=== PATIENT | female | born 1955 | race Caucasian/White ===

== ENCOUNTER 2016-11-02 19:11 | Emergency (ER) | payer OTHER ==
[~2016-11-02] VITALS: Ht 172.7 cm; Wt 115.6 kg
[~2016-11-02 19:11] MED LIST: ALBUAER2 INH; ASPI81TA28 PO; BUPRTAB51 PO; CLX20 PO; HYDR-3785 PO; IBUP600T44 PO; IMT50 PO; LEVO150T PO; TIOTCAP INH
[2016-11-02 19:14] VITALS: TEMP 36.9; Ht 172.7 cm; Wt 115.6 kg
[2016-11-02] MEDS ORDERED: XYLOCAINE 1%/SOD BICARB 20 ML VIAL INFIL ONE (19:45)
--- NOTE | 2016-11-02 20:22 | EMERGENCY ROOM VISIT NOTE ---
ED Visit Note First contact with patient: 19:19 CHIEF COMPLAINT: Cyst on scalp HISTORY OF PRESENT ILLNESS: This 61-year-old female patient presents to the emergency department ambulatory complaining of a cyst on the left side of her scalp. The patient reports that she has had a recurrent cyst which broke open tonight. She states that she has had several other cysts which had to be removed by surgeons. She states that it was draining, but it seems to have scabbed over. She reports the cyst is painful, especially when brushing or washing her hair. She denies any fevers. She rates her discomfort a 10/10. REVIEW OF SYSTEMS: A review of systems was performed with positives and pertinent negatives listed in the history of present illness. All other systems were reviewed and are negative. ALLERGIES: Amoxicillin, doxycycline, naproxen, penicillins MEDICATIONS: See med list PMH: COPD, hyperlipidemia, hypertension SOCIAL HISTORY: The patient lives locally with family. PHYSICAL EXAM: Vital Signs: Reviewed Nurse's notes, vital signs stable. GENERAL : This is a 61-year-old female, no acute distress, non toxic in appearance, well -developed well-nourished. SKIN: There is a sebaceous cyst to the left occipital region of the scalp. There is no active draining. There is mild surrounding erythema. EMERGENCY DEPARTMENT COURSE: I examined the patient. Verbal consent was obtained to perform the procedure. After saline and Betadine cleansing and 3 mL of 1% buffered lidocaine anesthesia, pressure was applied and a large amount of white thick material was expressed from the cyst. The pocket was not able to be fully removed. The patient was informed that she will need to follow-up with a surgeon for removal of the cyst pocket so it does not recur. She does have an upcoming appointment with her primary care provider next week. She verbalized understanding of my assessment and treatment plan and was discharged home in good condition. DIAGNOSIS: Sebaceous cyst of scalp Problem List Medical Problems: (1) COPD (chronic obstructive pulmonary disease) Status: Chronic (2) Hyperlipemia Status: Chronic (3) Hypothyroidism Status: Chronic Current/Historical Medications Scheduled Aspirin (Aspirin Ec), 81 MG PO DAILY Bupropion (Wellbutrin-Xl), 150 MG PO DAILY Citalopram (Citalopram Hydrobromide), 20 MG PO DAILY Furosemide (Lasix), 20 MG PO BID Hydroxyzine Hcl (Atarax), 25 MG PO DIRECTED Levothyroxine Sodium (Synthroid), 150 MCG PO DAILY Mometasone Furoate-Formoterol (Dulera 200/5 Mcg), 2 AER INH BID Potassium Chloride (Micro-K Ext Rel), 10 MEQ PO DAILY Quetiapine Fumarate (Seroquel), 200 MG PO HS Tiotropium [place] (Spiriva Handihaler), 1 CAPSULE INH DAILY Zolpidem Tartrate (Ambien), 10 MG PO HS Scheduled PRN Albuterol (Ventolin), 2 PUFFS INH Q4H PRN for Shortness of Breath Albuterol Sulf (Ventolin), 1 VIAL NEB Q4-6 HR PRN for Wheezing Fctorzltye-Nopiyqxnzlzbi-Misjg (Fioricet), 2 TABLETS PO UD PRN for Migraine Ibuprofen (Motrin), 600 MG PO DIRECTED PRN for Pain or Fever Lorazepam (Ativan), 0.5 MG PO HS PRN for Anxiety Sumatriptan Succinate (Sumatriptan Succinate), 1 TAB PO DIRECTED PRN for Migraine Allergies Coded Allergies: Amoxicillin (Verified Allergy, Mild, HIVES, 08/06/16) Doxycycline (Verified Allergy, Unknown, ., 08/06/16) Naproxen (Verified Allergy, Unknown, ., 08/06/16) Penicillins (Verified Allergy, Unknown, 08/06/16) Vital Signs Date Time Temp Pulse Resp B/P Pulse Ox O2 Delivery O2 Flow Rate FiO2 11/02/16 20:41 78 16 129/80 96 11/02/16 19:14 36.9 86 24 172/79 93 Nasal Cannula Departure Information Impression Primary Impression: Sebaceous cyst Dispostion Home / Self-Care Condition GOOD Referrals Endy Vale M.D. (PCP) Patient Instructions My [facility] Additional Instructions For pain control, you can use the following ykns-fap-emulxfz medicines (if >12 yo): - Regular strength (325mg/tab) Tylenol (acetaminophen) 2 tabs every 4-6 hours as needed. Do not exceed 12 tablets in a 24 hour period. Avoid taking more than 4 grams (4000 mg) of Tylenol per day. This includes any other sources of acetaminophen you may take on a regular basis. - Regular strength (200 mg/tab) Advil (ibuprofen) 1-2 tabs every 4-6 hours as needed. Do not exceed a dose of 3200 mg per day. Follow-up with your primary care provider on Saturday as scheduled. You should be referred to a surgeon for removal of the cyst pocket.
[2016-11-02 20:41] VITALS: BP 129/80; PULSE 78; O2SAT 96
[2017-06-21] MEDS ORDERED: FURO-85 PO (01:26)
[2017-06-21] MEDS ORDERED: LORA-741 PO (01:28)
[2017-06-21] MEDS ORDERED: ZOLP10TA PO (09:53)
[2017-06-21] MEDS ORDERED: BUTA1CAP17 PO (09:53)
[2017-06-21] MEDS ORDERED: MOME200A INH (09:53)
[2017-06-21] MEDS ORDERED: ALBU2SYP9 NEB (15:34)
[2017-07-08] MEDS ORDERED: PROM25TA9 PO (13:39)
[2017-07-08] MEDS ORDERED: [UNRECOGNIZED DRUG - REMARK] TOP (13:43)
[2017-07-08] MEDS ORDERED: MOME200A INH (13:43)
[2017-07-08] MEDS ORDERED: MELO7.5T5 PO (13:43)
== END 2016-11-02 20:35 | disposition home or self-care (01) ==
LOC: C.EDB 19:13 → C.EDD 20:35
DX: L72.3 Sebaceous cyst (principal); J44.9 Chronic obstructive pulmonary disease, unspecified; E78.5 Hyperlipidemia, unspecified; E03.9 Hypothyroidism, unspecified

== ENCOUNTER → 2017-01-02 | Outpatient (CLI) | payer OTHER ==
[~2017-01-02] MED LIST changes: +ACET-24 PO; +ALBU2SYP9 NEB; +ASPEC81 PO; +ATR25 PO; +BUTA1CAP17 PO; +CLB200 PO; +DICL50TA3 PO; +EFF75 PO; +ESCI1TAB10 PO; +FURO-85 PO; +HYDR-3124 PO; +LEVO-519 PO; +LEVO137T3 PO; +LORA-741 PO; +MCTP EXT; +MELO15TA4 PO; +MELO7.5T5 PO; +MOME100A INH; +MOME200A INH; +OXGN; +OXYC-57 PO; +POTA10CA28 PO; +PROM25TA9 PO; +QUET1TAB10 PO; +RXC5 PO; +SENN1TAB80 PO; +SPRIN/30 INH; +SUCR1TAB PO; +TRAM-10 PO; +TRAM-453 PO; +VNTHFA/IN INH; +ZOLP10TA PO; +[UNRECOGNIZED DRUG - REMARK] TOP
[2017-01-02 18:12] LABS: ALT/SGPT 13 U/L (12-78); AST/SGOT 11 U/L (15-37); BLOOD UREA NITROGEN 19 mg/dl (7-18); CALCIUM 8.4 mg/dl (8.5-10.1); CARBON DIOXIDE 30 mmol/L (21-32); CHLORIDE 107 mmol/L (98-107); CREATININE 0.69 mg/dl (0.60-1.20); GLUCOSE 84 mg/dl (70-99); POTASSIUM 4.3 mmol/L (3.5-5.1); SODIUM 143 mmol/L (136-145)
[2017-01-02 18:24] LABS: ALB/GLOB RATIO 0.8 (0.9-2); ALKALINE PHOSPHATASE 151 U/L (45-117); CHOLESTEROL 190 mg/dl (0-200); CHOLESTEROL/HDL RATIO 5.3; HDL CHOLESTEROL 36 mg/dl; LDL CHOLESTEROL CALCULATED 100 mg/dl; THYROID STIMULATING HORMONE 0.013 uIu/ml (0.300-4.500); TRIGLYCERIDES 270 mg/dl (0-150); VERY LOW DENSITY LIPOPROT CALC 54 mg/dl
== END | disposition home or self-care (01) ==
LOC: C.LABBFT 15:37
PROVIDERS: ATTEND Nurse Practitioner
DX: E78.5 Hyperlipidemia, unspecified (principal); E03.9 Hypothyroidism, unspecified; R19.00 Intra-abdominal and pelvic swelling, mass and lump, unspecified site

== ENCOUNTER 2017-01-23 22:50 | Emergency (ER) | payer OTHER ==
[~2017-01-23] VITALS: Ht 167.6 cm; Wt 113.9 kg
[~2017-01-23 22:50] MED LIST changes: -ACET-24 PO; -ALBU2SYP9 NEB; -ASPEC81 PO; -ATR25 PO; -BUTA1CAP17 PO; -CLB200 PO; -DICL50TA3 PO; -EFF75 PO; -ESCI1TAB10 PO; -FURO-85 PO; -HYDR-3124 PO; -LEVO-519 PO; -LEVO137T3 PO; -LORA-741 PO; -MCTP EXT; -MELO15TA4 PO; -MELO7.5T5 PO; -MOME100A INH; -MOME200A INH; -OXGN; -OXYC-57 PO; -POTA10CA28 PO; -PROM25TA9 PO; -QUET1TAB10 PO; -RXC5 PO; -SENN1TAB80 PO; -SPRIN/30 INH; -SUCR1TAB PO; -TRAM-10 PO; -TRAM-453 PO; -VNTHFA/IN INH; -ZOLP10TA PO; -[UNRECOGNIZED DRUG - REMARK] TOP
[2017-01-23 22:54] VITALS: O2SAT 97; Ht 167.6 cm; Wt 113.9 kg
[2017-01-23] MEDS ORDERED: NITROGLYCERIN OINT 2% 1GM PACKET EXT ONE (23:30)
[2017-01-23] MEDS ORDERED: OXGN (23:34)
[2017-01-23] MEDS ORDERED: EFF75 PO (23:34)
[2017-01-23 23:38] LABS: BASO % 0.1 %; BASO ABS # 0.01 K/uL (0-0.2); COMPLETE YES; EOS % 3.1 %; HEMATOCRIT 37.5 % (37-47); IG% 0.1 %; LYMPH % 21.6 %; LYMPH ABS # 1.52 K/uL (1.2-3.4); MEAN CELL VOLUME 84.1 fL (80-100); MEAN CORPUSCULAR HEMOGLOBIN 26.9 pg (25-34); MEAN PLATELET VOLUME 11.2 fL (7.4-10.4); MONO % 8.5 %; NEUT % 66.6 %; PLATELET COUNT 153 K/uL (130-400); RED BLOOD COUNT 4.46 M/uL (4.2-5.4); WHITE BLOOD COUNT 7.04 K/uL (4.8-10.8)
[2017-01-23 23:47] LABS: ALT/SGPT 17 U/L (12-78); AST/SGOT 12 U/L (15-37); BLOOD UREA NITROGEN 18 mg/dl (7-18); BUN/CREATININE RATIO 25.5 (10-20); CALCIUM 8.5 mg/dl (8.5-10.1); CARBON DIOXIDE 32 mmol/L (21-32); CHLORIDE 107 mmol/L (98-107); CREATININE 0.71 mg/dl (0.60-1.20); GLUCOSE 100 mg/dl (70-99); MAGNESIUM 2.3 mg/dl (1.8-2.4); POTASSIUM 3.7 mmol/L (3.5-5.1); PROTHROMBIN TIME (PATIENT) 10.7 SECONDS (9.0-12.0); SODIUM 144 mmol/L (136-145)
--- NOTE | 2017-01-23 23:47 | EMERGENCY ROOM VISIT NOTE ---
History Report prepared by Noa: Celina Maurice Under the Supervision of: Dr. Elsie Bass M.D. First contact with patient: 23:12 Chief Complaint: CHEST PAIN Stated Complaint: CHEST PAIN Nursing Triage Summary: Elvia reports sudden onset of substernal chest pain 8/10 that started at 1500 and got progressively worse throughout day. Patient has chronic SOB and COPD, but does report some associated SOB with this. negative nausea/vomiting , diaphoresis. 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 Patient on home oxygten 3 lpm via NC all time. History of Present Illness The patient is a 61 year old female who presents to the Emergency Room via EMS with complaints of substernal chest pain starting about 8 hours ago. She describes the pain to be sharp. She reports pain radiation to her left arm. She was sitting down and watching TV when she had an onset of her pain. She currently continues to complain of her pain. She currently rates a pain intensity of 6/10. She had some pain relief with nitro. She denies any worsening pain with palpation. She denies any history of similar pain. The patient denies nausea, vomiting, or any other complaints. She has a history of COPD. She denies any history of heart disease or cardiac catheterization. Source of History: patient Onset: about 8 hours ago Position: chest (substernal) Symptom Intensity: 6/10 Quality: sharp Modifying Factors (Relieving): other (some pain relief with nitro) Associated Symptoms: No nausea, No vomiting Review of Systems See HPI for pertinent positives & negatives. A total of 10 systems reviewed and were otherwise negative. Past Medical & Surgical Medical Problems: (1) COPD (chronic obstructive pulmonary disease) (2) Hyperlipemia (3) Hypothyroidism Family History FH: cancer Heart disease Social History Smoking Status: Current Every Day Smoker Alcohol Use: none Drug Use: none Marital Status: Housing Status: lives alone Occupation Status: unemployed Current/Historical Medications Scheduled Aspirin (Aspirin Ec), 81 MG PO DAILY Bupropion (Wellbutrin-Xl), 300 MG PO DAILY Citalopram (Citalopram Hydrobromide), 20 MG PO DAILY Furosemide (Lasix), 20 MG PO BID Levothyroxine Sodium (Synthroid), 150 MCG PO DAILY Mometasone Furoate-Formoterol (Dulera 200/5 Mcg), 2 AER INH BID Potassium Chloride (Micro-K Ext Rel), 10 MEQ PO DAILY Quetiapine Fumarate (Seroquel), 200 MG PO HS Tiotropium [place] (Spiriva Handihaler), 18 MCG INH DAILY Venlafaxine Hcl (Effexor), 75 MG PO DAILY Zolpidem Tartrate (Ambien), 10 MG PO HS Scheduled PRN Albuterol Hfa (Ventolin Hfa), 2 PUFFS INH Q4 PRN for SOB/Wheezing Albuterol Sulf (Ventolin), 1 VIAL NEB Q4-6 HR PRN for Wheezing Bydajhhmzb-Basalfrzhgqcr-Tebty (Fioricet), 1-2 TABLETS PO Q8 PRN for Migraine Lorazepam (Ativan), 0.5 MG PO HS PRN for Anxiety Oxygen (Oxygen), 2 LITERS NA UD PRN for EXERTION Tramadol Hcl (Ultram), 50 MG PO Q6 PRN for Pain Allergies Coded Allergies: Amoxicillin (Verified Allergy, Mild, HIVES, 01/23/17) Doxycycline (Verified Allergy, Unknown, ., 01/23/17) Naproxen (Verified Allergy, Unknown, ., 01/23/17) Penicillins (Verified Allergy, Unknown, 01/23/17) Physical Exam Vital Signs Date Time Temp Pulse Resp B/P Pulse Ox O2 Delivery O2 Flow Rate FiO2 01/24/17 02:18 36.6 78 18 113/68 96 01/24/17 02:17 78 18 113/68 96 Nasal Cannula 3.0 01/24/17 01:30 77 18 123/61 99 Nasal Cannula 3.0 01/24/17 01:28 170/60 99 Nasal Cannula 3.0 01/23/17 23:35 76 17 99 Nasal Cannula 3.0 01/23/17 23:30 78 24 95/56 98 01/23/17 23:25 89 18 86 Nasal Cannula 3.0 01/23/17 23:22 82 01/23/17 23:20 86 12 92 01/23/17 23:15 81 23 99 Nasal Cannula 3.0 01/23/17 23:03 111/57 01/23/17 22:54 95 Nasal Cannula 3.0 01/23/17 22:54 36.6 92 26 130/76 93 Nasal Cannula 3.0 01/23/17 22:54 97 Nasal Cannula 3.0 Physical Exam Vital signs reviewed. General: Disheveled, chronically ill appearing, on nasal canula oxygen. HEENT: No scleral icterus, PERRLA, neck supple. Atraumatic. Cardiovascular: Regular rate and rhythm, no extra sounds. Pulmonary: Diminished breath sounds bilaterally, normal work of breathing. Abdomen: Soft, nontender, nondistended, positive bowel sounds. Musculoskeletal: Atraumatic, no peripheral edema. Neurologic: Patient awake alert and oriented x 3, full strength in all 4 extremities. Cranial nerves 2 through 12 grossly intact. Skin: Warm, dry, no rash Medical Decision & Procedures ER Provider Diagnostic Interpretation: X-ray results as stated below per interpretation by me: CHEST X-RAY Chronic emphysematous changes, no focal lung consolidation, no lung failure. Laboratory Results 01/23/17 22:30 Red Blood Count 4.46, Mean Corpuscular Volume 84.1, Mean Corpuscular Hemoglobin 26.9, Mean Corpuscular Hemoglobin Concent 32.0, Mean Platelet Volume 11.2, Neutrophils (%) (Auto) 66.6, Lymphocytes (%) (Auto) 21.6, Monocytes (%) (Auto) 8.5, Eosinophils (%) (Auto) 3.1, Basophils (%) (Auto) 0.1, Neutrophils # (Auto) 4.68, Lymphocytes # (Auto) 1.52, Monocytes # (Auto) 0.60, Eosinophils # (Auto) 0.22, Basophils # (Auto) 0.01 01/23/17 22:30 Test 01/23/17 22:30 01/23/17 23:50 01/24/17 00:22 White Blood Count 7.04 K/uL (4.8-10.8) Red Blood Count 4.46 M/uL (4.2-5.4) Hemoglobin 12.0 g/dL (12.0-16.0) Hematocrit 37.5 % (37-47) Mean Corpuscular Volume 84.1 fL (80-100) Mean Corpuscular Hemoglobin 26.9 pg (25-34) Mean Corpuscular Hemoglobin Concent 32.0 g/dl (32-36) Platelet Count 153 K/uL (130-400) Mean Platelet Volume 11.2 fL (7.4-10.4) Neutrophils (%) (Auto) 66.6 % Lymphocytes (%) (Auto) 21.6 % Monocytes (%) (Auto) 8.5 % Eosinophils (%) (Auto) 3.1 % Basophils (%) (Auto) 0.1 % Neutrophils # (Auto) 4.68 K/uL (1.4-6.5) Lymphocytes # (Auto) 1.52 K/uL (1.2-3.4) Monocytes # (Auto) 0.60 K/uL (0.11-0.59) Eosinophils # (Auto) 0.22 K/uL (0-0.5) Basophils # (Auto) 0.01 K/uL (0-0.2) RDW Standard Deviation 42.0 fL (36.4-46.3) RDW Coefficient of Variation 13.7 % (11.5-14.5) Immature Granulocyte % (Auto) 0.1 % Immature Granulocyte # (Auto) 0.01 K/uL (0.00-0.02) Prothrombin Time 10.7 SECONDS (9.0-12.0) Prothromb Time International Ratio 1.0 (0.9-1.1) Activated Partial Thromboplast Time 26.6 SECONDS (21.0-31.0) Partial Thromboplastin Ratio 1.0 Anion Gap 5.0 mmol/L (3-11) Est Creatinine Clear Calc Drug Dose 107.9 ml/min Estimated GFR () 107.3 Estimated GFR (Non- 92.6 BUN/Creatinine Ratio 25.5 (10-20) Calcium Level 8.5 mg/dl (8.5-10.1) Magnesium Level 2.3 mg/dl (1.8-2.4) Total Bilirubin 0.2 mg/dl (0.2-1) Direct Bilirubin < 0.1 mg/dl (0-0.2) Aspartate Amino Transf (AST/SGOT) 12 U/L (15-37) Alanine Aminotransferase (ALT/SGPT) 17 U/L (12-78) Alkaline Phosphatase 146 U/L (45-117) Total Creatine Kinase 32 U/L (26-192) Creatine Kinase MB 0.7 ng/ml (0.5-3.6) Creatine Kinase MB Ratio 2.2 (0-3.0) Troponin I < 0.015 ng/ml (0-0.045) Total Protein 6.9 gm/dl (6.4-8.2) Albumin 3.3 gm/dl (3.4-5.0) Urine Color DK YELLOW Urine Appearance CLOUDY (CLEAR) Urine pH 5.5 (4.5-7.5) Urine Specific [place] 1.025 (1.000-1.030) Urine Protein NEG (NEG) Urine Glucose (UA) NEG (NEG) Urine Ketones NEG (NEG) Urine Occult Blood NEG (NEG) Urine Nitrite NEG (NEG) Urine Bilirubin NEG (NEG) Urine Urobilinogen NEG (NEG) Urine Leukocyte Esterase SMALL (NEG) Urine WBC (Auto) >30 /hpf (0-5) Urine RBC (Auto) 0-4 /hpf (0-4) Urine Hyaline Casts (Auto) 1-5 /lpf (0-5) Urine Epithelial Cells (Auto) >30 /lpf (0-5) Urine Bacteria (Auto) 1+ (NEG) Urine Yeast (Auto) (NONE PRSENT) Bedside Troponin I 0.000 ng/ml (0-0.045) Laboratory results per my review. Medications Administered Medications (Trade) Dose Ordered Sig/[place] Route Start Time Stop Time Status Last Admin Dose Admin Nitroglycerin (Nitroglycerin 2% Oint) 1 inch NOW ONCE EXT 01/23/17 23:30 01/23/17 23:31 DC 01/24/17 00:13 1 INCH ECG Indication: chest pain Rate (beats per minute): 83 Rhythm: sinus rhythm Findings: 1st degree AV block, no acute ischemic change, other (previous inferior and anterior infarct) ED Course 2312: Past medical records reviewed. The patient was evaluated in room B09. A complete history and physical examination was performed. 2330: Nitroglycerin 1 inch EXT 0210: Upon reevaluation, the patient appeared to have improvement of her symptoms. I discussed findings with her. She verbalized agreement of the treatment plan. She was discharged home. Medical Decision Chest pain: Acute coronary syndrome, pulmonary embolus, aortic dissection, musculoskeletal pain, pneumonia, pleural effusion, pneumothorax This patient was evaluated and appeared to be in no significant distress. IV access was obtained and laboratory work was drawn. Patient was placed on cardiac cath rn and found to be in a first-degree AV block at 83 bpm. There is no evidence of acute ischemia, although old injury is identified. Chest x-ray is clear to my interpretation. Patient will require close follow-up. Patient will be discharged to follow-up with her primary care physician this week and return to the ER for worsening of symptoms or any medical concerns. Impression Primary Impression: Substernal precordial chest pain Scribe Attestation The scribe's documentation has been prepared under my direction and personally reviewed by me in its entirety. I confirm that the note above accurately reflects all work, treatment, procedures, and medical decision making performed by me. Departure Information Dispostion Home / Self-Care Referrals Endy Vale M.D. (PCP) Forms HOME CARE DOCUMENTATION FORM, IMPORTANT VISIT INFORMATION Patient Instructions My [facility] Additional Instructions Diagnosis: Substernal chest pain Continue your medications as prescribed. Follow-up with your physician this week for reevaluation and consideration of further cardiac testing. Return to the ER for worsening of symptoms or any medical concerns.
[2017-01-23 23:52] LABS: ALKALINE PHOSPHATASE 146 U/L (45-117); CKMB/CK RATIO 2.2 (0-3.0)
[2017-01-24 00:20] LABS: URINE APPEARANCE CLOUDY (CLEAR); URINE BILIRUBIN NEG (NEG); URINE COLOR DK YELLOW; URINE EPITHELIAL CELL AUTO >30 /lpf (0-5); URINE NITRITE NEG (NEG); URINE PH 5.5 (4.5-7.5); URINE SPECIFIC GRAVITY 1.025 (1.000-1.030); UROBILINOGEN NEG (NEG); ZZUR CULT IF INDIC CLEAN CATCH YES
[2017-01-24 00:27] LABS: MANUAL MICROSCOPIC REQUIRED? NO; REVIEW REQ? YES
[2017-01-24 02:18] VITALS: BP 113/68; PULSE 78; TEMP 36.6; O2SAT 96
--- NOTE | 2017-01-24 08:17 | DIAGNOSTIC IMAGING REPORT ---
SINGLE VIEW CHEST CLINICAL HISTORY: Atypical chest pain. FINDINGS: An AP, portable, upright chest radiograph is compared to study dated 02/22/2016 and correlated with chest CT dated 02/23/2016. The examination is degraded by portable technique, large body habitus, and patient rotation. The cardiomediastinal silhouette is unremarkable. There is atherosclerotic calcification of the thoracic aorta. Emphysema and chronic interstitial thickening are similar to previous. There is chronic elevation of the right hemidiaphragm. Bibasilar airspace consolidation is observed. The upper lobes appear clear. No large pleural effusion or pneumothorax is seen. The skeletal structures are osteopenic. Degenerative change and scoliosis are noted in the thoracic spine. IMPRESSION: 1. Advanced emphysema. 2. There is patchy airspace consolidation at both lung bases, likely representing an infectious/inflammatory pneumonitis. Clinical correlation will be required and radiographic follow-up to resolution is recommended. Electronically signed by: Sukhwinder Pedro M.D. 01/24/2017 8:15 AM Dictated Date/Time: 01/24/2017 8:13 AM
[2017-06-21] MEDS ORDERED: FURO-85 PO (01:26)
[2017-06-21] MEDS ORDERED: LORA-741 PO (01:28)
[2017-06-21] MEDS ORDERED: ZOLP10TA PO (09:53)
[2017-06-21] MEDS ORDERED: MOME200A INH (09:53)
[2017-06-21] MEDS ORDERED: BUTA1CAP17 PO (09:53)
[2017-06-21] MEDS ORDERED: ALBU2SYP9 NEB (15:34)
[2017-07-08] MEDS ORDERED: PROM25TA9 PO (13:39)
[2017-07-08] MEDS ORDERED: [UNRECOGNIZED DRUG - REMARK] TOP (13:43)
[2017-07-08] MEDS ORDERED: MELO7.5T5 PO (13:43)
[2017-07-08] MEDS ORDERED: MOME200A INH (13:43)
[2017-07-22] MEDS ORDERED: OXYC-57 PO (12:47)
[2017-09-09] MEDS ORDERED: OXGN (14:50)
== END 2017-01-24 02:19 | disposition home or self-care (01) ==
LOC: EDBD 22:50 → C.EDB 22:51
DX: R07.2 Precordial pain (principal); J44.9 Chronic obstructive pulmonary disease, unspecified; E78.5 Hyperlipidemia, unspecified; E03.9 Hypothyroidism, unspecified; F17.200 Nicotine dependence, unspecified, uncomplicated; Z79.82 Long term (current) use of aspirin; I44.0 Atrioventricular block, first degree

== ENCOUNTER 2017-05-04 23:35 | Emergency (ER) | payer OTHER ==
[~2017-05-04] VITALS: Ht 167.6 cm; Wt 91.0 kg
[~2017-05-04 23:35] MED LIST changes: -ALBUAER2 INH; -BUPRTAB51 PO; +EFF75 PO; -HYDR-3785 PO; -IBUP600T44 PO; -IMT50 PO; +OXGN; -TIOTCAP INH
[2017-05-04 23:36] VITALS: TEMP 36.8; Ht 167.6 cm; Wt 91.0 kg
--- NOTE | 2017-05-05 00:01 | EMERGENCY ROOM VISIT NOTE ---
History Report prepared by Noa: Jose King Under the Supervision of: Dr. Gilberto Tao M.D. First contact with patient: 23:53 Chief Complaint: LEG PAIN,LEG INJURY Stated Complaint: STOMACH AND RIGHT LEG KEEPS GOING OUT History of Present Illness The patient is a 62 year old female with a history of right knee surgery who presents to the Emergency Room with complaints of persistent right leg pain that started a few days ago. The patient says that her right leg "keeps going out" and she did fall a week ago. Per the patient's family member, the patient was getting up from the toilet prior to arrival tonight and went to turn, and her leg gave out on her. The patient states that her right leg has been hurting from her knee to her hip. She adds that her stomach has been upset off and on for a while. She states that she gets heartburn at night, but is not on medication for it. The patient's family member says that every time the patient eats, the patient almost chokes. The patient has been seen for this, but the doctors have not figured out what the cause of this is. The patient denies any new ankle swelling, as her ankles are chronically swollen. She wears oxygen 24 hours a day. 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 Source of History: patient, family Onset: A few days ago Position: leg (right) Timing: other (persistent) Associated Symptoms: + abdominal pain Note: Associated symptoms: Denies any new ankle swelling. Review of Systems See HPI for pertinent positives & negatives. A total of 10 systems reviewed and were otherwise negative. Past Medical & Surgical Medical Problems: (1) COPD (chronic obstructive pulmonary disease) (2) Hyperlipemia (3) Hypothyroidism Family History FH: cancer Heart disease Social History Smoking Status: Never Smoker Alcohol Use: none Drug Use: none Marital Status: Housing Status: lives alone Occupation Status: unemployed Current/Historical Medications Scheduled Aspirin (Aspirin Ec), 81 MG PO DAILY Bupropion (Wellbutrin-Xl), 300 MG PO DAILY Citalopram (Citalopram Hydrobromide), 20 MG PO DAILY Furosemide (Lasix), 20 MG PO BID Levothyroxine Sodium (Synthroid), 150 MCG PO DAILY Mometasone Furoate-Formoterol (Dulera 200/5 Mcg), 2 AER INH BID Potassium Chloride (Micro-K Ext Rel), 10 MEQ PO DAILY Quetiapine Fumarate (Seroquel), 200 MG PO HS Tiotropium [place] (Spiriva Handihaler), 18 MCG INH DAILY Venlafaxine Hcl (Effexor), 75 MG PO DAILY Zolpidem Tartrate (Ambien), 10 MG PO HS Scheduled PRN Albuterol Hfa (Ventolin Hfa), 2 PUFFS INH Q4 PRN for SOB/Wheezing Albuterol Sulf (Ventolin), 1 VIAL NEB Q4-6 HR PRN for Wheezing Ajsxaojjrg-Wlzjtipdhwnwj-Cxutk (Fioricet), 1-2 TABLETS PO Q8 PRN for Migraine Home O2 Therapy (Oxygen), 2 LITERS NA UD PRN for EXERTION Lorazepam (Ativan), 0.5 MG PO HS PRN for Anxiety Tramadol Hcl (Ultram), 50 MG PO Q6 PRN for Pain Allergies Coded Allergies: Amoxicillin (Verified Allergy, Mild, HIVES, 01/23/17) Doxycycline (Verified Allergy, Unknown, ., 01/23/17) Naproxen (Verified Allergy, Unknown, ., 01/23/17) Penicillins (Verified Allergy, Unknown, 01/23/17) Physical Exam Vital Signs Date Time Temp Pulse Resp B/P (MAP) Pulse Ox O2 Delivery O2 Flow Rate FiO2 05/05/17 02:25 80 20 124/71 96 05/05/17 01:27 81 20 123/75 100 Room Air 05/04/17 23:36 36.8 92 20 133/79 97 Nasal Cannula 3.0 Physical Exam GENERAL: Patient is well appearing and in minimal acute distress. HEENT: No acute trauma, normocephalic atraumatic, mucous membranes moist, no nasal congestion, no scleral icterus. NECK: No stridor, no adenopathy, no meningismus, trachea is midline. LUNGS: No dyspnea. Clear to auscultation and equal bilaterally. No wheeze, no rhonchi. HEART: Regular rate and rhythm. No murmurs, rubs, gallops appreciated. ABDOMEN: Vague epigastric tenderness to palpation. Soft, bowel sounds positive, no masses appreciated, no peritonitis. BACK: No midline tenderness, no CVA tenderness EXTREMITIES: Tenderness to palpation of entire lateral right thigh. No cyanosis , no edema. NEUROLOGIC: Alert and oriented, no acute motor or sensory deficits, no focal weakness, cranial nerves grossly intact. SKIN: No rash, no jaundice, no diaphoresis. Medical Decision & Procedures ER Provider Diagnostic Interpretation: US RUQ: Ultrasound examination was technically compromised because the patient was unable to take deep breaths, body habitus and bowel gas. Contracted gallbladder with a few small shadowing gallstones. No gallbladder wall thickening or sonographic Stark sign. No intrahepatic or extrahepatic biliary ductal dilatation. CBD is 6 mm. Unremarkable right kidney. No hydronephrosis. Normal hepatic size. Mild fatty change to the liver. Radiologist: Davy Zabala M.D. Study ready at 00.56 and initial results transmitted at 01:29 X-ray: 1 view pelvis: artificial changes bilateral hips, questionable irregularity of femoral head, no dislocation. 4 view right femur: soft tissue swelling with effusion along distal right lateral femur, no fracture, no dislocation, knee replacement hardware intact. CT Pelvis: Comparison: Pelvic ultrasound 08/21/16 There is mild generalized osteopenia. There is no evidence of acute fracture or subluxation. Sacroiliac joints, hip joints, and pubic symphysis are congruent. There is moderate right hip and mild left hip osteoarthritis. There are mild degenerative changes involving the pubic symphysis. No joint effusions or periarticular bursal fluid collections are demonstrated. Moderate to severe disc and facet degeneration is present at L4-L5 and L5-S1. There are bilateral fat-containing inguinal hernias. There is a cystic left adnexal mass measuring 6.6 x 4.1 x 6.9 cm, increased in size from 5.0 x 4.3 cm on prior ultrasound. Given increase in size, consider further imaging evaluation with MRI on a nonemergent bases. Radiologist: Davy Zabala M.D. Study ready at 02:15 and initial results transmitted at 02:40 Laboratory Results 05/05/17 00:25 Red Blood Count 4.70, Mean Corpuscular Volume 85.5, Mean Corpuscular Hemoglobin 26.2, Mean Corpuscular Hemoglobin Concent 30.6, Mean Platelet Volume 10.9, Neutrophils (%) (Auto) 67.7, Lymphocytes (%) (Auto) 18.4, Monocytes (%) (Auto) 10.8, Eosinophils (%) (Auto) 2.9, Basophils (%) (Auto) 0.1, Neutrophils # (Auto ) 4.64, Lymphocytes # (Auto) 1.26, Monocytes # (Auto) 0.74, Eosinophils # (Auto ) 0.20, Basophils # (Auto) 0.01 05/05/17 00:25 Test 05/05/17 00:25 White Blood Count 6.86 K/uL (4.8-10.8) Red Blood Count 4.70 M/uL (4.2-5.4) Hemoglobin 12.3 g/dL (12.0-16.0) Hematocrit 40.2 % (37-47) Mean Corpuscular Volume 85.5 fL (80-100) Mean Corpuscular Hemoglobin 26.2 pg (25-34) Mean Corpuscular Hemoglobin Concent 30.6 g/dl (32-36) Platelet Count 149 K/uL (130-400) Mean Platelet Volume 10.9 fL (7.4-10.4) Neutrophils (%) (Auto) 67.7 % Lymphocytes (%) (Auto) 18.4 % Monocytes (%) (Auto) 10.8 % Eosinophils (%) (Auto) 2.9 % Basophils (%) (Auto) 0.1 % Neutrophils # (Auto) 4.64 K/uL (1.4-6.5) Lymphocytes # (Auto) 1.26 K/uL (1.2-3.4) Monocytes # (Auto) 0.74 K/uL (0.11-0.59) Eosinophils # (Auto) 0.20 K/uL (0-0.5) Basophils # (Auto) 0.01 K/uL (0-0.2) RDW Standard Deviation 42.3 fL (36.4-46.3) RDW Coefficient of Variation 13.5 % (11.5-14.5) Immature Granulocyte % (Auto) 0.1 % Immature Granulocyte # (Auto) 0.01 K/uL (0.00-0.02) Anion Gap 0.0 mmol/L (3-11) Est Creatinine Clear Calc Drug Dose 86.0 ml/min Estimated GFR () 95.1 Estimated GFR (Non- 82.1 BUN/Creatinine Ratio 23.9 (10-20) Calcium Level 8.6 mg/dl (8.5-10.1) Total Bilirubin 0.2 mg/dl (0.2-1) Direct Bilirubin < 0.1 mg/dl (0-0.2) Aspartate Amino Transf (AST/SGOT) 13 U/L (15-37) Alanine Aminotransferase (ALT/SGPT) 15 U/L (12-78) Alkaline Phosphatase 141 U/L (45-117) Total Protein 7.2 gm/dl (6.4-8.2) Albumin 3.5 gm/dl (3.4-5.0) Lipase 230 U/L (73-393) Laboratory results as reviewed by me. Medications Administered Medications (Trade) Dose Ordered Sig/[place] Route Start Time Stop Time Status Last Admin Dose Admin Tramadol HCl (Ultram Tab) 50 mg NOW STAT PO 05/05/17 01:31 05/05/17 01:33 DC 05/05/17 01:39 50 MG ED Course 2354: The patient was evaluated in room B12B. A complete history and physical exam was performed. 0131: Ordered Ultram Tab 50 mg PO. 0219: Reevaluated the patient. Discussed results and discharge instructions: She verbalized understanding and agreement. The patient is ready for discharge. Medical Decision Differential: Fracture, Dislocation, Cellulitis, Septic Joint, Ligamentous Injury, Effusion, DVT, amongst other pathologies entertained. 62 yr old female arrives for evaluation of right lateral thigh pain s/p fall. Questionable effusion along right distal femur on xray. Complaining right hip pain as well and with questionable irregularity right pelvis xray discussed pros /cons and patient wishes to have CT pelvis done. NO fracture noted. Mass left adnexal area moderate increase in size which I did not discuss with patient initially. I asked charge nurse to have patient contacted during day to give patient update on CT findings and need to follow up with pcp/training development manager to discuss this findings and non-emergent further testing. Nausea. Sounds like patient has esophageal stricture though GB disfunction, ulcer, cancer, dysmotility could be cause as well. Advised taking OTC daily anti-acid or discuss other med with PCP. Advised discussing this with PCP for further work-up, ie HIDA/Endo. RTED if worsening or other concerns. Abdomen soft, no peritonitis. Medication Reconcilliation Current Medication List: was personally reviewed by me Blood Pressure Screening Patient's blood pressure: Normal blood pressure Impression Primary Impression: Right thigh pain Additional Impression: Swallowing dysfunction Scribe Attestation The scribe's documentation has been prepared under my direction and personally reviewed by me in its entirety. I confirm that the note above accurately reflects all work, treatment, procedures, and medical decision making performed by me. Departure Information Dispostion Home / Self-Care Referrals Endy Vale M.D. (PCP) Patient Instructions My [facility] Additional Instructions It is likely that your swallowing issue is due to a problem with your esophagus. It is important you have this further evaluated by your primary care provider. There is also the chance it is due to your gallbladder not working correctly. You may need a HIDA scan for further evaluation which your PCP can order. They will likely want you seen by a Radiology Physician Assistant. In the mean time, start taking an anti-acid, such at Omeprazole daily to see if this improves symptoms. Xrays and Pelvis CT of your hip and right upper leg showed extensive degenerative changes. You should discuss further testing and possibly orthopedic evaluation with your primary provider. You should return immediately if fever, swelling, inability to use leg, loss of bowel/bladder or other concerns. You have been examined and treated today on an emergency basis only. This is not a substitute for, or an effort to provide, complete comprehensive medical care. It is impossible to recognize and treat all injuries or illnesses in a single emergency department visit. It is therefore important that you follow up closely with your Primary Physician. Call as soon as possible for an appointment so you can review all labs, imaging and other testing that you had. Return to Emergency Department, call 911 or seek immediate medical attention if you feel your symptoms are worsening. Problem Qualifiers
[2017-05-05 00:41] LABS: BASO % 0.1 %; BASO ABS # 0.01 K/uL (0-0.2); COMPLETE YES; EOS % 2.9 %; HEMATOCRIT 40.2 % (37-47); IG% 0.1 %; LYMPH % 18.4 %; LYMPH ABS # 1.26 K/uL (1.2-3.4); MEAN CELL VOLUME 85.5 fL (80-100); MEAN CORPUSCULAR HEMOGLOBIN 26.2 pg (25-34); MEAN CORPUSCULAR HGB CONC 30.6 g/dl (32-36); MEAN PLATELET VOLUME 10.9 fL (7.4-10.4); MONO % 10.8 %; NEUT % 67.7 %; PLATELET COUNT 149 K/uL (130-400); WHITE BLOOD COUNT 6.86 K/uL (4.8-10.8)
[2017-05-05 00:58] LABS: ALT/SGPT 15 U/L (12-78); AST/SGOT 13 U/L (15-37); BLOOD UREA NITROGEN 19 mg/dl (7-18); BUN/CREATININE RATIO 23.9 (10-20); CALCIUM 8.6 mg/dl (8.5-10.1); CARBON DIOXIDE 37 mmol/L (21-32); CHLORIDE 106 mmol/L (98-107); CREATININE 0.78 mg/dl (0.60-1.20); GLUCOSE 89 mg/dl (70-99); SODIUM 143 mmol/L (136-145)
[2017-05-05 01:01] LABS: ALKALINE PHOSPHATASE 141 U/L (45-117)
[2017-05-05] MEDS ORDERED: TRAMADOL HCL 50 MG TAB PO STA (01:31)
[2017-05-05 02:25] VITALS: BP 124/71; PULSE 80; O2SAT 96
--- NOTE | 2017-05-05 07:21 | DIAGNOSTIC IMAGING REPORT ---
BILIARY ULTRASOUND CLINICAL HISTORY: RUQ pain and nausea after eating COMPARISON STUDY: No previous studies for comparison. FINDINGS: The examination was limited from a technical standpoint. The patient was unable to take deep breaths and was unable to lie in a decubitus position. The pancreas is nonvisualized. There is equivocal slight increase in hepatic echogenicity. No focal hepatic masses are visualized. Evaluation the gallbladder was quite limited. The gallbladder was contracted. Several small calculi were suspected. There is no common bile duct dilatation. The common buttock measures 6 mm There is no right-sided hydronephrosis. IMPRESSION: 1. Very limited study from a technical standpoint 2. Contracted gallbladder with suspected cholelithiasis 3. Nonvisualization the pancreas 4. No ductal dilatation Electronically signed by: Giancarlo Napoles M.D. 05/05/2017 7:20 AM Dictated Date/Time: 05/05/2017 7:18 AM
--- NOTE | 2017-05-05 07:22 | DIAGNOSTIC IMAGING REPORT ---
RIGHT FEMUR 2 VIEWS ROUTINE CLINICAL HISTORY: Right thigh pain status post trauma COMPARISON: 08/06/2016 DISCUSSION: There are moderate osteoarthritic changes the right hip. There are postsurgical changes of a total right knee arthroplasty. No acute fractures are visualized. There are calcifications present within the distal quadriceps tendon. IMPRESSION: No acute fractures. Electronically signed by: Giancarlo Napoles M.D. 05/05/2017 7:21 AM Dictated Date/Time: 05/05/2017 7:20 AM
--- NOTE | 2017-05-05 07:23 | DIAGNOSTIC IMAGING REPORT ---
PELVIS 1 OR 2 VIEW ROUTINE CLINICAL HISTORY: Right hip pain status post trauma COMPARISON STUDY: 08/06/2016 FINDINGS: There are degenerative changes present within the lower lumbar spine. There are moderate osteoarthritic changes present involving each hip. No acute fractures are visualized. There is no SI joint diastases. There is no symphysis diastases. IMPRESSION: Moderate osteoarthritic change. No acute fractures. Electronically signed by: Giancarlo Napoles M.D. 05/05/2017 7:22 AM Dictated Date/Time: 05/05/2017 7:21 AM
--- NOTE | 2017-05-05 07:34 | DIAGNOSTIC IMAGING REPORT ---
CT PELVIS NO IV/ORAL CONT (CT) CT DOSE: 1333.08 mGy.cm CLINICAL HISTORY: Right pelvic pain and hip pain status post trauma TECHNIQUE: Helical images were acquired in the transverse plane. Sagittal and coronal reformatted images were acquired A dose lowering technique was utilized adhering to the principles of ALARA. COMPARISON STUDY: Conventional radiographic study dated 08/13/2016, pelvic ultrasound performed August 2016 FINDINGS: There is no evidence of SI joint diastases. No acute fractures are visualized. There is no symphysis diastases. The appendix appears normal. There is a right inguinal hernia containing fat and bowel. There is a very small fat-containing left inguinal hernia. There is a 6.5 cm cystic left adnexal lesion, likely ovarian. The uterus appears surgically absent. There are advanced osteoarthritic changes involving the right hip with marked joint space narrowing and subchondral cyst within the acetabulum. There are moderate osteoarthritic changes within the left hip. Degenerative changes are also present within the lower lumbar spine IMPRESSION: 1. No acute fractures or dislocations 2. Moderately advanced degenerative changes involving the hips right greater than left 3. Enlarging cystic left adnexal mass currently measuring 6.5 cm. This could represent an ovarian neoplasm. Gynecological consultation is recommended 4. Bilateral inguinal hernias. The right inguinal hernia contains a small knuckle of bowel. There are no current obstructive changes. Electronically signed by: Giancarlo Napoles M.D. 05/05/2017 7:33 AM Dictated Date/Time: 05/05/2017 7:26 AM
[2017-06-21] MEDS ORDERED: FURO-85 PO (01:26)
[2017-06-21] MEDS ORDERED: LORA-741 PO (01:28)
[2017-06-21] MEDS ORDERED: BUTA1CAP17 PO (09:53)
[2017-06-21] MEDS ORDERED: ZOLP10TA PO (09:53)
[2017-06-21] MEDS ORDERED: MOME200A INH (09:53)
[2017-06-21] MEDS ORDERED: ALBU2SYP9 NEB (15:34)
[2017-07-08] MEDS ORDERED: PROM25TA9 PO (13:39)
[2017-07-08] MEDS ORDERED: MOME200A INH (13:43)
[2017-07-08] MEDS ORDERED: MELO7.5T5 PO (13:43)
[2017-07-08] MEDS ORDERED: [UNRECOGNIZED DRUG - REMARK] TOP (13:43)
[2017-07-22] MEDS ORDERED: OXYC-57 PO (12:47)
== END 2017-05-05 02:27 | disposition home or self-care (01) ==
LOC: C.EDB 23:36
DX: M79.651 Pain in right thigh (principal); R13.10 Dysphagia, unspecified; W19.XXXA Unspecified fall, initial encounter; Z99.81 Dependence on supplemental oxygen; J44.9 Chronic obstructive pulmonary disease, unspecified; E78.5 Hyperlipidemia, unspecified; E03.9 Hypothyroidism, unspecified; Z80.9 Family history of malignant neoplasm, unspecified; Z79.82 Long term (current) use of aspirin; Z79.899 Other long term (current) drug therapy

== ENCOUNTER → 2017-05-15 | Outpatient (CLI) | payer OTHER ==
[~2017-05-15] MED LIST changes: +ALBU2SYP9 NEB; +ATR25 PO; +BUPRTAB51 PO; +BUTA1CAP17 PO; +DICL50TA3 PO; +ESCI1TAB10 PO; +FURO-85 PO; +HYDR-3124 PO; +LEVO-519 PO; +LEVO137T3 PO; +LORA-741 PO; +MCTP EXT; +MELO15TA4 PO; +MELO7.5T5 PO; +MOME100A INH; +MOME200A INH; +OXYC-57 PO; +POTA10CA28 PO; +PROM25TA9 PO; +QUET1TAB10 PO; +SPRIN/30 INH; +SUCR1TAB PO; +TRAM-10 PO; +TRAM-453 PO; +VNTHFA/IN INH; +ZOLP10TA PO; +[UNRECOGNIZED DRUG - REMARK] TOP
== END | disposition home or self-care (01) ==
LOC: C.LABBFT 10:41
PROVIDERS: ATTEND Obstetrics & Gynecology
DX: E03.9 Hypothyroidism, unspecified (principal); R19.00 Intra-abdominal and pelvic swelling, mass and lump, unspecified site

== ENCOUNTER → 2017-06-07 | Outpatient (CLI) | payer OTHER ==
[~2017-06-07] MED LIST changes: +SINCALIDE INJ 2.2 MCG in SODIUM CHLORIDE 0.9% 100ML 100 ML IV ONE
--- NOTE | 2017-06-07 16:38 | DIAGNOSTIC IMAGING REPORT ---
HEPATOBILIARY EF IMAGING CLINICAL HISTORY: 62 years-old Female presenting with cholelithiasis. TECHNIQUE: Dynamic imaging of the gallbladder was initiated 65 minutes after administration of 5.3 mCi of technetium 99m Choletec. Imaging was obtained every 5 minutes over a span of 40 minutes. 2.2 mcg of sincalide was injected 5 minutes prior to the start of imaging. The gallbladder ejection fraction was calculated. COMPARISON: Ultrasound from 05/05/2017. FINDINGS: The hepatobiliary scan shows normal filling of the gallbladder at the start of imaging. Expected activity within the bowel also noted. Gallbladder ejection fraction measured at 25% (normal greater than 50%). IMPRESSION: 1. No obstruction of the cystic duct, however, decreased ejection fraction of 25%. This raises concern for chronic cholecystitis in the appropriate clinical setting. Electronically signed by: Moses Frederick M.D. 06/07/2017 4:36 PM Dictated Date/Time: 06/07/2017 4:32 PM
== END | disposition home or self-care (01) ==
LOC: C.NUCL 12:40
PROVIDERS: ATTEND Physician Assistant Medical
DX: K80.20 Calculus of gallbladder without cholecystitis without obstruction (principal)

== ENCOUNTER 2017-06-21 17:29 | Inpatient (IN) | payer OTHER ==
[~2017-06-21] VITALS: Ht 170.2 cm; Wt 110.0 kg
[~2017-06-21 17:29] MED LIST changes: -ATR25 PO; -BUPRTAB51 PO; -DICL50TA3 PO; -ESCI1TAB10 PO; -HYDR-3124 PO; -LEVO-519 PO; -LEVO137T3 PO; -MCTP EXT; -MELO15TA4 PO; -MELO7.5T5 PO; -MOME100A INH; -OXYC-57 PO; -POTA10CA28 PO; -PROM25TA9 PO; -QUET1TAB10 PO; -SINCALIDE INJ 2.2 MCG in SODIUM CHLORIDE 0.9% 100ML 100 ML IV ONE; -SPRIN/30 INH; -SUCR1TAB PO; -TRAM-10 PO; -TRAM-453 PO; -VNTHFA/IN INH; -[UNRECOGNIZED DRUG - REMARK] TOP
[2017-06-21] MEDS ORDERED: SODIUM CHLORIDE 0.9% 1000ML 500 ML IV STA (18:57)
--- NOTE | 2017-06-21 19:16 | EMERGENCY ROOM VISIT NOTE ---
History Report prepared by Noa: Alex Streeter Under the Supervision of: Dr. Sukhwinder Pierson M.D. First contact with patient: 18:54 Chief Complaint: WEAKNESS Stated Complaint: LEGS WANT TO GIVE OUT Nursing Triage Summary: Pt c/o bilateral leg weakness. "My legs keep giving out and they both hurt." per pt. States uses oxygen and a walker. Pt saturating 88% on 3liters own O2 NC on arrival to triage, changed to hospital O2 cylinder and the O2 sat climbed to 94% on 3 liters. History of Present Illness The patient is a 62 year old female who presents to the Emergency Room with complaints of constant, bilateral, leg pain beginning a few weeks ago. The patient states that it feels like her legs want to give out once every day. She reports that she falls, but she denies hitting her head. The patient states that she has been experiencing dysuria, vomiting, and a cough for the past week in addition to her leg pain. She reports that she has not been able to eat because she vomits afterwards. The patient notes that she saw her PCP, and she was not told anything about her legs. She denies recent changes in her lifestyle , fevers, hematuria, hematemesis, and hematochezia. The patient notes that her gallbladder is failing, and her thyroid medication was increased a couple months ago. The patient reports that she is on 3L of oxygen at home. Source of History: patient Onset: couple weeks ago Position: leg (bilateral) Timing: constant Associated Symptoms: + cough, + vomiting, No hematochezia Note: Associated symptoms: dysuria, falls, Denies: hematuria, hematemesis, and changes in lifestyle Review of Systems See HPI for pertinent positives & negatives. A total of 10 systems reviewed and were otherwise negative. Past Medical & Surgical Medical Problems: (1) COPD (chronic obstructive pulmonary disease) (2) Hyperlipemia (3) Hypothyroidism Family History FH: cancer Heart disease Social History Smoking Status: Former Smoker Alcohol Use: none Drug Use: none Marital Status: Housing Status: lives alone Occupation Status: unemployed Current/Historical Medications Scheduled Aspirin (Aspirin Ec), 81 MG PO DAILY Bupropion (Wellbutrin-Xl), 300 MG PO DAILY Citalopram (Citalopram Hydrobromide), 20 MG PO DAILY Furosemide (Lasix), 20 MG PO BID Levothyroxine Sodium (Synthroid), 150 MCG PO DAILY Mometasone Furoate-Formoterol (Dulera 200/5 Mcg), 2 AER INH BID Potassium Chloride (Micro-K Ext Rel), 10 MEQ PO DAILY Quetiapine Fumarate (Seroquel), 200 MG PO HS Tiotropium [place] (Spiriva Handihaler), 18 MCG INH DAILY Venlafaxine Hcl (Effexor), 75 MG PO DAILY Zolpidem Tartrate (Ambien), 10 MG PO HS Scheduled PRN Albuterol Hfa (Ventolin Hfa), 2 PUFFS INH Q4 PRN for SOB/Wheezing Albuterol Sulf (Ventolin), 1 VIAL NEB Q4-6 HR PRN for Wheezing Pjanukjvmj-Upjkffxkbwovw-Nqeaj (Fioricet), 1-2 TABLETS PO Q8 PRN for Migraine Home O2 Therapy (Oxygen), 2 LITERS NA UD PRN for EXERTION Lorazepam (Ativan), 0.5 MG PO HS PRN for Anxiety Tramadol Hcl (Ultram), 50 MG PO Q6 PRN for Pain Allergies Coded Allergies: Amoxicillin (Verified Allergy, Mild, HIVES, 01/23/17) Doxycycline (Verified Allergy, Unknown, ., 01/23/17) Naproxen (Verified Allergy, Unknown, ., 01/23/17) Penicillins (Verified Allergy, Unknown, 01/23/17) Physical Exam Vital Signs Date Time Temp Pulse Resp B/P (MAP) Pulse Ox O2 Delivery O2 Flow Rate FiO2 06/21/17 21:42 78 18 160/88 100 Nasal Cannula 3.0 06/21/17 20:43 70 20 137/48 100 Nasal Cannula 3.0 80 101/89 90 78/62 06/21/17 20:23 66 06/21/17 19:35 100 Nasal Cannula 3.0 06/21/17 19:26 100 Nasal Cannula 3.0 06/21/17 19:24 71 18 128/88 100 Nasal Cannula 3.0 06/21/17 17:34 36.7 79 24 131/86 94 Nasal Cannula 3.0 Physical Exam GENERAL: Patient is in no acute distress. HEENT: No acute trauma, normocephalic atraumatic, mucous membranes moist, no nasal congestion, no scleral icterus. NECK: No stridor, no adenopathy, no meningismus, trachea is midline. LUNGS: Scattered crackles, no wheezing, diminished breath sounds, breath sounds equal. HEART: Without murmurs gallops or rubs, regular rate and rhythm. ABDOMEN: Soft, nontender, bowel sounds positive, no hernias, no peritonitis. EXTREMITIES: No cyanosis, mild bilateral pedal edema without cellulitis, full range of motion of all the joints without pain or difficulty, no signs for acute trauma. NEUROLOGIC: Oriented x 3, no acute motor or sensory deficits, no focal weakness. SKIN: No rash, no jaundice, no diaphoresis. Medical Decision & Procedures ER Provider Diagnostic Interpretation: Radiology results as stated below per my review and radiologist interpretation: HEAD WITHOUT CONTRAST (CT) CT DOSE: 788.63 mGycm HISTORY: Mental status change EVALUATE ALTERED MENTAL STATUS/WEAKNESS TECHNIQUE: Multiaxial CT images of the head were performed without the use of intravenous contrast. A dose lowering technique was utilized adhering to the principles of ALARA. Comparison: 01/21/2015 Findings: The paranasal sinuses and mastoid air cells are clear. The calvarium and skull base are intact. The ventricles and sulci are within normal limits. There is no mass, hematoma, midline shift, or acute infarct. Impression: No acute intracranial abnormality. The above report was generated using voice recognition software. It may contain grammatical, syntax or spelling errors. Electronically signed by: Rito Guardado M.D. 06/21/2017 7:49 PM Dictated Date/Time: 06/21/2017 7:49 PM CHEST ONE VIEW PORTABLE CLINICAL HISTORY: EVALUATE ALTERED MENTAL STATUS/WEAKNESS dyspnea COMPARISON STUDY: 01/23/2017 FINDINGS: Mild cardiomegaly. Diaphragms smooth. Lungs are clear. IMPRESSION: Mild cardia megaly. Otherwise negative study The above report was generated using voice recognition software. It may contain grammatical, syntax or spelling errors. Electronically signed by: Rito Guardado M.D. 06/21/2017 7:17 PM Dictated Date/Time: 06/21/2017 7:16 PM Laboratory Results 06/21/17 19:15 Red Blood Count 4.72, Mean Corpuscular Volume 87.3, Mean Corpuscular Hemoglobin 26.9, Mean Corpuscular Hemoglobin Concent 30.8, Mean Platelet Volume 11.2, Neutrophils (%) (Auto) 67.6, Lymphocytes (%) (Auto) 18.0, Monocytes (%) (Auto) 8.4, Eosinophils (%) (Auto) 5.4, Basophils (%) (Auto) 0.3, Neutrophils # (Auto) 4.86, Lymphocytes # (Auto) 1.29, Monocytes # (Auto) 0.60, Eosinophils # (Auto) 0.39, Basophils # (Auto) 0.02 06/21/17 19:15 Test 06/21/17 19:15 06/21/17 19:30 White Blood Count 7.18 K/uL (4.8-10.8) Red Blood Count 4.72 M/uL (4.2-5.4) Hemoglobin 12.7 g/dL (12.0-16.0) Hematocrit 41.2 % (37-47) Mean Corpuscular Volume 87.3 fL (80-100) Mean Corpuscular Hemoglobin 26.9 pg (25-34) Mean Corpuscular Hemoglobin Concent 30.8 g/dl (32-36) Platelet Count 143 K/uL (130-400) Mean Platelet Volume 11.2 fL (7.4-10.4) Neutrophils (%) (Auto) 67.6 % Lymphocytes (%) (Auto) 18.0 % Monocytes (%) (Auto) 8.4 % Eosinophils (%) (Auto) 5.4 % Basophils (%) (Auto) 0.3 % Neutrophils # (Auto) 4.86 K/uL (1.4-6.5) Lymphocytes # (Auto) 1.29 K/uL (1.2-3.4) Monocytes # (Auto) 0.60 K/uL (0.11-0.59) Eosinophils # (Auto) 0.39 K/uL (0-0.5) Basophils # (Auto) 0.02 K/uL (0-0.2) RDW Standard Deviation 45.6 fL (36.4-46.3) RDW Coefficient of Variation 14.2 % (11.5-14.5) Immature Granulocyte % (Auto) 0.3 % Immature Granulocyte # (Auto) 0.02 K/uL (0.00-0.02) Anion Gap 4.0 mmol/L (3-11) Estimated GFR () 110.5 Estimated GFR (Non- 95.3 BUN/Creatinine Ratio 28.8 (10-20) Calcium Level 9.1 mg/dl (8.5-10.1) Magnesium Level 2.3 mg/dl (1.8-2.4) Total Bilirubin 0.1 mg/dl (0.2-1) Aspartate Amino Transf (AST/SGOT) 14 U/L (15-37) Alanine Aminotransferase (ALT/SGPT) 10 U/L (12-78) Alkaline Phosphatase 138 U/L (45-117) Total Creatine Kinase 33 U/L (26-192) Troponin I < 0.015 ng/ml (0-0.045) Total Protein 7.2 gm/dl (6.4-8.2) Albumin 3.4 gm/dl (3.4-5.0) Globulin 3.8 gm/dl (2.5-4.0) Albumin/Globulin Ratio 0.9 (0.9-2) Thyroid Stimulating Hormone (TSH) 0.483 uIu/ml (0.300-4.500) Free Thyroxine 1.01 ng/dl (0.80-1.60) Urine Color YELLOW Urine Appearance CLEAR (CLEAR) Urine pH 8.0 (4.5-7.5) Urine Specific [place] 1.024 (1.000-1.030) Urine Protein NEG (NEG) Urine Glucose (UA) NEG (NEG) Urine Ketones NEG (NEG) Urine Occult Blood NEG (NEG) Urine Nitrite NEG (NEG) Urine Bilirubin NEG (NEG) Urine Urobilinogen NEG (NEG) Urine Leukocyte Esterase SMALL (NEG) Urine WBC (Auto) 10-30 /hpf (0-5) Urine RBC (Auto) 0-4 /hpf (0-4) Urine Hyaline Casts (Auto) 5-10 /lpf (0-5) Urine Epithelial Cells (Auto) >30 /lpf (0-5) Urine Bacteria (Auto) NEG (NEG) Laboratory results reviewed by me. Medications Administered Medications (Trade) Dose Ordered Sig/[place] Route Start Time Stop Time Status Last Admin Dose Admin Sodium Chloride 500 ml @ 999 mls/hr Q31M STAT IV 06/21/17 18:57 06/21/17 19:27 DC 06/21/17 19:24 999 MLS/HR Sodium Chloride 500 ml @ 999 mls/hr Q31M STAT IV 06/21/17 20:57 9/8/17 21:27 DC 06/21/17 20:57 999 MLS/HR Sodium Chloride 1,000 ml @ 125 mls/hr Q8H STAT IV 06/21/17 20:57 06/22/17 04:56 06/21/17 20:57 125 MLS/HR Acetaminophen (Tylenol Tab) 1,000 mg NOW STAT PO 06/21/17 20:59 06/21/17 21:00 DC 06/21/17 21:26 1,000 MG ECG Indication: weakness Rate (beats per minute): 71 Rhythm: sinus rhythm Findings: 1st degree AV block, no acute ischemic change, no ectopy ED Course 1856: The patient was evaluated in room B09. A complete history and physical exam was performed. Ordered Sodium Chloride 500 ml @ 999 mls/hr IV 2056: Ordered Sodium Chloride 1000 ml @ 125 mls/hr IV, Sodium Chloride 500 ml @ 999 mls/hr IV 2058: Ordered Acetaminophen 1000mg PO. Orthostatic blood pressure dropped to 78 systolic when the patient stands. 2100: Upon reexamination the patient is resting. I discussed results and treatment plan with the patient. She verbalizes agreement and understanding. The patient will be evaluated for further management. 2154: I discussed the patient's case with Dr. Neely, [facility] Hospitalist. The patient will be evaluated for further management. Medical Decision The patient is a 62 year old female who presents to the ED with complaints of leg pain and weakness. Differential diagnoses considered include dehydration, electrolyte imbalance, anemia, UTI, intracranial bleeding or CVA, debilitation, pneumonia. There is no leukocytosis or concerning anemia. No significant electrolyte abnormality or kidney failure. There is no hepatitis. Chest x-ray does not show pneumonia or CHF. Brain CT shows no acute bleed or mass effect. Urinalysis does not show infection. EKG shows a sinus rhythm, no acute ischemia. Cardiac enzyme testing times one does not suggest acute cardiac injury. The patient appears to be in a euthyroid state. Orthostatic vital signs were quite positive-blood pressure dropped to 78 systolic with standing. Patient received IV saline. She was given oral Tylenol for her leg pain. I suspect that she is falling secondary to her orthostasis. Her legs get weak because of the orthostasis. The reason for the lower blood pressure is possibly from dehydration, possibly from her medications. With her vomiting, with her falling, with the orthostasis, admission/observation was warranted. I spoke to the patient and the outsole caser. The on-call hospitalist was consulted. Consults Time Called: 2099 Consulting Physician: Dr. Neely, [facility] Hospitalist Returned Call: [phone] I discussed the patient's case with Dr. Neely [facility] Hospitalist. The patient will be evaluated for further management. Impression Primary Impression: Bilateral leg weakness Additional Impressions: Orthostasis Vomiting Falls Scribe Attestation The scribe's documentation has been prepared under my direction and personally reviewed by me in its entirety. I confirm that the note above accurately reflects all work, treatment, procedures, and medical decision making performed by me. Departure Information Dispostion Being Evaluated By Hospitalist Referrals Endy Vale M.D. (PCP) Patient Instructions My [facility] Problem Qualifiers
--- NOTE | 2017-06-21 19:19 | DIAGNOSTIC IMAGING REPORT ---
CHEST ONE VIEW PORTABLE CLINICAL HISTORY: EVALUATE ALTERED MENTAL STATUS/WEAKNESS dyspnea COMPARISON STUDY: 01/23/2017 FINDINGS: Mild cardiomegaly. Diaphragms smooth. Lungs are clear. IMPRESSION: Mild cardia megaly. Otherwise negative study The above report was generated using voice recognition software. It may contain grammatical, syntax or spelling errors. Electronically signed by: Rito Guaraddo M.D. 06/21/2017 7:17 PM Dictated Date/Time: 06/21/2017 7:16 PM
[2017-06-21 19:46] LABS: BASO % 0.3 %; BASO ABS # 0.02 K/uL (0-0.2); COMPLETE YES; EOS % 5.4 %; HEMATOCRIT 41.2 % (37-47); IG% 0.3 %; LYMPH ABS # 1.29 K/uL (1.2-3.4); MEAN CELL VOLUME 87.3 fL (80-100); MEAN CORPUSCULAR HEMOGLOBIN 26.9 pg (25-34); MEAN CORPUSCULAR HGB CONC 30.8 g/dl (32-36); MEAN PLATELET VOLUME 11.2 fL (7.4-10.4); MONO % 8.4 %; NEUT % 67.6 %; PLATELET COUNT 143 K/uL (130-400); RED BLOOD COUNT 4.72 M/uL (4.2-5.4); WHITE BLOOD COUNT 7.18 K/uL (4.8-10.8)
[2017-06-21 19:49] LABS: URINE APPEARANCE CLEAR (CLEAR); URINE BILIRUBIN NEG (NEG); URINE COLOR YELLOW; URINE EPITHELIAL CELL AUTO >30 /lpf (0-5); URINE NITRITE NEG (NEG); URINE SPECIFIC GRAVITY 1.024 (1.000-1.030); UROBILINOGEN NEG (NEG); ZZUR CULT IF INDIC CLEAN CATCH YES
[2017-06-21 19:51] LABS: MANUAL MICROSCOPIC REQUIRED? NO; REVIEW REQ? NO
--- NOTE | 2017-06-21 19:51 | DIAGNOSTIC IMAGING REPORT ---
HEAD WITHOUT CONTRAST (CT) CT DOSE: 788.63 mGycm HISTORY: Mental status change EVALUATE ALTERED MENTAL STATUS/WEAKNESS TECHNIQUE: Multiaxial CT images of the head were performed without the use of intravenous contrast. A dose lowering technique was utilized adhering to the principles of ALARA. Comparison: 01/21/2015 Findings: The paranasal sinuses and mastoid air cells are clear. The calvarium and skull base are intact. The ventricles and sulci are within normal limits. There is no mass, hematoma, midline shift, or acute infarct. Impression: No acute intracranial abnormality. The above report was generated using voice recognition software. It may contain grammatical, syntax or spelling errors. Electronically signed by: Rito Guardado M.D. 06/21/2017 7:49 PM Dictated Date/Time: 06/21/2017 7:49 PM
[2017-06-21 20:05] LABS: ALT/SGPT 10 U/L (12-78); BLOOD UREA NITROGEN 19 mg/dl (7-18); BUN/CREATININE RATIO 28.8 (10-20); CALCIUM 9.1 mg/dl (8.5-10.1); CARBON DIOXIDE 35 mmol/L (21-32); CHLORIDE 103 mmol/L (98-107); CREATININE 0.66 mg/dl (0.60-1.20); GLUCOSE 83 mg/dl (70-99); MAGNESIUM 2.3 mg/dl (1.8-2.4); POTASSIUM 4.5 mmol/L (3.5-5.1); SODIUM 142 mmol/L (136-145)
[2017-06-21 20:14] LABS: ALB/GLOB RATIO 0.9 (0.9-2); ALKALINE PHOSPHATASE 138 U/L (45-117); AST/SGOT 14 U/L (15-37); THYROID STIMULATING HORMONE 0.483 uIu/ml (0.300-4.500)
[2017-06-21] MEDS ORDERED: POTA10CA28 PO (20:19)
[2017-06-21] MEDS ORDERED: SODIUM CHLORIDE 0.9% 1000ML 1,000 ML IV STA (20:57)
[2017-06-21] MEDS ORDERED: SODIUM CHLORIDE 0.9% 500ML 500 ML IV STA (20:57)
[2017-06-21] MEDS ORDERED: ACETAMINOPHEN 500 MG TAB PO STA (20:59)
[2017-06-21] MEDS ORDERED: QUET1TAB10 PO (21:30)
[2017-06-21] MEDS ORDERED: ESCI1TAB10 PO (22:48)
[2017-06-21] MEDS ORDERED: LEVO-519 PO (22:48)
[2017-06-21] MEDS ORDERED: HYDR-3124 PO (22:48)
[2017-06-21] MEDS ORDERED: MOME100A INH (22:48)
[2017-06-21] MEDS ORDERED: DICL50TA3 PO (22:48)
--- NOTE | 2017-06-21 23:22 | History and Physical ---
History & Physical Date & Time of Service: Jun 21, 2017 at 23:22 Chief Complaint: Legs Want To Give Out Primary Care Physician: Endy Vale M.D. History of Present Illness Source: patient, hospital records The patient's is a 62-year-old female who presents emergency department with bilateral leg pain that began a few weeks ago, and reports that her legs feel like they want to get out of once every day. She has fallen and unknown number of times, but denies any head trauma. She reports dysuria, vomiting and a cough over the past week, and reports decreased oral intake because she vomits afterwards. She has been told in the past that her gallbladder is failing. She is chronically on 3 L nasal cannula at home Past Medical/Surgical History Medical Problems: (1) COPD (chronic obstructive pulmonary disease) Status: Chronic (2) Hyperlipemia Status: Chronic (3) Hypothyroidism Status: Chronic Family History FH: cancer Heart disease Social History Smoking Status: Former Smoker Smokeless Tobacco Use: No Alcohol Use: none Drug Use: none Marital Status: Housing status: lives with family Occupational Status: unemployed Immunizations History of Influenza Vaccine: Yes Influenza Vaccine Date: Aug 08, 2008 History of Tetanus Vaccine?: Unknown History of Pneumococcal: No History of Hepatitis B Vaccine: No Multi-Drug Resistant Organisms History of MDRO: No Allergies Coded Allergies: Amoxicillin (Verified Allergy, Mild, HIVES, 01/23/17) Doxycycline (Verified Allergy, Unknown, ., 01/23/17) Naproxen (Verified Allergy, Unknown, ., 01/23/17) Penicillins (Verified Allergy, Unknown, 01/23/17) Home Medications Scheduled Bupropion (Wellbutrin-Xl), 300 MG PO DAILY Diclofenac (Voltaren), 50 MG PO BID Escitalopram Oxalate (Lexapro), 20 MG PO DAILY Furosemide (Lasix), 20 MG PO BID Hydroxyzine Hcl (Atarax), 25 MG PO HS Levothyroxine Sodium (Synthroid), 1 TAB PO DAILY Lorazepam (Ativan), 0.5 MG PO HS Mometasone Furoate-Formoterol (Dulera 200/5 Mcg), 2 AER INH BID Potassium Chloride (Micro-K Ext Rel), 10 MEQ PO DAILY Quetiapine Fumarate (Seroquel), 400 MG PO HS Tiotropium [place] (Spiriva Handihaler), 18 MCG INH DAILY Scheduled PRN Albuterol Hfa (Ventolin Hfa), 2 PUFFS INH Q4 PRN for SOB/Wheezing Albuterol Sulf (Ventolin), 1 VIAL NEB Q4-6 HR PRN for Wheezing Tygzmvilpc-Nhstujrfbfplq-Jjjuf (Fioricet), 1-2 TABLETS PO Q8 PRN for Migraine Tramadol Hcl (Ultram), 50 MG PO Q6 PRN for Pain Zolpidem Tartrate (Ambien), 10 MG PO HS PRN for Sleep Review of Systems The patient denies chest pain, palpitations, shortness of breath, lower extremity swelling, vision change, hearing change, sore throat, fevers, chills, sweats, weight change, diarrhea or constipation, abdominal pain, pelvic pain, blood in urine or stool, lightheadedness, dizziness, headache, memory loss, rash, abnormal bruising or bleeding, imbalance, focal or generalized weakness, numbness or tingling in arms or legs, generalized arthralgias or myalgias, back or neck pain, night sweats, or allergy symptoms. The review of systems is otherwise negative other than for that already noted above, and at least 10 systems have been reviewed. Physical Exam Vital Signs Date Time Temp Pulse Resp B/P (MAP) Pulse Ox O2 Delivery O2 Flow Rate FiO2 06/21/17 21:42 78 18 160/88 100 Nasal Cannula 3.0 06/21/17 20:43 70 20 137/48 100 Nasal Cannula 3.0 80 101/89 90 78/62 06/21/17 20:23 66 06/21/17 19:35 100 Nasal Cannula 3.0 06/21/17 19:26 100 Nasal Cannula 3.0 06/21/17 19:24 71 18 128/88 100 Nasal Cannula 3.0 06/21/17 17:34 36.7 79 24 131/86 94 Nasal Cannula 3.0 The patient is awake, well-developed and adequately nourished, alert and oriented 3, normocephalic and atraumatic, lying in bed and in no acute distress. HEENT--PERRL, EOMI, mucous membranes and oropharynx normal. Neck--supple, no JVD or bruits, thyroid normal, trachea midline, no adenopathy. Heart--normal S1 and S2, no extra beats, no murmurs, rubs or gallops. Lungs--clear bilaterally, decreased breath sounds throughout, no respiratory distress, no accessory muscle use. Abdomen--normal bowel sounds and soft, nontender and nondistended, no hernias or masses, no organomegaly and obese. Extremities--no cyanosis, clubbing or edema. There are good distal pulses b/l. Dermatologic--normal skin turgor, normal color, warm and dry, no abnormal lymph nodes, no rash. Neurologic--cranial nerves II through XII grossly intact, motor and sensory examination normal. Rheumatologic--normal range of motion, nontender, muscles and joints. Psychiatric--normal affect. Diagnostics Laboratory Results Results Past 24 Hours Test 06/21/17 19:15 06/21/17 19:30 Range/Units White Blood Count 7.18 4.8-10.8 K/uL Red Blood Count 4.72 4.2-5.4 M/uL Hemoglobin 12.7 12.0-16.0 g/dL Hematocrit 41.2 37-47 % Mean Corpuscular Volume 87.3 80-100 fL Mean Corpuscular Hemoglobin 26.9 25-34 pg Mean Corpuscular Hemoglobin Concent 30.8 32-36 g/dl Platelet Count 143 130-400 K/uL Mean Platelet Volume 11.2 7.4-10.4 fL Neutrophils (%) (Auto) 67.6 % Lymphocytes (%) (Auto) 18.0 % Monocytes (%) (Auto) 8.4 % Eosinophils (%) (Auto) 5.4 % Basophils (%) (Auto) 0.3 % Neutrophils # (Auto) 4.86 1.4-6.5 K/uL Lymphocytes # (Auto) 1.29 1.2-3.4 K/uL Monocytes # (Auto) 0.60 0.11-0.59 K/uL Eosinophils # (Auto) 0.39 0-0.5 K/uL Basophils # (Auto) 0.02 0-0.2 K/uL RDW Standard Deviation 45.6 36.4-46.3 fL RDW Coefficient of Variation 14.2 11.5-14.5 % Immature Granulocyte % (Auto) 0.3 % Immature Granulocyte # (Auto) 0.02 0.00-0.02 K/uL Sodium Level 142 136-145 mmol/L Potassium Level 4.5 3.5-5.1 mmol/L Chloride Level 103 98-107 mmol/L Carbon Dioxide Level 35 21-32 mmol/L Anion Gap 4.0 3-11 mmol/L Blood Urea Nitrogen 19 7-18 mg/dl Creatinine 0.66 0.60-1.20 mg/dl Estimated GFR () 110.5 Estimated GFR (Non- 95.3 BUN/Creatinine Ratio 28.8 10-20 Random Glucose 83 70-99 mg/dl Calcium Level 9.1 8.5-10.1 mg/dl Magnesium Level 2.3 1.8-2.4 mg/dl Total Bilirubin 0.1 0.2-1 mg/dl Aspartate Amino Transf (AST/SGOT) 14 15-37 U/L Alanine Aminotransferase (ALT/SGPT) 10 12-78 U/L Alkaline Phosphatase 138 45-117 U/L Total Creatine Kinase 33 26-192 U/L Troponin I < 0.015 0-0.045 ng/ml Total Protein 7.2 6.4-8.2 gm/dl Albumin 3.4 3.4-5.0 gm/dl Globulin 3.8 2.5-4.0 gm/dl Albumin/Globulin Ratio 0.9 0.9-2 Thyroid Stimulating Hormone (TSH) 0.483 0.300-4.500 uIu/ml Free Thyroxine 1.01 0.80-1.60 ng/dl Urine Color YELLOW Urine Appearance CLEAR CLEAR Urine pH 8.0 4.5-7.5 Urine Specific [place] 1.024 1.000-1.030 Urine Protein NEG NEG Urine Glucose (UA) NEG NEG Urine Ketones NEG NEG Urine Occult Blood NEG NEG Urine Nitrite NEG NEG Urine Bilirubin NEG NEG Urine Urobilinogen NEG NEG Urine Leukocyte Esterase SMALL NEG Urine WBC (Auto) 10-30 0-5 /hpf Urine RBC (Auto) 0-4 0-4 /hpf Urine Hyaline Casts (Auto) 5-10 0-5 /lpf Urine Epithelial Cells (Auto) >30 0-5 /lpf Urine Bacteria (Auto) NEG NEG Microbiology Results 06/21/17 Urine Culture, Received Pending Diagnostic Radiology Patient Name: JULI PRUITT Unit Number: [id number] Dictated: 06/21/171948 Transcribed: 06/21/171948 MS Printed Date/Time: [~ rep prt dt]/[~ rep prt tm] [~ rep ct labl] - [~ rep ct ivnm] [facility] Radiology Department [place], [place] [id number] Dictated: 06/21/171948 Transcribed: 06/21/171948 MS Printed Date/Time: [~ rep prt dt]/[~ rep prt tm] [~ rep ct labl] - [~ rep ct ivnm] HEAD WITHOUT CONTRAST (CT) CT DOSE: 788.63 mGycm HISTORY: Mental status change EVALUATE ALTERED MENTAL STATUS/WEAKNESS TECHNIQUE: Multiaxial CT images of the head were performed without the use of intravenous contrast. A dose lowering technique was utilized adhering to the principles of ALARA. Comparison: 01/21/2015 Findings: The paranasal sinuses and mastoid air cells are clear. The calvarium and skull base are intact. The ventricles and sulci are within normal limits. There is no mass, hematoma, midline shift, or acute infarct. Impression: No acute intracranial abnormality. The above report was generated using voice recognition software. It may contain grammatical, syntax or spelling errors. Electronically signed by: Rito Guardado M.D. 06/21/2017 7:49 PM Dictated Date/Time: 06/21/2017 7:49 PM The status of this report is Signed. Draft = Not yet reviewed or approved by Radiologist. Signed = Reviewed and approved by Radiologist. <AttendingPhy></AttendingPhy> <FamilyPhy>Endy Vale M.D.</FamilyPhy> < PrimaryPhy>Endy Vale M.D.</PrimaryPhy> <UnitNumber>[id number]</UnitNumber > <VisitNumber>[id number]</VisitNumber> <PatientName>JULI PRUITT</ PatientName> <DateOfBirth>1955</DateOfBirth> <Location>[facility]</Location> < ServiceDate>06/21/17</ServiceDate> <MNE>ESINDI</MNE> <OrderingPhy>Sukhwinder Pierson M.D.</OrderingPhy> <OrderingPhyMNE>f rep ord dr mne</OrderingPhyMNE> < DictatingPhyMNE>f rep dict dr gallagher</DictatingPhyMNE> <CCListMNE>f rep ct mne</ CCListMNE> <AdmittingPhyMNE>f pt admit dr gallagher</AdmittingPhyMNE> <AttendingPhyMNE >f pt attend dr gallagher</AttendingPhyMNE> <ConsultingPhyMNE>f pt consult dr gallagher</ConsultingPhyMNE> <FamilyPhyMNE>f pt fam dr gallagher</FamilyPhyMNE> <OtherPhyMNE>f pt other dr gallagher</OtherPhyMNE> < PrimaryPhyMNE>f pt prim care dr gallagher</PrimaryPhyMNE> <ReferringPhyMNE>f pt referring dr gallagher</ReferringPhyMNE> Patient Name: JULI PRUITT Unit Number: [id number] Dictated: 06/21/171915 Transcribed: 06/21/171915 MS Printed Date/Time: [~ rep prt dt]/[~ rep prt tm] [~ rep ct labl] - [~ rep ct ivnm] [facility] Radiology Department [place] [id number] Dictated: 06/21/171915 Transcribed: 06/21/171915 MS Printed Date/Time: [~ rep prt dt]/[~ rep prt tm] [~ rep ct labl] - [~ rep ct ivnm] [~ rep ct add3]] CHEST ONE VIEW PORTABLE CLINICAL HISTORY: EVALUATE ALTERED MENTAL STATUS/WEAKNESS dyspnea COMPARISON STUDY: 01/23/2017 FINDINGS: Mild cardiomegaly. Diaphragms smooth. Lungs are clear. IMPRESSION: Mild cardia megaly. Otherwise negative study The above report was generated using voice recognition software. It may contain grammatical, syntax or spelling errors. Electronically signed by: Rito Guardado M.D. 06/21/2017 7:17 PM Dictated Date/Time: 06/21/2017 7:16 PM The status of this report is Signed. Draft = Not yet reviewed or approved by Radiologist. Signed = Reviewed and approved by Radiologist. <AttendingPhy></AttendingPhy> <FamilyPhy>Endy Vale M.D.</FamilyPhy> < PrimaryPhy>Endy Vale M.D.</PrimaryPhy> <UnitNumber>[id number]</UnitNumber > <VisitNumber>[id number]</VisitNumber> <PatientName>JULI PRUITT</ PatientName> <DateOfBirth>1955</DateOfBirth> <Location>[facility]</Location> < ServiceDate>06/21/17</ServiceDate> <MNE>ESINDI</MNE> <OrderingPhy>Sukhwinder Pierson M.D.</OrderingPhy> <OrderingPhyMNE>f rep ord dr gallagher</OrderingPhyMNE> < DictatingPhyMNE>f rep dict dr gallagher</DictatingPhyMNE> <CCListMNE>f rep ct [place]</ CCListMNE> <AdmittingPhyMNE>f pt admit dr gallagher</AdmittingPhyMNE> <AttendingPhyMNE >f pt attend dr gallagher</AttendingPhyMNE> <ConsultingPhyMNE>f pt consult dr gallagher</ConsultingPhyMNE> <FamilyPhyMNE>f pt fam dr gallagher</FamilyPhyMNE> <OtherPhyMNE>f pt other dr gallagher</OtherPhyMNE> < PrimaryPhyMNE>f pt prim care dr gallagher</PrimaryPhyMNE> <ReferringPhyMNE>f pt referring dr gallagher</ReferringPhyMNE> EKG EKG shows normal sinus rhythm at 71 beats minute, first-degree heart block, no change compared to 01/23/2017. Impression Assessment and Plan Bilateral leg pain itself describe occasional weakness-- Patient is a normal physical examination this time, and no evidence of low back pain or focality. Consult PT/OT "Feeling gallbladder"/intermittent nausea and vomiting decreased oral- Order ultrasound right upper quadrant. HIDA scan with gallbladder ejection fraction. Nothing by mouth except medications. COPD/3 L nasal cannula oxygen dependency-- Continue Spiriva. Changed to Lyrica to Symbicort due to formulary interchange. Nebulizers available to use every 4 hours when necessary. Anxiety/depression-- Continue Wellbutrin XL 300 mg by mouth daily, citalopram 20 mg by mouth daily, Seroquel 20 mg by mouth at bedtime, venlafaxine 75 mg by mouth daily, and zolpidem tartrate 10 mg by mouth at bedtime. Hypothyroidism--continue levothyroxin sodium at 150 g by mouth daily. Venous insufficiency--continue furosemide and potassium, hold aspirin. Level of Care Med/Surg Advanced Directives Existing Advance Directive: No Existing Living Will: No Existing Power of Appliance Tester: No Resuscitation Status FULL RESUSCITATION VTE Prophylaxis Risk Level: Moderate Given or contraindicated: SCD's Social Service Consult None Apply
[2017-06-21] MEDS ORDERED: BUPRTAB51 PO (23:26)
[2017-06-21] MEDS ORDERED: ZOLPIDEM TARTRATE 10 MG TAB PO PRN (23:30)
[2017-06-21] MEDS ORDERED: ALBUTEROL 0.083% NEBU SOLN 3 ML VIAL INH PRN (23:30)
[2017-06-21] MEDS ORDERED: ACETAMINOPHEN 325 MG TAB PO PRN (23:30)
[2017-06-21] MEDS ORDERED: ALBUTEROL HFA 8 GM INHALER INH PRN (23:30)
[2017-06-21] MEDS ORDERED: BUTALBITAL/ACETAMIN/CAFFEINE TAB PO PRN (23:30)
[2017-06-21] MEDS ORDERED: SPRIN/30 INH (23:32)
[2017-06-21] MEDS ORDERED: TRAM-453 PO (23:32)
[2017-06-21] MEDS ORDERED: VNTHFA/IN INH (23:34)
[2017-06-21] MEDS ORDERED: ONDANSETRON INJ 2 MG/ML 2 ML VIAL IV PRN (23:45)
[2017-06-22 00:30] VITALS: BP 134/73; PULSE 85; TEMP 36.8; O2SAT 98; Ht 170.2 cm; Wt 110.0 kg
[2017-06-22] MEDS: NSS + 20MEQ KCL 1000ML 1,000 ML IV SCH ×2 (01:37→13:38)
[2017-06-22] MEDS: LORAZEPAM 0.5 MG TAB PO STA ×2 (01:52→02:20)
[2017-06-22] MEDS: FAMOTIDINE IV INJ 20 MG in DEXTROSE 5% 100ML 100 ML IV SCH ×2 (01:59→13:38)
[2017-06-22] MEDS: TRAMADOL HCL 50 MG TAB PO PRN ×4 (02:19→22:47)
--- NOTE | 2017-06-22 06:35 | DIAGNOSTIC IMAGING REPORT ---
GALLBLADDER-ABD LIMITED CLINICAL HISTORY: poss stones, vomiting nausea. Vomiting. TECHNIQUE: Ultrasound COMPARISON STUDY: 05/05/2017 FINDINGS: Negative gallbladder. Common bile duct not well seen Bowel content. Liver is uniform. No intrahepatic biliary ductal distention. Pancreas is poorly seen. Right kidney is negative for hydronephrosis. IMPRESSION: Negative study within limitations of overlying bowel content. The above report was generated using voice recognition software. It may contain grammatical, syntax or spelling errors. Electronically signed by: Rito Guardado M.D. 06/22/2017 6:34 AM Dictated Date/Time: 06/22/2017 6:32 AM
[2017-06-22 07:38] VITALS: BP_SYST 106; BP_SYST 122; BP_SYST 123; BP_DIAS 55; BP_DIAS 57; BP_DIAS 70; PULSE 71; PULSE 75; PULSE 88; TEMP 36.8; O2SAT 100
[2017-06-22] MEDS: DICLOFENAC SOD 25 MG TABEC PO SCH ×2 (07:46→19:27)
[2017-06-22] MEDS: BuPROPion XL 300 MG TABCR PO SCH (07:46)
[2017-06-22] MEDS: FUROSEMIDE 20 MG TAB PO SCH ×2 (07:49→16:32)
[2017-06-22] MEDS: ESCITALOPRAM OXALATE 20 MG TAB PO SCH (07:50)
[2017-06-22] MEDS: POTASSIUM CHLORIDE 10 MEQ TABCR PO SCH (07:50)
[2017-06-22] MEDS: TIOTROPIUM BROMIDE 5 PUFF/90 MCG INH INH SCH (07:50)
[2017-06-22] MEDS: BUDESONIDE/FORMOTEROL FUMARATE 160/4.5 60 PUFFS/INHALER INH SCH ×2 (07:51→19:26)
[2017-06-22] MEDS: LEVOTHYROXINE 137 MCG TAB PO SCH (07:52)
[2017-06-22 08:29] LABS: BASO % 0.2 %; BASO ABS # 0.01 K/uL (0-0.2); COMPLETE YES; EOS % 4.7 %; IG% 0.2 %; LYMPH % 26.2 %; LYMPH ABS # 1.44 K/uL (1.2-3.4); MEAN CELL VOLUME 87.8 fL (80-100); MEAN CORPUSCULAR HEMOGLOBIN 26.1 pg (25-34); MEAN CORPUSCULAR HGB CONC 29.8 g/dl (32-36); MEAN PLATELET VOLUME 11.1 fL (7.4-10.4); MONO % 9.7 %; PLATELET COUNT 135 K/uL (130-400); RED BLOOD COUNT 4.67 M/uL (4.2-5.4); WHITE BLOOD COUNT 5.49 K/uL (4.8-10.8)
[2017-06-22 08:45] LABS: PROTHROMBIN TIME (PATIENT) 10.9 SECONDS (9.0-12.0)
[2017-06-22 09:18] LABS: ALKALINE PHOSPHATASE 130 U/L (45-117); ALT/SGPT 11 U/L (12-78); AST/SGOT 13 U/L (15-37); BLOOD UREA NITROGEN 12 mg/dl (7-18); BUN/CREATININE RATIO 20.5 (10-20); CALCIUM 9.1 mg/dl (8.5-10.1); CARBON DIOXIDE 34 mmol/L (21-32); CHLORIDE 104 mmol/L (98-107); GLUCOSE 88 mg/dl (70-99); MAGNESIUM 2.3 mg/dl (1.8-2.4); POTASSIUM 4.1 mmol/L (3.5-5.1); SODIUM 141 mmol/L (136-145)
[2017-06-22] MEDS: HEPARIN SOD 5000 UNIT/0.5 ML CARP SQ SCH ×2 (09:54→22:36)
[2017-06-22 11:02] VITALS: BP 191/99
[2017-06-22 14:44] VITALS: BP_SYST 112; BP_SYST 113; BP_SYST 117; BP_DIAS 68; BP_DIAS 71; BP_DIAS 80; PULSE 78; PULSE 80; PULSE 84; TEMP 36.7; O2SAT 98
--- NOTE | 2017-06-22 15:29 | Progress Note ---
Subjective Date of Service: Jun 22, 2017. Subjective pt states she feels somewhat improved with her abdominal pain, it is epigastric and also RUQ initial lft and us negative Problem List Medical Problems: (1) Bilateral leg weakness Status: Acute (2) COPD exacerbation Status: Acute (3) COPD exacerbation Status: Acute (4) Cough Status: Acute (5) Falls Status: Acute (6) Leg pain, right Status: Acute (7) Nausea Status: Acute (8) Orthostasis Status: Acute (9) Right thigh pain Status: Acute (10) Sebaceous cyst Status: Acute (11) SOB (shortness of breath) Status: Acute (12) Substernal precordial chest pain Status: Acute (13) Swallowing dysfunction Status: Acute (14) Vomiting Status: Acute Review of Systems Constitutional: No fever Cardiac: No chest pain, No edema Abdomen: + pain (improving) Objective Vital Signs Date Time Temp Pulse Resp B/P (MAP) Pulse Ox O2 Delivery O2 Flow Rate FiO2 06/22/17 00:30 36.8 85 20 134/73 98 Nasal Cannula 4.0 06/22/17 00:18 76 20 95 06/21/17 23:40 75 16 100 06/21/17 23:10 78 23 100 06/21/17 21:42 78 18 160/88 100 Nasal Cannula 3.0 06/21/17 20:43 70 20 137/48 100 Nasal Cannula 3.0 80 101/89 90 78/62 06/21/17 20:23 66 06/21/17 19:35 100 Nasal Cannula 3.0 06/21/17 19:26 100 Nasal Cannula 3.0 06/21/17 19:24 71 18 128/88 100 Nasal Cannula 3.0 06/21/17 17:34 36.7 79 24 131/86 94 Nasal Cannula 3.0 Physical Exam General Appearance: WD/WN, + mild distress Eyes: PERRL, EOMI Respiratory/Chest: chest non-tender, lungs clear, normal breath sounds Cardiovascular: regular rate, rhythm, no murmur Abdomen: normal bowel sounds, soft, + guarding, + tenderness Extremities: no pedal edema, no calf tenderness Laboratory Results Last 24 Hours Test 06/21/17 19:15 06/21/17 19:30 06/22/17 04:44 White Blood Count 7.18 K/uL Red Blood Count 4.72 M/uL Hemoglobin 12.7 g/dL Hematocrit 41.2 % Mean Corpuscular Volume 87.3 fL Mean Corpuscular Hemoglobin 26.9 pg Mean Corpuscular Hemoglobin Concent 30.8 g/dl Platelet Count 143 K/uL Mean Platelet Volume 11.2 fL Neutrophils (%) (Auto) 67.6 % Lymphocytes (%) (Auto) 18.0 % Monocytes (%) (Auto) 8.4 % Eosinophils (%) (Auto) 5.4 % Basophils (%) (Auto) 0.3 % Neutrophils # (Auto) 4.86 K/uL Lymphocytes # (Auto) 1.29 K/uL Monocytes # (Auto) 0.60 K/uL Eosinophils # (Auto) 0.39 K/uL Basophils # (Auto) 0.02 K/uL RDW Standard Deviation 45.6 fL RDW Coefficient of Variation 14.2 % Immature Granulocyte % (Auto) 0.3 % Immature Granulocyte # (Auto) 0.02 K/uL Sodium Level 142 mmol/L Potassium Level 4.5 mmol/L Chloride Level 103 mmol/L Carbon Dioxide Level 35 mmol/L Anion Gap 4.0 mmol/L Blood Urea Nitrogen 19 mg/dl Creatinine 0.66 mg/dl Estimated GFR () 110.5 Estimated GFR (Non- 95.3 BUN/Creatinine Ratio 28.8 Random Glucose 83 mg/dl Calcium Level 9.1 mg/dl Magnesium Level 2.3 mg/dl Total Bilirubin 0.1 mg/dl Aspartate Amino Transf (AST/SGOT) 14 U/L Alanine Aminotransferase (ALT/SGPT) 10 U/L Alkaline Phosphatase 138 U/L Total Creatine Kinase 33 U/L Troponin I < 0.015 ng/ml Total Protein 7.2 gm/dl Albumin 3.4 gm/dl Globulin 3.8 gm/dl Albumin/Globulin Ratio 0.9 Thyroid Stimulating Hormone (TSH) 0.483 uIu/ml Free Thyroxine 1.01 ng/dl Urine Color YELLOW Urine Appearance CLEAR Urine pH 8.0 Urine Specific [place] 1.024 Urine Protein NEG Urine Glucose (UA) NEG Urine Ketones NEG Urine Occult Blood NEG Urine Nitrite NEG Urine Bilirubin NEG Urine Urobilinogen NEG Urine Leukocyte Esterase SMALL Urine WBC (Auto) 10-30 /hpf Urine RBC (Auto) 0-4 /hpf Urine Hyaline Casts (Auto) 5-10 /lpf Urine Epithelial Cells (Auto) >30 /lpf Urine Bacteria (Auto) NEG Assessment and Plan 62 F oxygend dependent chronic resoiratory failure with weakness and falling RUQ pain, ultrasound right upper quadrant.shows no suspicion of acute cholecystitis, pain maybe dyspepsia, will add carafate and advance diet hold on hida unless eating exacerbates symptoms, this was not descibed by patient COPD/3 L nasal cannula oxygen dependency-- Spiriva.Symbicort duo nebs. Anxiety/depression-- Wellbutrin XL 300 mg , citalopram 20 mg , Seroquel 20 mg be , venlafaxine 75 mg by mouth daily, Hypothyroidism-- levothyroxine sodium at 150 g Venous insufficiency--continue furosemide and potassium, hold aspirin. heparin for dvt prevention
[2017-06-22] MEDS: SUCRALFATE 1 GM TAB PO SCH ×2 (16:55→19:27)
--- NOTE | 2017-06-22 18:39 | DIAGNOSTIC IMAGING REPORT ---
LUMBAR SPINE 2 OR 3 VIEWS CLINICAL HISTORY: leg weakness pain. Neuropathy. COMPARISON STUDY: 08/06/2016 FINDINGS: Mild scoliosis. Degenerative intervertebral this change most prominent at L4-L5 and to lesser extent throughout all remaining intervertebral disc levels. This is similar compared to the prior study. No new or interval finding. No acute compression deformity. IMPRESSION: Generalized degenerative change. Most significant at L4-L5. No acute compression deformity. No change from the prior exam. The above report was generated using voice recognition software. It may contain grammatical, syntax or spelling errors. Electronically signed by: Rito Guardado M.D. 06/22/2017 6:37 PM Dictated Date/Time: 06/22/2017 6:36 PM
[2017-06-22 19:40] VITALS: BP 138/85; PULSE 72; TEMP 36.8; O2SAT 100
[2017-06-22] MEDS: QUETIAPINE FUMARATE 200 MG TAB PO SCH (22:34)
[2017-06-22] MEDS: hydrOXYzine HCL 25 MG TAB PO SCH (22:34)
[2017-06-22] MEDS: LORAZEPAM 0.5 MG TAB PO SCH (22:45)
[2017-06-23 00:22] VITALS: BP 114/70; PULSE 75; TEMP 36.7; O2SAT 100
[2017-06-23] MEDS: FAMOTIDINE IV INJ 20 MG in DEXTROSE 5% 100ML 100 ML IV SCH ×2 (02:12→14:24)
[2017-06-23] MEDS: LEVOTHYROXINE 137 MCG TAB PO SCH (06:21)
[2017-06-23 07:28] VITALS: BP_SYST 100; BP_SYST 115; BP_SYST 123; BP_DIAS 56; BP_DIAS 66; BP_DIAS 72; PULSE 79; TEMP 36.5; O2SAT 98
[2017-06-23 07:50] LABS: BASO % 0.2 %; BASO ABS # 0.01 K/uL (0-0.2); COMPLETE YES; EOS % 5.4 %; HEMATOCRIT 41.4 % (37-47); LYMPH ABS # 1.25 K/uL (1.2-3.4); MEAN CELL VOLUME 87.2 fL (80-100); MEAN CORPUSCULAR HEMOGLOBIN 26.7 pg (25-34); MEAN CORPUSCULAR HGB CONC 30.7 g/dl (32-36); MEAN PLATELET VOLUME 10.9 fL (7.4-10.4); MONO % 10.5 %; NEUT % 61.9 %; PLATELET COUNT 130 K/uL (130-400); RED BLOOD COUNT 4.75 M/uL (4.2-5.4); WHITE BLOOD COUNT 5.69 K/uL (4.8-10.8)
[2017-06-23 08:02] LABS: PARTIAL THROMBOPLASTIN RATIO 1.1; PROTHROMBIN TIME (PATIENT) 10.9 SECONDS (9.0-12.0)
[2017-06-23] MEDS: BuPROPion XL 300 MG TABCR PO SCH (08:16)
[2017-06-23] MEDS: TIOTROPIUM BROMIDE 5 PUFF/90 MCG INH INH SCH (08:16)
[2017-06-23] MEDS: BUDESONIDE/FORMOTEROL FUMARATE 160/4.5 60 PUFFS/INHALER INH SCH ×2 (08:16→19:50)
[2017-06-23] MEDS: SUCRALFATE 1 GM TAB PO SCH ×4 (08:17→19:50)
[2017-06-23] MEDS: ESCITALOPRAM OXALATE 20 MG TAB PO SCH (08:17)
[2017-06-23] MEDS: POTASSIUM CHLORIDE 10 MEQ TABCR PO SCH (08:18)
[2017-06-23] MEDS: FUROSEMIDE 20 MG TAB PO SCH ×2 (08:19→17:06)
[2017-06-23] MEDS: DICLOFENAC SOD 25 MG TABEC PO SCH ×2 (08:19→19:51)
[2017-06-23] MEDS: HEPARIN SOD 5000 UNIT/0.5 ML CARP SQ SCH ×2 (08:23→21:10)
[2017-06-23 08:40] LABS: ALKALINE PHOSPHATASE 135 U/L (45-117); ALT/SGPT 10 U/L (12-78); AST/SGOT 12 U/L (15-37); BLOOD UREA NITROGEN 18 mg/dl (7-18); BUN/CREATININE RATIO 23.9 (10-20); CALCIUM 8.9 mg/dl (8.5-10.1); CARBON DIOXIDE 34 mmol/L (21-32); CHLORIDE 100 mmol/L (98-107); CREATININE 0.74 mg/dl (0.60-1.20); GLUCOSE 92 mg/dl (70-99); MAGNESIUM 2.2 mg/dl (1.8-2.4); POTASSIUM 3.9 mmol/L (3.5-5.1); SODIUM 138 mmol/L (136-145)
[2017-06-23] MEDS: TRAMADOL HCL 50 MG TAB PO PRN ×3 (10:56→22:06)
--- NOTE | 2017-06-23 15:49 | Progress Note ---
Subjective Date of Service: Jun 23, 2017. Subjective pt states her original abdominal pain has resolved, her pain now is exacerbation of her chronic left knee pain, that occurred after recent fall at home Problem List Medical Problems: (1) Bilateral leg weakness Status: Acute (2) COPD exacerbation Status: Acute (3) COPD exacerbation Status: Acute (4) Cough Status: Acute (5) Falls Status: Acute (6) Leg pain, right Status: Acute (7) Nausea Status: Acute (8) Orthostasis Status: Acute (9) Right thigh pain Status: Acute (10) Sebaceous cyst Status: Acute (11) SOB (shortness of breath) Status: Acute (12) Substernal precordial chest pain Status: Acute (13) Swallowing dysfunction Status: Acute (14) Vomiting Status: Acute Review of Systems Constitutional: No fever, No chills Respiratory: No cough, No sputum Musculoskeletal: + joint pain, + muscle pain Objective Vital Signs Date Time Temp Pulse Resp B/P (MAP) Pulse Ox O2 Delivery O2 Flow Rate FiO2 06/23/17 07:28 36.5 79 18 115/56 (75) 98 Nasal Cannula 3.0 123/72 (89) 100/66 (77) 06/23/17 01:54 Nasal Cannula 3.0 06/23/17 00:22 36.7 75 19 114/70 (85) 100 Nasal Cannula 3.0 06/22/17 21:00 Nasal Cannula 3.0 06/22/17 19:40 36.8 72 19 138/85 (102) 100 Nasal Cannula 3.0 06/22/17 16:00 Nasal Cannula 2.0 06/22/17 14:44 36.7 78 18 112/71 (85) 98 Nasal Cannula 2.0 84 117/80 (92) 80 113/68 (83) Physical Exam General Appearance: + mild distress, + obese Eyes: PERRL, EOMI Respiratory/Chest: chest non-tender, lungs clear, normal breath sounds Cardiovascular: regular rate, rhythm, no JVD Abdomen: normal bowel sounds, non tender, soft Extremities: + pertinent finding (there seems to be a defect in patella bursa that could accont for painful kneeling) Neurologic/Psychiatric: alert, oriented x 3 Laboratory Results Last 24 Hours Test 06/23/17 07:22 White Blood Count 5.69 K/uL Red Blood Count 4.75 M/uL Hemoglobin 12.7 g/dL Hematocrit 41.4 % Mean Corpuscular Volume 87.2 fL Mean Corpuscular Hemoglobin 26.7 pg Mean Corpuscular Hemoglobin Concent 30.7 g/dl Platelet Count 130 K/uL Mean Platelet Volume 10.9 fL Neutrophils (%) (Auto) 61.9 % Lymphocytes (%) (Auto) 22.0 % Monocytes (%) (Auto) 10.5 % Eosinophils (%) (Auto) 5.4 % Basophils (%) (Auto) 0.2 % Neutrophils # (Auto) 3.52 K/uL Lymphocytes # (Auto) 1.25 K/uL Monocytes # (Auto) 0.60 K/uL Eosinophils # (Auto) 0.31 K/uL Basophils # (Auto) 0.01 K/uL RDW Standard Deviation 45.4 fL RDW Coefficient of Variation 14.2 % Immature Granulocyte % (Auto) 0.0 % Immature Granulocyte # (Auto) 0.00 K/uL Prothrombin Time 10.9 SECONDS Prothromb Time International Ratio 1.0 Activated Partial Thromboplast Time 27.6 SECONDS Partial Thromboplastin Ratio 1.1 Assessment and Plan 62 F oxygend dependent chronic respiratory failure with weakness and falling, original abdominal symptoms resolved, now knee pain and PT eval suggests to consider rehab RUQ pain, ultrasound right upper quadrant.shows no suspicion of acute cholecystitis, pain maybe dyspepsia, will added carafate and tolerated advancing diet hold on hida as eating did not exacerbate symptoms, and LFT remained normal left knee pain, may benefit from rehab continue PT/OT COPD/3 L nasal cannula oxygen dependency--stable Spiriva.Symbicort duo nebs. Anxiety/depression-- Wellbutrin XL 300 mg , citalopram 20 mg , Seroquel 20 mg be , venlafaxine 75 mg by mouth daily, Hypothyroidism-- levothyroxine sodium at 150 g Venous insufficiency--continue furosemide and potassium, hold aspirin, may need lasix restart at discharge heparin for dvt prevention
[2017-06-23 16:13] VITALS: BP_SYST 102; BP_SYST 103; BP_SYST 139; BP_DIAS 65; BP_DIAS 67; BP_DIAS 68; PULSE 81; TEMP 36.8; O2SAT 97
[2017-06-23] MEDS ORDERED: NURSING VERBAL MED ORDER ONE (16:15)
[2017-06-23] MEDS ORDERED: MICONAZOLE NITRATE POWDER 43 GM EXT PRN (16:15)
[2017-06-23] MEDS: hydrOXYzine HCL 25 MG TAB PO SCH (21:11)
[2017-06-23] MEDS: QUETIAPINE FUMARATE 200 MG TAB PO SCH (21:11)
[2017-06-23] MEDS: LORAZEPAM 0.5 MG TAB PO SCH (21:12)
[2017-06-23 23:25] VITALS: BP 110/63; PULSE 100; TEMP 36.8; O2SAT 96
[2017-06-24] MEDS: FAMOTIDINE IV INJ 20 MG in DEXTROSE 5% 100ML 100 ML IV SCH ×2 (01:55→14:00)
[2017-06-24] MEDS: LEVOTHYROXINE 137 MCG TAB PO SCH (06:23)
[2017-06-24 07:19] VITALS: BP 117/78; PULSE 76; TEMP 36.7; O2SAT 98
[2017-06-24 07:36] LABS: BASO % 0.2 %; BASO ABS # 0.01 K/uL (0-0.2); COMPLETE YES; EOS % 4.9 %; HEMATOCRIT 41.1 % (37-47); IG% 0.2 %; LYMPH % 24.2 %; LYMPH ABS # 1.29 K/uL (1.2-3.4); MEAN CELL VOLUME 86.7 fL (80-100); MEAN CORPUSCULAR HEMOGLOBIN 26.6 pg (25-34); MEAN CORPUSCULAR HGB CONC 30.7 g/dl (32-36); MEAN PLATELET VOLUME 11.4 fL (7.4-10.4); MONO % 9.4 %; NEUT % 61.1 %; PLATELET COUNT 142 K/uL (130-400); RED BLOOD COUNT 4.74 M/uL (4.2-5.4); WHITE BLOOD COUNT 5.34 K/uL (4.8-10.8)
[2017-06-24 07:56] LABS: PROTHROMBIN TIME (PATIENT) 10.4 SECONDS (9.0-12.0)
[2017-06-24 08:11] LABS: ALT/SGPT 10 U/L (12-78); AST/SGOT 13 U/L (15-37); BLOOD UREA NITROGEN 22 mg/dl (7-18); BUN/CREATININE RATIO 33.1 (10-20); CALCIUM 8.7 mg/dl (8.5-10.1); CARBON DIOXIDE 35 mmol/L (21-32); CHLORIDE 102 mmol/L (98-107); CREATININE 0.65 mg/dl (0.60-1.20); GLUCOSE 90 mg/dl (70-99); MAGNESIUM 2.1 mg/dl (1.8-2.4); SODIUM 139 mmol/L (136-145)
[2017-06-24 08:13] LABS: ALKALINE PHOSPHATASE 127 U/L (45-117)
[2017-06-24] MEDS: SUCRALFATE 1 GM TAB PO SCH ×2 (08:25→12:42)
[2017-06-24] MEDS: DICLOFENAC SOD 25 MG TABEC PO SCH (08:26)
[2017-06-24] MEDS: FUROSEMIDE 20 MG TAB PO SCH (08:26)
[2017-06-24] MEDS: ESCITALOPRAM OXALATE 20 MG TAB PO SCH (08:26)
[2017-06-24] MEDS: TIOTROPIUM BROMIDE 5 PUFF/90 MCG INH INH SCH (08:27)
[2017-06-24] MEDS: POTASSIUM CHLORIDE 10 MEQ TABCR PO SCH (08:28)
[2017-06-24] MEDS: BuPROPion XL 300 MG TABCR PO SCH (08:28)
[2017-06-24] MEDS: BUDESONIDE/FORMOTEROL FUMARATE 160/4.5 60 PUFFS/INHALER INH SCH (08:29)
[2017-06-24] MEDS: HEPARIN SOD 5000 UNIT/0.5 ML CARP SQ SCH (08:36)
[2017-06-24] MEDS ORDERED: MCTP EXT (11:21)
[2017-06-24] MEDS ORDERED: SUCR1TAB PO (11:21)
--- NOTE | 2017-06-24 13:07 | Discharge Instructions ---
Discharge Instructions Date of Service Jun 24, 2017. Admission Reason for Admission: Bilateral Leg Weakness, Intractable Nausea/Vomitin Discharge Discharge Diagnosis / Problem: Weakness, nausea and vomiting Discharge Goals Goal(s): Decrease discomfort, Improve function, Increase independence Activity Recommendations Activity Limitations: resume your previous activity . Instructions / Follow-Up Instructions / Follow-Up Dr. Vale in 1 week Current Hospital Diet Patient's current hospital diet: Regular Diet Discharge Diet Recommended Diet: Regular Diet Pending Studies Studies pending at discharge: no Medical Emergencies . Who to Call and When: Medical Emergencies: If at any time you feel your situation is an emergency, please call 911 immediately. . Non-Emergent Contact Non-Emergency issues call your: Primary Care Provider . . "Provider Documentation" section prepared by Meenu Mack. . VTE Core Measure Inpt VTE Proph given/why not?: SCD's
--- NOTE | 2017-06-24 13:15 | Discharge Summary ---
Discharge Summary Date of Service Jun 24, 2017. Discharge Summary Admission Date: Jun 21, 2017 at 23:26 Discharge Date: Jun 24, 2017 Discharge Disposition: Home with services Principal Diagnosis: Weakness, nausea and vomiting Problems/Secondary Diagnoses: COPD, on 3L at baseline Hypothyroid Hyperlipidemia Depression/anxiety HypoK Immunizations: Have You Had Influenza Vaccine: Yes Influenza Vaccine Date: Aug 08, 2008 History of Tetanus Vaccine?: Unknown History of Pneumococcal: No History of Hepatitis B Vaccine: No Medication Reconciliation New Medications: Miconazole Nitrate (Desenex Shake Powder) 43 Appln/43 Gm Powd 1 APPLN EXT PRN PRN for Affected Skin Folds for 14 Days Sucralfate (Sucralfate) 1 Gm Tab 1 GM PO QID for 14 Days, TAB Continued Medications: Albuterol Hfa (Ventolin Hfa) 200 Puffs/81132 Mcg Aers 2 PUFFS INH Q4 PRN for SOB/Wheezing, #1 INHALER Albuterol Sulf (Ventolin) 2 Mg/5 Ml Syrp 1 VIAL NEB Q4-6 HR PRN for Wheezing Bupropion (Wellbutrin-Xl) 300 Mg Tabcr 300 MG PO DAILY, TAB Trdzrhrmyh-Vffxyzppjbiay-Ofrzz (Fioricet) 1 Cap Cap 1-2 TABLETS PO Q8 PRN for Migraine Diclofenac (Voltaren) 50 Mg Tabec 50 MG PO BID, TAB Escitalopram Oxalate (Lexapro) 20 Mg Tab 20 MG PO DAILY, TAB Furosemide (Lasix) 20 Mg Tab 20 MG PO BID Hydroxyzine Hcl (Atarax) 25 Mg Tab 25 MG PO HS, TAB Levothyroxine Sodium (Synthroid) 137 Mcg Tab 1 TAB PO DAILY Lorazepam (Ativan) 0.5 Mg Tab 0.5 MG PO HS Mometasone Furoate-Formoterol (Dulera 200/5 Mcg) 1 Aer Aer 2 AER INH BID Potassium Chloride (Micro-K Ext Rel) 10 Meq Capcr 10 MEQ PO DAILY Quetiapine Fumarate (Seroquel) 200 Mg Tab 400 MG PO HS, TAB Tiotropium Finger (Spiriva Handihaler) 30 Puff/540 Mcg Aerp 18 MCG INH DAILY, INHALER Tramadol Hcl (Ultram) 50 Mg Tab 50 MG PO Q6 PRN for Pain Zolpidem Tartrate (Ambien) 10 Mg Tab 10 MG PO HS PRN for Sleep Discharge Exam Pt is doing much better. She states that she feels a bit weak, but almost at her usual. Nothing like when she came in. She tells me that she was not able to walk at all and was crawling around on the floor to get around. She has been walking around the halls without issue. Eating without issue. Pt denies fever, SOB, chest pain, abd pain, n/v/c/d, LE pain or swelling. Pertinent positives and negatives reviewed in HPI--all others negative Physical Exam: General Appearance: no apparent distress, + obese Respiratory/Chest: normal breath sounds, no respiratory distress Cardiovascular: regular rate, rhythm, no edema Abdomen / GI: non tender, soft Extremities: no calf tenderness, no pedal edema Neurologic/Psychiatric: alert, oriented x 3 Skin: normal color, warm/dry Hospital Course 62 F oxygen dependent chronic respiratory failure with weakness and falling, original abdominal symptoms resolved RUQ pain, US right upper quadrant.shows no suspicion of acute cholecystitis Improved with added carafate and tolerated advancing diet hold on hida as eating did not exacerbate symptoms and LFT remained normal Possible viral n/v vs gastritis or dyspepsia left knee pain, continue PT/OT COPD/3 L nasal cannula oxygen dependency--stable Spiriva.Symbicort duo nebs. Anxiety/depression-- Wellbutrin XL 300 mg , citalopram 20 mg , Seroquel 20 mg be , venlafaxine 75 mg by mouth daily, Hypothyroidism-- levothyroxine sodium at 150 g Venous insufficiency--continue furosemide and potassium, hold aspirin, may need lasix restart at discharge Pt was recommended for rehab by PT/OT on admission, however she has improved greatly and now only requiring home PT/OT which she is agreeable to. Total Time Spent: Greater than 30 minutes This includes examination of the patient, discharge planning, medication reconciliation, and communication with other providers. Discharge Instructions Please refer to the electronic Patient Visit Report (Discharge Instructions) for additional information. Follow-Up Dr. Vale in 1 week Additional Copies To Endy Vale M.D.
[2017-06-24 14:23] VITALS: BP 117/78; PULSE 76; TEMP 36.7; O2SAT 98
[2017-07-08] MEDS ORDERED: PROM25TA9 PO (13:39)
[2017-07-08] MEDS ORDERED: MELO7.5T5 PO (13:43)
[2017-07-08] MEDS ORDERED: [UNRECOGNIZED DRUG - REMARK] TOP (13:43)
[2017-07-08] MEDS ORDERED: MOME200A INH (13:43)
[2017-07-22] MEDS ORDERED: OXYC-57 PO (12:47)
== END 2017-06-24 15:26 | disposition home health service (06) | DRG 948 ==
LOC: C.EDB 17:30 → C.MS4W 23:26 → ENRESERV 23:36
PROVIDERS: ADMIT Hospitalist; ATTEND Internal Medicine
DX: R53.1 Weakness (principal); J96.10 Chronic respiratory failure, unspecified whether with hypoxia or hypercapnia; R11.2 Nausea with vomiting, unspecified; J44.9 Chronic obstructive pulmonary disease, unspecified; R10.11 Right upper quadrant pain; M25.562 Pain in left knee; F41.9 Anxiety disorder, unspecified; F32.9 Major depressive disorder, single episode, unspecified; E03.9 Hypothyroidism, unspecified; I87.2 Venous insufficiency (chronic) (peripheral); Z82.49 Family history of ischemic heart disease and other diseases of the circulatory system; Z87.891 Personal history of nicotine dependence

== ENCOUNTER 2017-07-13 20:07 | Emergency (ER) | payer OTHER ==
[~2017-07-13] VITALS: Ht 165.1 cm; Wt 114.1 kg
[~2017-07-13 20:07] MED LIST changes: -ASPI81TA28 PO; +BUPRTAB51 PO; -CLX20 PO; -EFF75 PO; +ESCI1TAB10 PO; +LEVO-519 PO; -LEVO150T PO; +MCTP EXT; +MELO7.5T5 PO; -OXGN; +POTA10CA28 PO; +PROM25TA9 PO; +QUET1TAB10 PO; +TRAM-453 PO; +VNTHFA/IN INH; +[UNRECOGNIZED DRUG - REMARK] TOP
[2017-07-13 20:13] VITALS: TEMP 36.9; Ht 165.1 cm; Wt 114.1 kg
[2017-07-13] MEDS ORDERED: CYCLOBENZAPRINE HCL 10 MG TAB PO STA (20:31)
[2017-07-13] MEDS ORDERED: ACETAMINOPHEN 325 MG TAB PO STA (20:31)
[2017-07-13] MEDS ORDERED: MoRPHine SULFATE 4 MG/ML 1 ML CARP\\VIAL IV STA (20:31)
--- NOTE | 2017-07-13 20:41 | EMERGENCY ROOM VISIT NOTE ---
History Report prepared by Noa: Jane Mayo Under the Supervision of: Dr. Johnny Ledezma M.D. First contact with patient: 20:10 Chief Complaint: LEG PAIN,LEG INJURY Stated Complaint: LEG PAIN History of Present Illness The patient is a 62 year old white female with a past medical history of COPD, oxygen dependence, hypothyroidism, anxiety, venous insufficiency who presents to the ED with a cc of worsening leg pain beginning 2-3 weeks ago. She has tried taking Tylenol and ibuprofen to no significant relief. Positive falls, right hip pain. Negative SOB. She does not smoke. She is on 3L of oxygen at home. She denies any recent travel. She has been taking all her medications as prescribed. She is able to ambulate with a walker at home. She notes her hip pain started when she fell 4 days ago. Source of History: patient Onset: 2-3 weeks ago Position: leg (bilateral) Quality: other (pain) Timing: worsening Associated Symptoms: No SOB Note: Pt reports falls, right hip pain. Review of Systems See HPI for pertinent positives and negatives. A total of ten systems were reviewed and were otherwise negative. Past Medical & Surgical Medical Problems: (1) COPD (chronic obstructive pulmonary disease) (2) Hyperlipemia (3) Hypothyroidism (4) Intractable nausea and vomiting Family History FH: cancer Heart disease Social History Smoking Status: Former Smoker Alcohol Use: none Drug Use: none Marital Status: Housing Status: lives alone Occupation Status: unemployed Current/Historical Medications Scheduled Bupropion (Wellbutrin-Xl), 300 MG PO QAM Escitalopram Oxalate (Lexapro), 20 MG PO QAM Furosemide (Lasix), 20 MG PO BID Lorazepam (Ativan), 0.5 MG PO HS Meloxicam (Mobic), 15 MG PO DAILY Mometasone Furoate-Formoterol (Dulera 200/5 Mcg), 2 PUFFS INH BID Potassium Chloride (Micro-K Ext Rel), 10 MEQ PO QAM Quetiapine Fumarate (Seroquel), 400 MG PO HS Scheduled PRN Albuterol Hfa (Ventolin Hfa), 2 PUFFS INH Q4 PRN for SOB/Wheezing Albuterol Sulf (Ventolin), 1 VIAL NEB Q4-6 HR PRN for Wheezing Azagljlqmv-Evwjaxhtmnfyu-Iaxpf (Fioricet), 1-2 TABLETS PO Q8 PRN for Migraine Promethazine Hcl (Phenergan), 25 MG PO Q6H PRN for Nausea Allergies Coded Allergies: Amoxicillin (Verified Allergy, Mild, HIVES, 01/23/17) Doxycycline (Verified Allergy, Unknown, HIVES, 07/08/17) Naproxen (Verified Allergy, Unknown, UNKNOWN, 07/08/17) Penicillins (Verified Allergy, Unknown, HIVES, 07/08/17) Physical Exam Vital Signs Date Time Temp Pulse Resp B/P (MAP) Pulse Ox O2 Delivery O2 Flow Rate FiO2 07/13/17 21:42 132/71 07/13/17 21:01 125/79 07/13/17 20:52 83 16 100 07/13/17 20:37 81 16 100 07/13/17 20:32 125/80 07/13/17 20:22 83 25 100 Nasal Cannula 3.0 07/13/17 20:16 79 07/13/17 20:14 129/81 07/13/17 20:13 36.9 81 15 129/81 97 Nasal Cannula 3.0 Physical Exam GENERAL: Awake, alert, well-appearing, NAD HENT: Normocephalic, atraumatic. EYES: Normal conjunctiva. Sclera non-icteric. NECK: Supple. No nuchal rigidity. FROM. RESPIRATORY: CTAB, no rhonchi, wheezing, crackles CARDIAC: RRR, no MRG ABDOMEN: Soft, NTND, BS+ MSK: No chest wall TTP, no LE edema NEURO: GCS 15, CN 2-12 intact, 4/5 strength in b/l LEs, no saddle anesthesia. SKIN: No rash or jaundice noted. Medical Decision & Procedures ER Provider Diagnostic Interpretation: Radiology results as stated below per my review and radiologist interpretation: PELVIS NO IV/ORAL CONT (CT) CLINICAL HISTORY: 62 years-old Female presenting with s/p fall, difficulty walking, R hip pain. TECHNIQUE: Multidetector CT of the pelvis was performed without the use of intravenous contrast. IV contrast: None. A dose lowering technique was used consistent with the principles of ALARA (as low as reasonably achievable). COMPARISON: 05/05/2017. CT DOSE (mGy.cm): The estimated cumulative dose is 1322.00 mGy.cm. FINDINGS: [employer] Worker topogram: Unremarkable. Degenerative changes of the hip joints, right greater than left, with osteophytosis, joint space loss, subchondral sclerosis and subchondral cystic change along the superior acetabula. No femoral neck or pelvic fracture. Pubic symphysis and sacroiliac joints congruent. Degenerative changes of the lower lumbar spine. No sacral fracture. Persistent left adnexal cystic lesion, which now measures 5.7 cm maximal axial dimension, previously 6.5 cm. This appears to potentially be complex. No lymphadenopathy in the pelvis. Atherosclerosis. Mild stool burden. Bilateral inguinal hernias. A antimesenteric wall of small bowel minimally protrudes into the right inguinal canal. No associated limits for change or wall thickening. No bowel obstruction. Bladder incompletely distended. No free fluid. IMPRESSION: 1. Degenerative changes of the bilateral hip joints, right greater than left, with joint space loss and cystic change along the superior acetabula. 2. No acute osseous injury of the pelvis. 3. Degenerative changes of the lower lumbar spine. 4. Persistent cystic potentially complex left ovarian lesion. This remains indeterminate and suspicious. Further evaluation with dedicated pelvic ultrasound and gynecologic consultation is again recommended. The report will be called/faxed according to standard departmental protocol. Electronically signed by: Moses Frederick M.D. 07/13/2017 9:27 PM Dictated Date/Time: 07/13/2017 9:19 PM R FEMUR 2 VIEWS ROUTINE CLINICAL HISTORY: 62 years-old Female presenting with pain s/p fall. TECHNIQUE: Frontal and lateral views of the right femur were obtained. COMPARISON: 05/05/2017. FINDINGS: Joint space loss, subchondral sclerosis, and subtle cystic change suspected at the right hip joint with changes evident along the superior acetabulum. Osteophytosis along the femoral head noted. No acute fracture or subluxation. Visualized portion of the bony pelvis normal. Pubic symphysis congruent. Total right knee arthroplasty with patellar resurfacing. No hardware complication. No gross knee joint effusion. Osteopenia suspected. IMPRESSION: 1. No acute osseous injury. 2. Degenerative changes of the right hip. 3. Postsurgical changes of total right knee arthroplasty with patellar resurfacing. No hardware complication. Electronically signed by: Moses Frederick M.D. 07/13/2017 9:38 PM Dictated Date/Time: 07/13/2017 9:36 PM Laboratory Results 07/13/17 20:40 Red Blood Count 4.47, Mean Corpuscular Volume 86.6, Mean Corpuscular Hemoglobin 25.7, Mean Corpuscular Hemoglobin Concent 29.7, Mean Platelet Volume 11.2, Neutrophils (%) (Auto) 66.1, Lymphocytes (%) (Auto) 19.5, Monocytes (%) (Auto) 9.8, Eosinophils (%) (Auto) 4.2, Basophils (%) (Auto) 0.1, Neutrophils # (Auto) 4.72, Lymphocytes # (Auto) 1.39, Monocytes # (Auto) 0.70, Eosinophils # (Auto) 0.30, Basophils # (Auto) 0.01 07/13/17 20:40 Test 07/13/17 20:40 White Blood Count 7.14 K/uL (4.8-10.8) Red Blood Count 4.47 M/uL (4.2-5.4) Hemoglobin 11.5 g/dL (12.0-16.0) Hematocrit 38.7 % (37-47) Mean Corpuscular Volume 86.6 fL (80-100) Mean Corpuscular Hemoglobin 25.7 pg (25-34) Mean Corpuscular Hemoglobin Concent 29.7 g/dl (32-36) Platelet Count 148 K/uL (130-400) Mean Platelet Volume 11.2 fL (7.4-10.4) Neutrophils (%) (Auto) 66.1 % Lymphocytes (%) (Auto) 19.5 % Monocytes (%) (Auto) 9.8 % Eosinophils (%) (Auto) 4.2 % Basophils (%) (Auto) 0.1 % Neutrophils # (Auto) 4.72 K/uL (1.4-6.5) Lymphocytes # (Auto) 1.39 K/uL (1.2-3.4) Monocytes # (Auto) 0.70 K/uL (0.11-0.59) Eosinophils # (Auto) 0.30 K/uL (0-0.5) Basophils # (Auto) 0.01 K/uL (0-0.2) RDW Standard Deviation 45.1 fL (36.4-46.3) RDW Coefficient of Variation 14.4 % (11.5-14.5) Immature Granulocyte % (Auto) 0.3 % Immature Granulocyte # (Auto) 0.02 K/uL (0.00-0.02) Anion Gap 3.0 mmol/L (3-11) Est Creatinine Clear Calc Drug Dose 120.1 ml/min Estimated GFR () 112.8 Estimated GFR (Non- 97.3 BUN/Creatinine Ratio 32.4 (10-20) Calcium Level 8.7 mg/dl (8.5-10.1) Phosphorus Level 2.2 mg/dl (2.5-4.9) Magnesium Level 2.2 mg/dl (1.8-2.4) Laboratory results reviewed by me Medications Administered Medications (Trade) Dose Ordered Sig/Cl[place]is Route Start Time Stop Time Status Last Admin Dose Admin Morphine Sulfate (MoRPHine SULFATE INJ) 4 mg NOW STAT IV 07/13/17 20:31 07/13/17 20:35 DC 07/13/17 21:01 4 MG Acetaminophen (Tylenol Tab) 650 mg NOW STAT PO 07/13/17 20:31 07/13/17 20:35 DC 07/13/17 21:00 650 MG Cyclobenzaprine HCl (Flexeril Tab) 5 mg NOW STAT PO 07/13/17 20:31 07/13/17 20:35 DC 07/13/17 21:00 5 MG ED Course 2021: The patient was evaluated in room C6. A complete history and physical exam was performed. 2142: I reevaluated the patient. I discussed results and discharge instructions : she verbalized understanding and agreement. The patient is ready for discharge. Medical Decision The patient is a 62 year old white female with a past medical history of COPD, oxygen dependence, hypothyroidism, anxiety, venous insufficiency who presents to the ED with a cc of worsening leg pain beginning 2-3 weeks ago. Differential diagnosis: fracture, strain, sprain, electrolyte abnormality. She was seen and evaluated at the bedside. Patient states she has been ongoing leg pain for many weeks. Patient states that she fell personally 4 days ago. Of note patient was recently admitted and only discharge 3 days ago. Initially during her inpatient stay there was a possibility of inpatient rehabilitation however there arrange for at-home PT and OT patient states is occurring. Patient has no bowel or bladder incontinence and no saddle anesthesia. Patient did have blood work as well as CT of the pelvis noncontrast study completed along with plain femur films. Patient's blood work was fairly unremarkable. Patient does have elevated bicarbonate which is likely consistent with her chronic CO2 retention given her COPD and oxygen dependence. Patient had no focal neurologic deficits patient does not have any low back pain. Patient did have some mild right-sided hip pain. Patient does not appear to be short. Patient did have symmetric strength bilaterally although 4 out of 5. Patient has had no bowel or bladder incontinence or retention. Patient poorly uses a walker to get around persistence. Of note on her CT noncontrast study there was concern for a left ovarian mass. During further chart review patient reportedly is follow-up with his ovarian mass mass in a physician note in April 2017. This note also showed that she did have a CT study completed at that time with a similar appearing mass. No abdominal pain at this time. The mass is L sided where as patient's pain was R hip, less likely referred. Also w/ abdominal pain. Patient was told to ensure that she does follow-up. In the event the patient is not doing so and DIRECTOR OF HEALTHCARE SYSTEMS referral was given to the patient she was instructed to call for follow-up. Patient was given strict follow-up, discharge, return precautions. Patient ambulated briefly with the assistance of a walker was DC'd home. Medication Reconcilliation Current Medication List: was personally reviewed by me Blood Pressure Screening Patient's blood pressure: Normal blood pressure Blood pressure disposition: Did not require urgent referral Impression Primary Impression: Fall at home Additional Impressions: Leg weakness, bilateral Ovarian mass, left Scribe Attestation The scribe's documentation has been prepared under my direction and personally reviewed by me in its entirety. I confirm that the note above accurately reflects all work, treatment, procedures, and medical decision making performed by me. Departure Information Dispostion Home / Self-Care Prescriptions Tramadol (Ultram) 50 Mg Tab 25 MG PO Q8H Y for Pain, #10 TAB Prov: Johnny Ledezma M.D. 07/13/17 Referrals Endy Vale M.D. (PCP) Canan. Valdes MD Patient Instructions Chronic Pain, My [facility] Additional Instructions Please return to the emergency department if you have worsening or recurrent symptoms not amenable to at-home treatment. Please call for a follow-up appointment with her primary care physician. Please take your medications as prescribed. If you have other concerns and/or complaints please feel free to also call your primary care physician's office or return the ED for further evaluation, management, and treatment. You were found to have an elevated blood pressure today (>120 sytolic or >90 diastolic). Per medicare guidelines, you need to follow up with this blood pressure screening with your Primary Care Physician (PCP). For a new PCP call [phone]. You received narcotic or benzodiazepene medication while in the emergency room today. This is an addictive medication that may cause drowziness as well as constipation. Do not drive, operate heavy machinery, or drink alcohol under the influence of this medication. You may take 600 mg Ibuprofen every 6 hours as needed for pain with food for no more than 2 consecutive days. You may take tylenol 1000mg every 6 hours as needed for pain. You may take motrin and tylenol separately or at the same time. Take tramadol for breakthrough pain. You have been examined and treated today on an emergency basis only. This is not a substitute for, or an effort to provide, complete comprehensive medical care. It is impossible to recognize and treat all injuries or illnesses in a single emergency department visit. It is therefore important that you follow up closely with [facility]. Call as soon as possible for an appointment. Thank you for your time and consideration. I look forward to speaking with you again soon. Please don't hesitate to call us if you have any questions. Problem Qualifiers Primary Impression: Fall at home Encounter type: sequela Qualified Codes: W19.XXXS - Unspecified fall, sequela; Y92.099 - Unspecified place in other non-institutional residence as the place of occurrence of the external cause
[2017-07-13] MEDS ORDERED: MELO15TA4 PO (20:57)
[2017-07-13 20:59] LABS: BASO % 0.1 %; BASO ABS # 0.01 K/uL (0-0.2); COMPLETE YES; EOS % 4.2 %; HEMATOCRIT 38.7 % (37-47); IG% 0.3 %; LYMPH % 19.5 %; LYMPH ABS # 1.39 K/uL (1.2-3.4); MEAN CELL VOLUME 86.6 fL (80-100); MEAN CORPUSCULAR HEMOGLOBIN 25.7 pg (25-34); MEAN CORPUSCULAR HGB CONC 29.7 g/dl (32-36); MEAN PLATELET VOLUME 11.2 fL (7.4-10.4); MONO % 9.8 %; NEUT % 66.1 %; PLATELET COUNT 148 K/uL (130-400); RED BLOOD COUNT 4.47 M/uL (4.2-5.4); WHITE BLOOD COUNT 7.14 K/uL (4.8-10.8)
[2017-07-13 21:18] LABS: BUN/CREATININE RATIO 32.4 (10-20); CALCIUM 8.7 mg/dl (8.5-10.1); CREATININE 0.62 mg/dl (0.60-1.20); MAGNESIUM 2.2 mg/dl (1.8-2.4); PHOSPHORUS 2.2 mg/dl (2.5-4.9); POTASSIUM 3.8 mmol/L (3.5-5.1)
--- NOTE | 2017-07-13 21:28 | DIAGNOSTIC IMAGING REPORT ---
PELVIS NO IV/ORAL CONT (CT) CLINICAL HISTORY: 62 years-old Female presenting with s/p fall, difficulty walking, R hip pain. TECHNIQUE: Multidetector CT of the pelvis was performed without the use of intravenous contrast. IV contrast: None. A dose lowering technique was used consistent with the principles of ALARA (as low as reasonably achievable). COMPARISON: 05/05/2017. CT DOSE (mGy.cm): The estimated cumulative dose is 1322.00 mGy.cm. FINDINGS: Hotel Guest Service Agent topogram: Unremarkable. Degenerative changes of the hip joints, right greater than left, with osteophytosis, joint space loss, subchondral sclerosis and subchondral cystic change along the superior acetabula. No femoral neck or pelvic fracture. Pubic symphysis and sacroiliac joints congruent. Degenerative changes of the lower lumbar spine. No sacral fracture. Persistent left adnexal cystic lesion, which now measures 5.7 cm maximal axial dimension, previously 6.5 cm. This appears to potentially be complex. No lymphadenopathy in the pelvis. Atherosclerosis. Mild stool burden. Bilateral inguinal hernias. A antimesenteric wall of small bowel minimally protrudes into the right inguinal canal. No associated limits for change or wall thickening. No bowel obstruction. Bladder incompletely distended. No free fluid. IMPRESSION: 1. Degenerative changes of the bilateral hip joints, right greater than left, with joint space loss and cystic change along the superior acetabula. 2. No acute osseous injury of the pelvis. 3. Degenerative changes of the lower lumbar spine. 4. Persistent cystic potentially complex left ovarian lesion. This remains indeterminate and suspicious. Further evaluation with dedicated pelvic ultrasound and gynecologic consultation is again recommended. The report will be called/faxed according to standard departmental protocol. Electronically signed by: Moses Frederick M.D. 07/13/2017 9:27 PM Dictated Date/Time: 07/13/2017 9:19 PM
--- NOTE | 2017-07-13 21:39 | DIAGNOSTIC IMAGING REPORT ---
R FEMUR 2 VIEWS ROUTINE CLINICAL HISTORY: 62 years-old Female presenting with pain s/p fall. TECHNIQUE: Frontal and lateral views of the right femur were obtained. COMPARISON: 05/05/2017. FINDINGS: Joint space loss, subchondral sclerosis, and subtle cystic change suspected at the right hip joint with changes evident along the superior acetabulum. Osteophytosis along the femoral head noted. No acute fracture or subluxation. Visualized portion of the bony pelvis normal. Pubic symphysis congruent. Total right knee arthroplasty with patellar resurfacing. No hardware complication. No gross knee joint effusion. Osteopenia suspected. IMPRESSION: 1. No acute osseous injury. 2. Degenerative changes of the right hip. 3. Postsurgical changes of total right knee arthroplasty with patellar resurfacing. No hardware complication. Electronically signed by: Moses Frederick M.D. 07/13/2017 9:38 PM Dictated Date/Time: 07/13/2017 9:36 PM
[2017-07-13 22:02] VITALS: BP 121/64
[2017-07-13] MEDS ORDERED: TRAM-10 PO (22:10)
[2017-07-13 22:17] VITALS: PULSE 70; O2SAT 100
== END 2017-07-13 22:29 | disposition home or self-care (01) ==
LOC: EDBD 20:07 → C.EDC 20:08
DX: M62.81 Muscle weakness (generalized) (principal); N83.8 Other noninflammatory disorders of ovary, fallopian tube and broad ligament; M79.605 Pain in left leg; J44.9 Chronic obstructive pulmonary disease, unspecified; E03.9 Hypothyroidism, unspecified; E78.5 Hyperlipidemia, unspecified; F41.9 Anxiety disorder, unspecified; Z79.899 Other long term (current) drug therapy; Z99.81 Dependence on supplemental oxygen; Z86.79 Personal history of other diseases of the circulatory system; Z87.891 Personal history of nicotine dependence; Z82.49 Family history of ischemic heart disease and other diseases of the circulatory system; W19.XXXS Unspecified fall, sequela; Y92.009 Unspecified place in unspecified non-institutional (private) residence as the place of occurrence of the external cause

== ENCOUNTER 2017-07-22 08:49 | Observation (INO) | payer OTHER ==
[2017-07-08 13:48] VITALS: BMI 39.0
--- NOTE | 2017-07-08 14:44 | PAT Medication Instructions ---
Service Date Jul 08, 2017. Current Home Medication List Albuterol Hfa (Ventolin Hfa), 2 PUFFS INH Q4 PRN for SOB/Wheezing Albuterol Sulf (Ventolin), 1 VIAL NEB Q4-6 HR PRN for Wheezing Bupropion (Wellbutrin-Xl), 300 MG PO QAM Xuvitknqvy-Pfpzfjkpbiskn-Foumh (Fioricet), 1-2 TABLETS PO Q8 PRN for Migraine Escitalopram Oxalate (Lexapro), 20 MG PO QAM Furosemide (Lasix), 20 MG PO BID Levothyroxine Sodium (Synthroid), 1 TAB PO QAM Lorazepam (Ativan), 0.5 MG PO HS Meloxicam (Mobic), 15 MG PO QAM Miconazole Nitrate (Desenex Shake Powder), 1 APPLN EXT PRN PRN for Affected Skin Folds Mometasone Furoate-Formoterol (Dulera 200/5 Mcg), 2 PUFFS INH BID Potassium Chloride (Micro-K Ext Rel), 10 MEQ PO QAM Promethazine Hcl (Phenergan), 25 MG PO Q6H PRN for Nausea Quetiapine Fumarate (Seroquel), 400 MG PO HS Tramadol Hcl (Ultram), 50 MG PO Q6 PRN for Pain Zolpidem Tartrate (Ambien), 10 MG PO HS PRN for Sleep ["Barrie"], 1 DOSE TOP UD Medication Instructions For Your Scheduled Surgery - Per surgeon's instructions: Meloxicam (Mobic), 15 MG PO QAM - Hold the following medications 24 hours prior to surgery: ["Barrie"], 1 DOSE TOP UD Miconazole Nitrate (Desenex Shake Powder), 1 APPLN EXT PRN PRN for Affected Skin Folds - Hold the following medications the morning of surgery: Rprwstcpco-Nxzrxmuqxtchz-Ufhry (Fioricet), 1-2 TABLETS PO Q8 PRN for Migraine Furosemide (Lasix), 20 MG PO BID Potassium Chloride (Micro-K Ext Rel), 10 MEQ PO QAM - Take the following medications the morning of surgery with a sip of water OTHERWISE NOTHING TO EAT OR DRINK AFTER MIDNIGHT: Albuterol Hfa (Ventolin Hfa), 2 PUFFS INH Q4 PRN for SOB/Wheezing (use if needed ; BRING TO HOSPITAL) Albuterol Sulf (Ventolin), 1 VIAL NEB Q4-6 HR PRN for Wheezing Levothyroxine Sodium (Synthroid), 1 TAB PO QAM Escitalopram Oxalate (Lexapro), 20 MG PO QAM Bupropion (Wellbutrin-Xl), 300 MG PO QAM Mometasone Furoate-Formoterol (Dulera 200/5 Mcg), 2 PUFFS INH BID Tramadol Hcl (Ultram), 50 MG PO Q6 PRN for Pain (may take if needed up to 4 hours prior to surgery) Promethazine Hcl (Phenergan), 25 MG PO Q6H PRN for Nausea - Take the following medications as scheduled the night before surgery: Albuterol Hfa (Ventolin Hfa), 2 PUFFS INH Q4 PRN for SOB/Wheezing Albuterol Sulf (Ventolin), 1 VIAL NEB Q4-6 HR PRN for Wheezing Kossyamopo-Wcsdadyvghhhs-Vwpaj (Fioricet), 1-2 TABLETS PO Q8 PRN for Migraine Furosemide (Lasix), 20 MG PO BID Lorazepam (Ativan), 0.5 MG PO HS Quetiapine Fumarate (Seroquel), 400 MG PO HS Zolpidem Tartrate (Ambien), 10 MG PO HS PRN for Sleep If you have any questions please call us at [phone] or [phone] or [phone]
[~2017-07-22] VITALS: Ht 167.6 cm; Wt 114.6 kg
[2017-07-22] MEDS: LACTATED RINGER'S 1000ML 1,000 ML IV SCH ×2 (06:00→14:00)
[~2017-07-22 08:49] MED LIST changes: +ATROPINE SULFATE 0.1 MG/ML 5ML SYR IV PRN; +EpHEDrine SULFATE INJ 50 MG/ML AMP IV PRN; +HYDROmorphone INJ 1 MG/ML SYR IV PRN; +LACTATED RINGER'S 1000ML 1,000 ML IV SCH; -LEVO-519 PO; -MCTP EXT; +MELO15TA4 PO; -MELO7.5T5 PO; +ONDANSETRON INJ 2 MG/ML 2 ML VIAL IV PRN; +TRAM-10 PO; -TRAM-453 PO; -ZOLP10TA PO; -[UNRECOGNIZED DRUG - REMARK] TOP
[2017-07-22 09:31] VITALS: BP 131/75; PULSE 81; TEMP 37.2; O2SAT 98; BMI 39.0
--- NOTE | 2017-07-22 09:46 | History & Physical Bridge Note ---
H&P Re-Evaluation Bridge Note: I have examined the patient, reviewed the History & Physical and in the interval since the performance of the History & Physical I have noted the following changes of clinical significance: No changes noted. Patient insists on proceeding with surgery. Discussed my concerns with her brother but he agrees to proceed with her plans.
[2017-07-22] MEDS ORDERED: FENTANYL CITRATE INJ 50 MCG/1 ML 2 ML VIAL ONE ×3 (10:06→13:01)
[2017-07-22] MEDS ORDERED: MIDAZOLAM HCL 1 MG/ML 2ML VIAL ONE (10:06)
[2017-07-22] MEDS ORDERED: METHYLENE BLUE 0.5% 10 ML VIAL ONE (10:20)
[2017-07-22] MEDS ORDERED: BUPIVACAINE 0.5 % 5 MG/1 ML MPF 30ML VIAL ONE (10:20)
[2017-07-22] MEDS ORDERED: ALBUT/IPRATROP 3MG/0.5MG NEB 3 ML VIAL INH PRN ×2 (10:30→16:00)
[2017-07-22] MEDS ORDERED: ACETAMINOPHEN 1000 MG/100 ML IV IV ONE (10:33)
[2017-07-22] MEDS ORDERED: ALBUT/IPRATROP 3MG/0.5MG NEB 3 ML VIAL INH SCH (10:45)
[2017-07-22 11:14] VITALS: PULSE 70; O2SAT 98
[2017-07-22] MEDS ORDERED: LIDOCAINE HCL 2% 2 ML VIAL (20MG/ML) ONE (11:54)
[2017-07-22] MEDS ORDERED: ROCURONIUM BROMIDE 10 MG/ML 5 ML VIAL IV ONE (11:54)
[2017-07-22] MEDS ORDERED: DEXAMETHASONE SOD INJ 4 MG/ML VIAL ONE (11:54)
[2017-07-22] MEDS ORDERED: PROPOFOL IV EMULSION 10 MG/ML 20 ML VIAL IV ONE (11:54)
[2017-07-22] MEDS ORDERED: ONDANSETRON INJ 2 MG/ML 2 ML VIAL ONE (11:54)
[2017-07-22] MEDS: SODIUM CHLORIDE 0.9% 1000ML 1,000 ML IV SCH ×2 (12:42→19:34)
[2017-07-22] MEDS ORDERED: ONDANSETRON INJ 2 MG/ML 2 ML VIAL IV PRN ×2 (12:45→16:00)
[2017-07-22] MEDS ORDERED: OXYCODONE/ACETAMINOPHEN 5-325 TAB PO PRN (12:45)
[2017-07-22] MEDS ORDERED: OXYC-57 PO (12:47)
--- NOTE | 2017-07-22 12:49 | Discharge Instructions ---
Discharge Instructions Date of Service Jul 22, 2017. Admission Reason for Admission: Pelvic Mass, Abdominal Pain Discharge Discharge Diagnosis / Problem: after surgery Discharge Goals Goal(s): Routine recovery after surgery Activity Recommendations Activity Limitations: as noted below . Instructions / Follow-Up Instructions / Follow-Up ACTIVITY RECOMMENDATIONS: * Rest the first 2-3 days. You should be back to your normal activity levels by day 3. * No heavy lifting for 2 weeks. * No intercourse, tampons or douching for 1-2 weeks. * You may shower the next day. * Do not drive anytime that you are taking narcotic pain medicines. RETURN TO SCHOOL/WORK: * May return to school or work after 2-3 days. DIET: Nausea may occur in the immediate post-operative period. If so, take clear liquids such as tea, bouillon, apple juice until all nausea has subsided, then resume usual diet. MEDICATIONS: Resume previous medications unless instructed otherwise by your surgeon. Ibuprofen 200mg 2-3 tablets every 4-6 hours as needed -- OR -- Aleve 2 tablets every 8-12 hours as needed for post-operative discomfort Medications are over the counter. Tylenol may be used if above medications are contraindicated or not preferred. Medication should be taken with food or milk. Do not take on an empty stomach. SPECIAL CARE INSTRUCTIONS: * Check temperature twice daily for one week. report any elevation over 101 degrees. * Post-operative discomfort may consist of a sore throat, a "bloated" feeling and pain in the shoulders. these are normal symptoms, which usually only last for 2-3 days. FOLLOW UP VISIT: Call your doctor's office for a post-operative 2 week visit if not already scheduled. Current Hospital Diet Patient's current hospital diet: Discharge Diet Recommended Diet: Regular Diet Procedures Procedures Performed: Left Laparoscopic Salpingo-Oophorectomy Robot Assist; Pelvic Washings; Lysis of Adhesions Pending Studies Studies pending at discharge: yes List of pending studies: left tube and ovary pathology Medical Emergencies . Who to Call and When: Medical Emergencies: If at any time you feel your situation is an emergency, please call 911 immediately. . Non-Emergent Contact Non-Emergency issues call your: Security System Sales Consultant . . "Provider Documentation" section prepared by Silva Sotelo. . VTE Core Measure Inpt VTE Proph given/why not?: SCD's
[2017-07-22] MEDS: FENTANYL CITRATE INJ 50 MCG/1 ML 2 ML VIAL IV PRN ×4 (13:02→13:18)
--- NOTE | 2017-07-22 13:10 | [facility] Operative Report ---
Operative Report Operative Date Jul 22, 2017. Pre-Operative Diagnosis Left cystic Pelvic Mass, Generalized abdominal pain Post-Operative Diagnosis Same as preop, left ovarian cystic mass Procedure(s) Performed Left Laparoscopic Salpingo-Oophorectomy Robot Assist; Pelvic Washings; Lysis of Adhesions Surgeon Dr. Sotelo Geotechnical Department Manager Surgeon(s) Dr. Charles Estimated Blood Loss 5 ml Findings adhesions of omentum to anterior abdominal wall, some dense, some more filmy. mobile vaginal cuff. right tube and ovary appear surgically absent. left ovary and tube with adhesions of colon overlying infundibulopelvic ligament and ovary itself adhesed to left pelvic sidewall. large cystic area of left ovary with straw colored fluid. ureter seen coursing well below planned operative site. Fluids 1000 Specimens Cytology 1. Pelvic Wash Sent Permanent A. Left Fallopian tube and Ovary Drains none Anesthesia general Complication(s) None Disposition Recovery Room / PACU Indications 62-year-old with a history of left pelvic cystic mass suspected to be related to the left ovary that is persistent. On her most recent imaging through the emergency room it was found to be slightly larger. She had a negative CA-125. She was given management options to include ultrasound follow-up however desired surgical evaluation of the mass. She was concerned about a malignancy. Please see the history and physical for further details. Description of Procedure The patient was taken to the operating room and identified. After adequate general anesthesia was obtained she was placed in the dorso lithotomy position and prepped and draped in the usual sterile fashion. Clayton catheter was placed under sterile conditions. A sponge stick was placed in the vagina. Attention was then turned to the patient's abdomen where a supraumbilical skin incision was made with the scalpel. The Veress needle was placed intraperitoneally with an opening pressure of 6 mmHg. A CO2 pneumoperitoneum was created. The optical trocar was placed under direct visualization into the peritoneal cavity. The patient was placed in steep Trendelenburg. There were obvious dense and filmy omental adhesions to the anterior abdominal wall, mostly in the midline. The left trocar site was created by first making a skin incision and then placing under direct visualization the left da Tremayne trocar. A patient assist port was created in the left upper quadrant in similar fashion. This allowed for introduction of a scissor which allowed for some dissection of the omental adhesions to allow a right da Tremayne trocar site to be created. The right da Tremayne trocar site was created in a similar fashion. At this point the laparoscope/camera was removed and the da Tremayne robot was brought to the patient 's bedside. The appropriate instrument arms were connected to the appropriate trocars. The camera was introduced. The monopolar maurice were brought through instrument arm #1 and the fenestrated bipolar was brought through instrument arm #2. Additional blunt dissection and sharp dissection was needed on the omental adhesions to access the left ovary. The left ovary was elevated using fenestrated bipolar. The peritoneal adhesions of the colon overlying the infundibulopelvic ligament were taken down with care not to injure the bowel. The peritoneal sidewall was inspected and the ureter was seen coursing well below the planned operative site. The ovary was further elevated. The peritoneal tissue was opened into to help to dissect away the ovary and peel the ovary away from its adhesions in the pelvic sidewall. Once the infundibulopelvic was completely mobilized it was cauterized and transected. At this point the robot was undocked and moved away from the patient's bedside. The 10 millimeter camera was placed in the supraumbilical port. The specimen was regrasped through a 5 mm port. A laparoscopic bag was brought through the patient assist port and the specimen was place inside. The specimen was brought out through that port site. The CO2 pneumoperitoneum was maintained and the operative site was inspected and noted to be hemostatic. At this point the CO2 pneumoperitoneum was let down and the trocars were removed. The larger trocar incision sites were first stitched with subcutaneous interrupted sutures of 0 Vicryl followed by all skin closures at all sites in a subcuticular fashion using 4-0 Vicryl. They were injected with Marcaine and dressed with Dermabond. The vaginal instrument was removed. The Clayton catheter was removed. The patient was returned to the supine position, she was woken from anesthesia and transferred to the recovery room in stable condition. All sponge, lap and needle counts were correct 2 I attest to the content of the Intraoperative Record and any orders documented therein. Any exceptions are noted below.
--- NOTE | 2017-07-22 13:15 | Medical Student: [facility] ---
Operative Report Operative Date Jul 22, 2017. Pre-Operative Diagnosis Pelvic Mass, Abdominal pain at multiple sites Post-Operative Diagnosis Pelvic Mass: Left ovarian Cyst, abdominal pain at multiple sites Procedure(s) Performed Pelvic Washing Laproscopic Left Salpingo-oopherectomy with DaVinci Robot Surgeon Dr. Sotelo Roof Fitter Surgeon(s) Dr. Charles Estimated Blood Loss 5 ml Findings Fluid filled cyst on the left ovary. Absent uterus due to previous hysterectomy Absent Right ovary and fallopian tube due to previous right Salpingo- oophorectomy. Fluids (cc crystalloids) 1 L Lactated Ringer's Specimens Cystic left ovary Left fallopian tube Drains Clayton Catheter Anesthesia General Complication(s) None Disposition Recovery Room / PACU
--- NOTE | 2017-07-22 13:36 | Anesthesiology Progress Note ---
Anesthesia Post Op Note Date & Time Jul 22, 2017 at 13:36 Vital Signs Pain Intensity: 7 Vital Signs Past 12 Hours Date Time Temp Pulse Resp B/P (MAP) Pulse Ox O2 Delivery O2 Flow Rate FiO2 07/22/17 13:30 36.7 07/22/17 13:28 62 14 98 07/22/17 13:28 62 14 07/22/17 13:26 153/81 07/22/17 13:23 61 10 07/22/17 13:23 60 10 100 07/22/17 13:22 122/73 07/22/17 13:18 61 16 07/22/17 13:18 61 16 100 07/22/17 13:17 105/89 07/22/17 13:13 57 13 07/22/17 13:13 57 13 99 07/22/17 13:12 121/63 07/22/17 13:08 60 13 98 07/22/17 13:08 60 13 07/22/17 13:06 124/65 07/22/17 13:03 63 14 07/22/17 13:03 63 14 99 07/22/17 13:01 121/67 07/22/17 12:58 63 15 07/22/17 12:58 63 15 100 07/22/17 12:56 136/67 07/22/17 12:53 60 14 100 07/22/17 12:53 60 14 07/22/17 12:52 148/81 07/22/17 12:48 36.9 63 16 148/81 100 Oxymask 7 07/22/17 11:14 70 16 98 Nasal Cannula 3.0 07/22/17 09:31 37.2 81 22 131/75 (93) 98 Nasal Cannula 3 Notes Mental Status: alert / awake / arousable, participated in evaluation Pt Amnestic to Procedure: Yes Nausea / Vomiting: adequately controlled Pain: adequately controlled Airway Patency, RR, SpO2: stable & adequate BP & HR: stable & adequate Hydration State: stable & adequate Anesthetic Complications: no major complications apparent
[2017-07-22] MEDS ORDERED: IV FLUIDS COMPLETED PRN (15:15)
[2017-07-22 15:32] VITALS: BP 143/79; PULSE 64; TEMP 37; O2SAT 98; Ht 167.6 cm; Wt 114.6 kg
[2017-07-22] MEDS ORDERED: MAGNESIUM HYDROXIDE SUSP 30 ML UDC PO PRN (16:00)
[2017-07-22] MEDS ORDERED: POLYETHYLENE (MIRALAX) 17 GM PACK PO PRN (16:00)
[2017-07-22] MEDS ORDERED: ALBUTEROL HFA 8 GM INHALER INH PRN (16:00)
[2017-07-22] MEDS ORDERED: ALUMINUM/MAGNESIUM/SIMETH (MAALOX MAX) 30 ML UDC PO PRN (16:00)
[2017-07-22] MEDS ORDERED: NITROGLYCERIN 0.4 MG SL PER TAB CHARGE SL PRN (16:00)
--- NOTE | 2017-07-22 16:24 | History and Physical ---
History & Physical Date & Time of Service: Jul 22, 2017 at 16:04 Chief Complaint: Pelvic Mass, Abdominal Pain Primary Care Physician: Endy Vale M.D. History of Present Illness Source: family, clinic records, hospital records Patient is a pleasant 62 y/o female, with PMHx of COPD, hypothyroidism, anxiety , edema, and headaches, s/p lap L salpingo-oopherectomy due to pelvic mass by Dr. Sotelo on 07/22. Hospitalist team was asked to admit the patient to tele observation after the procedure by PCP (Dr. Vale) to monitor respiratory status due to severe COPD. Patient sitting at bedside postop. No complications noted with procedure. Patient still feeling a little bit groggy. Denies SOB, breathing at baseline- on chronic 3L O2 at home. Admits to 06/23 pain. States she is feeling hungry. When asked about her medications, she states, "I don't know."- meds reconciled w/ [employer]. Patient notes she lives at home alone. She notes frequent falling due to weakness. She has HHS x5 days a week. Patient denies any fever, chills, sweats, lightheadedness, dizziness, vision changes, CP , palpitations, edema, SOB, wheezing, cough, nausea, vomiting, diarrhea, urinary symptoms, melena, numbness/tingling, weakness, muscle/joint pain, anxiety/depression, active bleeding, or new skin discoloration/changes. Past Medical/Surgical History Medical Problems: COPD hypothyroidism anxiety edema headaches Surgical History: LSO cataract surgery R knee replacement Family History FH: cancer Heart disease Social History Smoking Status: Former Smoker Smokeless Tobacco Use: No Alcohol Use: none Drug Use: none Marital Status: Housing status: lives with family Occupational Status: unemployed Immunizations History of Influenza Vaccine: Yes Influenza Vaccine Date: Aug 08, 2008 History of Tetanus Vaccine?: Unknown History of Pneumococcal: No History of Hepatitis B Vaccine: No Multi-Drug Resistant Organisms History of MDRO: No Allergies Coded Allergies: Amoxicillin (Verified Allergy, Mild, HIVES, 07/22/17) Doxycycline (Verified Allergy, Unknown, HIVES, 07/22/17) Naproxen (Verified Allergy, Unknown, UNKNOWN, 07/22/17) Penicillins (Verified Allergy, Unknown, HIVES, 07/22/17) Home Medications Scheduled Bupropion (Wellbutrin-Xl), 300 MG PO QAM Escitalopram Oxalate (Lexapro), 20 MG PO QAM Furosemide (Lasix), 20 MG PO BID Hydroxyzine HCl (Hydroxyzine HCl), 25 MG PO HS Levothyroxine Sodium (Levothyroxine Sodium), 1 TAB PO DAILY Lorazepam (Ativan), 0.5 MG PO HS Meloxicam (Mobic), 15 MG PO DAILY Potassium Chloride (Micro-K Ext Rel), 10 MEQ PO QAM Quetiapine Fumarate (Seroquel), 400 MG PO HS Scheduled PRN Albuterol Hfa (Ventolin Hfa), 2 PUFFS INH Q4 PRN for SOB/Wheezing Albuterol Sulf (Ventolin), 1 VIAL NEB Q4-6 HR PRN for Wheezing Xypkdsgqfu-Xpebuiobwhsal-Zalbb (Fioricet), 1-2 TABLETS PO Q8 PRN for Migraine Oxycodone/Acetaminophen 5MG/325MG (Percocet 5MG/325MG), 1-2 TABLETS PO Q4H PRN for Pain Promethazine Hcl (Phenergan), 25 MG PO Q6H PRN for Nausea Tramadol (Ultram), 50 MG PO Q6H PRN for Pain Physical Exam Vital Signs Date Time Temp Pulse Resp B/P (MAP) Pulse Ox O2 Delivery O2 Flow Rate FiO2 07/22/17 15:32 37.0 64 18 143/79 98 Nasal Cannula 3.0 07/22/17 14:56 64 19 139/72 98 07/22/17 14:56 64 19 07/22/17 14:51 65 18 112/69 97 07/22/17 14:51 65 18 07/22/17 14:46 64 25 07/22/17 14:46 63 25 122/83 97 07/22/17 14:41 63 18 07/22/17 14:41 63 18 130/74 96 07/22/17 14:36 64 14 131/85 100 07/22/17 14:36 63 14 07/22/17 14:31 66 15 07/22/17 14:31 68 15 126/88 98 07/22/17 14:27 123/71 07/22/17 14:26 68 17 07/22/17 14:26 68 17 96 07/22/17 14:21 64 18 07/22/17 14:21 64 18 137/89 98 07/22/17 14:16 71 20 130/72 95 07/22/17 14:16 73 20 07/22/17 14:11 67 10 133/86 98 07/22/17 14:11 66 10 07/22/17 14:07 137/86 07/22/17 14:06 63 12 07/22/17 14:06 64 12 94 07/22/17 14:02 137/91 07/22/17 14:01 63 17 96 07/22/17 14:01 64 17 07/22/17 13:56 65 17 07/22/17 13:56 65 17 125/101 97 07/22/17 13:51 63 15 07/22/17 13:51 63 15 137/83 94 07/22/17 13:46 64 13 07/22/17 13:46 65 13 134/96 94 07/22/17 13:42 135/89 07/22/17 13:41 66 17 94 07/22/17 13:41 66 17 07/22/17 13:36 67 10 07/22/17 13:36 65 10 139/79 94 07/22/17 13:32 141/86 07/22/17 13:31 69 12 97 07/22/17 13:31 68 12 07/22/17 13:30 36.7 07/22/17 13:28 62 14 98 07/22/17 13:28 62 14 07/22/17 13:26 153/81 07/22/17 13:23 61 10 07/22/17 13:23 60 10 100 07/22/17 13:22 122/73 07/22/17 13:18 61 16 07/22/17 13:18 61 16 100 07/22/17 13:17 105/89 07/22/17 13:13 57 13 07/22/17 13:13 57 13 99 07/22/17 13:12 121/63 07/22/17 13:08 60 13 98 07/22/17 13:08 60 13 07/22/17 13:06 124/65 07/22/17 13:03 63 14 07/22/17 13:03 63 14 99 07/22/17 13:01 121/67 07/22/17 12:58 63 15 07/22/17 12:58 63 15 100 07/22/17 12:56 136/67 07/22/17 12:53 60 14 100 07/22/17 12:53 60 14 07/22/17 12:52 148/81 07/22/17 12:48 36.9 63 16 148/81 100 Oxymask 7 07/22/17 11:14 70 16 98 Nasal Cannula 3.0 07/22/17 09:31 37.2 81 22 131/75 (93) 98 Nasal Cannula 3 General Appearance: no apparent distress, + pertinent finding (O2 NC) Head: normocephalic, atraumatic Eyes: PERRL ENT: hearing grossly normal Neck: supple Respiratory/Chest: no respiratory distress, no accessory muscle use, + decreased breath sounds, + crackles (bilateral lung bases ) Cardiovascular: regular rate, rhythm Abdomen/GI: normal bowel sounds, non tender, soft Back: normal inspection Extremities/Musculoskelatal: no calf tenderness, no pedal edema Neurologic/Psych: alert, + depressed affect Skin: normal color, warm/dry, no rash Diagnostics Laboratory Results Results Past 24 Hours Test 07/22/17 15:59 Range/Units Impression Assessment and Plan Patient is a pleasant 62 y/o female, with PMHx of COPD, hypothyroidism, anxiety , edema, and headaches, s/p lap L salpingo-oopherectomy due to pelvic mass by Dr. Sotelo on 07/22. s/p lap L salpingo-oopherectomy by Dr. Sotelo on 07/22: - Surgical management, pain management, and DVT prophylaxis as per surgical team - Follow postop CBC and PRP COPD- on chronic 3L O2- STABLE: - O2 protocol, wean as tolerated - Continue home inhalers - DuoNebs PRN for SOB/wheezing - Encourage incentive spirometer Weakness, frequent falls: PT/OT consultation Anxiety: Continue Ativan 0.5 mg PRN, Effexor 75 mg daily, Seroquel 200 mg HS, and Budeprion 300 mg daily -- Pharmacy questioning medications due to interactions- reconciled w/ [employer]- patient unable to give medication list- -- Recommend trying again to review medications tomorrow w/ patient or pharmacy/PCP prior to discharge Hypothyroidism: Continue Synthroid 137 mcg daily Edema: Will hold Lasix 20 mg BID pending postop labs/volume assessment tomorrow , KCL supplement ?OA: Meloxicam 7.5 mg BID held pending postop labs GI prophylaxis: Protonix daily DVT prophylaxis: As per surgical team Dispo: From home, lives alone- PT/OT and school social worker consulted .Attending Addendum: I have physically seen this patient, have directed the physician assistants medical activities, and agree with the H&P as noted above with the following exceptions as noted. Assessment and Plan: Status post left salpingo-oophorectomy per Dr. Sotelo on 07/22-- Dr. Sotelo will place routine postop orders. COPD/3 L oxygen dependency-- Admit to telemetry for monitoring oxygen status overnight. Continue routine inhalers. Duonebs every 4 hours when necessary. Incentive spirometry. Hypothyroidism-- Continue Synthroid 137 g daily. Anxiety--continue routine meds Effexor 75 mg daily, Seroquel 200 mg at bedtime and Budeprion 300 mg daily. Continue Ativan 0.5 mg daily when necessary. Edema--hold Lasix during the postoperative period. Level of Care Telemetry Advanced Directives Existing Advance Directive: No Existing Living Will: No Existing Power of Filter Changing Technician: No Resuscitation Status FULL RESUSCITATION VTE Prophylaxis VTE Risk Assessment Done? Y/N: Yes Risk Level: Moderate Given or contraindicated: Berta Stockings, SCD's Social Service Consult None Apply
[2017-07-22] MEDS ORDERED: ACETAMINOPHEN 325 MG TAB PO PRN (18:00)
[2017-07-22 19:50] VITALS: BP 129/81; PULSE 75; TEMP 37.2; O2SAT 97
[2017-07-22] MEDS: LORAZEPAM 0.5 MG TAB PO SCH (20:23)
[2017-07-22] MEDS ORDERED: MELOXICAM 7.5 MG TAB PO SCH (21:00)
[2017-07-22] MEDS ORDERED: QUETIAPINE FUMARATE 200 MG TAB PO SCH (21:00)
[2017-07-22] MEDS ORDERED: FUROSEMIDE 20 MG TAB PO SCH (21:00)
[2017-07-22] MEDS: OXYCODONE/ACETAMINOPHEN 5-325 TAB PO PRN (22:14)
[2017-07-22] MEDS ORDERED: NURSING VERBAL MED ORDER ONE (22:30)
[2017-07-23] VITALS (7 sets, daily range): BP systolic 94–121; BP diastolic 56–78; PULSE 67–102; TEMP 36.6–37; O2SAT 95–100
[2017-07-23] MEDS: OXYCODONE/ACETAMINOPHEN 5-325 TAB PO PRN ×4 (03:06→17:47)
[2017-07-23] MEDS: LEVOTHYROXINE 137 MCG TAB PO SCH (05:19)
[2017-07-23] MEDS: BuPROPion XL 300 MG TABCR PO SCH (07:28)
[2017-07-23] MEDS: PANTOprazole SOD 40 MG TAB PO SCH (07:29)
[2017-07-23] MEDS: POTASSIUM CHLORIDE 10 MEQ TABCR PO SCH (07:29)
[2017-07-23 07:45] LABS: HEMATOCRIT 34.7 % (37-47); MEAN CELL VOLUME 86.5 fL (80-100); MEAN CORPUSCULAR HEMOGLOBIN 26.9 pg (25-34); MEAN CORPUSCULAR HGB CONC 31.1 g/dl (32-36); MEAN PLATELET VOLUME 10.9 fL (7.4-10.4); PLATELET COUNT 125 K/uL (130-400); RED BLOOD COUNT 4.01 M/uL (4.2-5.4); WHITE BLOOD COUNT 8.23 K/uL (4.8-10.8)
--- NOTE | 2017-07-23 08:08 | Anesthesiology Progress Note ---
Anesthesia Post Op Note Date & Time Jul 23, 2017 at 08:08 Vital Signs Vital Signs Past 12 Hours Date Time Temp Pulse Resp B/P (MAP) Pulse Ox O2 Delivery O2 Flow Rate FiO2 07/23/17 04:48 37.0 67 18 106/56 (73) 99 Nasal Cannula 2.0 07/23/17 04:00 Nasal Cannula 3.0 07/23/17 00:46 36.9 102 19 108/64 (79) 95 Nasal Cannula 3.0 07/23/17 00:00 Nasal Cannula 3.0 Notes Mental Status: alert / awake / arousable, participated in evaluation Pt Amnestic to Procedure: Yes Nausea / Vomiting: adequately controlled Pain: adequately controlled Airway Patency, RR, SpO2: stable & adequate BP & HR: stable & adequate Hydration State: stable & adequate Anesthetic Complications: no major complications apparent
[2017-07-23 08:32] LABS: BUN/CREATININE RATIO 21.1 (10-20); CALCIUM 8.7 mg/dl (8.5-10.1); CREATININE 0.75 mg/dl (0.60-1.20); POTASSIUM 3.7 mmol/L (3.5-5.1)
[2017-07-23] MEDS ORDERED: VENLAFAXINE HCL XR 75 MG CAPXR PO SCH (09:00)
[2017-07-23] MEDS ORDERED: CITALOPRAM 20 MG TAB PO SCH (09:00)
[2017-07-23] MEDS ORDERED: MoRPHine SULFATE 2 MG/ML CARP IV PRN (16:30)
[2017-07-23] MEDS ORDERED: IBUPROFEN 600 MG TAB PO PRN (16:30)
[2017-07-23] MEDS ORDERED: LEVO137T3 PO (16:37)
[2017-07-23] MEDS ORDERED: TRAM-10 PO (16:37)
[2017-07-23] MEDS ORDERED: ATR25 PO (16:37)
--- NOTE | 2017-07-23 16:43 | Hospitalist Progress Note ---
Hospitalist Progress Note Date of Service Jul 23, 2017. Subjective Pt evaluation today including: conversation w/ patient, physical exam, chart review, lab review, review of inpatient medication list Pain: 9/10 aching abdominal pain PO Intake: Tolerating PO diet Voiding: no voiding problems Patient complains of 9/10 aching pain in her RLQ. She states that she feels slightly more SOB than her baseline and complains of wheezing. She has a non- productive cough. She is urinating and eating without difficulty post op and passing gas. She denies any bowel movements yet. The patient denies fevers, chills, sweats, chest pain, palpitations, claudication, nausea, vomiting, dysuria, hematuria, urinary retention, paralysis, weakness, numbness and tingling. Additional Comments: See HPI for pertinent positives and negatives. All other systems reviewed and negative. Objective Vital Signs Date Time Temp Pulse Resp B/P (MAP) Pulse Ox O2 Delivery O2 Flow Rate FiO2 07/23/17 15:43 36.7 69 18 104/64 (77) 99 Nasal Cannula 2.0 07/23/17 12:00 Nasal Cannula 3.0 07/23/17 11:42 36.7 69 20 113/73 (86) 100 Nasal Cannula 3.0 07/23/17 08:00 Nasal Cannula 3.0 07/23/17 07:47 36.7 75 22 117/78 (91) 98 Nasal Cannula 3.0 07/23/17 04:48 37.0 67 18 106/56 (73) 99 Nasal Cannula 2.0 07/23/17 04:00 Nasal Cannula 3.0 07/23/17 00:46 36.9 102 19 108/64 (79) 95 Nasal Cannula 3.0 07/23/17 00:00 Nasal Cannula 3.0 07/22/17 20:00 Nasal Cannula 3.0 07/22/17 19:50 37.2 75 20 129/81 (97) 97 Nasal Cannula 3.0 Physical Exam Notes: General appearance: +Obese. Well-developed, well-nourished, no apparent distress Head: Normocephalic, atraumatic Eyes: Normal inspection, PERRL, EOMI ENT: Normal ENT inspection, hearing grossly normal, pharynx normal Neck: Supple, no JVD, trachea midline Respiratory/Chest: +Decreased in bases. Lungs clear to auscultation, no respiratory distress Cardiovascular: Regular rate & rhythm, no gallop, no murmur Abdomen/GI: +Laparoscopy sites closed with glue, c/d/i. Mild diffuse TTP. Normal bowel sounds, soft Extremities/Musculoskeletal: Normal inspection, no calf tenderness, no pedal edema Neurological/Psych: Alert, normal mood/affect, oriented x 3 Skin: Normal color, warm/dry, no rash Laboratory Results Last 24 Hours Test 07/23/17 07:20 White Blood Count 8.23 K/uL Red Blood Count 4.01 M/uL Hemoglobin 10.8 g/dL Hematocrit 34.7 % Mean Corpuscular Volume 86.5 fL Mean Corpuscular Hemoglobin 26.9 pg Mean Corpuscular Hemoglobin Concent 31.1 g/dl RDW Standard Deviation 44.2 fL RDW Coefficient of Variation 13.9 % Platelet Count 125 K/uL Mean Platelet Volume 10.9 fL Sodium Level 139 mmol/L Potassium Level 3.7 mmol/L Chloride Level 100 mmol/L Carbon Dioxide Level 37 mmol/L Anion Gap 2.0 mmol/L Blood Urea Nitrogen 16 mg/dl Creatinine 0.75 mg/dl Est Creatinine Clear Calc Drug Dose 99.2 ml/min Estimated GFR () 99.7 Estimated GFR (Non- 86.0 BUN/Creatinine Ratio 21.1 Random Glucose 100 mg/dl Calcium Level 8.7 mg/dl Assessment and Plan 62 y/o female with a history of COPD, hypothyroidism, anxiety, edema, and headaches, s/p lap L salpingo-oopherectomy due to pelvic mass by Dr. Soteol on who presents for admission to observe respiratory status following surgery due to history of severe COPD per PCP. s/p lap L salpingo-oopherectomy by Dr. Sotelo on 07/22--POD #1 - Surgical management, pain management, and DVT prophylaxis as per surgical team - Follow postop CBC and PRP - Hgb stable at 10.8 COPD- on chronic 3L O2--stable - O2 protocol, wean as tolerated - Continue home albuterol prn - DuoNebs PRN for SOB/wheezing - Encourage incentive spirometer Weakness, frequent falls -PT/OT evaluate and treat: recommend acute inpatient rehab -Case management following, referral sent to [facility] Anxiety, depression, insomnia -Continue Ativan 0.5 mg hs, Lexapro 20 mg PO qd, bupropion 300 mg PO qam, Seroquel 400 mg PO hs, and hydroxyzine 25 mg PO hs -Meds reconciled with pt's pharmacy Hypothyroidism -Continue Synthroid 137 mcg daily Edema -Renal function stable, eating, may resume Lasix 20 mg PO BID and potassium supplement Dispo: From home, lives alone- PT/OT and protective services social worker consulted as above
--- NOTE | 2017-07-23 16:44 | OB/GYN Progress Note ---
SENIOR CLIENT ADVISOR Progress Note Date of Service Jul 23, 2017. Subjective conversation w/ patient Ambulation: limited ambulation Voiding: no voiding problems Diet Tolerance: Regular Diet Objective Vital Signs Date Time Temp Pulse Resp B/P (MAP) Pulse Ox O2 Delivery O2 Flow Rate FiO2 07/23/17 15:43 36.7 69 18 104/64 (77) 99 Nasal Cannula 2.0 07/23/17 12:00 Nasal Cannula 3.0 07/23/17 11:42 36.7 69 20 113/73 (86) 100 Nasal Cannula 3.0 07/23/17 08:00 Nasal Cannula 3.0 07/23/17 07:47 36.7 75 22 117/78 (91) 98 Nasal Cannula 3.0 07/23/17 04:48 37.0 67 18 106/56 (73) 99 Nasal Cannula 2.0 07/23/17 04:00 Nasal Cannula 3.0 07/23/17 00:46 36.9 102 19 108/64 (79) 95 Nasal Cannula 3.0 07/23/17 00:00 Nasal Cannula 3.0 07/22/17 20:00 Nasal Cannula 3.0 07/22/17 19:50 37.2 75 20 129/81 (97) 97 Nasal Cannula 3.0 Physical Exam General Appearance: WELL-APPEARING, NO APPARENT DISTRESS Laboratory Results Last 24 Hours Test 07/23/17 07:20 White Blood Count 8.23 K/uL Red Blood Count 4.01 M/uL Hemoglobin 10.8 g/dL Hematocrit 34.7 % Mean Corpuscular Volume 86.5 fL Mean Corpuscular Hemoglobin 26.9 pg Mean Corpuscular Hemoglobin Concent 31.1 g/dl RDW Standard Deviation 44.2 fL RDW Coefficient of Variation 13.9 % Platelet Count 125 K/uL Mean Platelet Volume 10.9 fL Sodium Level 139 mmol/L Potassium Level 3.7 mmol/L Chloride Level 100 mmol/L Carbon Dioxide Level 37 mmol/L Anion Gap 2.0 mmol/L Blood Urea Nitrogen 16 mg/dl Creatinine 0.75 mg/dl Est Creatinine Clear Calc Drug Dose 99.2 ml/min Estimated GFR () 99.7 Estimated GFR (Non- 86.0 BUN/Creatinine Ratio 21.1 Random Glucose 100 mg/dl Calcium Level 8.7 mg/dl Assessment and Plan Post-Op Day Number: 1 Continue Routine Care: pt seen early am today. late entry. social visit. she was sitting up in bed, eating, said she is "sore" but pain control adequate on pain killers. I discussed the surgery with her and pathology is pending. 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 I have left a pain med script for her and d/c instructions. She is aware that her d/c planning is per her admitting doctors. F/u with me in 2wks. We will sign off. Call assistant golf professional if needed.
[2017-07-23] MEDS ORDERED: TRAMADOL HCL 50 MG TAB PO PRN (16:45)
[2017-07-23] MEDS: FUROSEMIDE 20 MG TAB PO SCH (20:09)
[2017-07-23] MEDS: LORAZEPAM 0.5 MG TAB PO SCH (20:54)
[2017-07-23] MEDS ORDERED: QUETIAPINE FUMARATE 200 MG TAB PO SCH (21:00)
[2017-07-23] MEDS ORDERED: hydrOXYzine HCL 25 MG TAB PO SCH (21:00)
[2017-07-24] VITALS (8 sets, daily range): BP systolic 110–129; BP diastolic 54–79; PULSE 62–78; TEMP 36.4–37; O2SAT 94–100
[2017-07-24] MEDS: LEVOTHYROXINE 137 MCG TAB PO SCH (05:02)
[2017-07-24] MEDS: OXYCODONE/ACETAMINOPHEN 5-325 TAB PO PRN ×3 (05:03→17:22)
[2017-07-24 07:18] LABS: HEMATOCRIT 34.9 % (37-47); MEAN CORPUSCULAR HEMOGLOBIN 26.8 pg (25-34); MEAN CORPUSCULAR HGB CONC 30.1 g/dl (32-36); MEAN PLATELET VOLUME 11.1 fL (7.4-10.4); PLATELET COUNT 111 K/uL (130-400); RED BLOOD COUNT 3.92 M/uL (4.2-5.4); WHITE BLOOD COUNT 6.11 K/uL (4.8-10.8)
[2017-07-24 07:55] LABS: BUN/CREATININE RATIO 20.5 (10-20); CALCIUM 8.4 mg/dl (8.5-10.1); CREATININE 0.75 mg/dl (0.60-1.20); POTASSIUM 3.5 mmol/L (3.5-5.1)
[2017-07-24] MEDS: POTASSIUM CHLORIDE 10 MEQ TABCR PO SCH (08:22)
[2017-07-24] MEDS: BuPROPion XL 300 MG TABCR PO SCH (08:23)
[2017-07-24] MEDS: PANTOprazole SOD 40 MG TAB PO SCH (08:23)
[2017-07-24] MEDS: FUROSEMIDE 20 MG TAB PO SCH ×2 (08:23→17:22)
[2017-07-24] MEDS ORDERED: ESCITALOPRAM OXALATE 20 MG TAB PO SCH (09:00)
--- NOTE | 2017-07-24 12:15 | Hospitalist Progress Note ---
Hospitalist Progress Note Date of Service Jul 24, 2017. Subjective Pt evaluation today including: conversation w/ patient, physical exam, chart review, lab review, review of inpatient medication list Pain: 8/10 abdominal pain PO Intake: Tolerating PO diet Voiding: no voiding problems Patient reports feeling better today. She currently complains of 8/10 abdominal pain but this is adequately relieved with oral pain medications. The patient states her shortness of breath is back to baseline and she denies any coughing or wheezing. She still has not had a bowel movement yet postop but is passing gas. She tells me that she refuses to go to [facility], despite agreeing to it yesterday. When asked why she changed her mind, she says "I don't know", and states she just wants to be home. The patient denies fevers, chills, sweats , chest pain, palpitations, claudication, cough, wheezing, shortness of breath, nausea, vomiting, dysuria, hematuria, urinary retention, paralysis, weakness, numbness and tingling. Additional Comments: See HPI for pertinent positives and negatives. All other systems reviewed and negative. Objective Vital Signs Date Time Temp Pulse Resp B/P (MAP) Pulse Ox O2 Delivery O2 Flow Rate FiO2 07/24/17 12:00 Nasal Cannula 3.0 07/24/17 08:30 94 Nasal Cannula 3.0 07/24/17 07:33 36.4 62 20 129/74 (92) 94 Nasal Cannula 3.0 07/24/17 04:01 Nasal Cannula 2.0 07/24/17 03:10 36.7 76 16 120/72 (88) 98 Nasal Cannula 2.0 07/24/17 00:00 Nasal Cannula 3.0 07/23/17 23:35 36.6 72 18 94/58 (70) 100 Nasal Cannula 3.0 07/23/17 20:01 Nasal Cannula 2.0 07/23/17 19:20 36.7 74 18 121/73 (89) 98 Nasal Cannula 2.0 07/23/17 16:00 Nasal Cannula 3.0 07/23/17 15:43 36.7 69 18 104/64 (77) 99 Nasal Cannula 2.0 Physical Exam Notes: General appearance: +Obese. Well-developed, well-nourished, no apparent distress Head: Normocephalic, atraumatic Eyes: Normal inspection, PERRL, EOMI ENT: Normal ENT inspection, hearing grossly normal, pharynx normal Neck: Supple, no JVD, trachea midline Respiratory/Chest: +Decreased in bases. Lungs clear to auscultation, no respiratory distress Cardiovascular: Regular rate & rhythm, no gallop, no murmur Abdomen/GI: +Laparoscopy sites closed with glue, c/d/i. Mild diffuse TTP. Normal bowel sounds, soft Extremities/Musculoskeletal: Normal inspection, no calf tenderness, no pedal edema Neurological/Psych: Alert, normal mood/affect, oriented x 3 Skin: Normal color, warm/dry, no rash Laboratory Results Last 24 Hours Test 07/24/17 06:57 White Blood Count 6.11 K/uL Red Blood Count 3.92 M/uL Hemoglobin 10.5 g/dL Hematocrit 34.9 % Mean Corpuscular Volume 89.0 fL Mean Corpuscular Hemoglobin 26.8 pg Mean Corpuscular Hemoglobin Concent 30.1 g/dl RDW Standard Deviation 46.4 fL RDW Coefficient of Variation 14.2 % Platelet Count 111 K/uL Mean Platelet Volume 11.1 fL Sodium Level 142 mmol/L Potassium Level 3.5 mmol/L Chloride Level 101 mmol/L Carbon Dioxide Level 37 mmol/L Anion Gap 3.0 mmol/L Blood Urea Nitrogen 15 mg/dl Creatinine 0.75 mg/dl Est Creatinine Clear Calc Drug Dose 101.2 ml/min Estimated GFR () 99.7 Estimated GFR (Non- 86.0 BUN/Creatinine Ratio 20.5 Random Glucose 107 mg/dl Calcium Level 8.4 mg/dl Assessment and Plan 62 y/o female with a history of COPD, hypothyroidism, anxiety, edema, and headaches, s/p lap L salpingo-oopherectomy due to pelvic mass by Dr. Sotelo on who presents for admission to observe respiratory status following surgery due to history of severe COPD per PCP. s/p lap L salpingo-oopherectomy by Dr. Sotelo on 07/22--POD #2 - Surgical management, pain management, and DVT prophylaxis as per surgical team - Follow postop CBC and PRP - Hgb remains stable COPD- on chronic 3L O2--stable - O2 protocol, wean as tolerated - Continue home albuterol prn - DuoNebs PRN for SOB/wheezing - Encourage incentive spirometer - Stable on tele, transfer to med/surg Weakness, frequent falls -PT/OT evaluate and treat: recommend acute inpatient rehab -Case management following, referral sent to [facility], awaiting insurance auth. Pt initially refusing rehab, had set up to discharge home with services and have Office of Aging evaluate and home and potentially place pt. She is now agreeable to [facility] again. Transfer to med/surg while awaiting auth Anxiety, depression, insomnia -Continue Ativan 0.5 mg hs, Lexapro 20 mg PO qd, bupropion 300 mg PO qam, Seroquel 400 mg PO hs, and hydroxyzine 25 mg PO hs -Meds reconciled with pt's pharmacy Hypothyroidism -Continue Synthroid 137 mcg daily Edema -Renal function stable, eating, may resume Lasix 20 mg PO BID and potassium supplement Dispo: From home, lives alone- PT/OT and social security specialist consulted as above
--- NOTE | 2017-07-24 12:36 | Discharge Instructions ---
Discharge Instructions Date of Service Jul 24, 2017. Admission Reason for Admission: Pelvic Mass, Abdominal Pain Discharge Discharge Diagnosis / Problem: Pelvic mass, chronic obstructive pulmonary disease Discharge Goals Goal(s): Decrease discomfort, Improve function, Diagnostic testing, Therapeutic intervention Activity Recommendations Activity Limitations: per Instructions/Follow-up section (See Dr. Sotelo's discharge instructions) . Instructions / Follow-Up Instructions / Follow-Up You were admitted for observation following your recent surgery to observe your respiratory status due to your history of severe COPD. Due to your history of weakness and falls and living home alone, you were evaluated by physical therapy and occupation therapy, who recommended that you go to an acute inpatient rehab as it is NOT SAFE for you to return home. You have been accepted to [facility] for rehab. Medications: *A prescription for oral pain medicine has been printed for you by Dr. Sotelo for your abdominal pain following surgery. Please only take as prescribed. *Continue your home medications as prescribed. Follow up: *You will follow up with Dr. Sotelo in 2 weeks regarding your recent surgery *You will be scheduled to follow up with your primary care provider in 1 week regarding your hospital stay. Please seek medical attention if you experience fevers, chills, sweats, dizziness/lightheadedness, loss of consciousness, fall, chest pain, shortness of breath, nausea, vomiting, numbness, tingling, or if you have redness, swelling, warmth, increased pain or drainage from your surgical sites. Current Hospital Diet Patient's current hospital diet: AHA Diet (Heart Healthy) Discharge Diet Recommended Diet: AHA Diet (Heart Healthy) Procedures Procedures Performed: Left Laparoscopic Salpingo-Oophorectomy Robot Assist; Pelvic Washings; Lysis of Adhesions Pending Studies Studies pending at discharge: no Medical Emergencies . Who to Call and When: Medical Emergencies: If at any time you feel your situation is an emergency, please call 911 immediately. . Non-Emergent Contact Non-Emergency issues call your: Primary Care Provider, Surgeon Call Non-Emergent contact if: you have a fever, your pain is not controlled, your pain is worsening, your pain is unusual for you, your pain is concerning you, wound has increased drainage, wound has increased redness, wound has increased pain, you have any medication questions . Past History Medical & Surgical History: (1) COPD (chronic obstructive pulmonary disease) . "Provider Documentation" section prepared by Samara Nath. . VTE Core Measure Inpt VTE Proph given/why not?: Berta Samuel, SCD's
--- NOTE | 2017-07-24 12:45 | Discharge Summary ---
Discharge Summary Date of Service Jul 24, 2017. Discharge Summary Admission Date: Jul 22, 2017 at 13:29 Discharge Date: Jul 24, 2017 Discharge Disposition: Home with services Principal Diagnosis: Pelvic mass, COPD Immunizations: Have You Had Influenza Vaccine: Yes Influenza Vaccine Date: Aug 08, 2008 History of Tetanus Vaccine?: Unknown History of Pneumococcal: No History of Hepatitis B Vaccine: No Procedures: Operative Report Operative Date Jul 22, 2017. Pre-Operative Diagnosis Left cystic Pelvic Mass, Generalized abdominal pain Post-Operative Diagnosis Same as preop, left ovarian cystic mass Procedure(s) Performed Left Laparoscopic Salpingo-Oophorectomy Robot Assist; Pelvic Washings; Lysis of Adhesions Surgeon Dr. Sotelo Lining Feller Blindstitch Surgeon(s) Dr. Charles Estimated Blood Loss 5 ml Findings adhesions of omentum to anterior abdominal wall, some dense, some more filmy. mobile vaginal cuff. right tube and ovary appear surgically absent. left ovary and tube with adhesions of colon overlying infundibulopelvic ligament and ovary itself adhesed to left pelvic sidewall. large cystic area of left ovary with straw colored fluid. ureter seen coursing well below planned operative site. Fluids 1000 Specimens Cytology 1. Pelvic Wash Sent Permanent A. Left Fallopian tube and Ovary Drains none Anesthesia general Complication(s) None Disposition Recovery Room / PACU Indications 62-year-old with a history of left pelvic cystic mass suspected to be related to the left ovary that is persistent. On her most recent imaging through the emergency room it was found to be slightly larger. She had a negative CA-125. She was given management options to include ultrasound follow-up however desired surgical evaluation of the mass. She was concerned about a malignancy. Please see the history and physical for further details. Consultations: Core Winder Machine Operator--Dr. Sotelo Medication Reconciliation New Medications: Oxycodone/Acetaminophen 5MG/325MG (Percocet 5MG/325MG) Tab 1-2 TABLETS PO Q4H PRN for Pain, #10 TAB Continued Medications: Albuterol Hfa (Ventolin Hfa) 200 Puffs/04172 Mcg Aers 2 PUFFS INH Q4 PRN for SOB/Wheezing, #1 INHALER Albuterol Sulf (Ventolin) 2 Mg/5 Ml Syrp 1 VIAL NEB Q4-6 HR PRN for Wheezing Bupropion (Wellbutrin-Xl) 300 Mg Tabcr 300 MG PO QAM, TAB Spnvsyddxw-Icohmtdtlykmc-Dexlk (Fioricet) 1 Cap Cap 1-2 TABLETS PO Q8 PRN for Migraine Escitalopram Oxalate (Lexapro) 20 Mg Tab 20 MG PO QAM, TAB Furosemide (Lasix) 20 Mg Tab 20 MG PO BID Hydroxyzine HCl (Hydroxyzine HCl) 25 Mg Tab 25 MG PO HS Levothyroxine Sodium (Levothyroxine Sodium) 137 Mcg Tab 1 TAB PO DAILY for 30 Days, #30 TAB 5 Refills Lorazepam (Ativan) 0.5 Mg Tab 0.5 MG PO HS Meloxicam (Mobic) 15 Mg Tab 15 MG PO DAILY, TAB Potassium Chloride (Micro-K Ext Rel) 10 Meq Capcr 10 MEQ PO QAM Promethazine Hcl (Phenergan) 25 Mg Tab 25 MG PO Q6H PRN for Nausea, TAB Quetiapine Fumarate (Seroquel) 200 Mg Tab 400 MG PO HS, TAB Tramadol (Ultram) 50 Mg Tab 50 MG PO Q6H PRN for Pain, TAB Discharge Exam Patient reports feeling better today. She currently complains of 8/10 abdominal pain but this is adequately relieved with oral pain medications. The patient states her shortness of breath is back to baseline and she denies any coughing or wheezing. She still has not had a bowel movement yet postop but is passing gas. She tells me that she refuses to go to [facility], despite agreeing to it yesterday. When asked why she changed her mind, she says "I don't know", and states she just wants to be home. The patient denies fevers, chills, sweats , chest pain, palpitations, claudication, cough, wheezing, shortness of breath, nausea, vomiting, dysuria, hematuria, urinary retention, paralysis, weakness, numbness and tingling. General appearance: +Obese. Well-developed, well-nourished, no apparent distress Head: Normocephalic, atraumatic Eyes: Normal inspection, PERRL, EOMI ENT: Normal ENT inspection, hearing grossly normal, pharynx normal Neck: Supple, no JVD, trachea midline Respiratory/Chest: +Decreased in bases. Lungs clear to auscultation, no respiratory distress Cardiovascular: Regular rate & rhythm, no gallop, no murmur Abdomen/GI: +Laparoscopy sites closed with glue, c/d/i. Mild diffuse TTP. Normal bowel sounds, soft Extremities/Musculoskeletal: Normal inspection, no calf tenderness, no pedal edema Neurological/Psych: Alert, normal mood/affect, oriented x 3 Skin: Normal color, warm/dry, no rash Review of Systems: Constitutional: No fever, No chills, No sweats Eyes: No worsening of vision, No eye pain ENT: No hearing loss, No sore throat, No trouble swallowing Respiratory: No cough, No wheezing, No shortness of breath Cardiovascular: No chest pain, No claudication, No palpitations Abdomen: + pain, No nausea, No vomiting Musculoskeletal: No joint pain, No muscle pain, No calf pain Genitourinary - Female: No dysuria, No urinary retention, No hematuria Neurologic: No paralysis, No weakness, No numbness/tingling Integumentary: No rash, No itch, No color change Hospital Course 62 y/o female with a history of COPD, hypothyroidism, anxiety, edema, and headaches, s/p lap L salpingo-oopherectomy due to pelvic mass by Dr. Sotelo on who presents for admission to observe respiratory status following surgery due to history of severe COPD per PCP. s/p lap L salpingo-oopherectomy by Dr. Sotelo on 07/22--POD #2 - Surgical management, pain management, and DVT prophylaxis as per surgical team - Follow postop CBC and PRP - Hgb remains stable COPD- on chronic 3L O2--stable - O2 protocol, wean as tolerated - Continue home albuterol prn - DuoNebs PRN for SOB/wheezing - Encourage incentive spirometer Weakness, frequent falls -PT/OT evaluate and treat: recommend acute inpatient rehab -Case management following -Pt accepted to [facility] Anxiety, depression, insomnia -Continue Ativan 0.5 mg hs, Lexapro 20 mg PO qd, bupropion 300 mg PO qam, Seroquel 400 mg PO hs, and hydroxyzine 25 mg PO hs -Meds reconciled with pt's pharmacy Hypothyroidism -Continue Synthroid 137 mcg daily Edema -Renal function stable, eating, may resume Lasix 20 mg PO BID and potassium supplement Dispo: From home, lives alone- PT/OT and social staff worker consulted as above Total Time Spent: Greater than 30 minutes This includes examination of the patient, discharge planning, medication reconciliation, and communication with other providers. Discharge Instructions Please refer to the electronic Patient Visit Report (Discharge Instructions) for additional information. Follow-Up Pt scheduled to follow up with PCP and SUPERVISOR COIL WINDING in 2 weeks Additional Copies To Endy Vale M.D.
== END 2017-07-24 18:20 ==
LOC: C.ACU 08:49 → C.2T 13:29 → ENRESERV 14:36 → EDBEDREQSVC 07-24 14:57 → ENRESERV 07-24 15:04 → C.MS4N 07-24 16:01
PROVIDERS: ADMIT Hospitalist; ATTEND Obstetrics & Gynecology
DX: D27.1 Benign neoplasm of left ovary (principal); N73.6 Female pelvic peritoneal adhesions (postinfective); J44.9 Chronic obstructive pulmonary disease, unspecified; E03.9 Hypothyroidism, unspecified; R60.9 Edema, unspecified; F41.9 Anxiety disorder, unspecified; Z87.891 Personal history of nicotine dependence; Z79.899 Other long term (current) drug therapy
CPT/HCPCS: 58661; S2900

== ENCOUNTER → 2017-08-27 | Outpatient (CLI) | payer OTHER ==
[~2017-08-27] MED LIST changes: +ATR25 PO; -ATROPINE SULFATE 0.1 MG/ML 5ML SYR IV PRN; -EpHEDrine SULFATE INJ 50 MG/ML AMP IV PRN; -HYDROmorphone INJ 1 MG/ML SYR IV PRN; -LACTATED RINGER'S 1000ML 1,000 ML IV SCH; +LEVO137T3 PO; -MOME200A INH; -ONDANSETRON INJ 2 MG/ML 2 ML VIAL IV PRN; +OXYC-57 PO
== END | disposition home or self-care (01) ==
LOC: C.LABBFT 12:08
PROVIDERS: ATTEND Nurse Practitioner
DX: E03.9 Hypothyroidism, unspecified (principal)

== ENCOUNTER → 2017-08-29 | Outpatient (CLI) | payer OTHER ==
[2017-08-29 18:45] LABS: BLOOD UREA NITROGEN 15 mg/dl (7-18); BUN/CREATININE RATIO 20.4 (10-20); CALCIUM 8.9 mg/dl (8.5-10.1); CARBON DIOXIDE 30 mmol/L (21-32); CHLORIDE 102 mmol/L (98-107); CREATININE 0.75 mg/dl (0.60-1.20); GLUCOSE 100 mg/dl (70-99); POTASSIUM 4.3 mmol/L (3.5-5.1); SODIUM 140 mmol/L (136-145)
== END | disposition home or self-care (01) ==
LOC: C.LABBFT 11:59
PROVIDERS: ATTEND Nurse Practitioner
DX: K52.9 Noninfective gastroenteritis and colitis, unspecified (principal)

== ENCOUNTER 2017-09-11 04:54 | Inpatient (IN) | payer OTHER ==
--- NOTE | 2017-09-06 11:50 | DIAGNOSTIC IMAGING REPORT ---
CHEST 2 VIEWS ROUTINE CLINICAL HISTORY: Preoperative evaluation. COMPARISON STUDY: Chest radiograph June 21, 2017. FINDINGS: Patient is mildly rotated. No pneumothorax or pleural effusion is present. There is no consolidation to suggest pneumonia and there is no evidence of pulmonary edema. Minimal left basilar opacity suggest atelectasis. Cardiomediastinal silhouette is unremarkable. IMPRESSION: No acute cardiopulmonary findings. Electronically signed by: Michael Monroe M.D. 09/06/2017 11:49 AM Dictated Date/Time: 09/06/2017 11:48 AM
[2017-09-06 12:11] LABS: BASO % 0.2 %; BASO ABS # 0.01 K/uL (0-0.2); COMPLETE YES; EOS % 6.2 %; IG% 0.2 %; LYMPH % 17.6 %; LYMPH ABS # 1.17 K/uL (1.2-3.4); MEAN CELL VOLUME 91.1 fL (80-100); MEAN CORPUSCULAR HEMOGLOBIN 27.3 pg (25-34); MEAN PLATELET VOLUME 11.4 fL (7.4-10.4); MONO % 9.3 %; NEUT % 66.5 %; PLATELET COUNT 176 K/uL (130-400); WHITE BLOOD COUNT 6.65 K/uL (4.8-10.8)
[2017-09-06 12:23] LABS: PROTHROMBIN TIME (PATIENT) 10.7 SECONDS (9.0-12.0)
[2017-09-06 12:36] LABS: BLOOD UREA NITROGEN 16 mg/dl (7-18); BUN/CREATININE RATIO 24.7 (10-20); CALCIUM 8.7 mg/dl (8.5-10.1); CARBON DIOXIDE 34 mmol/L (21-32); CHLORIDE 104 mmol/L (98-107); CREATININE 0.63 mg/dl (0.60-1.20); GLUCOSE 87 mg/dl (70-99); POTASSIUM 3.9 mmol/L (3.5-5.1); SODIUM 141 mmol/L (136-145)
[2017-09-06 12:43] LABS: MANUAL MICROSCOPIC REQUIRED? NO; URINE APPEARANCE SL CLOUDY (CLEAR); URINE BILIRUBIN NEG (NEG); URINE COLOR YELLOW; URINE NITRITE NEG (NEG); URINE PH 7.5 (4.5-7.5); UROBILINOGEN NEG (NEG)
[2017-09-06 13:31] LABS: SULFASALICYLIC ACID NEG (NEG)
[2017-09-06 13:32] LABS: REVIEW REQ? NO
[2017-09-07 07:41] LABS: ESTIMATED AVERAGE GLUCOSE 100 mg/dl; HA1C FLAG Normal (Normal)
[2017-09-09 14:31] VITALS: BMI 40.0
--- NOTE | 2017-09-10 13:09 | HISTORY & PHYSICAL EXAMINATION ---
DATE OF ADMISSION: 09/11/2017 HISTORY OF PRESENT ILLNESS: The patient is a 62-year-old white female, 5 foot 7, 240 pounds who presents with complaints of ongoing pain attributable to her left knee. She has severe DJD of the left knee, nonresponsive to conservative therapy and presents for left total knee arthroplasty. She has previously undergone successful right total knee arthroplasty. She has failed conservative management including physical therapy, anti-inflammatories, relative rest, activity modification and presents for left total knee arthroplasty. PAST MEDICAL HISTORY: Significant for asthma, COPD, anxiety. No history of hypertension or hypercholesterolemia are noted. Past medical history otherwise unremarkable and noncontributory. FAMILY HISTORY: Remarkable and noncontributory. SOCIAL HISTORY: The patient denies history of smoking, alcohol use or recreational drug use. PAST SURGICAL HISTORY: Significant for right total knee arthroplasty. ALLERGIES: INCLUDE PENICILLIN. PAST MEDICAL HISTORY: Otherwise unremarkable. See history of present illness for pertinent positives. PHYSICAL EXAMINATION: GENERAL: A very pleasant 62-year-old white female with complaints of severe DJD about her left knee. X-rays revealed there to be evidence of varus alignment, subchondral cystic formation, DJD, sclerosis, osteophytes, marginal osteophytes and medial compartment as well as patellofemoral compartment DJD. The patient has failed attempts at conservative management. HEAD, EYES, EARS, NOSE, AND THROAT: Otherwise unremarkable, atraumatic, normocephalic. HEART: Regular at 72 beats per minute. LUNGS: Clear without rales, rhonchi, or wheezes noted. ABDOMEN: Soft, nontender, nondistended. Bowel sounds are present in all 4 quadrants. RECTAL: No rectal examination was performed. MUSCULOSKELETAL EXAMINATION: Consistent with that of end stage degenerative joint disease left knee. PLAN: Left total knee arthroplasty, postoperative pain management, DVT prophylaxis, antibiotics as noted.
[~2017-09-11] VITALS: Ht 167.6 cm; Wt 113.6 kg
[2017-09-11] VITALS (9 sets, daily range): BP systolic 102–132; BP diastolic 65–82; PULSE 69–90; TEMP 36.8–37; O2SAT 92–100; Ht 167.6 cm; Wt 113.6 kg
[~2017-09-11 04:54] MED LIST changes: -MELO15TA4 PO; +OXGN; -OXYC-57 PO; -TRAM-10 PO
[2017-09-11] MEDS ORDERED: LACTATED RINGER'S 1000ML IV SCH (06:00)
[2017-09-11] MEDS ORDERED: ROPIVACAINE 5MG/ML 30 ML 150 MG, BUPIVACAINE 0.5% MPF INJ 30 ML, EpINEphrine HCL INJ 0.... INFIL SCH ×8 (06:00)
[2017-09-11] MEDS ORDERED: GABAPENTIN 300 MG CAP PO SCH (06:00)
[2017-09-11] MEDS ORDERED: CEFAZOLIN 2000MG IV PUSH 10 ML IV SCH (06:00)
[2017-09-11] MEDS ORDERED: DEXAMETHASONE 4 MG TAB PO SCH (06:00)
[2017-09-11] MEDS ORDERED: LACTATED RINGER'S 1000ML 500 ML IV SCH (06:00)
[2017-09-11] MEDS ORDERED: LACTATED RINGER'S 1000ML 1,000 ML IV SCH (06:00)
[2017-09-11] MEDS ORDERED: ACETAMINOPHEN 500 MG TAB PO SCH (06:00)
[2017-09-11] MEDS ORDERED: METOCLOPRAMIDE HCL 10 MG TAB PO SCH (06:00)
[2017-09-11] MEDS ORDERED: CeleBREX 200 MG CAP PO SCH (06:00)
[2017-09-11] MEDS ORDERED: FAMOTIDINE 20 MG TAB PO SCH (06:00)
[2017-09-11] MEDS ORDERED: BUPIVACAINE 0.5 % 5 MG/1 ML PF 10ML VIAL ONE (06:24)
[2017-09-11] MEDS ORDERED: BUPIVACAINE 0.25% 30 ML VIAL ONE (06:24)
[2017-09-11] MEDS: TRANEXAMIC ACID INJ 1,000 MG in SYRINGE 0 ML IV SCH ×2 (06:30→06:50)
[2017-09-11] MEDS ORDERED: ORTHO JOINT ANESTHETIC ONE (06:38)
[2017-09-11] MEDS ORDERED: BACITRACIN 50000 UNIT VIAL ONE (06:39)
[2017-09-11] MEDS ORDERED: POVIDONE-IODINE OP SOLN 30 ML BTL ONE (06:39)
[2017-09-11] MEDS ORDERED: MIDAZOLAM HCL 1 MG/ML 2ML VIAL ONE ×3 (06:45→07:26)
[2017-09-11] MEDS ORDERED: LIDOCAINE HCL 2% 2 ML VIAL (20MG/ML) ONE (06:47)
[2017-09-11] MEDS ORDERED: PROPOFOL IV EMULSION 10 MG/ML 20 ML VIAL IV ONE ×2 (06:47→08:36)
--- NOTE | 2017-09-11 07:05 | History & Physical Bridge Note ---
H&P Re-Evaluation Bridge Note: I have examined the patient, reviewed the History & Physical and in the interval since the performance of the History & Physical I have noted the following changes of clinical significance: No changes noted
[2017-09-11] MEDS ORDERED: KETAMINE HCL INJ 50 MG/ML 10 ML VIAL ONE (07:21)
[2017-09-11] MEDS ORDERED: SODIUM CHLORIDE 0.9% INJ 10 ML VIAL ONE (07:21)
[2017-09-11] MEDS ORDERED: ONDANSETRON INJ 2 MG/ML 2 ML VIAL IV PRN (07:45)
[2017-09-11] MEDS ORDERED: EpHEDrine SULFATE INJ 50 MG/ML AMP IV PRN (07:45)
[2017-09-11] MEDS ORDERED: ATROPINE SULFATE 0.1 MG/ML 5ML SYR IV PRN (07:45)
[2017-09-11] MEDS ORDERED: PHENYLEPHRINE 100MCG/ML 5ML SYR ONE (07:51)
[2017-09-11] MEDS ORDERED: EpHEDrine SULFATE 50MG/5ML SYR ONE (07:57)
--- NOTE | 2017-09-11 08:20 | [facility] Operative Report ---
Operative Report Operative Date Sep 11, 2017. Pre-Operative Diagnosis Left knee degenerative joint disease Post-Operative Diagnosis same as pre-operative Procedure(s) Performed Left total knee arthroplasty-cemented utilizing Walker & Nephew journey 2 non-block size 4 femur 4 tibia 13 poly-[address] Fernando Green Hearing Therapy Director Surgeon(s) PHIL Montalvo Estimated Blood Loss 5ml Findings Severe end-stage tricompartmental degenerative joint disease left knee with subchondral sclerosis cystic changes osteophytes varus alignment large muscle conservative management Specimens Permanent Specimen A: Left knee bone and tissue Complication(s) None Disposition Recovery Room / PACU Indications Patient presents severe end-stage DJD left knee varus alignment subchondral cyst osteophytes large muscle conservative management including physical therapy anti-inflammatories relative rest activity modification and cortisone steroid injections bracing presents for total knee arthroplasty Description of Procedure After proper prepping and draping of the left lower extremity anterior midline incision was made over the region of the extensor extensor mechanism after meticulous hemostasis was obtained and maintained in subcutaneous tissues a medial parapatellar incision was made The patella was subluxed lateralward the medial lateral gutter were cleaned from any hypertrophic synovitis and scar tissue of the distal femoral block was placed and the distal femoral osteotomy cut was made subsequently the chamfers anterior and posterior osteotomy cuts were made utilizing the 4-in-1 block the tibia was subsequently subluxed anteriorward medial and ateral meniscal remnants were excised in their entirety remnants of the anterior and posterior cruciate ligaments were excised in their entirety excellent exposure of the proximal tibia was obtained the tibial osteotomy guide was placed on the proximal tibial osteotomy cut was made once again the knee was irrigated with copious amounts of sterile saline solution the patella was subsequently everted lateralward thickened scar tissue around the patella was removed the patella was subsequently cut utilizing a freehand technique and was drilled prepared for final preparation and placement of patella socially flexion-extension gaps were checked and the equal and symmetric trials were placed to the appropriate femoral and tibial trials with poly-spacer being placed for equal flexion and extension gaps and full range of motion including extension to 0 and flexion to 140 the trial components after having been taken to recovery range of motion was subsequently removed meticulous hemostasis was obtained and maintained subsequently a knee block injection of joint cocktail including ropivacaine 0.5% 150 mg. Bupivacaine 0.5 % epinephrine 1-200,030 mL's toradol 30 mg dexamethasone 4 mg ketamine 10 mg clonidine 100 micrograms normal saline solution 30 mg was infiltrated into the soft tissues of the posterior knee medial lateral gutters and periosteal synovium special attention was paid to protect neurovascular structures at all times subsequently trial components having been removed the knee was irrigated with sterile saline solution. debris was removed the proximal tibia was subsequently prepared and was made ready for the placement of the tibial component tibial component was also cemented and tamped into position the femoral component was subsequently placed and cemented in the position the patellar component was subsequently cemented in position because hemostasis once again obtained and maintained wound having been thoroughly irrigated with debridement and debridement lavage was performed as well as a medial parapatellar incision closed with #1 Vicryl in interrupted fashion subcutaneous was closed with #2 Vicryl skin was closed with skin clips. PA-C was necessary for prepping and drapping as well as wound closure of deep fascia Sub cutaneous tissue and skin and was necessary for the case. A sterile compressive dressing was placed patient was taken to recovery in stable condition of report dictated by Peter I attest to the content of the Intraoperative Record and any orders documented therein. Any exceptions are noted below. I attest to the content of the Intraoperative Record and any orders documented therein. Any exceptions are noted below.
[2017-09-11] MEDS ORDERED: ALUMINUM/MAGNESIUM/SIMETH (MAALOX MAX) 30 ML UDC PO PRN (09:00)
[2017-09-11] MEDS ORDERED: MAGNESIUM HYDROXIDE SUSP 30 ML UDC PO PRN (09:00)
[2017-09-11] MEDS ORDERED: SOD PHOSPHATE/SOD BIPHOSPHATE ENEMA 132 ML BTL PR PRN (09:00)
[2017-09-11] MEDS ORDERED: MoRPHine SULFATE 2 MG/ML CARP IV PRN (09:00)
[2017-09-11] MEDS ORDERED: BISACODYL 10 MG SUPP PR PRN (09:00)
--- NOTE | 2017-09-11 09:22 | Anesthesiology Progress Note ---
Anesthesia Post Op Note Date & Time Sep 11, 2017 at 09:22 Vital Signs Pain Intensity: 0 Vital Signs Past 12 Hours Date Time Temp Pulse Resp B/P (MAP) Pulse Ox O2 Delivery O2 Flow Rate FiO2 09/11/17 09:16 72 18 116/60 100 Nasal Cannula 3 09/11/17 09:06 77 18 92/68 99 Nasal Cannula 3 09/11/17 08:58 36.1 79 18 96/77 98 Nasal Cannula 3 09/11/17 05:38 37 85 20 132/82 98 Nasal Cannula 3 Notes Mental Status: alert / awake / arousable, participated in evaluation Pt Amnestic to Procedure: Yes Nausea / Vomiting: adequately controlled Pain: adequately controlled Airway Patency, RR, SpO2: stable & adequate BP & HR: stable & adequate Hydration State: stable & adequate Neuraxial Anesthesia: was administered, sensory block is resolving Anesthetic Complications: no major complications apparent
--- NOTE | 2017-09-11 09:26 | DIAGNOSTIC IMAGING REPORT ---
TWO VIEWS LEFT KNEE CLINICAL HISTORY: Postoperative examination. FINDINGS: AP and crosstable lateral portable views of the left knee are obtained. A left knee arthroplasty is in near anatomic alignment. There has been undersurface remodeling of the patella. No acute fracture is seen. A calcified fabella is incidentally noted. There are expected postoperative changes around the knee including a surgical drain, soft tissue edema, and subcutaneous gas. IMPRESSION: Expected postoperative changes status post left knee arthroplasty. No acute fracture is seen. Electronically signed by: Sukhwinder Pedro M.D. 09/11/2017 9:25 AM Dictated Date/Time: 09/11/2017 9:25 AM
[2017-09-11] MEDS ORDERED: INFLUENZA ADMINISTRATION CHARGE ONE (10:45)
[2017-09-11] MEDS ORDERED: INFLUENZA VIRUS QUAD VACCINE 0.5 ML SYR IM. ONE (10:45)
--- NOTE | 2017-09-11 11:05 | Medical Consult ---
Consultation Date of Consultation: Sep 11, 2017. Attending Physician: Fernando Green D.O. History of Present Illness Ms. Pettit is a 62 year old woman here for left TKA. She has had the right done in the past and she has a past medical history of asthma, copd and anxiety as well. She feels a little sore in her left leg but otherwise has no complaints. She is not nauseas. She is not passing gas yet. ROS Constitutional: no chills, aches, sweats or fever Respiratory: no sob,cough, sputum, or wheezing Cardiac: no chest pain, palpitations, edema, orthopnea or lightheadedness GI: no abdominal pain, nausea, vomiting, diarrhea or constipation : no dysuria or hesitancy Extremities: no joint pain or weakness Skin: no rash Past Medical/Surgical History Medical Problems: (1) Bilateral leg weakness Status: Acute (2) COPD exacerbation Status: Acute (3) COPD exacerbation Status: Acute (4) Cough Status: Acute (5) Falls Status: Acute (6) Leg pain, right Status: Acute (7) Leg pain, right Status: Acute (8) Nausea Status: Acute (9) Orthostasis Status: Acute (10) Right thigh pain Status: Acute (11) Sebaceous cyst Status: Acute (12) SOB (shortness of breath) Status: Acute (13) Substernal precordial chest pain Status: Acute (14) Swallowing dysfunction Status: Acute (15) Vomiting Status: Acute Family History FH: cancer Heart disease Social History Smoking Status: Former Smoker Drug Use: none Marital Status: Housing Status: lives alone Occupation Status: unemployed Allergies Coded Allergies: Amoxicillin (Verified Allergy, Mild, HIVES, 09/09/17) Doxycycline (Verified Allergy, Unknown, HIVES, 09/09/17) Naproxen (Verified Allergy, Unknown, UNKNOWN, 09/09/17) Penicillins (Verified Allergy, Unknown, HIVES, 09/09/17) Current Inpatient Medications Current Inpatient Medications Medications (Trade) Dose Ordered Sig/[place] Route Start Time Stop Time Status Last Admin Dose Admin Lactated Ringer's 1,000 ml @ 60 mls/hr [id number] IV 09/11/17 06:00 09/11/17 22:39 09/11/17 05:55 60 MLS/HR Cefazolin Sodium 10 ml @ 2.5 mls/min PREOP IV 09/11/17 06:00 09/11/17 18:00 09/11/17 07:11 2.5 MLS/MIN Acetaminophen (Tylenol Tab) 1,000 mg PREOP PO 09/11/17 06:00 09/11/17 18:00 09/11/17 05:58 1,000 MG Celecoxib (CeleBREX CAP) 200 mg PREOP PO 09/11/17 06:00 09/11/17 18:00 09/11/17 05:59 200 MG Dexamethasone (Decadron Tab) 8 mg PREOP PO 09/11/17 06:00 09/11/17 18:00 09/11/17 05:56 8 MG Famotidine (Pepcid Tab) 20 mg PREOP PO 09/11/17 06:00 09/11/17 18:00 09/11/17 05:57 20 MG Gabapentin (Neurontin Cap) 600 mg PREOP PO 09/11/17 06:00 09/11/17 18:00 09/11/17 05:57 600 MG Metoclopramide HCl (Reglan Tab) 10 mg PREOP PO 09/11/17 06:00 09/11/17 18:00 09/11/17 05:57 10 MG Lactated Ringer's 1,000 ml @ 15 mls/hr Q24H IV 09/11/17 06:00 09/11/17 18:00 Ondansetron HCl (Zofran Inj) 4 mg ONE PRN IV 09/11/17 07:45 09/11/17 13:00 Ephedrine Sulfate (EpHEDrine SULFATE INJ) 5 mg Q5M PRN IV 09/11/17 07:45 09/11/17 13:00 Atropine Sulfate (Atropine Sulfate 0.1MG/Ml Inj) 0.5 mg Q1M PRN IV 09/11/17 07:45 09/11/17 13:00 Potassium Chloride/Dextrose/ Sod Cl 1,000 ml @ 100 mls/hr Q10H IV 09/11/17 08:55 09/12/17 08:54 UNV Clindamycin Phosphate 600 mg/ Dextrose 54 ml @ 100 mls/hr Q8H IV 09/11/17 09:00 09/11/17 17:33 UNV Celecoxib (CeleBREX CAP) 200 mg BID PO 09/11/17 09:00 10/11/17 08:59 UNV Oxycodone HCl (Roxicodone Immediate Rel Tab) 1 TABLET FOR PAIN RATING... Q4H PRN PO 09/11/17 09:00 09/25/17 08:59 UNV Acetaminophen (Tylenol Tab) 1,000 mg Q8H PO 09/11/17 09:00 10/11/17 08:59 UNV Magnesium Hydroxide (Milk Of Magnesia Susp) 30 ml Q6H PRN PO 09/11/17 09:00 10/11/17 08:59 UNV Bisacodyl (Dulcolax Supp) 10 mg DAILY PRN NE 09/11/17 09:00 10/11/17 08:59 UNV Sodium Biphosphate/ Sodium Phosphate (Fleet Enema) 132 ml DAILY PRN NE 09/11/17 09:00 10/11/17 08:59 UNV Senna (Senokot Tab) 17.2 mg HS PO 09/11/17 21:00 10/11/17 20:59 UNV Docusate Sodium (coLACE CAP) 100 mg BID PO 09/11/17 09:00 10/11/17 08:59 UNV Diphenhydramine HCl (Benadryl Cap) 25 mg Q8H PRN PO 09/11/17 09:00 10/11/17 08:59 UNV Al Hydrox/Mg Hydrox/Simethicone (Maalox Max Susp) 15 ml Q4H PRN PO 09/11/17 09:00 10/11/17 08:59 UNV Multivitamins (Multivitamin Tab) 1 tab QAM PO 09/11/17 09:00 10/11/17 08:59 UNV Ondansetron HCl (Zofran Inj) 4 mg Q6H PRN IV 09/11/17 09:00 10/11/17 08:59 UNV Ferrous Gluconate (Ferrous Gluconate Tab) 324 mg TIDM PO 09/11/17 12:00 10/11/17 11:59 UNV Pantoprazole Sodium (Protonix Tab) 40 mg QAM PO 09/11/17 09:00 10/11/17 08:59 UNV Tramadol HCl (Ultram Tab) 1 tablet for pain rating... Q4H PRN PO 09/11/17 09:00 10/11/17 08:59 UNV Ketorolac Tromethamine (Toradol Inj) 30 mg Q6H PRN IV. 09/11/17 09:00 09/12/17 08:59 UNV Aspirin (Ecotrin Tab) 81 mg BID PO 09/11/17 09:00 10/11/17 08:59 UNV Albuterol (Ventolin Hfa Inhaler) 2 puffs Q4 PRN INH 09/11/17 09:00 10/11/17 08:59 UNV Bupropion HCl (Wellbutrin-Xl Tab) 300 mg QAM PO 09/11/17 09:00 10/11/17 08:59 UNV Escitalopram Oxalate (Lexapro Tab) 20 mg QAM PO 09/11/17 09:00 10/11/17 08:59 UNV Hydroxyzine HCl (Vistaril Tab) 25 mg HS PO 09/11/17 21:00 10/11/17 20:59 UNV Levothyroxine Sodium (Synthroid Tab) 137 mcg QAM PO 09/11/17 09:00 10/11/17 08:59 UNV Lorazepam (Ativan Tab) 0.5 mg HS PO 09/11/17 21:00 10/11/17 20:59 UNV Potassium Chloride (Klor-Con M10) 10 meq QAM PO 09/11/17 09:00 10/11/17 08:59 UNV Morphine Sulfate (MoRPHine SULFATE INJ) @ Q4HWA PRN IV 09/11/17 09:00 09/25/17 08:59 UNV Review of Systems Psychiatric: No anxiety Endocrine: No fatigue Physical Exam Date Time Temp Pulse Resp B/P (MAP) Pulse Ox O2 Delivery O2 Flow Rate FiO2 09/11/17 10:40 71 18 121/75 (90) 100 09/11/17 10:15 92 Nasal Cannula 2.0 09/11/17 10:10 72 19 120/67 (84) 99 09/11/17 09:40 Nasal Cannula 2.0 09/11/17 09:40 36.8 79 16 126/72 (90) 92 Nasal Cannula 2.0 09/11/17 09:26 36.9 68 18 131/74 100 Nasal Cannula 3 09/11/17 09:16 72 18 116/60 100 Nasal Cannula 3 09/11/17 09:06 77 18 92/68 99 Nasal Cannula 3 09/11/17 08:58 36.1 79 18 96/77 98 Nasal Cannula 3 09/11/17 05:38 37 85 20 132/82 98 Nasal Cannula 3 General: no distress Eyes: normal inspection, PERLL Respiratory: chest non tender, clear to auscultation, normal breath sounds, no respiratory distress, no accessory muscle use Cardiac: regular rate and rhythm, no rub or gallop, no murmur, no edema, no jvd GI/: active bowel sounds, no abd pain or tenderness, soft, non distended Extremities: normal range of motion right leg, normal strength, non tender, left leg TASHA wrap and drains in place, palpable pedal pulses Neuro/Psych: alert and oriented x 3, normal mood and affect Skin: normal color, dry Assessment & Plan 62 year old woman here for left TKA with pmhx asthma, COPD and anxiety Post op 09/11 left TKA - pain management, dvt prophylaxis, bowel regimen per ortho - monitor for post op bleeding, cbc am Asthma/ COPD - continue albuterol inhaler prn Anxiety - continue Lexapro GERD - continue protonix PROPERTY PRESERVATION SPECIALIST Physician Supervision Note: I interviewed and examined the patient. Discussed with Haleigh Thurston NP and agree with findings and plan as documented in the note. Any exceptions or clarifications are listed here: None Patient is doing well postoperatively for medical problems are stable she has no complaints of shortness of breath she is concerned about getting her sleeping gait however she takes a significant dose of Seroquel which we will hold due to her postoperative state Her vitals are stable Her heart is regular her lungs are clear good air movement no wheezes We'll continue her albuterol as needed for asthma/COPD, for her depression and anxiety Lexapro and Wellbutrin will be continued, her hypothyroidism appears to be clinically stable Documented By: Fernando Rogel
[2017-09-11] MEDS: D5W AND 1/2NSS + 20MEQ KCL 1,000 ML IV SCH ×2 (11:19→21:13)
[2017-09-11] MEDS: OXYCODONE HCL IR 5 MG TAB (IMMEDIATE RELEASE) PO PRN ×3 (11:22→21:17)
[2017-09-11] MEDS: ESCITALOPRAM OXALATE 20 MG TAB PO SCH (12:00)
[2017-09-11] MEDS: BuPROPion XL 300 MG TABCR PO SCH (13:00)
[2017-09-11] MEDS: FERROUS GLUCONATE 324 MG TAB PO SCH ×2 (13:00→18:52)
[2017-09-11] MEDS: PANTOprazole SOD 40 MG TAB PO SCH (13:00)
[2017-09-11] MEDS: MULTIVITAMIN TAB PO SCH (13:00)
[2017-09-11] MEDS: POTASSIUM CHLORIDE 10 MEQ TABCR PO SCH (13:01)
[2017-09-11] MEDS: ACETAMINOPHEN 500 MG TAB PO SCH ×2 (13:55→21:13)
[2017-09-11] MEDS: CLINDAMYCIN IV 600 MG in DEXTROSE 5% 50ML 50 ML IV SCH (18:52)
[2017-09-11] MEDS: SENNA 8.6 MG TAB PO SCH (21:11)
[2017-09-11] MEDS: LORAZEPAM 0.5 MG TAB PO SCH (21:11)
[2017-09-11] MEDS: hydrOXYzine HCL 25 MG TAB PO SCH (21:11)
[2017-09-11] MEDS: ASPIRIN 81 MG ECTAB PO SCH (21:13)
[2017-09-11] MEDS: DOCUSATE SODIUM 100 MG CAP PO SCH (21:13)
[2017-09-11] MEDS: KETOROLAC TROMETHAMINE 30 MG/ML VIAL IV. PRN (23:33)
[2017-09-12] MEDS: TRAMADOL HCL 50 MG TAB PO PRN ×2 (01:18→06:39)
[2017-09-12] MEDS: CLINDAMYCIN IV 600 MG in DEXTROSE 5% 50ML 50 ML IV SCH (01:42)
[2017-09-12 03:16] VITALS: BP 101/66; PULSE 70; TEMP 36.8; O2SAT 98
[2017-09-12] MEDS: ONDANSETRON INJ 2 MG/ML 2 ML VIAL IV PRN ×2 (03:35→14:14)
[2017-09-12] MEDS: OXYCODONE HCL IR 5 MG TAB (IMMEDIATE RELEASE) PO PRN ×3 (04:17→14:04)
[2017-09-12] MEDS: LEVOTHYROXINE 137 MCG TAB PO SCH (05:37)
[2017-09-12] MEDS: ACETAMINOPHEN 500 MG TAB PO SCH ×3 (05:38→21:32)
[2017-09-12 06:26] LABS: MEAN CELL VOLUME 90.1 fL (80-100); MEAN CORPUSCULAR HEMOGLOBIN 26.8 pg (25-34); MEAN CORPUSCULAR HGB CONC 29.7 g/dl (32-36); MEAN PLATELET VOLUME 10.9 fL (7.4-10.4); PLATELET COUNT 165 K/uL (130-400); RED BLOOD COUNT 3.55 M/uL (4.2-5.4); WHITE BLOOD COUNT 9.87 K/uL (4.8-10.8)
[2017-09-12 06:30] LABS: PROTHROMBIN TIME (PATIENT) 10.6 SECONDS (9.0-12.0)
[2017-09-12 06:48] LABS: BUN/CREATININE RATIO 31.2 (10-20); CALCIUM 8.1 mg/dl (8.5-10.1); CREATININE 0.73 mg/dl (0.60-1.20); POTASSIUM 4.4 mmol/L (3.5-5.1)
--- NOTE | 2017-09-12 07:04 | Orthopedic Progress Note ---
Orthopedic Progress Note Date of Service Sep 12, 2017. Subjective Post OP Day: 1 Reports: feeling well, pain controlled w PO medications, Denies: complaints, chest pain, SOB, nausea / vomiting, light headedness, calf pain Objective calves soft nontender, N/V intact, capillary refill less than 2 sec., dressing C /D/I, A&O x3, toes mobile, hemovac drainage (minimal) Date Time Temp Pulse Resp B/P (MAP) Pulse Ox O2 Delivery O2 Flow Rate FiO2 09/12/17 03:16 36.8 70 18 101/66 (78) 98 Nasal Cannula 3.0 09/11/17 23:30 Nasal Cannula 2.0 09/11/17 23:03 36.9 74 18 103/67 (79) 98 Nasal Cannula 3.0 09/11/17 18:48 36.8 77 18 102/65 (77) 98 Nasal Cannula 3.0 09/11/17 15:40 Nasal Cannula 2.0 09/11/17 15:06 37.0 69 18 102/67 (79) 96 Nasal Cannula 3.0 09/11/17 12:55 90 16 104/68 (80) 96 09/11/17 11:40 86 18 112/68 (83) 100 09/11/17 10:40 71 18 121/75 (90) 100 09/11/17 10:15 92 Nasal Cannula 2.0 09/11/17 10:10 72 19 120/67 (84) 99 09/11/17 09:40 Nasal Cannula 2.0 09/11/17 09:40 36.8 79 16 126/72 (90) 92 Nasal Cannula 2.0 09/11/17 09:26 36.9 68 18 131/74 100 Nasal Cannula 3 09/11/17 09:16 72 18 116/60 100 Nasal Cannula 3 09/11/17 09:06 77 18 92/68 99 Nasal Cannula 3 09/11/17 08:58 36.1 79 18 96/77 98 Nasal Cannula 3 Laboratory Results 24 Hours: Test 09/12/17 05:54 Hematocrit 32.0 % Hemoglobin 9.5 g/dL Prothromb Time International Ratio 1.0 Prothrombin Time 10.6 SECONDS Assessment & Plan Assessment: POD #1 s/p Left TKA pt/ot dvt proph with marty/scd/asa plan for d/c home with HHPT when stable Asthma/ COPD - continue albuterol inhaler prn Anxiety - continue Lexapro GERD - continue protonix Discharge Planning Discharge Planning: home with home health DVT Prophylaxis: TEDs, SCDs, ASA Therapy: Physical Therapy
--- NOTE | 2017-09-12 07:05 | Discharge Instructions ---
Discharge Instructions Date of Service Sep 12, 2017. Admission Reason for Admission: Left Knee Osteoarthritis Discharge Discharge Diagnosis / Problem: Left total knee replacement Discharge Goals Goal(s): Decrease discomfort, Improve function, Increase independence Activity Recommendations Activity Limitations: as noted below Weightbearing Status: Left weightbearing (as tolerated) . Instructions / Follow-Up Instructions / Follow-Up ACTIVITY RECOMMENDATIONS: SELF CARE INSTRUCTIONS AFTER TOTAL KNEE REPLACEMENT A. You may need to continue a physical therapy program after discharge from the hospital. There are several options available to you. Your doctor will assist you in selecting the best one for you. 1. An out-patient facility 2 to 3 times a week for therapy or home therapy. 2. Continue working on all exercises taught to you in the hospital. Your goals should be to increase bending of your knee to 90 degrees and beyond and to fully straighten your knee. B. You may progress at your own pace from walking with a walker or crutches to a cane; then to no assistive devices. C. Make walking a part of your daily routine. Be up as much as comfortable with rest periods throughout the day. Rest with leg elevation is very important. Use the ice wrap frequently for the first 3-4 weeks. D. There are no restrictions on activities. You may ride in a car, shop, participate in upkeep mechanic and all social activities. E. Wear the long elastic stockings (JUNIOR hose) 20 hours a day for 2 weeks after surgery. They can be removed several times a day for laundering and for a bath. F. You may shower, no tub baths until cleared by your doctor. SPECIAL CARE INSTRUCTIONS: VERY IMPORTANT TO READ AND REVIEW A. There are a few signs you need to watch for after you are home. Call [facility] if you notice any of the followin. Increased severe knee pain. Some pain is expected especially when you exercise. 2. Increased swelling in your leg or knee; pain or swelling of the calf muscle in either lower leg. 3. Any fluid drainage from the incision. 4. Shortness of breath or chest pain. B. Please call [facility] at if you have any concerns or questions about your operation or recovery. The doctor or his nurse will return your call promptly. C. You must take antibiotics before dental work, bladder, bowel or other surgery. Your doctor will provide you with a permanent care to carry describing this precaution. IMPORTANT: * REMEMBER TO TAKE ASPIRIN, 81 MG, TWICE DAILY FOR 4 WEEKS UNLESS OTHERWISE DIRECTED. THIS IS YOUR BLOOD THINNER. * HIGH RISK PATIENTS MAY BE PRESCRIBED A STRONGER BLOOD THINNER. THIS WILL BE PROVIDED AT DISCHARGE. * CALL IF INCREASED PAIN, REDNESS, DRAINAGE OR FEVER GREATER THAT 101. * WEAR JUNIOR HOSE 20 HOURS PER DAY FOR 2 WEEKS. * Prevena- This is a large suction dressing covering your incision. This will help pull any excess drainage from the wound and allow your incision to heal properly. You may shower with this if you can keep the unit outside of the shower. If any bleeding or leakage is noted please call your doctor's office. This will remain on your incision for 7 days and then should be removed. This can be done yourself or by the home nursing staff if applicable. The entire unit is disposable once removed. Once removed, keep incision clean and dry. If redness or drainage is noted, please call your surgeon. Zip Skin Closure You will be given instructions by nursing staff at the time of discharge to care for your Zip Closure System. This devices uses plastic straps to keep your incision closed and protected throughout your recovery. If you have any questions please refer to these instructions first. FOLLOW UP VISIT: If appointment is not already scheduled: Please call [facility] to make a follow-up appointment for 2 weeks after your surgery at . Current Hospital Diet Patient's current hospital diet: Regular Diet Discharge Diet Recommended Diet: Regular Diet Procedures Procedures Performed: Left total knee arthroplasty-cemented utilizing Walker & Nephew journey 2 non-block size 4 femur 4 tibia 13 poly-29 oval patella Pending Studies Studies pending at discharge: no Laboratory Results Hemoglobin A1c Test 09/06/17 11:16 Range/Units Estimated Average Glucose 100 mg/dl Hemoglobin A1c 5.1 4.5-5.6 % Medical Emergencies . Who to Call and When: Medical Emergencies: If at any time you feel your situation is an emergency, please call 911 immediately. . Non-Emergent Contact Non-Emergency issues call your: Primary Care Provider, Surgeon . "Provider Documentation" section prepared by Rito Sidhu. . VTE Core Measure Inpt VTE Proph given/why not?: Other Anticoagulation (ASA 81mg po bid x 1 month ), T.E.D. Stockings, SCD's [place] Drug Monitoring Program Search Results: patient reviewed within database, no issues identified
[2017-09-12 07:12] VITALS: BP 114/88; PULSE 76; TEMP 36.5; O2SAT 98
[2017-09-12] MEDS: D5W AND 1/2NSS + 20MEQ KCL 1,000 ML IV SCH (07:30)
[2017-09-12] MEDS: ASPIRIN 81 MG ECTAB PO SCH ×2 (08:46→21:30)
[2017-09-12] MEDS: FUROSEMIDE 20 MG TAB PO SCH ×2 (08:46→18:29)
[2017-09-12] MEDS: POTASSIUM CHLORIDE 10 MEQ TABCR PO SCH (08:46)
[2017-09-12] MEDS: MULTIVITAMIN TAB PO SCH (08:46)
[2017-09-12] MEDS: PANTOprazole SOD 40 MG TAB PO SCH (08:46)
[2017-09-12] MEDS: ESCITALOPRAM OXALATE 20 MG TAB PO SCH (08:47)
[2017-09-12] MEDS: FERROUS GLUCONATE 324 MG TAB PO SCH ×3 (08:47→18:28)
[2017-09-12] MEDS: BuPROPion XL 300 MG TABCR PO SCH (08:47)
[2017-09-12] MEDS: DOCUSATE SODIUM 100 MG CAP PO SCH ×2 (08:53→21:00)
--- NOTE | 2017-09-12 09:47 | Anesthesiology Progress Note ---
Anesthesia Post Op Note Date & Time Sep 12, 2017 at 09:46 Vital Signs Pain Intensity: 7.0 Vital Signs Past 12 Hours Date Time Temp Pulse Resp B/P (MAP) Pulse Ox O2 Delivery O2 Flow Rate FiO2 09/12/17 07:20 Nasal Cannula 2.0 09/12/17 07:12 36.5 76 16 114/88 (97) 98 Nasal Cannula 2.5 09/12/17 03:16 36.8 70 18 101/66 (78) 98 Nasal Cannula 3.0 09/11/17 23:30 Nasal Cannula 2.0 09/11/17 23:03 36.9 74 18 103/67 (79) 98 Nasal Cannula 3.0 Notes Mental Status: alert / awake / arousable, participated in evaluation Pt Amnestic to Procedure: Yes Nausea / Vomiting: adequately controlled Pain: adequately controlled Airway Patency, RR, SpO2: stable & adequate BP & HR: stable & adequate Hydration State: stable & adequate Neuraxial Anesthesia: sensory block resolved Anesthetic Complications: no major complications apparent
[2017-09-12 11:02] VITALS: BP 109/67; PULSE 79; O2SAT 97
--- NOTE | 2017-09-12 14:16 | Hospitalist Progress Note ---
Hospitalist Progress Note Date of Service Sep 12, 2017. (Haleigh Thurston CRNP) Subjective Pt evaluation today including: conversation w/ patient, physical exam, chart review, lab review, review of inpatient medication list Voiding: no voiding problems Ms. Pettit feels better today though she is tired from not getting enough sleep last night. Her pain is overall well controlled. She felt somewhat nauseas after lunch. Her brother is bedside and expresses concerns about her discharge plan as he does not feel she could care for herself at home post op and does not feel the son she lives with is reliable. ROS Constitutional: no chills, aches, sweats or fever Respiratory: no sob,cough, sputum, or wheezing Cardiac: no chest pain, palpitations, edema, orthopnea or lightheadedness GI: no abdominal pain, nausea, vomiting, diarrhea or constipation : no dysuria or hesitancy Extremities: see HPI Skin: no rash (Haleigh Thurston CRNP) Objective Vital Signs Date Time Temp Pulse Resp B/P (MAP) Pulse Ox O2 Delivery O2 Flow Rate FiO2 09/12/17 07:20 Nasal Cannula 2.0 09/12/17 07:12 36.5 76 16 114/88 (97) 98 Nasal Cannula 2.5 09/12/17 03:16 36.8 70 18 101/66 (78) 98 Nasal Cannula 3.0 09/11/17 23:30 Nasal Cannula 2.0 09/11/17 23:03 36.9 74 18 103/67 (79) 98 Nasal Cannula 3.0 09/11/17 18:48 36.8 77 18 102/65 (77) 98 Nasal Cannula 3.0 09/11/17 15:40 Nasal Cannula 2.0 09/11/17 15:06 37.0 69 18 102/67 (79) 96 Nasal Cannula 3.0 (Haleigh Thurston CRNP) Physical Exam Notes: General: no distress Eyes: normal inspection, PERLL Respiratory: chest non tender, clear to auscultation, normal breath sounds, no respiratory distress, no accessory muscle use Cardiac: regular rate and rhythm, no rub or gallop, no murmur, no edema, no jvd GI/: active bowel sounds, no abd pain or tenderness, soft, non distended Extremities: left john wrap in place, drain intact Neuro/Psych: alert and oriented x 3, normal mood and affect Skin: normal color, dry (Haleigh Thurston CRNP) Laboratory Results Last 24 Hours Test 09/12/17 05:54 White Blood Count 9.87 K/uL Red Blood Count 3.55 M/uL Hemoglobin 9.5 g/dL Hematocrit 32.0 % Mean Corpuscular Volume 90.1 fL Mean Corpuscular Hemoglobin 26.8 pg Mean Corpuscular Hemoglobin Concent 29.7 g/dl RDW Standard Deviation 46.1 fL RDW Coefficient of Variation 13.9 % Platelet Count 165 K/uL Mean Platelet Volume 10.9 fL Prothrombin Time 10.6 SECONDS Prothromb Time International Ratio 1.0 Sodium Level 139 mmol/L Potassium Level 4.4 mmol/L Chloride Level 102 mmol/L Carbon Dioxide Level 32 mmol/L Anion Gap 5.0 mmol/L Blood Urea Nitrogen 23 mg/dl Creatinine 0.73 mg/dl Est Creatinine Clear Calc Drug Dose 103.5 ml/min Estimated GFR () 103.0 Estimated GFR (Non- 88.9 BUN/Creatinine Ratio 31.2 Random Glucose 102 mg/dl Calcium Level 8.1 mg/dl Hepatitis C Antibody Screen NEG (Haleigh Thurston CRNP) Assessment and Plan 62 year old woman here for left TKA with pmhx asthma, COPD and anxiety Post op 09/11 left TKA - pain management, dvt prophylaxis, bowel regimen per ortho - monitor for post op bleeding - hgb 9.5 this am - repeat CBC am Asthma/ COPD - continue albuterol inhaler prn Anxiety - continue Lexapro GERD - continue protonix Dispo - OT eval does not feel patient would be safe to go home alone, per CM patient is not agreeable to any inpatient rehab - likely home with home health (Haleigh Thurston CRNP) Attending Attestation: Pt seen/examined, chart reviewed, care plan d/w DC Thurston. I agree w/ the baker components of her documentation. Pt c/o nausea with minimal central abdominal pain. Denies cough or congestion or any dyspnea above her baseline sob. VSS no fever gen - NAD, obese neck - no JVD heart - RRR lungs - CTA b/l abd - mildly tender epigastric region, BS+, no HSM, ND ext - no edema skin - right hip dressing intact A/P: 1. s/p right THR 2. nausea - could simply be related to recent anesthesia but cannot exclude gastritis or mild ileus maintain PPI if symptoms persist then abd x-rays 3. asthma - w/o exacerbation 4. mood disorder - ensure seroquel is present at HS will follow Samaria ARGUETA MD (Hany Argueta MD)
[2017-09-12 15:16] VITALS: BP 113/75; PULSE 70; TEMP 37.1; O2SAT 98
[2017-09-12] MEDS: KETOROLAC TROMETHAMINE 30 MG/ML VIAL IV. PRN (15:56)
[2017-09-12] MEDS ORDERED: METOCLOPRAMIDE HCL INJ 5 MG/ML 2 ML VIAL IV ONE (16:45)
[2017-09-12] MEDS: ALBUTEROL HFA 8 GM INHALER INH PRN (17:32)
[2017-09-12] MEDS ORDERED: QUETIAPINE FUMARATE 200 MG TAB PO SCH (21:00)
[2017-09-12] MEDS: SENNA 8.6 MG TAB PO SCH (21:00)
[2017-09-12] MEDS: hydrOXYzine HCL 25 MG TAB PO SCH (21:30)
[2017-09-12] MEDS: LORAZEPAM 0.5 MG TAB PO SCH (21:31)
[2017-09-12] MEDS: CeleBREX 200 MG CAP PO SCH (21:31)
[2017-09-12] MEDS: QUETIAPINE FUMARATE 200 MG TAB PO SCH (21:31)
[2017-09-12 22:54] VITALS: BP 100/66; PULSE 80; TEMP 36.9; O2SAT 96
[2017-09-13] MEDS: ACETAMINOPHEN 500 MG TAB PO SCH ×3 (05:51→21:57)
[2017-09-13] MEDS: LEVOTHYROXINE 137 MCG TAB PO SCH (05:51)
[2017-09-13 06:01] LABS: HEMATOCRIT 32.1 % (37-47); MEAN CELL VOLUME 89.9 fL (80-100); MEAN CORPUSCULAR HEMOGLOBIN 27.2 pg (25-34); MEAN CORPUSCULAR HGB CONC 30.2 g/dl (32-36); MEAN PLATELET VOLUME 11.1 fL (7.4-10.4); PLATELET COUNT 152 K/uL (130-400); RED BLOOD COUNT 3.57 M/uL (4.2-5.4); WHITE BLOOD COUNT 7.67 K/uL (4.8-10.8)
[2017-09-13 06:37] LABS: CALCIUM 8.2 mg/dl (8.5-10.1); CREATININE 0.65 mg/dl (0.60-1.20); POTASSIUM 4.1 mmol/L (3.5-5.1)
[2017-09-13 07:15] VITALS: BP 110/64; PULSE 74; TEMP 37.2; O2SAT 99
--- NOTE | 2017-09-13 08:28 | Orthopedic Progress Note ---
Orthopedic Progress Note Date of Service Sep 13, 2017. Subjective Post OP Day: 2 Additional Notes: Pt sitting up in chair at bedside with O2 on. States she uses O2 at home. Says that she had N/V last night. Thinking it was due to taking meds without food. Briefly discussed dc plans. Pt wants to go home and has some people coming in to help her over the weekend. Apparently she has a son that lives with her but he is not around all the time per notes from CM/Med Service. I spoke with her brother who feels she will not be motivated at home and may not keep up with her exercises on nontherapy days. OT/PT state in their notes that she would be a better candidate for Rehab / SNF. Pt currently not agreeable to either at this time. We will have to see how she does with her therapy today. Less nausea this AM. Objective calves soft nontender, N/V intact, dressing C/D/I (prevena intact), A&O x3, toes mobile Date Time Temp Pulse Resp B/P (MAP) Pulse Ox O2 Delivery O2 Flow Rate FiO2 09/13/17 07:15 37.2 74 16 110/64 (79) 99 Nasal Cannula 2.0 09/13/17 07:10 Nasal Cannula 2.0 09/13/17 00:30 Nasal Cannula 2.0 09/12/17 22:54 36.9 80 18 100/66 (77) 96 Nasal Cannula 2.0 09/12/17 16:00 Nasal Cannula 2.0 09/12/17 15:16 37.1 70 16 113/75 (88) 98 Room Air 09/12/17 11:02 79 97 Laboratory Results 24 Hours: Test 09/13/17 05:20 Hematocrit 32.1 % Hemoglobin 9.7 g/dL Assessment & Plan Assessment: POD #2 s/p Left TKA pt/ot dvt proph with marty/scd/asa plan for d/c home with HHPT if not agreeable to SNF/Rehab. Asthma/ COPD - continue albuterol inhaler prn Anxiety - continue Lexapro GERD - continue protonix Plan: PT still believes patient is unsafe to go home at this time. She will be by herself a good portion of the time. I spoke with Dr Green' office who feels she should go to a rehab type facility. I then spoke at length with the patient again who now agrees to go to N. CM notified as well as HS liaison' s. Hopefully, she can be dc'd today to [facility]. Inhouse Planning Pain Management: Celebrex, Ultram, PO Tylenol, Oxy IR DVT Prophylaxis: TEDs, SCDs, ASA Discharge Planning Discharge Planning: home with home health Pain Management: Celebrex, PO Tylenol, Oxy IR DVT Prophylaxis: TEDs ASA Therapy: Physical Therapy
[2017-09-13 08:30] VITALS: O2SAT 99
[2017-09-13] MEDS: FERROUS GLUCONATE 324 MG TAB PO SCH ×3 (08:30→17:29)
[2017-09-13] MEDS: DOCUSATE SODIUM 100 MG CAP PO SCH ×2 (08:34→21:22)
[2017-09-13] MEDS: ESCITALOPRAM OXALATE 20 MG TAB PO SCH (08:35)
[2017-09-13] MEDS: MULTIVITAMIN TAB PO SCH (08:35)
[2017-09-13] MEDS: CeleBREX 200 MG CAP PO SCH ×2 (08:35→21:22)
[2017-09-13] MEDS: ASPIRIN 81 MG ECTAB PO SCH ×2 (08:35→21:23)
[2017-09-13] MEDS ORDERED: ACET-24 PO (08:35)
[2017-09-13] MEDS ORDERED: ASPEC81 PO (08:35)
[2017-09-13] MEDS ORDERED: RXC5 PO (08:35)
[2017-09-13] MEDS ORDERED: CLB200 PO (08:35)
[2017-09-13] MEDS ORDERED: SENN1TAB80 PO (08:35)
[2017-09-13] MEDS: FUROSEMIDE 20 MG TAB PO SCH ×2 (08:36→17:29)
[2017-09-13] MEDS: BuPROPion XL 300 MG TABCR PO SCH (08:36)
[2017-09-13] MEDS: PANTOprazole SOD 40 MG TAB PO SCH (08:36)
[2017-09-13] MEDS: POTASSIUM CHLORIDE 10 MEQ TABCR PO SCH (08:36)
[2017-09-13] MEDS: ONDANSETRON INJ 2 MG/ML 2 ML VIAL IV PRN ×2 (08:45→18:26)
--- NOTE | 2017-09-13 11:24 | Discharge Instructions ---
Discharge Instructions Date of Service Sep 13, 2017. Admission Reason for Admission: Left Knee Osteoarthritis Discharge Discharge Diagnosis / Problem: Left Knee Djd Discharge Goals Goal(s): Decrease discomfort, Improve function, Increase independence Activity Recommendations Activity Level: Assistance Required Therapies: Physical Therapy (TKA protocol), Occupational Therapy (ADL's and transfers) Weightbearing Status: Left weightbearing (as tolerated) . Additional Information Patient informed of condition: Yes Advance Directives: No DNR: No Level of Care: Acute Rehab Communicable Disease: No Prognosis: Stable [place] Catheter: No Instructions / Follow-Up Instructions / Follow-Up ACTIVITY RECOMMENDATIONS: SELF CARE INSTRUCTIONS AFTER TOTAL KNEE REPLACEMENT A. You may need to continue a physical therapy program after discharge from the hospital. There are several options available to you. Your doctor will assist you in selecting the best one for you. 1. An out-patient facility 2 to 3 times a week for therapy or home therapy. 2. Continue working on all exercises taught to you in the hospital. Your goals should be to increase bending of your knee to 90 degrees and beyond and to fully straighten your knee. B. You may progress at your own pace from walking with a walker or crutches to a cane; then to no assistive devices. C. Make walking a part of your daily routine. Be up as much as comfortable with rest periods throughout the day. Rest with leg elevation is very important. Use the ice wrap frequently for the first 3-4 weeks. D. There are no restrictions on activities. You may ride in a car, shop, participate in early childhood services coordinator and all social activities. E. Wear the long elastic stockings (JUNIOR hose) 20 hours a day for 2 weeks after surgery. They can be removed several times a day for laundering and for a bath. F. You may shower, no tub baths until cleared by your doctor. SPECIAL CARE INSTRUCTIONS: VERY IMPORTANT TO READ AND REVIEW A. There are a few signs you need to watch for after you are home. Call [facility] if you notice any of the followin. Increased severe knee pain. Some pain is expected especially when you exercise. 2. Increased swelling in your leg or knee; pain or swelling of the calf muscle in either lower leg. 3. Any fluid drainage from the incision. 4. Shortness of breath or chest pain. B. Please call [facility] at if you have any concerns or questions about your operation or recovery. The doctor or his nurse will return your call promptly. C. You must take antibiotics before dental work, bladder, bowel or other surgery. Your doctor will provide you with a permanent care to carry describing this precaution. IMPORTANT: * REMEMBER TO TAKE ASPIRIN, 81 MG, TWICE DAILY FOR 4 WEEKS UNLESS OTHERWISE DIRECTED. THIS IS YOUR BLOOD THINNER. * HIGH RISK PATIENTS MAY BE PRESCRIBED A STRONGER BLOOD THINNER. THIS WILL BE PROVIDED AT DISCHARGE. * CALL IF INCREASED PAIN, REDNESS, DRAINAGE OR FEVER GREATER THAT 101. * WEAR JUNIOR HOSE 20 HOURS PER DAY FOR 2 WEEKS. * Prevena- This is a large suction dressing covering your incision. This will help pull any excess drainage from the wound and allow your incision to heal properly. You may shower with this if you can keep the unit outside of the shower. If any bleeding or leakage is noted please call your doctor's office. This will remain on your incision for 7 days and then should be removed. This can be done yourself or by the home nursing staff if applicable. The entire unit is disposable once removed. Once removed, keep incision clean and dry. If redness or drainage is noted, please call your surgeon. . FOLLOW UP VISIT: If appointment is not already scheduled: Please call [facility] to make a follow-up appointment for 2 weeks after your surgery at . Current Hospital Diet Patient's current hospital diet: Regular Diet Discharge Diet Recommended Diet: Regular Diet Procedures Procedures Performed: Left total knee arthroplasty-cemented utilizing [employer] Nephew journey 2 non-block size 4 femur 4 tibia 13 poly-29 oval patella Pending Studies Studies pending at discharge: no Physician Orders On Transfer Dressing Changes: Remove Prevena dressing 7 days from the day of surgery Vital Signs: routine Laboratory Results Hemoglobin A1c Test 09/06/17 11:16 Range/Units Estimated Average Glucose 100 mg/dl Hemoglobin A1c 5.1 4.5-5.6 % Medical Emergencies . Who to Call and When: Medical Emergencies: If at any time you feel your situation is an emergency, please call 911 immediately. . Non-Emergent Contact Non-Emergency issues call your: Surgeon Call Non-Emergent contact if: temperature is above 101.5, your pain is not controlled, your pain is worsening, wound has increased drainage, wound has increased redness . . "Provider Documentation" section prepared by Abdifatah Moses. . Core Measure Problem Core Measures: None [place] Drug Monitoring Program Search Results: patient reviewed within database, no issues identified
--- NOTE | 2017-09-13 11:37 | Hospitalist Progress Note ---
Hospitalist Progress Note Date of Service Sep 13, 2017. (Haleigh Thurston CRNP) Subjective Pt evaluation today including: conversation w/ patient, physical exam, chart review, lab review, review of inpatient medication list Voiding: no voiding problems Ms. Pettit had nausea, abdominal pain and vomiting over the night with nausea this morning. She was only able to eat a jello for breakfast. She also reports that she had some diarrhea over the night but has not had any today. She denies any pain in the backs of her calves. She does say that she briefly had chest pain yesterday while working with PT but has not felt it again since then ROS Constitutional: no chills, aches, sweats or fever Respiratory: no sob,cough, sputum, or wheezing Cardiac: no chest pain, palpitations, edema, orthopnea or lightheadedness GI: see HPI : no dysuria or hesitancy Extremities: no joint pain or weakness Skin: no rash All Other Systems: Reviewed and Negative (Haleigh Thurston CRNP) Medications Medications Administered Medications (Trade) Dose Ordered Sig/Clovis Route Start Time Stop Time Status Last Admin Dose Admin Lactated Ringer's 1,000 ml @ 60 mls/hr [id number] IV 09/11/17 06:00 09/11/17 22:39 DC 09/11/17 05:55 60 MLS/HR Cefazolin Sodium 10 ml @ 2.5 mls/min PREOP IV 09/11/17 06:00 09/11/17 18:00 DC 09/11/17 07:11 2.5 MLS/MIN Acetaminophen (Tylenol Tab) 1,000 mg PREOP PO 09/11/17 06:00 09/11/17 18:00 DC 09/11/17 05:58 1,000 MG Celecoxib (CeleBREX CAP) 200 mg PREOP PO 09/11/17 06:00 09/11/17 18:00 DC 09/11/17 05:59 200 MG Dexamethasone (Decadron Tab) 8 mg PREOP PO 09/11/17 06:00 09/11/17 18:00 DC 09/11/17 05:56 8 MG Famotidine (Pepcid Tab) 20 mg PREOP PO 09/11/17 06:00 09/11/17 18:00 DC 09/11/17 05:57 20 MG Gabapentin (Neurontin Cap) 600 mg PREOP PO 09/11/17 06:00 09/11/17 18:00 DC 09/11/17 05:57 600 MG Metoclopramide HCl (Reglan Tab) 10 mg PREOP PO 09/11/17 06:00 09/11/17 18:00 DC 09/11/17 05:57 10 MG Tranexamic Acid 1000 mg/Syringe 10 ml @ 1 mls/min TODAY@06,0630 IV 09/11/17 06:00 09/11/17 06:39 DC 09/11/17 06:50 1 MLS/MIN Ropivacaine 150 mg/Bupivacaine HCl 30 ml/ Epinephrine HCl 0.15 mg/Ketorolac Tromethamine 30 mg/Dexamethasone Sodium Phosphate 4 mg/Ketamine HCl 10 mg/Clonidine 100 mcg/Sodium Chloride 93.35 ml @ 0 mls/hr TODAY@06 INFIL 09/11/17 06:00 09/11/17 06:01 DC 09/11/17 08:19 93.2 MLS/HR Povidone Iodine (Betadine Ophthalmic Prep Solution) 30 ml STK-MED ONCE .ROUTE 09/11/17 06:39 09/11/17 06:40 DC 09/11/17 08:18 20 ML Bacitracin (Bacitracin Inj) 50,000 units STK-MED ONCE .ROUTE 09/11/17 06:39 09/11/17 06:40 DC 09/11/17 08:25 50,000 UNITS Potassium Chloride/Dextrose/ Sod Cl 1,000 ml @ 100 mls/hr Q10H IV 09/11/17 11:30 09/12/17 11:29 DC 09/12/17 07:30 100 MLS/HR Clindamycin Phosphate 600 mg/ Dextrose 54 ml @ 100 mls/hr Q8H IV 09/11/17 18:00 09/12/17 03:12 DC 09/12/17 01:42 100 MLS/HR Celecoxib (CeleBREX CAP) 200 mg BID PO 09/12/17 21:00 10/12/17 20:59 09/13/17 08:35 200 MG Oxycodone HCl (Roxicodone Immediate Rel Tab) 1 TABLET FOR PAIN RATING... Q4H PRN PO 09/11/17 09:00 09/25/17 08:59 09/12/17 14:04 10 MG Acetaminophen (Tylenol Tab) 1,000 mg Q8H PO 09/11/17 14:00 10/11/17 13:59 09/13/17 05:51 1,000 MG Senna (Senokot Tab) 17.2 mg HS PO 09/11/17 21:00 10/11/17 20:59 09/11/17 21:11 17.2 MG Docusate Sodium (coLACE CAP) 100 mg BID PO 09/11/17 21:00 10/11/17 20:59 09/11/17 21:13 100 MG Multivitamins (Multivitamin Tab) 1 tab QAM PO 09/11/17 12:00 10/11/17 11:59 09/13/17 08:35 1 TAB Ondansetron HCl (Zofran Inj) 4 mg Q6H PRN IV 09/11/17 09:00 10/11/17 08:59 09/13/17 08:45 4 MG Ferrous Gluconate (Ferrous Gluconate Tab) 324 mg TIDM PO 09/11/17 12:30 10/11/17 12:29 09/12/17 18:28 324 MG Pantoprazole Sodium (Protonix Tab) 40 mg QAM PO 09/11/17 12:00 10/11/17 11:59 09/13/17 08:36 40 MG Tramadol HCl (Ultram Tab) 1 tablet for pain rating... Q4H PRN PO 09/11/17 09:00 10/11/17 08:59 09/12/17 06:39 100 MG Ketorolac Tromethamine (Toradol Inj) 30 mg Q6H PRN IV. 09/11/17 16:00 09/12/17 15:59 DC 09/12/17 15:56 30 MG Aspirin (Ecotrin Tab) 81 mg BID PO 09/11/17 21:00 10/11/17 20:59 09/13/17 08:35 81 MG Albuterol (Ventolin Hfa Inhaler) 2 puffs Q4 PRN INH 09/11/17 09:00 10/11/17 08:59 09/12/17 17:32 2 PUFFS Bupropion HCl (Wellbutrin-Xl Tab) 300 mg QAM PO 09/11/17 12:00 10/11/17 11:59 09/13/17 08:36 300 MG Escitalopram Oxalate (Lexapro Tab) 20 mg QAM PO 09/11/17 12:00 10/11/17 11:59 09/13/17 08:35 20 MG Hydroxyzine HCl (Vistaril Tab) 25 mg HS PO 09/11/17 21:00 10/11/17 20:59 09/12/17 21:30 25 MG Levothyroxine Sodium (Synthroid Tab) 137 mcg DAILYBB PO 09/12/17 06:00 10/12/17 05:59 09/13/17 05:51 137 MCG Lorazepam (Ativan Tab) 0.5 mg HS PO 09/11/17 21:00 10/11/17 20:59 09/12/17 21:31 0.5 MG Potassium Chloride (Klor-Con M10) 10 meq QAM PO 09/11/17 12:00 10/11/17 11:59 09/13/17 08:36 10 MEQ Morphine Sulfate (MoRPHine SULFATE INJ) @ Q4HWA PRN IV 09/11/17 09:00 09/25/17 08:59 09/11/17 13:09 4 MG Influenza Virus Vaccine Quadrival (Flucelvax Quad Vaccine) 0.5 ml ONCE ONCE IM. 09/11/17 10:45 09/11/17 10:48 DC 09/11/17 13:03 0.5 ML Furosemide (Lasix Tab) 20 mg BID17 PO 09/12/17 09:00 10/12/17 08:59 09/13/17 08:36 20 MG Quetiapine Fumarate (seroQUEL TAB) 400 mg HS PO 09/12/17 21:00 10/12/17 20:59 09/12/17 21:31 400 MG Metoclopramide HCl (Reglan Inj) 5 mg ONE ONCE IV 09/12/17 16:45 09/12/17 16:49 DC 09/12/17 16:39 5 MG (Haleigh Thurston CRNP) Objective Vital Signs Date Time Temp Pulse Resp B/P (MAP) Pulse Ox O2 Delivery O2 Flow Rate FiO2 09/13/17 08:30 99 Nasal Cannula 2.0 09/13/17 07:15 37.2 74 16 110/64 (79) 99 Nasal Cannula 2.0 09/13/17 07:10 Nasal Cannula 2.0 09/13/17 00:30 Nasal Cannula 2.0 09/12/17 22:54 36.9 80 18 100/66 (77) 96 Nasal Cannula 2.0 09/12/17 16:00 Nasal Cannula 2.0 09/12/17 15:16 37.1 70 16 113/75 (88) 98 Room Air (Haleigh Thurston CRNP) Physical Exam Notes: General: no distress Eyes: normal inspection, PERLL Respiratory: chest non tender, clear to auscultation, normal breath sounds, no respiratory distress, no accessory muscle use Cardiac: regular rate and rhythm, no rub or gallop, no murmur, no edema, no jvd GI/: active bowel sounds, no abd pain or tenderness, soft, non distended Extremities: normal range of motion, normal strength, tenderness over left incision site Neuro/Psych: alert and oriented x 3, normal mood and affect Skin: normal color, dry (Haleigh Thurston CRNP) Laboratory Results Last 24 Hours Test 09/13/17 05:20 White Blood Count 7.67 K/uL Red Blood Count 3.57 M/uL Hemoglobin 9.7 g/dL Hematocrit 32.1 % Mean Corpuscular Volume 89.9 fL Mean Corpuscular Hemoglobin 27.2 pg Mean Corpuscular Hemoglobin Concent 30.2 g/dl RDW Standard Deviation 46.6 fL RDW Coefficient of Variation 14.2 % Platelet Count 152 K/uL Mean Platelet Volume 11.1 fL Sodium Level 137 mmol/L Potassium Level 4.1 mmol/L Chloride Level 101 mmol/L Carbon Dioxide Level 35 mmol/L Anion Gap 1.0 mmol/L Blood Urea Nitrogen 19 mg/dl Creatinine 0.65 mg/dl Est Creatinine Clear Calc Drug Dose 116.2 ml/min Estimated GFR () 111.1 Estimated GFR (Non- 95.8 BUN/Creatinine Ratio 29.0 Random Glucose 91 mg/dl Calcium Level 8.2 mg/dl (Haleigh Thurston CRNP) Assessment and Plan 62 year old woman here for left TKA with pmhx asthma, COPD and anxiety Post op 09/11 left TKA - pain management, dvt prophylaxis, bowel regimen per ortho - monitor for post op bleeding - hgb stable Nausea/vomiting - 2 view abdomen pending - moderate fecal load - suppository - lipase wnl - lft wnl except for small increase in alk phos Chest pain - EKG showed 1st deg hb but otherwise normal - troponin x1 wnl Asthma/ COPD - continue albuterol inhaler prn Anxiety - continue Lexapro GERD - continue protonix (Haleigh Thurston ., DC) Attending Attestation: Pt seen/examined, chart reviewed, care plan d/w DC Looah Bertrand. I agree w/ the baker components of her documentation. continues to have nausea and did have emesis overnight. she reports she has been taking phenergan intermittently for 1-2 months prescribed by PCP for "nausea". review of EMR - has has w/u for this including RUQ u/s, HIDA, etc. Gall bladder u/s w/o stones. HIDA with depressed EF possibly c/w chronic cholecystitis. no EGD also w/ chest pain last pm - lasted few minutes - self-resolved VSS no fever gen - NAD, obese neck - no JVD heart - RRR lungs - CTA b/l abd - no tenderness today, BS+, no HSM, ND, soft ext - minimal edema left ankle; dressings intact left knee A/P: 1. s/p LEFT TKR - per ortho 2. nausea - suspect acute/chronic - KUB x-ray with mild-mod stool but unsure if this is really the cause of symptoms needs EGD as outpatient cont PPI LFTs, lipase, cardiac enzymes, EKG today all wnl 3. asthma - w/o exacerbation 4. mood disorder - ensure seroquel is present at HS 5. chest pain - EKG w/o ischemic changes; trop negative; may have been GI in origin (GERD??) will follow Samaria ARGUETA MD (Hany Argueta MD)
--- NOTE | 2017-09-13 12:34 | DIAGNOSTIC IMAGING REPORT ---
ABDOMEN 2VIEW W/PA CHEST RTN CLINICAL HISTORY: 62 years-old Female presenting with nausea. TECHNIQUE: PA view of the chest and supine and upright views of the abdomen were obtained. COMPARISON: Chest x-ray from 09/06/2017. FINDINGS: The patient is slightly TREVINO rotated and scoliotic. This alters the morphology of the cardiomediastinal silhouette. Mild prominence of the cardiac silhouette suggested. Lungs and pleural spaces clear. Moderate stool burden primarily in the right colon. Mild gaseous distention of large and small bowel. No gross pneumoperitoneum. Mottled lucencies throughout the abdomen most likely stool. No convincing evidence of pneumatosis. No portal venous gas is apparent. The presence of gas and stool limit evaluation for renal calculi. Scoliotic curvature of the thoracolumbar spine. IMPRESSION: 1. No acute cardiopulmonary disease. 2. Moderate stool burden in the right colon. No gross evidence of bowel obstruction. Electronically signed by: Moses Frederick M.D. 09/13/2017 12:33 PM Dictated Date/Time: 09/13/2017 12:29 PM
[2017-09-13 12:40] VITALS: BP 122/74; PULSE 74; TEMP 36.8; O2SAT 100
[2017-09-13] MEDS ORDERED: BISACODYL 10 MG SUPP PR STA (12:57)
[2017-09-13] MEDS: TRAMADOL HCL 50 MG TAB PO PRN ×3 (13:00→21:57)
[2017-09-13 14:37] LABS: ALKALINE PHOSPHATASE 140 U/L (45-117); ALT/SGPT 21 U/L (12-78); AST/SGOT 25 U/L (15-37)
[2017-09-13 16:08] VITALS: BP 116/74; PULSE 79; TEMP 37.3; O2SAT 96
[2017-09-13] MEDS ORDERED: SUMATRIPTAN SUCCINATE 50 MG TAB PO PRN (17:00)
[2017-09-13] MEDS: ALBUTEROL HFA 8 GM INHALER INH PRN (20:29)
[2017-09-13] MEDS: hydrOXYzine HCL 25 MG TAB PO SCH (21:22)
[2017-09-13] MEDS: SENNA 8.6 MG TAB PO SCH (21:22)
[2017-09-13] MEDS: LORAZEPAM 0.5 MG TAB PO SCH (21:23)
[2017-09-13] MEDS: QUETIAPINE FUMARATE 200 MG TAB PO SCH (21:26)
[2017-09-13 22:50] VITALS: BP 114/73; PULSE 81; TEMP 37.1; O2SAT 99
[2017-09-14] MEDS: LEVOTHYROXINE 137 MCG TAB PO SCH (05:31)
[2017-09-14] MEDS: ACETAMINOPHEN 500 MG TAB PO SCH ×3 (05:32→22:05)
[2017-09-14] MEDS: TRAMADOL HCL 50 MG TAB PO PRN ×4 (05:34→20:28)
[2017-09-14 07:11] VITALS: BP 118/74; PULSE 71; TEMP 36.8; O2SAT 97
[2017-09-14] MEDS: ONDANSETRON INJ 2 MG/ML 2 ML VIAL IV PRN (07:36)
[2017-09-14] MEDS: FERROUS GLUCONATE 324 MG TAB PO SCH ×3 (08:54→17:51)
[2017-09-14] MEDS: BuPROPion XL 300 MG TABCR PO SCH (08:55)
[2017-09-14] MEDS: POTASSIUM CHLORIDE 10 MEQ TABCR PO SCH (08:55)
[2017-09-14] MEDS: FUROSEMIDE 20 MG TAB PO SCH ×2 (08:55→16:26)
[2017-09-14] MEDS: ASPIRIN 81 MG ECTAB PO SCH ×2 (08:56→22:01)
[2017-09-14] MEDS: MULTIVITAMIN TAB PO SCH (08:56)
[2017-09-14] MEDS: PANTOprazole SOD 40 MG TAB PO SCH (08:56)
[2017-09-14] MEDS: DOCUSATE SODIUM 100 MG CAP PO SCH ×2 (08:56→22:01)
[2017-09-14] MEDS: ESCITALOPRAM OXALATE 20 MG TAB PO SCH (08:56)
[2017-09-14] MEDS: CeleBREX 200 MG CAP PO SCH ×2 (08:57→22:01)
--- NOTE | 2017-09-14 09:11 | Orthopedic Progress Note ---
Orthopedic Progress Note Date of Service Sep 14, 2017. Subjective Post OP Day: 3 Reports: feeling well, pain controlled w PO medications, Denies: chest pain, SOB , nausea / vomiting, light headedness, calf pain Objective calves soft nontender, N/V intact, capillary refill less than 2 sec., dressing C /D/I (prevena intact), A&O x3, toes mobile Date Time Temp Pulse Resp B/P (MAP) Pulse Ox O2 Delivery O2 Flow Rate FiO2 09/14/17 07:35 Nasal Cannula 2.0 09/14/17 07:11 36.8 71 18 118/74 (89) 97 Nasal Cannula 2.0 09/13/17 22:55 Nasal Cannula 09/13/17 22:50 37.1 81 16 114/73 (87) 99 Nasal Cannula 2.0 09/13/17 16:08 37.3 79 16 116/74 (88) 96 Nasal Cannula 2.0 09/13/17 15:20 Nasal Cannula 2.0 09/13/17 12:40 36.8 74 16 122/74 (90) 100 Nasal Cannula 2.0 Assessment & Plan Assessment: POD #3 s/p Left TKA pt/ot dvt proph with marty/scd/asa plan for d/c to [facility] when approved Asthma/ COPD - continue albuterol inhaler prn Anxiety - continue Lexapro GERD - continue protonix Plan: PT still believes patient is unsafe to go home at this time. She will be by herself a good portion of the time. I spoke with Dr Green' office who feels she should go to a rehab type facility. I then spoke at length with the patient again who now agrees to go to [facility]. CM notified as well as HS liaison' s. Hopefully, she can be dc'd today to [facility]. Inhouse Planning Pain Management: Celebrex, Ultram, PO Tylenol, Oxy IR DVT Prophylaxis: TEDs, SCDs, ASA Discharge Planning Discharge Planning: rehab hospital Pain Management: Celebrex, PO Tylenol, Oxy IR DVT Prophylaxis: TEDs, ASA Therapy: Physical Therapy Discharge Planning Notes: Plan for discharge to [facility] when approved, hopefully today
--- NOTE | 2017-09-14 11:39 | Hospitalist Progress Note ---
Hospitalist Progress Note Date of Service Sep 14, 2017. (Shonda Kay ., PA-C) Subjective Pt evaluation today including: conversation w/ patient, physical exam, lab review, review of studies, review of inpatient medication list Voiding: no voiding problems Patient resting in bed. +L knee pain- just worked w/ PT w/out significant difficulty. Eating and drinking OK. Nausea comes in waves- seems to be slightly improved/non-worsening. No vomiting. +BMs- states her last one was yesterday. Patient denies any fever, chills, sweats, lightheadedness, dizziness, vision changes, CP, palpitations, edema, SOB, wheezing, cough, abdominal pain, vomiting , diarrhea, urinary symptoms, melena, numbness/tingling, weakness, anxiety/ depression, active bleeding, or new skin discoloration/changes. (Shonda Kay ., PA-C) Medications Current Inpatient Medications Medications (Trade) Dose Ordered Sig/Clovis Route Start Time Stop Time Status Last Admin Dose Admin Celecoxib (CeleBREX CAP) 200 mg BID PO 09/12/17 21:00 10/12/17 20:59 09/14/17 08:57 200 MG Oxycodone HCl (Roxicodone Immediate Rel Tab) 1 TABLET FOR PAIN RATING... Q4H PRN PO 09/11/17 09:00 09/25/17 08:59 09/12/17 14:04 10 MG Acetaminophen (Tylenol Tab) 1,000 mg Q8H PO 09/11/17 14:00 10/11/17 13:59 09/14/17 05:32 1,000 MG Magnesium Hydroxide (Milk Of Magnesia Susp) 30 ml Q6H PRN PO 09/11/17 09:00 10/11/17 08:59 Bisacodyl (Dulcolax Supp) 10 mg DAILY PRN CA 09/11/17 09:00 10/11/17 08:59 Sodium Biphosphate/ Sodium Phosphate (Fleet Enema) 132 ml DAILY PRN CA 09/11/17 09:00 10/11/17 08:59 Senna (Senokot Tab) 17.2 mg HS PO 09/11/17 21:00 10/11/17 20:59 09/13/17 21:22 17.2 MG Docusate Sodium (coLACE CAP) 100 mg BID PO 09/11/17 21:00 10/11/17 20:59 09/14/17 08:56 100 MG Diphenhydramine HCl (Benadryl Cap) 25 mg Q8H PRN PO 09/11/17 09:00 10/11/17 08:59 Al Hydrox/Mg Hydrox/Simethicone (Maalox Max Susp) 15 ml Q4H PRN PO 09/11/17 09:00 10/11/17 08:59 Multivitamins (Multivitamin Tab) 1 tab QAM PO 09/11/17 12:00 10/11/17 11:59 09/14/17 08:56 1 TAB Ondansetron HCl (Zofran Inj) 4 mg Q6H PRN IV 09/11/17 09:00 10/11/17 08:59 09/14/17 07:36 4 MG Ferrous Gluconate (Ferrous Gluconate Tab) 324 mg TIDM PO 09/11/17 12:30 10/11/17 12:29 09/14/17 08:54 324 MG Pantoprazole Sodium (Protonix Tab) 40 mg QAM PO 09/11/17 12:00 10/11/17 11:59 09/14/17 08:56 40 MG Tramadol HCl (Ultram Tab) 1 tablet for pain rating... Q4H PRN PO 09/11/17 09:00 10/11/17 08:59 09/14/17 10:05 100 MG Aspirin (Ecotrin Tab) 81 mg BID PO 09/11/17 21:00 10/11/17 20:59 09/14/17 08:56 81 MG Albuterol (Ventolin Hfa Inhaler) 2 puffs Q4 PRN INH 09/11/17 09:00 10/11/17 08:59 09/13/17 20:29 2 PUFFS Bupropion HCl (Wellbutrin-Xl Tab) 300 mg QAM PO 09/11/17 12:00 10/11/17 11:59 09/14/17 08:55 300 MG Escitalopram Oxalate (Lexapro Tab) 20 mg QAM PO 09/11/17 12:00 10/11/17 11:59 09/14/17 08:56 20 MG Hydroxyzine HCl (Vistaril Tab) 25 mg HS PO 09/11/17 21:00 10/11/17 20:59 09/13/17 21:22 25 MG Levothyroxine Sodium (Synthroid Tab) 137 mcg DAILYBB PO 09/12/17 06:00 10/12/17 05:59 09/14/17 05:31 137 MCG Lorazepam (Ativan Tab) 0.5 mg HS PO 09/11/17 21:00 10/11/17 20:59 09/13/17 21:23 0.5 MG Potassium Chloride (Klor-Con M10) 10 meq QAM PO 09/11/17 12:00 10/11/17 11:59 09/14/17 08:55 10 MEQ Morphine Sulfate (MoRPHine SULFATE INJ) @ Q4HWA PRN IV 09/11/17 09:00 09/25/17 08:59 09/11/17 13:09 4 MG Furosemide (Lasix Tab) 20 mg BID17 PO 09/12/17 09:00 10/12/17 08:59 09/14/17 08:55 20 MG Quetiapine Fumarate (seroQUEL TAB) 400 mg HS PO 09/12/17 21:00 10/12/17 20:59 09/13/17 21:26 400 MG Sumatriptan Succinate (Imitrex Tab) 50 mg Q2H PRN PO 09/13/17 17:00 10/13/17 16:59 09/13/17 19:24 50 MG (Shonda Kay ., PA-C) Objective Vital Signs Date Time Temp Pulse Resp B/P (MAP) Pulse Ox O2 Delivery O2 Flow Rate FiO2 09/14/17 07:35 Nasal Cannula 2.0 09/14/17 07:11 36.8 71 18 118/74 (89) 97 Nasal Cannula 2.0 09/13/17 22:55 Nasal Cannula 09/13/17 22:50 37.1 81 16 114/73 (87) 99 Nasal Cannula 2.0 09/13/17 16:08 37.3 79 16 116/74 (88) 96 Nasal Cannula 2.0 09/13/17 15:20 Nasal Cannula 2.0 09/13/17 12:40 36.8 74 16 122/74 (90) 100 Nasal Cannula 2.0 (Shonda Kay, PA-C) Physical Exam General Appearance: no apparent distress, + pertinent finding (O2 NC ) Eyes: normal inspection, PERRL ENT: hearing grossly normal Neck: supple Respiratory/Chest: lungs clear, no respiratory distress, no accessory muscle use Cardiovascular: regular rate, rhythm Abdomen: normal bowel sounds, non tender, soft Extremities: no pedal edema, + pertinent finding (SCDs) Neurologic/Psychiatric: alert, normal mood/affect, oriented x 3 Skin: normal color, warm/dry, no rash (Shonda Kay PA-C) Laboratory Results Last 24 Hours Test 09/13/17 14:05 Total Bilirubin 0.2 mg/dl Direct Bilirubin < 0.1 mg/dl Aspartate Amino Transf (AST/SGOT) 25 U/L Alanine Aminotransferase (ALT/SGPT) 21 U/L Alkaline Phosphatase 140 U/L Troponin I < 0.015 ng/ml Total Protein 7.0 gm/dl Albumin 3.2 gm/dl Lipase 233 U/L (Shonda Kay PA-C) Assessment and Plan 62 year old woman here for left TKA, with PMHx of asthma, COPD, and anxiety. s/p L TKA on 09/[address] Green: - Surgical management, pain management, PT/OT, and DVT prophylaxis as per primary team - Postop CBC and PRP- STABLE - Encourage incentive spirometer - Continue Iron supplement TID Ongoing nausea/vomiting- IMPROVING: - KUB x-ray w/ mild-mod stool- bowel regimen in place - Continue Protonix 40 mg daily and Zofran PRN - LFTs, lipase- WNL - Recommend continued outpatient f/u and ?EGD Chest pain, ?secondary to GI source- RESOLVED: - EKG w/out acute ischemic changes - Troponin negative x1 - H&H stable - Continue PPI Asthma, COPD- STABLE: - On chronic O2 supplement - Continue Albuterol inhaler PRN Anxiety: Continue Lexapro, Seroquel, Wellbutrin, Hydroxyzine Hypothyroidism: Synthroid 137 mcg daily Edema: Continue Lasix 20 mg BID, KCL supplement h/o headaches: Imitrex 50 mg q2 hrs PRN GERD: Continue Protonix DVT prophylaxis: ASA 81 mg BID as per surgical team Code Status: LEVEL I, FULL Dispo: As per primary team- planning for discharge to [facility] (Shonda Kay PA-C) Attending Attestation: Pt seen/examined, chart reviewed, care plan d/w DC Thurston. I agree w/ the baker components of her documentation. nausea improved no emesis had BM yesterday no abdominal pain tolerating diet probably no [facility] until Saturday VSS no fever gen - NAD, obese neck - no JVD heart - RRR lungs - CTA b/l abd - no tenderness once again today, BS+, no HSM, ND, soft ext - minimal edema left ankle; dressings intact left knee; left knee dressings intact A/P: 1. s/p LEFT TKR - per ortho 2. nausea - suspect acute/chronic - biliary vs upper GI (stomach, etc) outpatient EGD recommended if negative then additional gall bladder w/u cont PPI 3. asthma - w/o exacerbation 4. FEN - change diet to low fat; this will help nausea whether she has biliary issue or upper GI issue 5. DVT proph - asa 81mg BID Samaria ARGUETA MD (Hany Argueta MD)
[2017-09-14 15:52] VITALS: BP 112/71; PULSE 62; TEMP 37; O2SAT 96
[2017-09-14] MEDS: ALBUTEROL HFA 8 GM INHALER INH PRN (20:33)
[2017-09-14] MEDS: LORAZEPAM 0.5 MG TAB PO SCH (22:01)
[2017-09-14] MEDS: SENNA 8.6 MG TAB PO SCH (22:02)
[2017-09-14] MEDS: hydrOXYzine HCL 25 MG TAB PO SCH (22:02)
[2017-09-14] MEDS: QUETIAPINE FUMARATE 200 MG TAB PO SCH (22:02)
[2017-09-14 22:50] VITALS: BP 104/70; PULSE 74; TEMP 36.7; O2SAT 97
[2017-09-15] MEDS: OXYCODONE HCL IR 5 MG TAB (IMMEDIATE RELEASE) PO PRN (00:33)
[2017-09-15] MEDS: LEVOTHYROXINE 137 MCG TAB PO SCH (05:41)
[2017-09-15] MEDS: ACETAMINOPHEN 500 MG TAB PO SCH ×3 (05:42→21:36)
[2017-09-15 06:53] LABS: BUN/CREATININE RATIO 27.2 (10-20); CALCIUM 8.6 mg/dl (8.5-10.1); CREATININE 0.68 mg/dl (0.60-1.20); POTASSIUM 3.5 mmol/L (3.5-5.1)
[2017-09-15 07:06] VITALS: BP 105/66; PULSE 72; TEMP 36.8; O2SAT 94
[2017-09-15] MEDS: TRAMADOL HCL 50 MG TAB PO PRN ×4 (08:30→23:17)
[2017-09-15] MEDS: MULTIVITAMIN TAB PO SCH (08:31)
[2017-09-15] MEDS: CeleBREX 200 MG CAP PO SCH ×2 (08:31→21:35)
[2017-09-15] MEDS: PANTOprazole SOD 40 MG TAB PO SCH (08:31)
[2017-09-15] MEDS: BuPROPion XL 300 MG TABCR PO SCH (08:31)
[2017-09-15] MEDS: ASPIRIN 81 MG ECTAB PO SCH ×2 (08:32→21:34)
[2017-09-15] MEDS: FERROUS GLUCONATE 324 MG TAB PO SCH ×3 (08:32→17:11)
[2017-09-15] MEDS: ESCITALOPRAM OXALATE 20 MG TAB PO SCH (08:32)
[2017-09-15] MEDS: DOCUSATE SODIUM 100 MG CAP PO SCH ×2 (08:32→21:35)
[2017-09-15] MEDS: POTASSIUM CHLORIDE 10 MEQ TABCR PO SCH (08:32)
[2017-09-15] MEDS: FUROSEMIDE 20 MG TAB PO SCH ×2 (08:33→17:11)
--- NOTE | 2017-09-15 08:35 | Orthopedic Progress Note ---
Orthopedic Progress Note Date of Service Sep 15, 2017. Subjective Post OP Day: 4 Reports: feeling well, pain controlled w PO medications, Denies: chest pain, SOB , nausea / vomiting, light headedness, calf pain Objective calves soft nontender, N/V intact, capillary refill less than 2 sec., dressing C /D/I (prevena), A&O x3, toes mobile Date Time Temp Pulse Resp B/P (MAP) Pulse Ox O2 Delivery O2 Flow Rate FiO2 09/15/17 07:06 36.8 72 18 105/66 (79) 94 Nasal Cannula 2.0 09/15/17 00:25 Nasal Cannula 2.0 09/14/17 22:50 36.7 74 16 104/70 (81) 97 Nasal Cannula 2.0 09/14/17 15:52 37.0 62 16 112/71 (85) 96 Room Air 09/14/17 15:40 Nasal Cannula 2.0 Assessment & Plan Assessment: POD #4 s/p Left TKA pt/ot dvt proph with marty/scd/asa plan for d/c to [facility] when approved Asthma/ COPD - continue albuterol inhaler prn Anxiety - continue Lexapro GERD - continue protonix Plan: PT still believes patient is unsafe to go home at this time. She will be by herself a good portion of the time. I spoke with Dr Green' office who feels she should go to a rehab type facility. I then spoke at length with the patient again who now agrees to go to [facility]. CM notified as well as HS liaison' s. Hopefully, she can be dc'd today to [facility]. Inhouse Planning Pain Management: Celebrex, Ultram, PO Tylenol, Oxy IR DVT Prophylaxis: TEDs, SCDs, ASA Discharge Planning Discharge Planning: rehab hospital Pain Management: Celebrex, PO Tylenol, Oxy IR DVT Prophylaxis: TEDs, ASA Therapy: Physical Therapy Discharge Planning Notes: Plan for discharge to [facility] when approved, most likely saturday
[2017-09-15] MEDS: POLYETHYLENE (MIRALAX) 17 GM PACK PO SCH ×2 (08:39→21:00)
[2017-09-15] MEDS: ONDANSETRON INJ 2 MG/ML 2 ML VIAL IV PRN (08:39)
--- NOTE | 2017-09-15 10:46 | Hospitalist Progress Note ---
Hospitalist Progress Note Date of Service Sep 15, 2017. (Shonda Kay ., ZORA) Subjective Pt evaluation today including: conversation w/ patient, physical exam, lab review, review of inpatient medication list Voiding: no voiding problems Patient states she is feeling well this AM. Eating and drinking OK. No BM in a few days- MiraLAX increased to BID. +nausea this AM which resolved w/ Zofran. Pain is well controlled. Patient denies any fever, chills, sweats, lightheadedness, dizziness, vision changes, CP, palpitations, edema, SOB, wheezing, cough, abdominal pain, vomiting , diarrhea, urinary symptoms, melena, numbness/tingling, weakness, anxiety/ depression, active bleeding, or new skin discoloration/changes. (Shonda Kay ., CINDYC) Medications Current Inpatient Medications Medications (Trade) Dose Ordered Sig/[place] Route Start Time Stop Time Status Last Admin Dose Admin Celecoxib (CeleBREX CAP) 200 mg BID PO 09/12/17 21:00 10/12/17 20:59 09/15/17 08:31 200 MG Oxycodone HCl (Roxicodone Immediate Rel Tab) 1 TABLET FOR PAIN RATING... Q4H PRN PO 09/11/17 09:00 09/25/17 08:59 09/15/17 00:33 5 MG Acetaminophen (Tylenol Tab) 1,000 mg Q8H PO 09/11/17 14:00 10/11/17 13:59 09/15/17 05:42 1,000 MG Magnesium Hydroxide (Milk Of Magnesia Susp) 30 ml Q6H PRN PO 09/11/17 09:00 10/11/17 08:59 Bisacodyl (Dulcolax Supp) 10 mg DAILY PRN MS 09/11/17 09:00 10/11/17 08:59 Sodium Biphosphate/ Sodium Phosphate (Fleet Enema) 132 ml DAILY PRN MS 09/11/17 09:00 10/11/17 08:59 Senna (Senokot Tab) 17.2 mg HS PO 09/11/17 21:00 10/11/17 20:59 09/14/17 22:02 17.2 MG Docusate Sodium (coLACE CAP) 100 mg BID PO 09/11/17 21:00 10/11/17 20:59 12/3/17 08:32 100 MG Diphenhydramine HCl (Benadryl Cap) 25 mg Q8H PRN PO 09/11/17 09:00 10/11/17 08:59 Al Hydrox/Mg Hydrox/Simethicone (Maalox Max Susp) 15 ml Q4H PRN PO 09/11/17 09:00 10/11/17 08:59 Multivitamins (Multivitamin Tab) 1 tab QAM PO 09/11/17 12:00 10/11/17 11:59 09/15/17 08:31 1 TAB Ondansetron HCl (Zofran Inj) 4 mg Q6H PRN IV 09/11/17 09:00 10/11/17 08:59 09/15/17 08:39 4 MG Ferrous Gluconate (Ferrous Gluconate Tab) 324 mg TIDM PO 09/11/17 12:30 10/11/17 12:29 09/15/17 08:32 324 MG Pantoprazole Sodium (Protonix Tab) 40 mg QAM PO 09/11/17 12:00 10/11/17 11:59 09/15/17 08:31 40 MG Tramadol HCl (Ultram Tab) 1 tablet for pain rating... Q4H PRN PO 09/11/17 09:00 10/11/17 08:59 09/15/17 08:30 100 MG Aspirin (Ecotrin Tab) 81 mg BID PO 09/11/17 21:00 10/11/17 20:59 09/15/17 08:32 81 MG Albuterol (Ventolin Hfa Inhaler) 2 puffs Q4 PRN INH 09/11/17 09:00 10/11/17 08:59 09/14/17 20:33 2 PUFFS Bupropion HCl (Wellbutrin-Xl Tab) 300 mg QAM PO 09/11/17 12:00 10/11/17 11:59 09/15/17 08:31 300 MG Escitalopram Oxalate (Lexapro Tab) 20 mg QAM PO 09/11/17 12:00 10/11/17 11:59 09/15/17 08:32 20 MG Hydroxyzine HCl (Vistaril Tab) 25 mg HS PO 09/11/17 21:00 10/11/17 20:59 09/14/17 22:02 25 MG Levothyroxine Sodium (Synthroid Tab) 137 mcg DAILYBB PO 09/12/17 06:00 10/12/17 05:59 09/15/17 05:41 137 MCG Lorazepam (Ativan Tab) 0.5 mg HS PO 09/11/17 21:00 10/11/17 20:59 09/14/17 22:01 0.5 MG Potassium Chloride (Klor-Con M10) 10 meq QAM PO 09/11/17 12:00 10/11/17 11:59 09/15/17 08:32 10 MEQ Morphine Sulfate (MoRPHine SULFATE INJ) @ Q4HWA PRN IV 09/11/17 09:00 09/25/17 08:59 09/11/17 13:09 4 MG Furosemide (Lasix Tab) 20 mg BID17 PO 09/12/17 09:00 10/12/17 08:59 09/15/17 08:33 20 MG Quetiapine Fumarate (seroQUEL TAB) 400 mg HS PO 09/12/17 21:00 10/12/17 20:59 09/14/17 22:02 400 MG Sumatriptan Succinate (Imitrex Tab) 50 mg Q2H PRN PO 09/13/17 17:00 10/13/17 16:59 09/13/17 19:24 50 MG Polyethylene (Miralax Powder Packet) 17 gm BID PO 09/15/17 09:00 10/15/17 08:59 09/15/17 08:39 17 GM (Shonda Kay, PA-C) Objective Vital Signs Date Time Temp Pulse Resp B/P (MAP) Pulse Ox O2 Delivery O2 Flow Rate FiO2 09/15/17 07:15 Room Air 09/15/17 07:06 36.8 72 18 105/66 (79) 94 Nasal Cannula 2.0 09/15/17 00:25 Nasal Cannula 2.0 09/14/17 22:50 36.7 74 16 104/70 (81) 97 Nasal Cannula 2.0 09/14/17 15:52 37.0 62 16 112/71 (85) 96 Room Air 09/14/17 15:40 Nasal Cannula 2.0 (Shonda Kay ., PA-C) Physical Exam General Appearance: no apparent distress, + obese, + pertinent finding (O2 NC ) Eyes: normal inspection, PERRL ENT: hearing grossly normal Neck: supple Respiratory/Chest: lungs clear, no respiratory distress, no accessory muscle use Cardiovascular: regular rate, rhythm Abdomen: normal bowel sounds, non tender, soft Extremities: no pedal edema, no calf tenderness Neurologic/Psychiatric: alert, normal mood/affect, oriented x 3 Skin: normal color, warm/dry, no rash (Shonda Kay, CINDYC) Laboratory Results Last 24 Hours Test 09/15/17 06:11 Sodium Level 137 mmol/L Potassium Level 3.5 mmol/L Chloride Level 98 mmol/L Carbon Dioxide Level 38 mmol/L Anion Gap 1.0 mmol/L Blood Urea Nitrogen 19 mg/dl Creatinine 0.68 mg/dl Est Creatinine Clear Calc Drug Dose 111.1 ml/min Estimated GFR () 109.4 Estimated GFR (Non- 94.4 BUN/Creatinine Ratio 27.2 Random Glucose 96 mg/dl Calcium Level 8.6 mg/dl 25-Hydroxy Vitamin D Total 8.9 ng/ml (Shonda Kay, CINDYC) Assessment and Plan 62 year old woman here for left TKA, with PMHx of asthma, COPD, and anxiety. s/p L TKA on 09/[address] Green: - Surgical management, pain management, PT/OT, and DVT prophylaxis as per primary team - Postop CBC and PRP- STABLE - Encourage incentive spirometer - Continue Iron supplement TID Vitamin D deficiency: Start Vitamin D 1000 IU daily Ongoing nausea/vomiting- IMPROVING: - KUB x-ray w/ mild-mod stool- bowel regimen in place, increase MiraLAX from daily to BID - Continue Protonix 40 mg daily and Zofran PRN - LFTs, lipase- WNL - Low fat diet for ?biliary vs GI issue - Recommend continued outpatient f/u and ?EGD Chest pain, ?secondary to GI source- RESOLVED: - EKG w/out acute ischemic changes - Troponin negative x1 - H&H stable - Continue PPI Asthma, COPD- STABLE: - On chronic O2 supplement - Continue Albuterol inhaler PRN Anxiety: Continue Lexapro, Seroquel, Wellbutrin, Hydroxyzine Hypothyroidism: Synthroid 137 mcg daily Edema: Continue Lasix 20 mg BID, KCL supplement h/o headaches: Imitrex 50 mg q2 hrs PRN GERD: Continue Protonix DVT prophylaxis: ASA 81 mg BID as per surgical team Code Status: LEVEL I, FULL Dispo: As per primary team- planning for discharge to [facility], likely on Saturday per CM notes (Shonda Kay ., PA-C) Attending Attestation: Pt seen/examined, chart reviewed, care plan d/w PHIL Kay. I agree w/ the baker components of her documentation. nausea improved no emesis eating ok still no bowel movement in a few days no dyspnea VSS no fever gen - NAD, obese neck - no JVD heart - RRR lungs - CTA b/l abd - BS+, no HSM, ND, soft, NT ext - minimal edema left ankle; dressings intact left knee A/P: 1. s/p LEFT TKR - per ortho 2. nausea - suspect acute/chronic - biliary vs upper GI (stomach, etc) outpatient EGD recommended if negative then additional gall bladder w/u cont PPI low fat diet 3. asthma - w/o exacerbation 4. FEN - change diet to low fat; this will help nausea whether she has biliary issue or upper GI issue 5. DVT proph - asa 81mg BID Samaria ARGUETA MD (Hany Argueta MD)
[2017-09-15 15:03] VITALS: BP 113/74; PULSE 76; TEMP 36.7; O2SAT 99
[2017-09-15] MEDS: ALBUTEROL HFA 8 GM INHALER INH PRN (18:40)
[2017-09-15] MEDS: LORAZEPAM 0.5 MG TAB PO SCH (21:34)
[2017-09-15] MEDS: hydrOXYzine HCL 25 MG TAB PO SCH (21:36)
[2017-09-15] MEDS: SENNA 8.6 MG TAB PO SCH (21:36)
[2017-09-15] MEDS: QUETIAPINE FUMARATE 200 MG TAB PO SCH (21:37)
[2017-09-15 23:15] VITALS: BP 94/55; PULSE 77; TEMP 36.9; O2SAT 96
[2017-09-16] MEDS: TRAMADOL HCL 50 MG TAB PO PRN ×2 (06:01→12:09)
[2017-09-16] MEDS: LEVOTHYROXINE 137 MCG TAB PO SCH (06:01)
[2017-09-16] MEDS: ACETAMINOPHEN 500 MG TAB PO SCH (06:02)
[2017-09-16 07:31] VITALS: BP 108/62; PULSE 76; TEMP 36.9; O2SAT 100
[2017-09-16] MEDS: ESCITALOPRAM OXALATE 20 MG TAB PO SCH (07:50)
[2017-09-16] MEDS: DOCUSATE SODIUM 100 MG CAP PO SCH (07:50)
[2017-09-16] MEDS: PANTOprazole SOD 40 MG TAB PO SCH (07:50)
[2017-09-16] MEDS: BuPROPion XL 300 MG TABCR PO SCH (07:50)
[2017-09-16] MEDS: FUROSEMIDE 20 MG TAB PO SCH (07:52)
[2017-09-16] MEDS: CeleBREX 200 MG CAP PO SCH (07:52)
[2017-09-16] MEDS: FERROUS GLUCONATE 324 MG TAB PO SCH ×2 (07:52→12:10)
[2017-09-16] MEDS: OXYCODONE HCL IR 5 MG TAB (IMMEDIATE RELEASE) PO PRN (07:53)
[2017-09-16] MEDS: POTASSIUM CHLORIDE 10 MEQ TABCR PO SCH (07:53)
[2017-09-16] MEDS: ALBUTEROL HFA 8 GM INHALER INH PRN (08:14)
[2017-09-16 08:59] VITALS: O2SAT 100
[2017-09-16] MEDS ORDERED: CHOLECALCIFEROL 1000 INTER.UNIT TAB PO SCH (09:00)
[2017-09-16] MEDS: POLYETHYLENE (MIRALAX) 17 GM PACK PO SCH (09:08)
[2017-09-16] MEDS: MULTIVITAMIN TAB PO SCH (09:08)
[2017-09-16] MEDS: ASPIRIN 81 MG ECTAB PO SCH (09:08)
--- NOTE | 2017-09-16 09:59 | Orthopedic Progress Note ---
Orthopedic Progress Note Date of Service Sep 16, 2017. Subjective Reports: feeling well, Denies: chest pain, SOB, nausea / vomiting, light headedness, calf pain Additional Notes: DENIED [facility]. NOW AGREEABLE TO HOME WITH HOME HEALTH Objective calves soft nontender, N/V intact, dressing C/D/I (PREVENA), A&O x3, toes mobile Date Time Temp Pulse Resp B/P (MAP) Pulse Ox O2 Delivery O2 Flow Rate FiO2 09/16/17 08:59 100 Nasal Cannula 2.0 09/16/17 07:31 36.9 76 16 108/62 (77) 100 Nasal Cannula 2.0 09/16/17 07:20 Nasal Cannula 2.0 09/15/17 23:15 36.9 77 17 94/55 (68) 96 Nasal Cannula 2.0 09/15/17 23:00 Nasal Cannula 09/15/17 16:05 Nasal Cannula 2.0 09/15/17 15:03 36.7 76 18 113/74 (87) 99 Nasal Cannula 2.0 Assessment & Plan Assessment: POD #5 s/p Left TKA pt/ot dvt proph with marty/scd/asa plan for d/c TO HOME TODAY Asthma/ COPD - continue albuterol inhaler prn Anxiety - continue Lexapro GERD - continue protonix Plan: PT still believes patient is unsafe to go home at this time. She will be by herself a good portion of the time. I spoke with Dr Green' office who feels she should go to a rehab type facility. I then spoke at length with the patient again who now agrees to go to [facility]. CM notified as well as HS liaison' s. Hopefully, she can be dc'd today to [facility]. Inhouse Planning Pain Management: Celebrex, Ultram, PO Tylenol, Oxy IR DVT Prophylaxis: TEDs, SCDs, ASA Discharge Planning Discharge Planning: rehab hospital Pain Management: Celebrex, PO Tylenol, Oxy IR DVT Prophylaxis: TEDs, ASA Therapy: Physical Therapy Discharge Planning Notes: Plan for discharge to [facility] when approved, most likely saturday
[2017-09-16 10:39] VITALS: BP 108/62; PULSE 76; TEMP 36.9; O2SAT 100
--- NOTE | 2017-09-16 11:46 | Hospitalist Progress Note ---
Hospitalist Progress Note Date of Service Sep 16, 2017. (Haleigh Thurston CRNP) Subjective Pt evaluation today including: conversation w/ patient, physical exam, chart review, lab review, review of inpatient medication list Voiding: no voiding problems Ms. Pettit has no complaints. She was to go to [facility] today but insurance was denies. She has refused SNF options and will be returning home with home health. She feels comfortable with this decision. ROS Constitutional: no chills, aches, sweats or fever Respiratory: no sob,cough, sputum, or wheezing Cardiac: no chest pain, palpitations, edema, orthopnea or lightheadedness GI: no abdominal pain, nausea, vomiting, diarrhea or constipation : no dysuria or hesitancy Extremities: no joint pain or weakness Skin: no rash (Haleigh Thurston CRNP) Objective Vital Signs Date Time Temp Pulse Resp B/P (MAP) Pulse Ox O2 Delivery O2 Flow Rate FiO2 09/16/17 10:39 36.9 76 16 100 Nasal Cannula 09/16/17 08:59 100 Nasal Cannula 2.0 09/16/17 07:31 36.9 76 16 108/62 (77) 100 Nasal Cannula 2.0 09/16/17 07:20 Nasal Cannula 2.0 09/15/17 23:15 36.9 77 17 94/55 (68) 96 Nasal Cannula 2.0 09/15/17 23:00 Nasal Cannula 09/15/17 16:05 Nasal Cannula 2.0 09/15/17 15:03 36.7 76 18 113/74 (87) 99 Nasal Cannula 2.0 (Haleigh Thurston CRNP) Physical Exam Notes: General: no distress Eyes: normal inspection, PERLL Respiratory: chest non tender, clear to auscultation, normal breath sounds, no respiratory distress, no accessory muscle use Cardiac: regular rate and rhythm, no rub or gallop, no murmur, no edema, no jvd GI/: active bowel sounds, no abd pain or tenderness, soft, non distended Extremities: normal range of motion, normal strength, left knee tender, wound vac in place Neuro/Psych: alert and oriented x 3, normal mood and affect Skin: normal color, dry (Haleigh Thurston CRNP) Assessment and Plan 62 year old woman here for left TKA with pmhx asthma, COPD and anxiety Post op 09/11 left TKA - pain management, dvt prophylaxis, bowel regimen per ortho - monitor for post op bleeding - hgb stable Nausea/vomiting - resolved - lipase wnl - lft wnl except for small increase in alk phos - KUB showed some constipation but patient declined to take miralax bid - this has been an ongoing issue before admission and patient should follow outpatient Chest pain - EKG showed 1st deg hb but otherwise normal - troponin x1 wnl - resolved - patient has not felt any further cp Asthma/ COPD - continue albuterol inhaler prn Anxiety - continue Lexapro GERD - continue protonix (Haleigh Thurston ., DC) Attending Attestation: Pt seen/examined, chart reviewed, care plan d/w DC Thurston. I agree w/ the baker components of her documentation. no GI or pulmonary complaints today insurance denied [employer] - refusing to consider SNF ([facility].g. [facility]) wants to go home VSS no fever gen - NAD, obese neck - no JVD heart - RRR lungs - CTA b/l abd - BS+, no HSM, ND, soft, NT ext - minimal edema left ankle; dressings intact left knee A/P: 1. s/p LEFT TKR - per ortho 2. nausea - suspect acute/chronic - biliary vs upper GI (stomach, etc) outpatient EGD recommended if negative then additional gall bladder w/u cont PPI low fat diet - but patient states "I won't eat that stuff" I spoke with PCP about this issue - he will follow up with such 3. asthma - w/o exacerbation 4. FEN - low fat diet recommended at d/c; this will help nausea whether she has biliary issue or upper GI issue 5. DVT proph - asa 81mg BID f/u with PCP 1-2 weeks after d/c ok from medical standpoint for discharge Samaria ARGUETA MD (Hany Argueta MD)
--- NOTE | 2017-09-16 17:50 | Discharge Summary ---
Orthopedic Discharge Summary Admission Date/Reason Sep 11, 2017 at 06:00 Left Knee Osteoarthritis. Discharge Date/Disposition Sep 14, 2017 Home with services Diagnosis Principal Diagnosis: left knee osteoarthritis Procedure(s) Performed Left total knee arthroplasty-cemented utilizing [employer] journey 2 non- block size 4 femur 4 tibia 13 poly-29 oval patella [place] [facility] [place]- medical management Medication Reconciliation New Medications: Acetaminophen (Sb Non-Aspirin Extra Stre) 500 Mg Tab 1000 MG PO Q8H for 21 Days, #126 TAB Aspirin (Aspirin EC Low Dose) 81 Mg Ectab 81 MG PO BID for 30 Days Celecoxib (Celebrex) 200 Mg Cap 200 MG PO BID, #60 CAP Oxycodone HCl (Oxycodone HCl) 5 Mg Tab 5-10 MG PO Q4H PRN for Pain, #60 TAB Sennosides (Senna Lax) 8.6 Mg Tab 17.2 MG PO HS, #30 TAB Continued Medications: Albuterol Hfa (Ventolin Hfa) 200 Puffs/43419 Mcg Aers 2 PUFFS INH Q4 PRN for SOB/Wheezing, #1 INHALER Albuterol Sulf (Ventolin) 2 Mg/5 Ml Syrp 1 VIAL NEB Q4-6 HR PRN for Wheezing Bupropion (Wellbutrin-Xl) 300 Mg Tabcr 300 MG PO QAM, TAB Qdwpkircjp-Mmrevsiddacdy-Whmlv (Fioricet) 1 Cap Cap 1-2 TABLETS PO Q8 PRN for Migraine Escitalopram Oxalate (Lexapro) 20 Mg Tab 20 MG PO QAM, TAB Furosemide (Lasix) 20 Mg Tab 20 MG PO BID Home O2 Therapy (Oxygen) Gas 3 LITERS NA CONT, BTL Hydroxyzine HCl (Hydroxyzine HCl) 25 Mg Tab 25 MG PO HS Levothyroxine Sodium (Levothyroxine Sodium) 137 Mcg Tab 1 TAB PO QAM for 30 Days, #30 TAB 5 Refills Lorazepam (Ativan) 0.5 Mg Tab 0.5 MG PO HS Potassium Chloride (Micro-K Ext Rel) 10 Meq Capcr 10 MEQ PO QAM Promethazine Hcl (Phenergan) 25 Mg Tab 25 MG PO Q6H PRN for Nausea, TAB Quetiapine Fumarate (Seroquel) 200 Mg Tab 400 MG PO HS, TAB Admission Physical Exam As per Admitting History & Physical. Discharge Instructions ACTIVITY RECOMMENDATIONS: SELF CARE INSTRUCTIONS AFTER TOTAL KNEE REPLACEMENT A. You may need to continue a physical therapy program after discharge from the hospital. There are several options available to you. Your doctor will assist you in selecting the best one for you. 1. An out-patient facility 2 to 3 times a week for therapy or home therapy. 2. Continue working on all exercises taught to you in the hospital. Your goals should be to increase bending of your knee to 90 degrees and beyond and to fully straighten your knee. B. You may progress at your own pace from walking with a walker or crutches to a cane; then to no assistive devices. C. Make walking a part of your daily routine. Be up as much as comfortable with rest periods throughout the day. Rest with leg elevation is very important. Use the ice wrap frequently for the first 3-4 weeks. D. There are no restrictions on activities. You may ride in a car, shop, participate in web applications programmer and all social activities. E. Wear the long elastic stockings (JUNIOR hose) 20 hours a day for 2 weeks after surgery. They can be removed several times a day for laundering and for a bath. F. You may shower, no tub baths until cleared by your doctor. SPECIAL CARE INSTRUCTIONS: VERY IMPORTANT TO READ AND REVIEW A. There are a few signs you need to watch for after you are home. Call [facility] if you notice any of the followin. Increased severe knee pain. Some pain is expected especially when you exercise. 2. Increased swelling in your leg or knee; pain or swelling of the calf muscle in either lower leg. 3. Any fluid drainage from the incision. 4. Shortness of breath or chest pain. B. Please call [facility] at if you have any concerns or questions about your operation or recovery. The doctor or his nurse will return your call promptly. C. You must take antibiotics before dental work, bladder, bowel or other surgery. Your doctor will provide you with a permanent care to carry describing this precaution. IMPORTANT: * REMEMBER TO TAKE ASPIRIN, 81 MG, TWICE DAILY FOR 4 WEEKS UNLESS OTHERWISE DIRECTED. THIS IS YOUR BLOOD THINNER. * HIGH RISK PATIENTS MAY BE PRESCRIBED A STRONGER BLOOD THINNER. THIS WILL BE PROVIDED AT DISCHARGE. * CALL IF INCREASED PAIN, REDNESS, DRAINAGE OR FEVER GREATER THAT 101. * WEAR JUNIOR HOSE 20 HOURS PER DAY FOR 2 WEEKS. * YOU MAY HAVE A LARGE BAND-AID LIKE DRESSING (SILVERON). THIS WILL REMAIN ON YOUR INCISION FOR 7 DAYS, THEN CAN BE REMOVED. IF INCISION IS LEAKING THROUGH DRESSING, CALL THE OFFICE . Prevena- This is a large suction dressing covering your incision. This will help pull any excess drainage from the wound and allow your incision to heal properly. You may shower with this if you can keep the unit outside of the shower. If any bleeding or leakage is noted please call your doctor's office. This will remain on your incision for 7 days and then should be removed. This can be done yourself or by the home nursing staff if applicable. The entire unit is disposable once removed. Once removed, keep incision clean and dry. If redness or drainage is noted, please call your surgeon. FOLLOW UP VISIT: If appointment is not already scheduled: Please call [facility] to make a follow-up appointment for 2 weeks after your surgery at . Please refer to the electronic Patient Visit Report (Discharge Instructions) for additional information.
== END 2017-09-16 13:00 | disposition home health service (06) | DRG 470 ==
LOC: C.ACU 04:54 → C.3E 06:00 → ENRESERV 09:12
PROVIDERS: ADMIT Orthopaedic Surgery; ATTEND Orthopaedic Surgery
PROC: 0SRD0J9 Replacement of Left Knee Joint with Synthetic Substitute, Cemented, Open Approach (ICD-10-PCS; principal; 2017-09-11 07:00)
DX: M17.12 Unilateral primary osteoarthritis, left knee (principal); Z96.651 Presence of right artificial knee joint; J44.9 Chronic obstructive pulmonary disease, unspecified; K21.9 Gastro-esophageal reflux disease without esophagitis; R07.9 Chest pain, unspecified; F41.9 Anxiety disorder, unspecified; E55.9 Vitamin D deficiency, unspecified; Z88.0 Allergy status to penicillin

== ENCOUNTER 2017-09-22 17:49 | Inpatient (IN) | payer OTHER ==
[~2017-09-22] VITALS: Ht 162.6 cm; Wt 113.6 kg
[~2017-09-22 17:49] MED LIST changes: +ACET-24 PO; +ASPEC81 PO; +CLB200 PO; +RXC5 PO; +SENN1TAB80 PO
[2017-09-22] MEDS ORDERED: MoRPHine SULFATE 4 MG/ML 1 ML CARP\\VIAL IV STA (18:11)
[2017-09-22 18:48] LABS: BASO % 0.1 %; BASO ABS # 0.01 K/uL (0-0.2); COMPLETE YES; EOS % 2.9 %; HEMATOCRIT 30.8 % (37-47); IG% 0.2 %; LYMPH % 6.2 %; LYMPH ABS # 0.79 K/uL (1.2-3.4); MEAN CELL VOLUME 89.8 fL (80-100); MEAN CORPUSCULAR HEMOGLOBIN 27.1 pg (25-34); MEAN CORPUSCULAR HGB CONC 30.2 g/dl (32-36); MEAN PLATELET VOLUME 9.9 fL (7.4-10.4); MONO % 7.3 %; NEUT % 83.3 %; PLATELET COUNT 246 K/uL (130-400); RED BLOOD COUNT 3.43 M/uL (4.2-5.4); WHITE BLOOD COUNT 12.83 K/uL (4.8-10.8)
[2017-09-22] MEDS ORDERED: ALBUTEROL NEB INH (18:50)
[2017-09-22] MEDS ORDERED: CEFAZOLIN IV 1,000 MG in DEXTROSE 5% 50ML 50 ML IV STA (18:59)
[2017-09-22 19:04] LABS: BUN/CREATININE RATIO 24.9 (10-20); CALCIUM 8.6 mg/dl (8.5-10.1); CREATININE 0.83 mg/dl (0.60-1.20); POTASSIUM 3.9 mmol/L (3.5-5.1)
[2017-09-22] MEDS ORDERED: LIDO/EPINEPHRINE/SOD BICARB 20 ML VIAL INFIL ONE (20:01)
--- NOTE | 2017-09-22 20:35 | EMERGENCY ROOM VISIT NOTE ---
History First contact with patient: 17:57 Chief Complaint: KNEEPAIN Stated Complaint: FALL, KNEE PAIN History of Present Illness The patient is a 62 year old female who presents to the Emergency Room via private vehicle with complaints of "fall, knee pain". The patient states that this evening around 5 PM she fell as she was ambulating to her bed. She notes flexion of the left knee causing the incision dehiscence. She notes that her postoperative progress has been otherwise well. Her tetanus is up-to-date. She notes like swelling since the surgery. Review of Systems A complete 6-point Review of Systems was discussed with the patient, with pertinent positives and negatives listed in the History of Present Illness. All remaining Review of Systems questions can be considered negative unless otherwise specified. Past Medical/Surgical History Medical Problems: (1) COPD (chronic obstructive pulmonary disease) (2) Hyperlipemia (3) Hypothyroidism (4) Intractable nausea and vomiting Surgical Problems: (1) S/P TKR (total knee replacement) Family History FH: cancer Heart disease Social History Smoking Status: Former Smoker Alcohol Use: none Drug Use: none Marital Status: Housing Status: lives alone Occupation Status: unemployed Current/Historical Medications Scheduled Acetaminophen (Sb Non-Aspirin Extra Stre), 1,000 MG PO Q8H Aspirin (Aspirin EC Low Dose), 81 MG PO BID Bupropion (Wellbutrin-Xl), 300 MG PO QAM Cephalexin Monohydrate (Keflex), 500 MG PO QID Escitalopram Oxalate (Lexapro), 20 MG PO QAM Furosemide (Lasix), 20 MG PO BID Home O2 Therapy (Oxygen), 3 LITERS NA CONT Hydroxyzine HCl (Hydroxyzine HCl), 25 MG PO HS Levothyroxine Sodium (Levothyroxine Sodium), 1 TAB PO QAM Lorazepam (Ativan), 0.5 MG PO HS Potassium Chloride (Micro-K Ext Rel), 10 MEQ PO QAM Quetiapine Fumarate (Seroquel), 400 MG PO HS Sennosides (Senna Lax), 17.2 MG PO HS Scheduled PRN Albuterol Hfa (Ventolin Hfa), 2 PUFFS INH Q4 PRN for SOB/Wheezing Inaqmjkiin-Wmvpgkwfwafva-Ppgxd (Fioricet), 1-2 TABLETS PO Q8 PRN for Migraine Oxycodone HCl (Oxycodone HCl), 5-10 MG PO Q4H PRN for Pain Promethazine Hcl (Phenergan), 25 MG PO Q6H PRN for Nausea [Albuterol Neb], 1 DOSE INH Q4 PRN for SOB/Wheezing Physical Exam Vital Signs Date Time Temp Pulse Resp B/P (MAP) Pulse Ox O2 Delivery O2 Flow Rate FiO2 09/22/17 22:39 94 22 119/53 96 Nasal Cannula 3.0 09/22/17 20:50 86 18 114/85 98 Room Air 09/22/17 19:30 79 16 117/69 98 Nasal Cannula 3.0 09/22/17 19:15 84 16 115/62 100 Nasal Cannula 4.0 09/22/17 17:50 37.2 82 18 97/64 98 Nasal Cannula 4.0 Physical Exam VITAL SIGNS - Vital signs and nursing notes were reviewed. Stable. GENERAL -62-year-old female appearing her stated age who is in no acute distress. Communicates well with provider and answers questions appropriately. SKIN - Without rashes. No petechial rashes. There is a dehisced wound overlying the left anterior knee. Small scant bloody drainage noted. No purulence. HEAD - NC/AT. EYES - Sclera anicteric. EXTREMITIES - No clubbing or peripheral cyanosis. No pretibial edema present. Left knee with dehisced wound. +5/5 strength noted in UE/LE bilaterally. Medical Decision & Procedures Laboratory Results 09/22/17 18:40 Red Blood Count 3.43, Mean Corpuscular Volume 89.8, Mean Corpuscular Hemoglobin 27.1, Mean Corpuscular Hemoglobin Concent 30.2, Mean Platelet Volume 9.9, Neutrophils (%) (Auto) 83.3, Lymphocytes (%) (Auto) 6.2, Monocytes (%) (Auto) 7.3, Eosinophils (%) (Auto) 2.9, Basophils (%) (Auto) 0.1, Neutrophils # (Auto) 10.69, Lymphocytes # (Auto) 0.79, Monocytes # (Auto) 0.94, Eosinophils # (Auto) 0.37, Basophils # (Auto) 0.01 09/22/17 18:40 Test 09/22/17 18:40 White Blood Count 12.83 K/uL (4.8-10.8) Red Blood Count 3.43 M/uL (4.2-5.4) Hemoglobin 9.3 g/dL (12.0-16.0) Hematocrit 30.8 % (37-47) Mean Corpuscular Volume 89.8 fL (80-100) Mean Corpuscular Hemoglobin 27.1 pg (25-34) Mean Corpuscular Hemoglobin Concent 30.2 g/dl (32-36) Platelet Count 246 K/uL (130-400) Mean Platelet Volume 9.9 fL (7.4-10.4) Neutrophils (%) (Auto) 83.3 % Lymphocytes (%) (Auto) 6.2 % Monocytes (%) (Auto) 7.3 % Eosinophils (%) (Auto) 2.9 % Basophils (%) (Auto) 0.1 % Neutrophils # (Auto) 10.69 K/uL (1.4-6.5) Lymphocytes # (Auto) 0.79 K/uL (1.2-3.4) Monocytes # (Auto) 0.94 K/uL (0.11-0.59) Eosinophils # (Auto) 0.37 K/uL (0-0.5) Basophils # (Auto) 0.01 K/uL (0-0.2) RDW Standard Deviation 47.8 fL (36.4-46.3) RDW Coefficient of Variation 14.6 % (11.5-14.5) Immature Granulocyte % (Auto) 0.2 % Immature Granulocyte # (Auto) 0.03 K/uL (0.00-0.02) Anion Gap 3.0 mmol/L (3-11) Est Creatinine Clear Calc Drug Dose 91.0 ml/min Estimated GFR () 88.2 Estimated GFR (Non- 76.1 BUN/Creatinine Ratio 24.9 (10-20) Calcium Level 8.6 mg/dl (8.5-10.1) Medications Administered Medications (Trade) Dose Ordered Sig/Clovis Route Start Time Stop Time Status Last Admin Dose Admin Morphine Sulfate (MoRPHine SULFATE INJ) 4 mg NOW STAT IV 09/22/17 18:11 09/22/17 18:13 DC 09/22/17 19:06 4 MG Cefazolin Sodium 1000 mg/Dextrose 55 ml @ 100 mls/hr NOW STAT IV 09/22/17 18:59 09/22/17 19:31 DC 09/22/17 19:29 100 MLS/HR Lidocaine/ Epinephrine (Buffered Xylocaine/ Epinephrine 1% Inj) 20 ml STK-MED ONCE INFIL 09/22/17 20:01 09/22/17 20:02 DC 09/22/17 20:01 20 ML Oxycodone HCl (Roxicodone Immediate Rel Tab) 5 mg NOW STAT PO 09/22/17 22:20 09/22/17 22:21 DC 09/22/17 22:42 5 MG Medical Decision Patient was treated evaluated as above. She presents to us today with wound dehiscence of the left knee. IV access was initiated, and the above workup was performed. She was given morphine for pain. Slight leukocytosis. I discussed the case with the attending physician and subsequently the on-call orthopedic surgeon, Dr. Oswald. He evaluated the patient and closed the wound. Please refer to his documentation regarding the procedure. She was given a gram of Ancef for infection prophylaxis. It is important to note there is no evidence of infection upon my examination. The patient did appear stable for outpatient management however when her brother came to pick her up he explained how he feels she is a high fall risk which caused her to be here in the first place, and feels as though staying in the hospital would be reasonable particularly if she would require potential further washout in the next day or so. I would agree with this, as the patient does pose to be a high fall risk at this time, and will likely need washout of the wound. I then spoke with Dr. Oswald via phone who secondary to the patient's medical comorbidities recommend I consult medicine for admission as the patient does appear to have ambulatory dysfunction , and is a high fall risk at this time and may need washout. He noted ortho could then be consulted. I then spoke with the hospitalist service, who declined admission. Dr. Oswald was then paged again, and he admitted the patient. Please refer to further documentation regarding the patient's stay. In the evaluation and treatment of this patient, the following differential diagnoses were considered: Patellar Fracture, Tibial Plateau Fracture, Distal Femur Fracture, ACL Injury, PCL Injury, Collateral Ligament Injury, Pes Anserine Bursitis, Maisonneuve Fracture. Impression Primary Impression: Knee pain Additional Impression: Anemia Departure Information Dispostion Still a Patient Condition GOOD Prescriptions Cephalexin Monohydrate (Keflex) 500 Mg Cap 500 MG PO QID for 7 Days, #28 CAP Prov: Aidan Palumbo PA-C 09/22/17 Referrals Endy Vale M.D. (PCP) Fernando Green D.O. Patient Instructions [facility] Additional Instructions You have been treated in the Emergency Department for Knee Pain. You have received pain medicine in the emergency department which impairs your ability to operate a vehicle. It is illegal for you to drive after receiving these medicines. You have been prescribed Oxy IR to be used for pain control. This is a narcotic medication. You cannot drive or consume alcohol while on this medicine. This medicine should only be used for pain that cannot be controlled with over-the- counter pain medicines. Keflex 500mg (one tablet) every 6 hours for infection prevention. You have been provided the number for an Orthopaedic Surgeon. You should call this number as soon as possible to establish a follow-up visit from today's Emergency Department visit. Dr. Green Keep the knee brace in place until cleared by Orthopedics. Return to the Emergency Department if your current symptoms worsen despite treatment course outlined above. Problem Qualifiers
[2017-09-22] MEDS: OXYCODONE IR HOME PACK PO STA ×2 (20:46→22:16)
[2017-09-22] MEDS ORDERED: CEPH500C PO (20:49)
[2017-09-22] MEDS: CEPHALEXIN 500MG HOME PACK 1 EA BTL PO STA ×2 (21:13→22:17)
--- NOTE | 2017-09-22 21:14 | HISTORY & PHYSICAL EXAMINATION ---
DATE OF CONSULTATION: 09/22/2017 HISTORY OF PRESENT ILLNESS: This is a 62-year-old female who recently had total joint replacement on the left knee by Dr. Green on 09/11/2017. Apparently, the patient had a fall at home and had some drainage from the wound, possibly had another fall. The patient is a poor historian. The patient then presented to [facility], was evaluated by the PA and noted to have a significant wound dehiscence with a failed ZipLine closure on the anterior aspect of her left knee. There is no redness, no streaking, no swelling, no purulence. No other associated injuries. No loss of consciousness. No lightheadedness, dizziness, fevers, chills, nausea, vomiting or diarrhea. PAST MEDICAL HISTORY: COPD, asthma, anxiety, home O2 use, history of tobacco abuse. PAST SURGICAL HISTORY: Right total knee arthroplasty, left total knee arthroplasty 09/11/[address] Green. ALLERGIES: PENICILLIN. MEDICATIONS: Please note the medical record for the patient's current medications. SOCIAL HISTORY: She denies current tobacco use; however, has a [id number] history of smoking, stopped smoking in 1998. Subsequent COPD after smoking. Denies drug use. Drinks alcohol occasionally. She lives at home alone. PHYSICAL EXAMINATION: GENERAL: A 62-year-old female lying supine in the hospital in the ER transfer cart. She is wearing glasses and supplemental oxygen. NEUROLOGIC: Alert and oriented x3. Speech clear and fluent. Affect is appropriate. Cranial nerves II-XII are grossly intact. HEENT: Trachea is midline. Oral mucosa is slightly dry. NECK: No JVD. EXTREMITIES: Examination of the left knee demonstrates a failed ZipLine closure anterior aspect of the left knee with approximately 50% wound dehiscence of the left knee down to the level of the retinaculum. No purulence, no discharge, no erythema. The tissue appears viable. There is maceration and drainage. Distal neurosensory exam is intact. Cap refill less than 2 seconds. Dorsalis pedis and posterior tibial pulses are palpable in bilateral lower extremities. Range of motion is limited. IMPRESSION: 1. Left knee, 50% wound dehiscence status post total knee arthroplasty on 09/11/[address] Green. 2. Fall at home. PROCEDURE: After discussion with the patient sterile prep of the left knee was then performed followed by irrigation with sterile normal saline. Partial removal of the central 50% of the ZipLine closure with sutures scissors and then closure of the skin with interrupted horizontal mattress and vertical mattress 3-0 nylon sutures after injection with 1% lidocaine with epinephrine. A sterile compressive dressing and a knee immobilizer was then applied. The patient was then discharged home with oral antibiotics and instructed to follow up with Dr. Green tomorrow for wound reassessment in the office. She will maintain ambulation with knee immobilizer and a walker. Ice to the left knee.
[2017-09-22] MEDS ORDERED: OXYCODONE HCL IR 5 MG TAB (IMMEDIATE RELEASE) PO STA (22:20)
[2017-09-22] MEDS ORDERED: NURSING VERBAL MED ORDER ONE (22:30)
[2017-09-22] MEDS ORDERED: PROMETHAZINE HCL 25 MG TAB PO PRN (22:45)
[2017-09-22] MEDS ORDERED: ALBUTEROL HFA 8 GM INHALER INH PRN (22:45)
--- NOTE | 2017-09-22 23:27 | Medical Consult ---
Consultation Date of Consultation: Sep 22, 2017. Attending Physician: History of Present Illness This is a 62 yo f with multiple comorbidities including COPD, thyroid disorder, depression, hypokalemia and GERD presenting to us after a left knee arthroplasty which was completed on 09/11/17. The patient was at home and she fell onto her knee and immediately after there was notice of wound dehiscence. The patient was brought to the ED and wound cleansed and closed with a plan for further intervention in the am. The patient states that she is having a "burning " pain from her left knee to her left hip which is a 10/10. She denies any pus like drainage from the site nor any fevers at home. Patient is a poor historian and lives at home alone. Past Medical/Surgical History Medical Problems: (1) Anemia Status: Acute (2) Bilateral leg weakness Status: Acute (3) COPD exacerbation Status: Acute (4) COPD exacerbation Status: Acute (5) Cough Status: Acute (6) Falls Status: Acute (7) Knee pain Status: Acute (8) Leg pain, right Status: Acute (9) Leg pain, right Status: Acute (10) Nausea Status: Acute (11) Orthostasis Status: Acute (12) Right thigh pain Status: Acute (13) Sebaceous cyst Status: Acute (14) SOB (shortness of breath) Status: Acute (15) Substernal precordial chest pain Status: Acute (16) Swallowing dysfunction Status: Acute (17) Vomiting Status: Acute Family History FH: cancer Heart disease Social History Smoking Status: Former Smoker Smokeless Tobacco Use: No Alcohol Use: occasionally Drug Use: none Marital Status: single Housing Status: lives alone Occupation Status: unemployed Allergies Coded Allergies: Amoxicillin (Verified Allergy, Mild, HIVES, 09/09/17) Doxycycline (Verified Allergy, Unknown, HIVES, 09/09/17) Naproxen (Verified Allergy, Unknown, UNKNOWN, 09/09/17) Penicillins (Verified Allergy, Unknown, HIVES, 09/09/17) Current Inpatient Medications Current Inpatient Medications Medications (Trade) Dose Ordered Sig/Clovis Route Start Time Stop Time Status Last Admin Dose Admin Miscellaneous Information (Nursing Verbal Med Order) 1 ea ONE ONCE N/A 09/22/17 22:30 09/22/17 22:31 UNV Review of Systems Constitutional: No fever Respiratory: No cough, No sputum, No wheezing, No shortness of breath, No dyspnea on exertion, No dyspnea at rest Cardiovascular: No chest pain Abdomen: No pain, No nausea, No vomiting, No diarrhea, No constipation Musculoskeletal: + joint pain, + muscle pain, + swelling Genitourinary - Female: No dysuria Neurologic: + balance problems, No weakness, No numbness/tingling Endocrine: + fatigue Hematologic / Lymphatic: No abnormal bleeding/bruising Integumentary: No rash Physical Exam Date Time Temp Pulse Resp B/P (MAP) Pulse Ox O2 Delivery O2 Flow Rate FiO2 09/22/17 22:39 94 22 119/53 96 Nasal Cannula 3.0 09/22/17 20:50 86 18 114/85 98 Room Air 09/22/17 19:30 79 16 117/69 98 Nasal Cannula 3.0 09/22/17 19:15 84 16 115/62 100 Nasal Cannula 4.0 09/22/17 17:50 37.2 82 18 97/64 98 Nasal Cannula 4.0 General Appearance: no apparent distress, + obese Head: normocephalic, atraumatic Eyes: normal inspection ENT: normal ENT inspection Neck: supple Respiratory/Chest: no accessory muscle use, + decreased breath sounds (bilat bases) Cardiovascular: regular rate, rhythm, no murmur, normal peripheral pulses Abdomen/GI: normal bowel sounds, non tender, soft Back: normal inspection Extremities/Musculoskelatal: + pedal edema (swelling of the left LE), + pertinent finding (limited ROM of the left knee secondary to pain/ brace, brace and dressing was noted on the left knee with no breakthrough bleeding, compared to the right there is some mild swelling and increased temp of the left LE) Neurologic/Psych: alert, normal mood/affect, normal reflexes, oriented x 3, + pertinent finding Laboratory Results Last 24 Hours Test 09/22/17 18:40 White Blood Count 12.83 K/uL Red Blood Count 3.43 M/uL Hemoglobin 9.3 g/dL Hematocrit 30.8 % Mean Corpuscular Volume 89.8 fL Mean Corpuscular Hemoglobin 27.1 pg Mean Corpuscular Hemoglobin Concent 30.2 g/dl Platelet Count 246 K/uL Mean Platelet Volume 9.9 fL Neutrophils (%) (Auto) 83.3 % Lymphocytes (%) (Auto) 6.2 % Monocytes (%) (Auto) 7.3 % Eosinophils (%) (Auto) 2.9 % Basophils (%) (Auto) 0.1 % Neutrophils # (Auto) 10.69 K/uL Lymphocytes # (Auto) 0.79 K/uL Monocytes # (Auto) 0.94 K/uL Eosinophils # (Auto) 0.37 K/uL Basophils # (Auto) 0.01 K/uL RDW Standard Deviation 47.8 fL RDW Coefficient of Variation 14.6 % Immature Granulocyte % (Auto) 0.2 % Immature Granulocyte # (Auto) 0.03 K/uL Sodium Level 137 mmol/L Potassium Level 3.9 mmol/L Chloride Level 101 mmol/L Carbon Dioxide Level 33 mmol/L Anion Gap 3.0 mmol/L Blood Urea Nitrogen 21 mg/dl Creatinine 0.83 mg/dl Est Creatinine Clear Calc Drug Dose 91.0 ml/min Estimated GFR () 88.2 Estimated GFR (Non- 76.1 BUN/Creatinine Ratio 24.9 Random Glucose 98 mg/dl Calcium Level 8.6 mg/dl Assessment & Plan This is a 62 yo f that is admitted for evaluation/ intervention of wound dehiscence of the left knee s/p left knee arthroplasty Wound dehiscence s/p left knee arthroplasty - pain control per primary team - Clindamycin and Vanco empirically - recheck CBC in the am - will hold am dose of ASA -PT/OT eval after tomorrow's intervention COPD, stable - albuterol prn - Spiriva added for the am - continue home dose of O2 3L continuous Depression - continue wellbutrin 300 mg daily and lexapro 20 mg daily - continue ativan 0.5 mg HS but for now will make Vistaril prn to prevent over sedation Hypothyroidism - continue levothyroxine 137 mcg CHF - diastolic dysfunction, stable - lasix 20 mg daily and KCL 10 meq FULL RESUS Resident Physician Supervision Note: I was present with Dr. Lopez during the history and exam. I discussed the case with the resident and agree with the findings and plan as documented in the note. Any exceptions or clarifications are listed here: 62 y/o F Hx COPD, diastolic CHF, hypothyroid - recent L knee arthro - fell onto wound site suffering dehiscence - likely due to the trauma rather than infection , howeevr the site does seem to be slightly inflamed She was evaluated and admitted by the ortho service - may need additional surgical attention per ortho OE AAO x 3 S1,2 R CTA NT, ND Ther is some mild warmth an erythema surrounding the site which is dressed P: Additional intervention to discretion of ortho pending AM eval She wa started on antibiotics by the med staff which can be DCd if it is deermined that the inflammation is purely due to trauma We can maintain her home meds for the present time - there is no clinical evidence of COPD or CHF exacerbation Documented By: Kush Wong Additional Copies To Endy Vale M.D.
[2017-09-22] MEDS ORDERED: HYDROCODONE/ACETAMOPHEN 5/325MG TAB PO PRN (23:30)
[2017-09-23] VITALS (13 sets, daily range): BP systolic 112–143; BP diastolic 55–83; PULSE 63–90; TEMP 36.7–37.4; O2SAT 97–100; Ht 162.6 cm; Wt 113.6 kg
[2017-09-23] MEDS ORDERED: VANCOMYCIN INJ 2,500 MG in SODIUM CHLORIDE 0.9% 500ML 500 ML IV ONE (00:45)
[2017-09-23] MEDS: SODIUM CHLORIDE 0.9% 1000ML 1,000 ML IV SCH ×4 (01:21→20:12)
[2017-09-23] MEDS ORDERED: hydrOXYzine HCL 25 MG TAB PO PRN (01:30)
[2017-09-23] MEDS: LORAZEPAM 0.5 MG TAB PO SCH ×2 (01:47→21:24)
[2017-09-23] MEDS: CLINDAMYCIN IV 300 MG in DEXTROSE 5% 50ML 50 ML IV SCH ×2 (01:48→10:41)
[2017-09-23] MEDS: ACETAMINOPHEN 500 MG TAB PO SCH ×4 (01:48→21:26)
[2017-09-23] MEDS: QUETIAPINE FUMARATE 200 MG TAB PO SCH ×2 (01:49→21:25)
[2017-09-23] MEDS: OXYCODONE HCL IR 5 MG TAB (IMMEDIATE RELEASE) PO PRN ×4 (05:38→23:25)
[2017-09-23] MEDS: LEVOTHYROXINE 137 MCG TAB PO SCH (06:38)
[2017-09-23] MEDS ORDERED: VANCOMYCIN CONSULT ACTIVE PRN (08:15)
--- NOTE | 2017-09-23 08:16 | Family Medicine Progress Note ---
Progress Note Date of Service Sep 23, 2017. Subjective Pt evaluation today including: conversation w/ patient, physical exam, chart review, lab review, review of inpatient medication list Pain: 7/10 Left Knee Pain Reportes PO Intake: NPO Voiding: no voiding problems Ms. Pettit reports that she remains with her 7/10 burning pain located in her knee. She denies fever, chills, chest pain, drainage from her knee. She states this occurred after she slid out of bed and onto her left knee. She denies any dizziness, palpitations, or pre-syncopal symptoms prior to her fall. Constitutional: No fever, No chills Respiratory: No cough, No sputum, No wheezing, No shortness of breath Cardiovascular: No chest pain Abdomen: No pain, No nausea, No vomiting Musculoskeletal: + joint pain (left knee), No calf pain All Other Systems: Reviewed and Negative Medications Current Inpatient Medications Medications (Trade) Dose Ordered Sig/[place] Route Start Time Stop Time Status Last Admin Dose Admin Acetaminophen (Tylenol Tab) 1,000 mg Q8 PO 09/23/17 01:30 10/23/17 01:29 09/23/17 05:39 1,000 MG Albuterol (Ventolin Hfa Inhaler) 2 puffs Q4 PRN INH 09/22/17 22:45 10/22/17 22:44 Bupropion HCl (Wellbutrin-Xl Tab) 300 mg QAM PO 09/23/17 09:00 10/23/17 08:59 09/23/17 08:46 300 MG Escitalopram Oxalate (Lexapro Tab) 20 mg QAM PO 09/23/17 09:00 10/23/17 08:59 09/23/17 08:47 20 MG Furosemide (Lasix Tab) 20 mg BID PO 09/23/17 09:00 10/23/17 08:59 09/23/17 08:47 20 MG Levothyroxine Sodium (Synthroid Tab) 137 mcg DAILYBB PO 09/23/17 06:00 10/23/17 05:59 09/23/17 06:38 137 MCG Lorazepam (Ativan Tab) 0.5 mg HS PO 09/23/17 01:30 10/23/17 01:29 09/23/17 01:47 0.5 MG Oxycodone HCl (Roxicodone Immediate Rel Tab) 5 mg Q4H PRN PO 09/22/17 22:45 10/06/17 22:44 09/23/17 05:38 5 MG Potassium Chloride (Klor-Con M10) 10 meq QAM PO 09/23/17 09:00 10/23/17 08:59 09/23/17 08:46 10 MEQ Promethazine HCl (Phenergan Tab) 25 mg Q6H PRN PO 09/22/17 22:45 10/22/17 22:44 Quetiapine Fumarate (seroQUEL TAB) 400 mg HS PO 09/23/17 21:00 10/23/17 20:59 09/23/17 01:49 400 MG Senna (Senokot Tab) 17.2 mg HS PO 09/23/17 21:00 10/23/17 20:59 Clindamycin Phosphate 300 mg/ Dextrose 52 ml @ 100 mls/hr Q8H IV 09/23/17 02:00 10/03/17 01:59 09/23/17 01:48 100 MLS/HR Ondansetron HCl (Zofran Inj) 4 mg Q4H PRN IV 09/22/17 23:30 10/22/17 23:29 Sodium Chloride 1,000 ml @ 100 mls/hr Q10H IV 09/22/17 23:30 10/22/17 23:29 09/23/17 01:21 100 MLS/HR Tiotropium [place] (Spiriva Handihaler Inhaler) 1 puff QAM INH 09/23/17 09:00 10/23/17 08:59 09/23/17 08:45 1 PUFF Hydroxyzine HCl (Vistaril Tab) 25 mg HS PRN PO 09/23/17 01:30 10/23/17 01:29 Saccharomyces Boulardii (Florastor Cap) 250 mg DAILY PO 09/23/17 09:00 10/23/17 08:59 09/23/17 08:46 250 MG Vancomycin HCl (Consult) 1 ea UD PRN N/A 09/23/17 08:15 10/23/17 08:14 Vancomycin HCl 1750 mg/Sodium Chloride 535 ml @ 200 mls/hr Q12@0200,1400 IV 09/23/17 14:00 09/25/17 13:59 Objective Vital Signs Date Time Temp Pulse Resp B/P (MAP) Pulse Ox O2 Delivery O2 Flow Rate FiO2 09/23/17 13:11 37.3 77 20 120/55 100 09/23/17 12:55 37.2 80 20 112/58 98 09/23/17 11:35 36.9 75 18 138/80 (99) 99 Nasal Cannula 3.0 09/23/17 08:56 99 Nasal Cannula 3.0 09/23/17 07:41 36.7 63 18 122/70 (87) 99 Nasal Cannula 3.0 09/23/17 07:35 Nasal Cannula 3.0 09/23/17 00:00 37.1 90 18 121/66 98 Nasal Cannula 3.0 09/23/17 00:00 Nasal Cannula 3.0 09/22/17 23:27 89 18 111/62 95 09/22/17 22:39 94 22 119/53 96 Nasal Cannula 3.0 09/22/17 20:50 86 18 114/85 98 Room Air 09/22/17 19:30 79 16 117/69 98 Nasal Cannula 3.0 09/22/17 19:15 84 16 115/62 100 Nasal Cannula 4.0 09/22/17 17:50 37.2 82 18 97/64 98 Nasal Cannula 4.0 Physical Exam General Appearance: WD/WN, no apparent distress Respiratory/Chest: chest non-tender, lungs clear, normal breath sounds, no respiratory distress, no accessory muscle use Cardiovascular: regular rate, rhythm, no edema, no gallop, no JVD, no murmur Abdomen: normal bowel sounds, non tender, soft, no organomegaly, no pulsatile mass Extremities: + pertinent finding (left knee bandaged) Laboratory Results Last 24 Hours Test 09/22/17 18:40 09/23/17 08:32 White Blood Count 12.83 K/uL 7.85 K/uL Red Blood Count 3.43 M/uL 2.86 M/uL Hemoglobin 9.3 g/dL 7.8 g/dL Hematocrit 30.8 % 25.7 % Mean Corpuscular Volume 89.8 fL 89.9 fL Mean Corpuscular Hemoglobin 27.1 pg 27.3 pg Mean Corpuscular Hemoglobin Concent 30.2 g/dl 30.4 g/dl Platelet Count 246 K/uL 207 K/uL Mean Platelet Volume 9.9 fL 9.8 fL Neutrophils (%) (Auto) 83.3 % Lymphocytes (%) (Auto) 6.2 % Monocytes (%) (Auto) 7.3 % Eosinophils (%) (Auto) 2.9 % Basophils (%) (Auto) 0.1 % Neutrophils # (Auto) 10.69 K/uL Lymphocytes # (Auto) 0.79 K/uL Monocytes # (Auto) 0.94 K/uL Eosinophils # (Auto) 0.37 K/uL Basophils # (Auto) 0.01 K/uL RDW Standard Deviation 47.8 fL 47.9 fL RDW Coefficient of Variation 14.6 % 14.7 % Immature Granulocyte % (Auto) 0.2 % Immature Granulocyte # (Auto) 0.03 K/uL Sodium Level 137 mmol/L Potassium Level 3.9 mmol/L Chloride Level 101 mmol/L Carbon Dioxide Level 33 mmol/L Anion Gap 3.0 mmol/L Blood Urea Nitrogen 21 mg/dl Creatinine 0.83 mg/dl Est Creatinine Clear Calc Drug Dose 91.0 ml/min Estimated GFR () 88.2 Estimated GFR (Non- 76.1 BUN/Creatinine Ratio 24.9 Random Glucose 98 mg/dl Calcium Level 8.6 mg/dl Assessment and Plan Ms Pettit is a 62 year old female who was admitted for intervention of her wound dehiscence of the left knee s/p left knee arthroplasty Wound dehiscence s/p left knee arthroplasty on 09/11/17 - pain controlled with roxicodone and tylenol - patient underwent repair of quadriceps tendon today - joint fluid obtained for gram stain and culture - d/c clindamycin. continue vancomycin as per ortho - hold home aspirin - WCC 7.85 - PT/OT eval for eventual placement Anemia - 1 unit of PRBC transfused today as her hemoglobin dropped to 7.8 COPD, stable - albuterol prn - Spiriva added for the am - continue home dose of O2 3L continuous Depression - continue wellbutrin 300 mg daily and lexapro 20 mg daily - continue ativan 0.5 mg HS but for now will make Vistaril prn to prevent over sedation Hypothyroidism - continue levothyroxine 137 mcg CHF - diastolic dysfunction, stable - lasix 20 mg daily and KCL 10 meq Code: Full DVT Prophylaxis: SCDs Disposition: pending PT/OT eval for eventual placement Resident Tracking Resident Involvement: Resident Care Provided Care Provided: Adult Hospital Medicine Reviewed: Pt Seen/Exam by Me History left knee pain controlled no other concerns Constitutional: denies: fever Respiratory: negative: short of breath Cardiovascular: denies chest pain Gastrointestinal/Abdominal: negative: abdominal pain General Appearance: no apparent distress Respiratory: lungs clear, no respiratory distress Cardiovascular: regular rate, rhythm Extremities: other (left knee in brace) Neurologic/Psychiatric: alert, oriented x 3 Assessment/Plan Resident Physician Supervision Note: I independently interviewed and examined the patient and verified the baker history and physical, reviewed labs and image studies, discussed the case with the resident Dr. Zepeda and agree with the findings and care plan.
--- NOTE | 2017-09-23 08:25 | Orthopedic Progress Note ---
Orthopedic Progress Note Date of Service Sep 23, 2017. Subjective Reports: feeling well, Denies: chest pain, SOB, nausea / vomiting, light headedness, calf pain Additional Notes: Awake, alert. Somewhat of a poor historian. States that when she went to get into bed, her mattress slid over and she fell to the ground onto the knee. Pain controlled currently. Objective calves soft nontender, N/V intact, toes mobile Wound with partial zipline closure proximally. The rest of the wound was closed with nylon suture per Dr Oswald in the ER. Mild erythema noted around the incision not to be unexpected with injury. No purulence noted. Mild bloody drainage noted on dressing. Wound redressed. Date Time Temp Pulse Resp B/P (MAP) Pulse Ox O2 Delivery O2 Flow Rate FiO2 09/23/17 07:41 36.7 63 18 122/70 (87) 99 Nasal Cannula 3.0 09/23/17 00:00 37.1 90 18 121/66 98 Nasal Cannula 3.0 09/23/17 00:00 Nasal Cannula 3.0 09/22/17 23:27 89 18 111/62 95 09/22/17 22:39 94 22 119/53 96 Nasal Cannula 3.0 09/22/17 20:50 86 18 114/85 98 Room Air 09/22/17 19:30 79 16 117/69 98 Nasal Cannula 3.0 09/22/17 19:15 84 16 115/62 100 Nasal Cannula 4.0 09/22/17 17:50 37.2 82 18 97/64 98 Nasal Cannula 4.0 Laboratory Results 24 Hours: Test 09/22/17 18:40 White Blood Count 12.83 K/uL Red Blood Count 3.43 M/uL Hemoglobin 9.3 g/dL Hematocrit 30.8 % Mean Corpuscular Volume 89.8 fL Mean Corpuscular Hemoglobin 27.1 pg Mean Corpuscular Hemoglobin Concent 30.2 g/dl Platelet Count 246 K/uL Mean Platelet Volume 9.9 fL Neutrophils (%) (Auto) 83.3 % Lymphocytes (%) (Auto) 6.2 % Monocytes (%) (Auto) 7.3 % Eosinophils (%) (Auto) 2.9 % Basophils (%) (Auto) 0.1 % Neutrophils # (Auto) 10.69 K/uL Lymphocytes # (Auto) 0.79 K/uL Monocytes # (Auto) 0.94 K/uL Eosinophils # (Auto) 0.37 K/uL Basophils # (Auto) 0.01 K/uL Assessment & Plan Assessment: Wound dehiscence after a fall s/p L TKA Plan: Plan for I&D Left knee with possible polyethylene bearing change today.
[2017-09-23] MEDS: TIOTROPIUM BROMIDE 5 PUFF/90 MCG INH INH SCH (08:45)
[2017-09-23] MEDS: SACCHAROMYCES BOUL (FLORASTOR) 250 MG CAP PO SCH (08:46)
[2017-09-23] MEDS: BuPROPion XL 300 MG TABCR PO SCH (08:46)
[2017-09-23] MEDS: POTASSIUM CHLORIDE 10 MEQ TABCR PO SCH (08:46)
[2017-09-23] MEDS: ESCITALOPRAM OXALATE 20 MG TAB PO SCH (08:47)
[2017-09-23] MEDS: FUROSEMIDE 20 MG TAB PO SCH ×2 (08:47→21:24)
[2017-09-23 08:51] LABS: HEMATOCRIT 25.7 % (37-47); MEAN CELL VOLUME 89.9 fL (80-100); MEAN CORPUSCULAR HEMOGLOBIN 27.3 pg (25-34); MEAN CORPUSCULAR HGB CONC 30.4 g/dl (32-36); MEAN PLATELET VOLUME 9.8 fL (7.4-10.4); PLATELET COUNT 207 K/uL (130-400); RED BLOOD COUNT 2.86 M/uL (4.2-5.4); WHITE BLOOD COUNT 7.85 K/uL (4.8-10.8)
--- NOTE | 2017-09-23 10:03 | Pharmacy Progress Note ---
Pharmacy Antibiotic Consult Date of Service: Sep 23, 2017. Pharmacy Dosing Scope Pharmacy is consulted to initiate vancomycin IV dosing therapy, order appropriate labs and adjust drug dose/frequency. Subjective The patient is a 62 year old female admitted on Sep 22, 2017 at 22:32. Objective Height (Feet): 5 Height (Inches): 4.00 Weight (Kilograms): 113.600 Lab Results (24hrs): Test 09/22/17 18:40 09/23/17 08:32 White Blood Count 12.83 K/uL (4.8-10.8) 7.85 K/uL (4.8-10.8) Red Blood Count 3.43 M/uL (4.2-5.4) 2.86 M/uL (4.2-5.4) Hemoglobin 9.3 g/dL (12.0-16.0) 7.8 g/dL (12.0-16.0) Hematocrit 30.8 % (37-47) 25.7 % (37-47) Mean Corpuscular Volume 89.8 fL (80-100) 89.9 fL (80-100) Mean Corpuscular Hemoglobin 27.1 pg (25-34) 27.3 pg (25-34) Mean Corpuscular Hemoglobin Concent 30.2 g/dl (32-36) 30.4 g/dl (32-36) Platelet Count 246 K/uL (130-400) 207 K/uL (130-400) Mean Platelet Volume 9.9 fL (7.4-10.4) 9.8 fL (7.4-10.4) Neutrophils (%) (Auto) 83.3 % Lymphocytes (%) (Auto) 6.2 % Monocytes (%) (Auto) 7.3 % Eosinophils (%) (Auto) 2.9 % Basophils (%) (Auto) 0.1 % Neutrophils # (Auto) 10.69 K/uL (1.4-6.5) Lymphocytes # (Auto) 0.79 K/uL (1.2-3.4) Monocytes # (Auto) 0.94 K/uL (0.11-0.59) Eosinophils # (Auto) 0.37 K/uL (0-0.5) Basophils # (Auto) 0.01 K/uL (0-0.2) RDW Standard Deviation 47.8 fL (36.4-46.3) 47.9 fL (36.4-46.3) RDW Coefficient of Variation 14.6 % (11.5-14.5) 14.7 % (11.5-14.5) Immature Granulocyte % (Auto) 0.2 % Immature Granulocyte # (Auto) 0.03 K/uL (0.00-0.02) Sodium Level 137 mmol/L (136-145) Potassium Level 3.9 mmol/L (3.5-5.1) Chloride Level 101 mmol/L (98-107) Carbon Dioxide Level 33 mmol/L (21-32) Anion Gap 3.0 mmol/L (3-11) Blood Urea Nitrogen 21 mg/dl (7-18) Creatinine 0.83 mg/dl (0.60-1.20) Est Creatinine Clear Calc Drug Dose 91.0 ml/min Estimated GFR () 88.2 Estimated GFR (Non- 76.1 BUN/Creatinine Ratio 24.9 (10-20) Random Glucose 98 mg/dl (70-99) Calcium Level 8.6 mg/dl (8.5-10.1) Assessment & Plan Assessment * 62 yo F with recent L TKA 09/11 admitted s/p fall with wound dehiscence. On empiric vancomycin and clindamycin for possible surgical site infection. Plan for I&D today. * WBC was initially elevated, but now wnl. Afebrile * SCr at/near baseline Vancomycin * Goal trough 15-20 mcg/mL for now, until infected hardware can be ruled out * 22 mg/kg loading dose administered * Will continue with 15 mg/kg IV q12h * Trough prior to 4th overall dose Plan * Vancomycin 1750 mg IV q12h * Trough 09/24 @ 1330 Pharmacy will continue to follow and will adjust dose/frequency as necessary. Thank you
[2017-09-23] MEDS ORDERED: MIDAZOLAM HCL 1 MG/ML 2ML VIAL ONE (12:10)
[2017-09-23] MEDS ORDERED: POVIDONE-IODINE OP SOLN 30 ML BTL ONE (12:20)
[2017-09-23] MEDS ORDERED: BACITRACIN 50000 UNIT VIAL ONE ×2 (12:20→12:45)
[2017-09-23] MEDS ORDERED: DEXAMETHASONE SOD INJ 4 MG/ML VIAL ONE (12:50)
[2017-09-23] MEDS ORDERED: LIDOCAINE HCL 2% 2 ML VIAL (20MG/ML) ONE (12:50)
[2017-09-23] MEDS ORDERED: PROPOFOL IV EMULSION 10 MG/ML 20 ML VIAL IV ONE (12:50)
[2017-09-23] MEDS ORDERED: FENTANYL CITRATE INJ 50 MCG/1 ML 2 ML VIAL ONE (12:50)
[2017-09-23] MEDS ORDERED: ONDANSETRON INJ 2 MG/ML 2 ML VIAL ONE (12:50)
[2017-09-23] MEDS: VANCOMYCIN INJ 1,750 MG in SODIUM CHLORIDE 0.9% 500ML 500 ML IV SCH (13:50)
--- NOTE | 2017-09-23 14:26 | [facility] Operative Report ---
Operative Report Operative Date Sep 23, 2017. Pre-Operative Diagnosis fall status/post left total knee arthroplasty Post-Operative Diagnosis fall status/post left total knee arthroplasty Procedure(s) Performed Wound dehiscence with quadriceps rupture left total knee arthroplasty Surgeon Dr. Fernando Green Advice Nurse Surgeon(s) Abdifatah Moses PA-C Estimated Blood Loss 5 mL Findings Patient presents with having had a wound dehiscence closure presents for a repair of quadricep tendon status post fall last p.m. patient is partially 2 weeks status post total knee arthroplasty fell at her home dehisced wound and had a quadricep rupture presents for repair washout poly-change Specimens Microbiology: collected at 1400 left knee fluid -anerobic/aerobic -routine culture/sensitivity -gram stain Complication(s) None Disposition Recovery Room / PACU Indications Patient presents with a quadricep rupture wound dehiscence of the left knee status post total knee arthroplasty Description of Procedure After proper prepping and draping the left lower extremity sutures were removed the knee was repainted with Betadine as well sutures from the repair of and washout from the night previous by Dr. Major emergency room were washed out and socially the wound was irrigated with 9 L of sterile saline solution with bacitracin was quad tear proximal to the previous area of repair of the medial retinaculum this reason the wound been completely thoroughly irrigated with copious amounts of sterile saline socially washout with Betadine soaked poly- was changed wound was irrigated with 9 L of saline solution with bacitracin performing thorough irrigation debridement lavage poly-was changed to a size 15 posterior constrained poly-stability of the medial lateral retinaculum and medial lateral collateral ligaments was excellent the more proximal quad rupture was repaired with #5 FiberWire #2 FiberWire was used in the more proximal portion of the VMO repair and #1 Vicryl was used in the distal portion skin was closed with 2-0 Vicryl and skin clips sterile compressive dressing as well as a knee immobilizer patient taken to recovery in stable condition. Abdifatha VILLARREAL was necessary for prepping draping retraction wound closure defect is subcutaneous and skin was necessary for the case I attest to the content of the Intraoperative Record and any orders documented therein. Any exceptions are noted below.
[2017-09-23] MEDS ORDERED: VANCOMYCIN INJ 500 MG in SODIUM CHLORIDE 0.9% 250ML 250 ML IV SCH (14:30)
[2017-09-23] MEDS ORDERED: BISACODYL 10 MG SUPP PR PRN (14:30)
[2017-09-23] MEDS ORDERED: ONDANSETRON INJ 2 MG/ML 2 ML VIAL IV PRN ×2 (14:30→15:00)
[2017-09-23] MEDS ORDERED: ZOLPIDEM TARTRATE 5 MG TAB PO PRN (14:30)
[2017-09-23] MEDS ORDERED: MAGNESIUM HYDROXIDE SUSP 30 ML UDC PO PRN (14:30)
[2017-09-23] MEDS ORDERED: METOCLOPRAMIDE HCL INJ 5 MG/ML 2 ML VIAL IV PRN (14:30)
[2017-09-23] MEDS ORDERED: SOD PHOSPHATE/SOD BIPHOSPHATE ENEMA 132 ML BTL PR PRN (14:30)
[2017-09-23] MEDS ORDERED: DiphenhydrAMINE HCL 50 MG/ML VIAL IV PRN (14:30)
[2017-09-23] MEDS ORDERED: ALUMINUM/MAGNESIUM/SIMETH (MAALOX MAX) 30 ML UDC PO PRN (14:30)
[2017-09-23] MEDS ORDERED: FLUMAZENIL 0.1 MG/1 ML 10 ML VIAL IV PRN (15:00)
[2017-09-23] MEDS ORDERED: LABETALOL HCL IV 5 MG/ML 20ML IV PRN (15:00)
[2017-09-23] MEDS ORDERED: FENTANYL CITRATE INJ 50 MCG/1 ML 2 ML VIAL IV PRN (15:00)
[2017-09-23] MEDS ORDERED: HYDROmorphone INJ 1 MG/ML SYR IV PRN (15:00)
[2017-09-23] MEDS ORDERED: PROMETHAZINE HCL INJ 12.5 MG in SODIUM CHLORIDE 0.9% 50ML 50 ML IV PRN (15:00)
[2017-09-23] MEDS ORDERED: NALOXONE HCL 0.4 MG/1 ML VIAL/CARP IV PRN (15:00)
[2017-09-23] MEDS ORDERED: EpHEDrine SULFATE INJ 50 MG/ML AMP IV PRN (15:00)
[2017-09-23] MEDS ORDERED: ATROPINE SULFATE 0.1 MG/ML 5ML SYR IV PRN (15:00)
--- NOTE | 2017-09-23 15:40 | Anesthesiology Progress Note ---
Anesthesia Post Op Note Date & Time Sep 23, 2017 at 15:39 Vital Signs Pain Intensity: 0 Vital Signs Past 12 Hours Date Time Temp Pulse Resp B/P (MAP) Pulse Ox O2 Delivery O2 Flow Rate FiO2 09/23/17 15:25 78 14 136/89 100 Nasal Cannula 3 09/23/17 15:15 79 16 130/90 100 Nasal Cannula 5 09/23/17 15:05 77 14 150/63 99 Nasal Cannula 5 09/23/17 14:58 36.3 82 14 134/101 98 Nasal Cannula 5 09/23/17 13:11 37.3 77 20 120/55 100 09/23/17 12:55 37.2 80 20 112/58 98 09/23/17 11:35 36.9 75 18 138/80 (99) 99 Nasal Cannula 3.0 09/23/17 08:56 99 Nasal Cannula 3.0 09/23/17 07:41 36.7 63 18 122/70 (87) 99 Nasal Cannula 3.0 09/23/17 07:35 Nasal Cannula 3.0 Notes Mental Status: alert / awake / arousable, participated in evaluation Pt Amnestic to Procedure: Yes Nausea / Vomiting: adequately controlled Pain: adequately controlled Airway Patency, RR, SpO2: stable & adequate BP & HR: stable & adequate Hydration State: stable & adequate Anesthetic Complications: no major complications apparent
--- NOTE | 2017-09-23 15:58 | DIAGNOSTIC IMAGING REPORT ---
TWO VIEWS LEFT KNEE CLINICAL HISTORY: Postoperative examination. FINDINGS: AP and crosstable lateral portable views of the left knee are obtained. A left knee arthroplasty is in near anatomic alignment. There has been undersurface remodeling of the patella. No acute fracture is seen. There are expected postoperative changes around the knee including skin clips, a surgical drain, soft tissue edema, and subcutaneous gas. IMPRESSION: Expected postoperative changes status post left knee arthroplasty. No acute fracture is seen. Electronically signed by: Sukhwinder Pedro M.D. 09/23/2017 3:57 PM Dictated Date/Time: 09/23/2017 3:57 PM
[2017-09-23] MEDS: ONDANSETRON INJ 2 MG/ML 2 ML VIAL IV PRN (16:17)
[2017-09-23] MEDS: FERROUS GLUCONATE 324 MG TAB PO SCH (18:50)
[2017-09-23] MEDS: TRAMADOL HCL 50 MG TAB PO PRN (18:53)
[2017-09-23] MEDS ORDERED: NURSING VERBAL MED ORDER ONE (19:15)
[2017-09-23] MEDS ORDERED: MoRPHine SULFATE 4 MG/ML 1 ML CARP\\VIAL IV PRN (19:45)
[2017-09-23] MEDS: MoRPHine SULFATE 2 MG/ML CARP IV PRN (20:17)
[2017-09-23] MEDS: SENNA 8.6 MG TAB PO SCH ×2 (21:00→21:24)
[2017-09-23] MEDS ORDERED: hydrOXYzine HCL 25 MG TAB PO SCH (21:00)
[2017-09-23] MEDS: DOCUSATE SODIUM 100 MG CAP PO SCH (21:24)
[2017-09-24] MEDS ORDERED: NURSING DECISION MEDICATION ORDER SCH (01:00)
[2017-09-24] MEDS: VANCOMYCIN INJ 1,750 MG in SODIUM CHLORIDE 0.9% 500ML 500 ML IV SCH ×2 (02:18→13:58)
[2017-09-24 03:30] VITALS: BP 110/68; PULSE 86; TEMP 36.9; O2SAT 98
[2017-09-24] MEDS: LEVOTHYROXINE 137 MCG TAB PO SCH (05:38)
[2017-09-24] MEDS: ACETAMINOPHEN 500 MG TAB PO SCH ×3 (05:38→20:50)
[2017-09-24] MEDS: SODIUM CHLORIDE 0.9% 1000ML 1,000 ML IV SCH (05:38)
[2017-09-24 06:46] LABS: HEMATOCRIT 30.1 % (37-47); MEAN CELL VOLUME 90.7 fL (80-100); MEAN CORPUSCULAR HEMOGLOBIN 27.7 pg (25-34); MEAN CORPUSCULAR HGB CONC 30.6 g/dl (32-36); MEAN PLATELET VOLUME 10.1 fL (7.4-10.4); PLATELET COUNT 202 K/uL (130-400); RED BLOOD COUNT 3.32 M/uL (4.2-5.4); WHITE BLOOD COUNT 9.15 K/uL (4.8-10.8)
[2017-09-24 07:25] VITALS: BP 117/73; PULSE 83; TEMP 37.4; O2SAT 97
[2017-09-24] MEDS: MoRPHine SULFATE 2 MG/ML CARP IV PRN ×2 (07:32→15:30)
--- NOTE | 2017-09-24 08:07 | Anesthesiology Progress Note ---
Anesthesia Post Op Note Date & Time Sep 24, 2017 at 08:06 Vital Signs Pain Intensity: 8.0 Vital Signs Past 12 Hours Date Time Temp Pulse Resp B/P (MAP) Pulse Ox O2 Delivery O2 Flow Rate FiO2 09/24/17 07:45 Nasal Cannula 3.0 09/24/17 07:25 37.4 83 16 117/73 (88) 97 3.0 09/24/17 03:30 36.9 86 18 110/68 (82) 98 Nasal Cannula 2.0 09/23/17 23:25 Nasal Cannula 3.0 09/23/17 23:10 37.1 83 18 119/69 (86) 97 Room Air Notes Mental Status: alert / awake / arousable, participated in evaluation Pt Amnestic to Procedure: Yes Nausea / Vomiting: adequately controlled Pain: adequately controlled Airway Patency, RR, SpO2: stable & adequate BP & HR: stable & adequate Hydration State: stable & adequate Anesthetic Complications: no major complications apparent
[2017-09-24] MEDS: FUROSEMIDE 20 MG TAB PO SCH ×2 (09:01→20:51)
[2017-09-24] MEDS: BuPROPion XL 300 MG TABCR PO SCH (09:01)
[2017-09-24] MEDS: DOCUSATE SODIUM 100 MG CAP PO SCH ×2 (09:01→20:51)
[2017-09-24] MEDS: POTASSIUM CHLORIDE 10 MEQ TABCR PO SCH (09:02)
[2017-09-24] MEDS: MULTIVITAMIN TAB PO SCH (09:02)
[2017-09-24] MEDS: PANTOprazole SOD 40 MG TAB PO SCH (09:02)
[2017-09-24] MEDS: FERROUS GLUCONATE 324 MG TAB PO SCH ×3 (09:02→18:03)
[2017-09-24] MEDS: TIOTROPIUM BROMIDE 5 PUFF/90 MCG INH INH SCH (09:03)
[2017-09-24] MEDS: SACCHAROMYCES BOUL (FLORASTOR) 250 MG CAP PO SCH (09:03)
[2017-09-24] MEDS: ESCITALOPRAM OXALATE 20 MG TAB PO SCH (09:06)
--- NOTE | 2017-09-24 09:11 | Orthopedic Progress Note ---
Orthopedic Progress Note Date of Service Sep 24, 2017. Subjective Post OP Day: 1 Reports: feeling well, pain controlled w PO medications, Denies: complaints, chest pain, SOB, nausea / vomiting, light headedness, calf pain Objective calves soft nontender, N/V intact, dressing C/D/I, A&O x3, toes mobile, hemovac drainage (25cc/8 hours) Date Time Temp Pulse Resp B/P (MAP) Pulse Ox O2 Delivery O2 Flow Rate FiO2 09/24/17 07:45 Nasal Cannula 3.0 09/24/17 07:25 37.4 83 16 117/73 (88) 97 3.0 09/24/17 03:30 36.9 86 18 110/68 (82) 98 Nasal Cannula 2.0 09/23/17 23:25 Nasal Cannula 3.0 09/23/17 23:10 37.1 83 18 119/69 (86) 97 Room Air 09/23/17 19:32 97 Nasal Cannula 3.0 09/23/17 19:00 37.4 84 16 129/66 (87) 97 Nasal Cannula 3.0 09/23/17 18:00 37.1 83 16 143/83 (103) 97 Nasal Cannula 3.0 09/23/17 17:11 37.2 80 18 137/80 (99) 98 Nasal Cannula 2.0 09/23/17 16:34 36.9 74 16 123/56 (78) 99 Nasal Cannula 3.0 09/23/17 16:00 99 Nasal Cannula 3.0 09/23/17 16:00 99 Nasal Cannula 3.0 09/23/17 15:40 81 14 142/61 98 Nasal Cannula 3 09/23/17 15:35 37.3 81 17 155/81 99 Nasal Cannula 3 09/23/17 15:25 78 14 136/89 100 Nasal Cannula 3 09/23/17 15:15 79 16 130/90 100 Nasal Cannula 5 09/23/17 15:05 77 14 150/63 99 Nasal Cannula 5 09/23/17 14:58 36.3 82 14 134/101 98 Nasal Cannula 5 09/23/17 13:11 37.3 77 20 120/55 100 09/23/17 12:55 37.2 80 20 112/58 98 09/23/17 11:35 36.9 75 18 138/80 (99) 99 Nasal Cannula 3.0 Laboratory Results 24 Hours: Test 09/24/17 06:14 Hematocrit 30.1 % Hemoglobin 9.2 g/dL Assessment & Plan Assessment: POD #1 s/p I&D and poly exchange left TKA - WBAT with immobilizer on and walker - gentle ROM 0-25 degrees in bed, immobilizer on at all times but may loosen a little for comfort while in bed - JUNIOR/SCD/ASA bid -will need d/c to Rehab vs SNF Discharge Planning Discharge Planning: uncertain DVT Prophylaxis: TEDs, SCDs, ASA
[2017-09-24] MEDS: OXYCODONE HCL IR 5 MG TAB (IMMEDIATE RELEASE) PO PRN ×2 (10:40→18:25)
[2017-09-24] MEDS ORDERED: VANCOMYCIN TROUGH ONE (13:30)
[2017-09-24 15:58] VITALS: BP 118/73; PULSE 90; TEMP 37.2; O2SAT 95
--- NOTE | 2017-09-24 16:50 | Family Medicine Progress Note ---
Progress Note Date of Service Sep 24, 2017. Subjective Pt evaluation today including: conversation w/ patient, physical exam, chart review, lab review, review of inpatient medication list Pain: Left knee pain reported PO Intake: Tolerating PO intake Voiding: no voiding problems Ms. Pettit reports she feels fine today. She denies chest pain, trouble breathing , abdominal pain, n/v and states her left leg pain is better than yesterday. Constitutional: No fever, No chills Cardiovascular: No chest pain Abdomen: No pain, No nausea, No vomiting All Other Systems: Reviewed and Negative Medications Current Inpatient Medications Medications (Trade) Dose Ordered Sig/[place] Route Start Time Stop Time Status Last Admin Dose Admin Acetaminophen (Tylenol Tab) 1,000 mg Q8 PO 09/23/17 01:30 10/23/17 01:29 09/24/17 05:38 1,000 MG Albuterol (Ventolin Hfa Inhaler) 2 puffs Q4 PRN INH 09/22/17 22:45 10/22/17 22:44 Bupropion HCl (Wellbutrin-Xl Tab) 300 mg QAM PO 09/23/17 09:00 10/23/17 08:59 09/24/17 09:01 300 MG Escitalopram Oxalate (Lexapro Tab) 20 mg QAM PO 09/23/17 09:00 10/23/17 08:59 09/24/17 09:06 20 MG Furosemide (Lasix Tab) 20 mg BID PO 09/23/17 09:00 10/23/17 08:59 09/24/17 09:01 20 MG Levothyroxine Sodium (Synthroid Tab) 137 mcg DAILYBB PO 09/23/17 06:00 10/23/17 05:59 09/24/17 05:38 137 MCG Lorazepam (Ativan Tab) 0.5 mg HS PO 09/23/17 01:30 10/23/17 01:29 09/23/17 21:24 0.5 MG Oxycodone HCl (Roxicodone Immediate Rel Tab) 5 mg Q4H PRN PO 09/22/17 22:45 10/06/17 22:44 09/23/17 10:41 5 MG Potassium Chloride (Klor-Con M10) 10 meq QAM PO 09/23/17 09:00 1/10/18 08:59 09/24/17 09:02 10 MEQ Promethazine HCl (Phenergan Tab) 25 mg Q6H PRN PO 09/22/17 22:45 10/22/17 22:44 Quetiapine Fumarate (seroQUEL TAB) 400 mg HS PO 09/23/17 21:00 10/23/17 20:59 09/23/17 21:25 400 MG Senna (Senokot Tab) 17.2 mg HS PO 09/23/17 21:00 10/23/17 20:59 09/23/17 21:24 17.2 MG Ondansetron HCl (Zofran Inj) 4 mg Q4H PRN IV 09/22/17 23:30 10/22/17 23:29 09/23/17 16:17 4 MG Tiotropium [place] (Spiriva Handihaler Inhaler) 1 puff QAM INH 09/23/17 09:00 10/23/17 08:59 09/24/17 09:03 1 PUFF Hydroxyzine HCl (Vistaril Tab) 25 mg HS PRN PO 09/23/17 01:30 10/23/17 01:29 Saccharomyces Boulardii (Florastor Cap) 250 mg DAILY PO 09/23/17 09:00 10/23/17 08:59 09/24/17 09:03 250 MG Vancomycin HCl (Consult) 1 ea UD PRN N/A 09/23/17 08:15 09/24/17 16:30 Vancomycin HCl 1750 mg/Sodium Chloride 535 ml @ 200 mls/hr Q12@0200,1400 IV 09/23/17 14:00 09/24/17 16:30 09/24/17 02:18 200 MLS/HR Sodium Chloride 1,000 ml @ 100 mls/hr Q10H IV 09/23/17 14:26 09/24/17 14:25 09/24/17 05:38 100 MLS/HR Oxycodone HCl (Roxicodone Immediate Rel Tab) 1 TABLET FOR PAIN RATING... Q4H PRN PO 09/23/17 14:30 10/07/17 14:29 09/24/17 10:40 10 MG Magnesium Hydroxide (Milk Of Magnesia Susp) 30 ml Q6H PRN PO 09/23/17 14:30 10/23/17 14:29 Bisacodyl (Dulcolax Supp) 10 mg DAILY PRN NE 09/23/17 14:30 10/23/17 14:29 Sodium Biphosphate/ Sodium Phosphate (Fleet Enema) 132 ml DAILY PRN NE 09/23/17 14:30 10/23/17 14:29 Senna (Senokot Tab) 17.2 mg HS PO 09/23/17 21:00 10/23/17 20:59 Docusate Sodium (coLACE CAP) 100 mg BID PO 09/23/17 21:00 10/23/17 20:59 09/24/17 09:01 100 MG Diphenhydramine HCl (Benadryl Cap) 25 mg Q8H PRN PO 09/23/17 14:30 10/23/17 14:29 Diphenhydramine HCl (Benadryl Inj) 25 mg Q8H PRN IV 09/23/17 14:30 10/23/17 14:29 Al Hydrox/Mg Hydrox/Simethicone (Maalox Max Susp) 15 ml Q4H PRN PO 09/23/17 14:30 10/23/17 14:29 Zolpidem Tartrate (Ambien Tab) 5 mg HSZ PRN PO 09/23/17 14:30 10/23/17 14:29 Multivitamins (Multivitamin Tab) 1 tab QAM PO 09/24/17 09:00 10/24/17 08:59 09/24/17 09:02 1 TAB Ondansetron HCl (Zofran Inj) 4 mg Q6H PRN IV 09/23/17 14:30 10/23/17 14:29 Metoclopramide HCl (Reglan Inj) 10 mg Q6H PRN IV 09/23/17 14:30 10/23/17 14:29 Ferrous Gluconate (Ferrous Gluconate Tab) 324 mg TIDM PO 09/23/17 17:45 10/23/17 17:44 09/24/17 09:02 324 MG Pantoprazole Sodium (Protonix Tab) 40 mg QAM PO 09/24/17 09:00 10/24/17 08:59 09/24/17 09:02 40 MG Tramadol HCl (Ultram Tab) 1 tablet for pain rating... Q4H PRN PO 09/23/17 14:30 10/23/17 14:29 09/23/17 18:53 100 MG Aspirin (Ecotrin Tab) 81 mg BID PO 09/23/17 21:00 10/23/17 20:59 Future Hold Morphine Sulfate (MoRPHine SULFATE INJ) 2 mg Q2H PRN IV 09/23/17 19:30 10/07/17 19:29 09/24/17 07:32 2 MG Morphine Sulfate (MoRPHine SULFATE INJ) 4 mg Q2H PRN IV 09/23/17 19:45 10/07/17 19:44 Objective Vital Signs Date Time Temp Pulse Resp B/P (MAP) Pulse Ox O2 Delivery O2 Flow Rate FiO2 09/24/17 07:45 Nasal Cannula 3.0 09/24/17 07:25 37.4 83 16 117/73 (88) 97 3.0 09/24/17 03:30 36.9 86 18 110/68 (82) 98 Nasal Cannula 2.0 09/23/17 23:25 Nasal Cannula 3.0 09/23/17 23:10 37.1 83 18 119/69 (86) 97 Room Air 09/23/17 19:32 97 Nasal Cannula 3.0 09/23/17 19:00 37.4 84 16 129/66 (87) 97 Nasal Cannula 3.0 09/23/17 18:00 37.1 83 16 143/83 (103) 97 Nasal Cannula 3.0 09/23/17 17:11 37.2 80 18 137/80 (99) 98 Nasal Cannula 2.0 09/23/17 16:34 36.9 74 16 123/56 (78) 99 Nasal Cannula 3.0 09/23/17 16:00 99 Nasal Cannula 3.0 09/23/17 16:00 99 Nasal Cannula 3.0 09/23/17 15:40 81 14 142/61 98 Nasal Cannula 3 09/23/17 15:35 37.3 81 17 155/81 99 Nasal Cannula 3 09/23/17 15:25 78 14 136/89 100 Nasal Cannula 3 09/23/17 15:15 79 16 130/90 100 Nasal Cannula 5 09/23/17 15:05 77 14 150/63 99 Nasal Cannula 5 09/23/17 14:58 36.3 82 14 134/101 98 Nasal Cannula 5 Physical Exam General Appearance: WD/WN, no apparent distress Respiratory/Chest: chest non-tender, lungs clear, normal breath sounds, no respiratory distress, no accessory muscle use Cardiovascular: regular rate, rhythm, no edema, no gallop, no JVD, no murmur Abdomen: normal bowel sounds, non tender, soft, no organomegaly, no pulsatile mass Extremities: + pertinent finding (left leg bandaged, but full ROM and sensation of toes) Laboratory Results Last 24 Hours Test 09/24/17 06:14 White Blood Count 9.15 K/uL Red Blood Count 3.32 M/uL Hemoglobin 9.2 g/dL Hematocrit 30.1 % Mean Corpuscular Volume 90.7 fL Mean Corpuscular Hemoglobin 27.7 pg Mean Corpuscular Hemoglobin Concent 30.6 g/dl RDW Standard Deviation 47.9 fL RDW Coefficient of Variation 14.6 % Platelet Count 202 K/uL Mean Platelet Volume 10.1 fL Assessment and Plan Ms. Pettit is a 62 year old female who was admitted for intervention of her wound dehiscence of the left knee s/p left knee arthroplasty Wound dehiscence s/p left knee arthroplasty on 09/11/17 - pain well controlled - post-op day 1 after repair of quadriceps tendon - joint fluid grew gram positive cocci - continue vancomycin - restart home aspirin (unsure as to why she is on aspirin, but has been on it for years) - WCC remain normal at 9.15 - will need PT/OT eval as she improves for eventual placement in rehab/SNF Anemia - 1 unit of PRBC transfused yesterday and hemoglobin autumn from 7.8 to 9.2 COPD, stable - albuterol prn and spiriva - continue home dose of O2 3L continuous Depression - continue wellbutrin 300 mg daily and lexapro 20 mg daily - continue Vistaril prn Hypothyroidism - continue levothyroxine 137 mcg CHF - diastolic dysfunction, stable - lasix 20 mg daily and KCL 10 meq Code: Full DVT Prophylaxis: SCDs Disposition: pending PT/OT eval for eventual placement Resident Tracking Resident Involvement: Resident Care Provided Care Provided: Adult Hospital Medicine Reviewed: Pt Seen/Exam by Me History hasn't moved bowels since admission no other new concerns Constitutional: denies: fever Respiratory: negative: short of breath Cardiovascular: denies chest pain General Appearance: no apparent distress Respiratory: lungs clear, no respiratory distress Cardiovascular: regular rate, rhythm Extremities: other (left knee in dressing) Neurologic/Psychiatric: alert, oriented x 3 Skin Characteristics: warm/dry Assessment/Plan Resident Physician Supervision Note: I independently interviewed and examined the patient and verified the baker history and physical, reviewed labs and image studies, discussed the case with the resident Dr. Zepeda and agree with the findings and care plan.
[2017-09-24] MEDS: LORAZEPAM 0.5 MG TAB PO SCH (20:49)
[2017-09-24] MEDS: ASPIRIN 81 MG ECTAB PO SCH (20:50)
[2017-09-24] MEDS: SENNA 8.6 MG TAB PO SCH ×2 (20:50→20:51)
[2017-09-24] MEDS: QUETIAPINE FUMARATE 200 MG TAB PO SCH (20:51)
[2017-09-24] MEDS: TRAMADOL HCL 50 MG TAB PO PRN (21:04)
[2017-09-24 22:50] VITALS: BP 101/62; PULSE 78; TEMP 37.1; O2SAT 98
[2017-09-25] MEDS: OXYCODONE HCL IR 5 MG TAB (IMMEDIATE RELEASE) PO PRN ×4 (00:29→17:55)
[2017-09-25] MEDS: LEVOTHYROXINE 137 MCG TAB PO SCH (06:02)
[2017-09-25] MEDS: ACETAMINOPHEN 500 MG TAB PO SCH ×3 (06:03→22:11)
[2017-09-25 06:21] LABS: HEMATOCRIT 30.2 % (37-47); MEAN CELL VOLUME 92.4 fL (80-100); MEAN CORPUSCULAR HEMOGLOBIN 28.1 pg (25-34); MEAN CORPUSCULAR HGB CONC 30.5 g/dl (32-36); MEAN PLATELET VOLUME 10.5 fL (7.4-10.4); PLATELET COUNT 180 K/uL (130-400); RED BLOOD COUNT 3.27 M/uL (4.2-5.4)
[2017-09-25 07:30] VITALS: BP 110/74; PULSE 78; TEMP 37; O2SAT 99
[2017-09-25 08:00] VITALS: O2SAT 99
[2017-09-25] MEDS: FUROSEMIDE 20 MG TAB PO SCH ×2 (08:28→20:42)
[2017-09-25] MEDS: SACCHAROMYCES BOUL (FLORASTOR) 250 MG CAP PO SCH (08:28)
[2017-09-25] MEDS: POTASSIUM CHLORIDE 10 MEQ TABCR PO SCH (08:28)
[2017-09-25] MEDS: MULTIVITAMIN TAB PO SCH (08:29)
[2017-09-25] MEDS: DOCUSATE SODIUM 100 MG CAP PO SCH ×2 (08:29→20:41)
[2017-09-25] MEDS: ASPIRIN 81 MG ECTAB PO SCH ×2 (08:29→20:41)
[2017-09-25] MEDS: FERROUS GLUCONATE 324 MG TAB PO SCH ×3 (08:29→17:54)
[2017-09-25] MEDS: BuPROPion XL 300 MG TABCR PO SCH (08:29)
[2017-09-25] MEDS: ESCITALOPRAM OXALATE 20 MG TAB PO SCH (08:29)
[2017-09-25] MEDS: TIOTROPIUM BROMIDE 5 PUFF/90 MCG INH INH SCH (08:29)
[2017-09-25] MEDS: PANTOprazole SOD 40 MG TAB PO SCH (08:30)
--- NOTE | 2017-09-25 08:36 | Family Medicine Progress Note ---
Progress Note Date of Service Sep 25, 2017. Subjective Pt evaluation today including: conversation w/ patient, physical exam, chart review, lab review, review of inpatient medication list Pain: Minimal pain reported PO Intake: Tolerating PO intake Voiding: no voiding problems Ms. Pettit reports she feels well today. She states her left knee pain is well controlled and she only has the occasional twinge of pain. She denies chest pain , fever, chills, SOB, n/v, and is eating and drinking well. Constitutional: No fever, No chills Cardiovascular: No chest pain Abdomen: No pain, No nausea, No vomiting All Other Systems: Reviewed and Negative Medications Current Inpatient Medications Medications (Trade) Dose Ordered Sig/[place] Route Start Time Stop Time Status Last Admin Dose Admin Acetaminophen (Tylenol Tab) 1,000 mg Q8 PO 09/23/17 01:30 10/23/17 01:29 09/25/17 06:03 1,000 MG Albuterol (Ventolin Hfa Inhaler) 2 puffs Q4 PRN INH 09/22/17 22:45 10/22/17 22:44 Bupropion HCl (Wellbutrin-Xl Tab) 300 mg QAM PO 09/23/17 09:00 10/23/17 08:59 09/25/17 08:29 300 MG Escitalopram Oxalate (Lexapro Tab) 20 mg QAM PO 09/23/17 09:00 10/23/17 08:59 09/25/17 08:29 20 MG Furosemide (Lasix Tab) 20 mg BID PO 09/23/17 09:00 10/23/17 08:59 09/25/17 08:28 20 MG Levothyroxine Sodium (Synthroid Tab) 137 mcg DAILYBB PO 09/23/17 06:00 10/23/17 05:59 09/25/17 06:02 137 MCG Lorazepam (Ativan Tab) 0.5 mg HS PO 09/23/17 01:30 10/23/17 01:29 09/24/17 20:49 0.5 MG Oxycodone HCl (Roxicodone Immediate Rel Tab) 5 mg Q4H PRN PO 09/22/17 22:45 10/06/17 22:44 09/23/17 10:41 5 MG Potassium Chloride (Klor-Con M10) 10 meq QAM PO 09/23/17 09:00 10/23/17 08:59 09/25/17 08:28 10 MEQ Promethazine HCl (Phenergan Tab) 25 mg Q6H PRN PO 09/22/17 22:45 10/22/17 22:44 Quetiapine Fumarate (seroQUEL TAB) 400 mg HS PO 09/23/17 21:00 10/23/17 20:59 09/24/17 20:51 400 MG Senna (Senokot Tab) 17.2 mg HS PO 09/23/17 21:00 10/23/17 20:59 09/24/17 20:51 17.2 MG Ondansetron HCl (Zofran Inj) 4 mg Q4H PRN IV 09/22/17 23:30 10/22/17 23:29 09/23/17 16:17 4 MG Tiotropium [place] (Spiriva Handihaler Inhaler) 1 puff QAM INH 09/23/17 09:00 10/23/17 08:59 09/25/17 08:29 1 PUFF Hydroxyzine HCl (Vistaril Tab) 25 mg HS PRN PO 09/23/17 01:30 10/23/17 01:29 Saccharomyces Boulardii (Florastor Cap) 250 mg DAILY PO 09/23/17 09:00 10/23/17 08:59 09/25/17 08:28 250 MG Oxycodone HCl (Roxicodone Immediate Rel Tab) 1 TABLET FOR PAIN RATING... Q4H PRN PO 09/23/17 14:30 10/07/17 14:29 09/25/17 08:10 10 MG Magnesium Hydroxide (Milk Of Magnesia Susp) 30 ml Q6H PRN PO 09/23/17 14:30 10/23/17 14:29 Bisacodyl (Dulcolax Supp) 10 mg DAILY PRN MA 09/23/17 14:30 10/23/17 14:29 Sodium Biphosphate/ Sodium Phosphate (Fleet Enema) 132 ml DAILY PRN MA 09/23/17 14:30 10/23/17 14:29 Senna (Senokot Tab) 17.2 mg HS PO 09/23/17 21:00 10/23/17 20:59 Docusate Sodium (coLACE CAP) 100 mg BID PO 09/23/17 21:00 10/23/17 20:59 09/25/17 08:29 100 MG Diphenhydramine HCl (Benadryl Cap) 25 mg Q8H PRN PO 09/23/17 14:30 10/23/17 14:29 Diphenhydramine HCl (Benadryl Inj) 25 mg Q8H PRN IV 09/23/17 14:30 10/23/17 14:29 Al Hydrox/Mg Hydrox/Simethicone (Maalox Max Susp) 15 ml Q4H PRN PO 09/23/17 14:30 10/23/17 14:29 Zolpidem Tartrate (Ambien Tab) 5 mg HSZ PRN PO 09/23/17 14:30 10/23/17 14:29 Multivitamins (Multivitamin Tab) 1 tab QAM PO 09/24/17 09:00 10/24/17 08:59 09/25/17 08:29 1 TAB Ondansetron HCl (Zofran Inj) 4 mg Q6H PRN IV 09/23/17 14:30 10/23/17 14:29 Metoclopramide HCl (Reglan Inj) 10 mg Q6H PRN IV 09/23/17 14:30 10/23/17 14:29 Ferrous Gluconate (Ferrous Gluconate Tab) 324 mg TIDM PO 09/23/17 17:45 10/23/17 17:44 09/25/17 08:29 324 MG Pantoprazole Sodium (Protonix Tab) 40 mg QAM PO 09/24/17 09:00 10/24/17 08:59 09/25/17 08:30 40 MG Tramadol HCl (Ultram Tab) 1 tablet for pain rating... Q4H PRN PO 09/23/17 14:30 10/23/17 14:29 09/24/17 21:04 100 MG Aspirin (Ecotrin Tab) 81 mg BID PO 09/23/17 21:00 10/23/17 20:59 Future hold 09/25/17 08:29 81 MG Morphine Sulfate (MoRPHine SULFATE INJ) 2 mg Q2H PRN IV 09/23/17 19:30 10/07/17 19:29 09/24/17 15:30 2 MG Morphine Sulfate (MoRPHine SULFATE INJ) 4 mg Q2H PRN IV 09/23/17 19:45 10/07/17 19:44 Objective Vital Signs Date Time Temp Pulse Resp B/P (MAP) Pulse Ox O2 Delivery O2 Flow Rate FiO2 09/25/17 08:00 99 Nasal Cannula 2.0 09/25/17 07:30 37.0 78 18 110/74 (86) 99 Nasal Cannula 2.0 09/25/17 00:20 Nasal Cannula 3.0 09/24/17 22:50 37.1 78 18 101/62 (75) 98 Nasal Cannula 2.0 09/24/17 15:58 37.2 90 20 118/73 (88) 95 Nasal Cannula 2.0 09/24/17 15:26 Nasal Cannula 3.0 Physical Exam General Appearance: WD/WN, no apparent distress Respiratory/Chest: chest non-tender, lungs clear, normal breath sounds, no respiratory distress, no accessory muscle use Cardiovascular: regular rate, rhythm, no edema, no gallop, no JVD, no murmur Abdomen: normal bowel sounds, non tender, soft, no organomegaly Extremities: + pertinent finding (left knee in bandages. Full ROM and sensation of toes and feet bilaterally) Laboratory Results Last 24 Hours Test 09/25/17 05:32 White Blood Count 8.30 K/uL Red Blood Count 3.27 M/uL Hemoglobin 9.2 g/dL Hematocrit 30.2 % Mean Corpuscular Volume 92.4 fL Mean Corpuscular Hemoglobin 28.1 pg Mean Corpuscular Hemoglobin Concent 30.5 g/dl RDW Standard Deviation 49.6 fL RDW Coefficient of Variation 14.8 % Platelet Count 180 K/uL Mean Platelet Volume 10.5 fL Assessment and Plan Ms. Pettit is a 62 year old female who was admitted for intervention of her wound dehiscence of the left knee s/p left knee arthroplasty Wound dehiscence s/p left knee arthroplasty on 09/11/17 - pain well controlled - post-op day 2 after repair of quadriceps tendon - joint fluid grew coag negative staphylococcus, awaiting sensitivities - continue vancomycin - continue home aspirin - WCC remain normal at 8.3 - patient accepted to [facility] pending insurance authorization - PT/OT eval today Anemia - 1 unit of PRBC transfused on 09/23 and hemoglobin has been stable since at 9.2 COPD, stable - albuterol prn and spiriva - continue home dose of O2 3L continuous Depression - continue wellbutrin 300 mg daily and lexapro 20 mg daily - continue Vistaril prn Hypothyroidism - continue levothyroxine 137 mcg CHF - diastolic dysfunction, stable - lasix 20 mg daily and KCL 10 meq Code: Full DVT Prophylaxis: JUNIOR/SCD/ASA bid Disposition: pending PT/OT eval Resident Tracking Resident Involvement: Resident Care Provided Care Provided: Adult Hospital Medicine Reviewed: Pt Seen/Exam by Me History no chest pain, shortness of breath left knee pain - controlled with medications Constitutional: denies: fever Respiratory: negative: short of breath Cardiovascular: denies chest pain General Appearance: no apparent distress Respiratory: lungs clear, no respiratory distress Cardiovascular: regular rate, rhythm Neurologic/Psychiatric: alert, oriented x 3 Assessment/Plan Resident Physician Supervision Note: I independently interviewed and examined the patient and verified the baker history and physical, reviewed labs and image studies, discussed the case with the resident Dr. Zepeda and agree with the findings and care plan.
[2017-09-25] MEDS: ONDANSETRON INJ 2 MG/ML 2 ML VIAL IV PRN ×2 (09:05→17:54)
--- NOTE | 2017-09-25 09:49 | Orthopedic Progress Note ---
Orthopedic Progress Note Date of Service Sep 25, 2017. Subjective Post OP Day: 2 Reports: feeling well, pain controlled w PO medications, Denies: complaints, chest pain, SOB, nausea / vomiting, light headedness, calf pain Objective calves soft nontender, N/V intact, dressing C/D/I, A&O x3, toes mobile Date Time Temp Pulse Resp B/P (MAP) Pulse Ox O2 Delivery O2 Flow Rate FiO2 09/25/17 08:00 Nasal Cannula 3.0 09/25/17 08:00 99 Nasal Cannula 2.0 09/25/17 07:30 37.0 78 18 110/74 (86) 99 Nasal Cannula 2.0 09/25/17 00:20 Nasal Cannula 3.0 09/24/17 22:50 37.1 78 18 101/62 (75) 98 Nasal Cannula 2.0 09/24/17 15:58 37.2 90 20 118/73 (88) 95 Nasal Cannula 2.0 09/24/17 15:26 Nasal Cannula 3.0 Laboratory Results 24 Hours: Test 09/25/17 05:32 Hematocrit 30.2 % Hemoglobin 9.2 g/dL Assessment & Plan Assessment: POD #2 s/p I&D and poly exchange left TKA - WBAT with immobilizer on and walker - gentle ROM 0-25 degrees in bed, immobilizer on at all times but may loosen a little for comfort while in bed - JUNIOR/SCD/ASA bid -will need d/c to Rehab vs SNF -cx- coag neg staph- await sensitivities. On vanco now. -hem vac 5cc last shift, will D/C and change dressings. Discharge Planning Discharge Planning: uncertain DVT Prophylaxis: TEDs, SCDs, ASA
[2017-09-25] MEDS: TRAMADOL HCL 50 MG TAB PO PRN ×3 (10:50→20:40)
[2017-09-25 11:36] VITALS: BP 114/72; PULSE 78; TEMP 36.8; O2SAT 99
[2017-09-25 15:42] VITALS: BP 109/68; PULSE 80; TEMP 36.8; O2SAT 97
[2017-09-25] MEDS: LORAZEPAM 0.5 MG TAB PO SCH (20:40)
[2017-09-25] MEDS: SENNA 8.6 MG TAB PO SCH ×2 (20:42)
[2017-09-25] MEDS: QUETIAPINE FUMARATE 200 MG TAB PO SCH (20:43)
[2017-09-25 22:58] VITALS: BP 98/62; PULSE 75; TEMP 36.8; O2SAT 95
[2017-09-26] MEDS: OXYCODONE HCL IR 5 MG TAB (IMMEDIATE RELEASE) PO PRN ×4 (01:57→16:39)
[2017-09-26] MEDS: ACETAMINOPHEN 500 MG TAB PO SCH ×3 (05:56→21:37)
[2017-09-26] MEDS: LEVOTHYROXINE 137 MCG TAB PO SCH (05:56)
[2017-09-26 07:58] VITALS: BP 106/53; PULSE 78; TEMP 36.7; O2SAT 95
--- NOTE | 2017-09-26 08:36 | Orthopedic Progress Note ---
Orthopedic Progress Note Date of Service Sep 26, 2017. Subjective Post OP Day: 3 Reports: feeling well, Denies: chest pain, SOB, nausea / vomiting, light headedness, calf pain Objective calves soft nontender, N/V intact, dressing C/D/I (prevena), A&O x3, toes mobile Date Time Temp Pulse Resp B/P (MAP) Pulse Ox O2 Delivery O2 Flow Rate FiO2 09/26/17 07:58 36.7 78 16 106/53 (70) 95 Room Air 09/25/17 22:58 36.8 75 18 98/62 (74) 95 Nasal Cannula 3.0 09/25/17 15:42 36.8 80 17 109/68 (82) 97 Nasal Cannula 2.5 09/25/17 15:25 Nasal Cannula 3.0 09/25/17 11:36 36.8 78 16 114/72 (86) 99 Nasal Cannula 2.0 09/25/17 11:25 Nasal Cannula 3.0 Additional Notes: GRAM STAIN Final 09/24/17-853 RESULT FEW WBCs SEEN NO ORGANISMS SEEN OR AER/VANNESA CULT Preliminary 09/26/17 Organism 1 COAG NEG STAPH NOT LUGDUNENSIS QUANITY RARE SENS SENSITIVITY TO FOLLOW 1. COAG NEG STAPH NOT LUGDUNENSIS Target Route Dose RX AB Cost M.I.C. IQ ------ ----- ------ -- ------ -------- - ------ TRIMET/SULFA R >2/ * OXACILLIN R >2 VANCOMYCIN S 2 ERYTHROMYCIN R >4 TETRACYCLINE S <=4 CLINDAMYCIN R >4 DAPTOMYCIN S <=0.5 S = SENSITIVE I = INTERMEDIATE R = RESISTANT Assessment & Plan Assessment: POD #3 s/p I&D and poly exchange left TKA - WBAT with immobilizer on and walker - gentle ROM 0-25 degrees in bed, immobilizer on at all times but may loosen a little for comfort while in bed - JUNIOR/SCD/ASA bid -will need d/c to Rehab vs SNF -cx- coag neg staph- await sensitivities. On vanco now. CONTAMINANT? WILL DISCUSS WITH DR. GAMBOA AND SEE IF HE WOULD LIKE HER TREATED X 6 WEEKS.CONSIDER ID CONSULT TO EVAL AND GIVE RECOMMENDATIONS. -hem vac 5cc last shift, will D/C and change dressings. Discharge Planning Discharge Planning: uncertain DVT Prophylaxis: TEDs, SCDs, ASA
[2017-09-26] MEDS: DOCUSATE SODIUM 100 MG CAP PO SCH ×2 (09:09→20:33)
[2017-09-26] MEDS: TIOTROPIUM BROMIDE 5 PUFF/90 MCG INH INH SCH (09:09)
[2017-09-26] MEDS: ESCITALOPRAM OXALATE 20 MG TAB PO SCH (09:09)
[2017-09-26] MEDS: MULTIVITAMIN TAB PO SCH (09:09)
[2017-09-26] MEDS: FERROUS GLUCONATE 324 MG TAB PO SCH ×3 (09:09→17:50)
[2017-09-26] MEDS: TRAMADOL HCL 50 MG TAB PO PRN ×2 (09:09→19:51)
[2017-09-26] MEDS: PANTOprazole SOD 40 MG TAB PO SCH (09:09)
[2017-09-26] MEDS: BuPROPion XL 300 MG TABCR PO SCH (09:10)
[2017-09-26] MEDS: SACCHAROMYCES BOUL (FLORASTOR) 250 MG CAP PO SCH (09:10)
[2017-09-26] MEDS: FUROSEMIDE 20 MG TAB PO SCH ×2 (09:10→20:33)
[2017-09-26] MEDS: POTASSIUM CHLORIDE 10 MEQ TABCR PO SCH (09:10)
[2017-09-26] MEDS: ASPIRIN 81 MG ECTAB PO SCH ×2 (09:10→20:33)
--- NOTE | 2017-09-26 11:26 | Family Medicine Progress Note ---
Progress Note Date of Service Sep 26, 2017. Subjective Pt evaluation today including: conversation w/ patient, physical exam, chart review, lab review, review of inpatient medication list Pain: Left Leg Pain PO Intake: Tolerating PO intake Voiding: no voiding problems Ms. Pettit reports she feels well today. She denies chest pain, shortness of breath, headaches, n/v. She states she has been constipated, with her last bowel movement being a small one 2 days ago. She states the pain is well controlled in her left leg. Constitutional: No fever, No chills Respiratory: No cough, No sputum, No wheezing, No shortness of breath Cardiovascular: No chest pain Abdomen: + constipation, No pain, No nausea, No vomiting, No diarrhea All Other Systems: Reviewed and Negative Medications Current Inpatient Medications Medications (Trade) Dose Ordered Sig/[place] Route Start Time Stop Time Status Last Admin Dose Admin Acetaminophen (Tylenol Tab) 1,000 mg Q8 PO 09/23/17 01:30 10/23/17 01:29 09/26/17 05:56 1,000 MG Albuterol (Ventolin Hfa Inhaler) 2 puffs Q4 PRN INH 09/22/17 22:45 10/22/17 22:44 Bupropion HCl (Wellbutrin-Xl Tab) 300 mg QAM PO 09/23/17 09:00 10/23/17 08:59 09/26/17 09:10 300 MG Escitalopram Oxalate (Lexapro Tab) 20 mg QAM PO 09/23/17 09:00 10/23/17 08:59 09/26/17 09:09 20 MG Furosemide (Lasix Tab) 20 mg BID PO 09/23/17 09:00 10/23/17 08:59 09/26/17 09:10 20 MG Levothyroxine Sodium (Synthroid Tab) 137 mcg DAILYBB PO 09/23/17 06:00 10/23/17 05:59 09/26/17 05:56 137 MCG Lorazepam (Ativan Tab) 0.5 mg HS PO 09/23/17 01:30 10/23/17 01:29 09/25/17 20:40 0.5 MG Oxycodone HCl (Roxicodone Immediate Rel Tab) 5 mg Q4H PRN PO 09/22/17 22:45 10/06/17 22:44 09/23/17 10:41 5 MG Potassium Chloride (Klor-Con M10) 10 meq QAM PO 09/23/17 09:00 10/23/17 08:59 09/26/17 09:10 10 MEQ Promethazine HCl (Phenergan Tab) 25 mg Q6H PRN PO 09/22/17 22:45 10/22/17 22:44 Quetiapine Fumarate (seroQUEL TAB) 400 mg HS PO 09/23/17 21:00 10/23/17 20:59 09/25/17 20:43 400 MG Senna (Senokot Tab) 17.2 mg HS PO 09/23/17 21:00 10/23/17 20:59 09/25/17 20:42 17.2 MG Ondansetron HCl (Zofran Inj) 4 mg Q4H PRN IV 09/22/17 23:30 10/22/17 23:29 09/25/17 17:54 4 MG Tiotropium [place] (Spiriva Handihaler Inhaler) 1 puff QAM INH 09/23/17 09:00 10/23/17 08:59 09/26/17 09:09 1 PUFF Hydroxyzine HCl (Vistaril Tab) 25 mg HS PRN PO 09/23/17 01:30 10/23/17 01:29 Saccharomyces Boulardii (Florastor Cap) 250 mg DAILY PO 09/23/17 09:00 10/23/17 08:59 09/26/17 09:10 250 MG Oxycodone HCl (Roxicodone Immediate Rel Tab) 1 TABLET FOR PAIN RATING... Q4H PRN PO 09/23/17 14:30 10/07/17 14:29 09/26/17 05:58 10 MG Magnesium Hydroxide (Milk Of Magnesia Susp) 30 ml Q6H PRN PO 09/23/17 14:30 10/23/17 14:29 09/26/17 11:08 30 ML Bisacodyl (Dulcolax Supp) 10 mg DAILY PRN NH 09/23/17 14:30 10/23/17 14:29 Sodium Biphosphate/ Sodium Phosphate (Fleet Enema) 132 ml DAILY PRN NH 09/23/17 14:30 10/23/17 14:29 Senna (Senokot Tab) 17.2 mg HS PO 09/23/17 21:00 10/23/17 20:59 Docusate Sodium (coLACE CAP) 100 mg BID PO 09/23/17 21:00 10/23/17 20:59 09/26/17 09:09 100 MG Diphenhydramine HCl (Benadryl Cap) 25 mg Q8H PRN PO 09/23/17 14:30 10/23/17 14:29 Diphenhydramine HCl (Benadryl Inj) 25 mg Q8H PRN IV 09/23/17 14:30 10/23/17 14:29 Al Hydrox/Mg Hydrox/Simethicone (Maalox Max Susp) 15 ml Q4H PRN PO 09/23/17 14:30 10/23/17 14:29 Zolpidem Tartrate (Ambien Tab) 5 mg HSZ PRN PO 09/23/17 14:30 10/23/17 14:29 Multivitamins (Multivitamin Tab) 1 tab QAM PO 09/24/17 09:00 10/24/17 08:59 09/26/17 09:09 1 TAB Ondansetron HCl (Zofran Inj) 4 mg Q6H PRN IV 09/23/17 14:30 10/23/17 14:29 Metoclopramide HCl (Reglan Inj) 10 mg Q6H PRN IV 09/23/17 14:30 10/23/17 14:29 Ferrous Gluconate (Ferrous Gluconate Tab) 324 mg TIDM PO 09/23/17 17:45 10/23/17 17:44 09/26/17 09:09 324 MG Pantoprazole Sodium (Protonix Tab) 40 mg QAM PO 09/24/17 09:00 10/24/17 08:59 09/26/17 09:09 40 MG Tramadol HCl (Ultram Tab) 1 tablet for pain rating... Q4H PRN PO 09/23/17 14:30 10/23/17 14:29 09/26/17 09:09 100 MG Aspirin (Ecotrin Tab) 81 mg BID PO 09/23/17 21:00 10/23/17 20:59 Future hold 09/26/17 09:10 81 MG Morphine Sulfate (MoRPHine SULFATE INJ) 2 mg Q2H PRN IV 09/23/17 19:30 10/07/17 19:29 09/24/17 15:30 2 MG Morphine Sulfate (MoRPHine SULFATE INJ) 4 mg Q2H PRN IV 09/23/17 19:45 10/07/17 19:44 Objective Vital Signs Date Time Temp Pulse Resp B/P (MAP) Pulse Ox O2 Delivery O2 Flow Rate FiO2 09/26/17 08:00 Nasal Cannula 3.0 09/26/17 07:58 36.7 78 16 106/53 (70) 95 Room Air 09/25/17 22:58 36.8 75 18 98/62 (74) 95 Nasal Cannula 3.0 09/25/17 15:42 36.8 80 17 109/68 (82) 97 Nasal Cannula 2.5 09/25/17 15:25 Nasal Cannula 3.0 09/25/17 11:36 36.8 78 16 114/72 (86) 99 Nasal Cannula 2.0 09/25/17 11:25 Nasal Cannula 3.0 Physical Exam General Appearance: WD/WN, no apparent distress Respiratory/Chest: chest non-tender, lungs clear, normal breath sounds, no respiratory distress, no accessory muscle use Cardiovascular: regular rate, rhythm, no edema, no gallop, no JVD, no murmur Abdomen: normal bowel sounds, non tender, soft, no organomegaly, no pulsatile mass Extremities: + pertinent finding (left knee dressind c/d/i) Assessment and Plan Ms. Pettit is a 62 year old female who was admitted for intervention of her wound dehiscence of the left knee s/p left knee arthroplasty Wound dehiscence s/p left knee arthroplasty on 09/11/17 - pain well controlled - post-op day 3 after repair of quadriceps tendon - joint fluid grew coag negative staphylococcus, sensitive to daptomycin, vancomycin and tetracycline - ID consulted, thank you for recommendations: - 4-6 weeks of daptomycin with weekly CBC, CMP, ESR, and CPK - discontinue vancomycin - continue home aspirin - patient accepted to [facility] pending insurance authorization Constipation - continue bowel regimen with senna and colace - fleet enema and miralax ordered prn Anemia - 1 unit of PRBC transfused on 09/23 and hemoglobin has been stable since at 9.2 COPD, stable - albuterol prn and spiriva - continue home dose of O2 3L continuous Depression - continue wellbutrin 300 mg daily and lexapro 20 mg daily - continue Vistaril prn Hypothyroidism - continue levothyroxine 137 mcg CHF - diastolic dysfunction, stable - lasix 20 mg daily and KCL 10 meq Code: Full DVT Prophylaxis: JUNIOR/SCD/ASA bid Disposition: Patient approved for transfer to [facility] Thank you for the consult. The patient is stable from a medical point of view, and we will sign off. Please do not hesitate to contact us again if needed. Resident Tracking Resident Involvement: Resident Care Provided Care Provided: Adult Hospital Medicine Reviewed: Pt Seen/Exam by Me History no concerns overnight. Constitutional: denies: fever Respiratory: negative: short of breath Cardiovascular: denies chest pain General Appearance: no apparent distress Respiratory: lungs clear, no respiratory distress Cardiovascular: regular rate, rhythm Gastrointestinal: soft Extremities: other (left knee in brace) Neurologic/Psychiatric: alert, oriented x 3 Skin Characteristics: warm/dry Assessment/Plan Resident Physician Supervision Note: I independently interviewed and examined the patient and verified the baker history and physical, reviewed labs and image studies, discussed the case with the resident Dr. Zepeda and agree with the findings and care plan.
[2017-09-26] MEDS ORDERED: DAPTOMYCIN CONSULT ACTIVE PRN ×2 (12:15)
[2017-09-26] MEDS: DAPTOMYCIN IV SCH (13:33)
--- NOTE | 2017-09-26 14:30 | Progress Note ---
Progress Note Date of Service Sep 26, 2017. Progress Note ID Consult Dictated #[id number] A/P: 1. Infected left knee -Agree with Dapto, would give 4-6 weeks, check weekly cbc, cmp, esr, cpk while on abx -Ok for picc line -thank you
[2017-09-26 15:28] VITALS: BP 118/71; PULSE 76; TEMP 37.2; O2SAT 98
[2017-09-26 19:00] VITALS: O2SAT 98
[2017-09-26 19:09] VITALS: TEMP 36.9
--- NOTE | 2017-09-26 19:32 | INFECT. DISEASE CONSULTATION ---
DATE OF CONSULTATION: 09/26/2017 HISTORY OF PRESENT ILLNESS: This is a 62-year-old female who was admitted to the hospital on 09/22/2017 secondary to wound dehiscence. She did undergo left total knee replacement on 09/11/2017 and had been doing well postoperatively. Unfortunately, she fell at home and had dehiscence of her wound. She was treated locally in the hospital, but on 09/23/2017, she was taken to the operating room for a poly exchange. She underwent this without incident. Intraoperative cultures were obtained and are growing coagulase-negative staph. She initially was on Ancef preoperatively and then received vancomycin postoperatively but currently is on no antibiotics. She has been afebrile since admission to the hospital. She initially had a leukocytosis of 12,000; however, this has improved to 8000. She does have a wound VAC in place at this time. She does admit to pain in the knee but states overall this is improving. She denies any fevers or chills. She denies any purulent drainage from the wound but she was brought straight to the hospital after her wound had opened. Infectious diseases was asked to see this patient in consultation for recommendations on antibiotics. Her remaining review of systems is reviewed and is unremarkable. MEDICAL HISTORY: Significant for COPD, asthma and anxiety. She is on home O2. SURGICAL HISTORY: Significant for recent left total knee replacement 09/11/2017. She also has a history of right total knee replacement in the past. ALLERGIES: SHE HAS ALLERGIES TO PENICILLIN BUT DOES NOT KNOW HER REACTION. FAMILY HISTORY: Noncontributory. SOCIAL HISTORY: Significant for tobacco use, she quit some years ago. She denies any drug use. She drinks alcohol on occasion. CURRENT MEDICATIONS: Include daptomycin, multivitamins, Protonix, Seroquel, Senokot, Colace, Ecotrin, morphine, iron, Roxicodone, milk of magnesia, Dulcolax, Fleet enema, Benadryl, Maalox, Ambien, Reglan, Ultram, Wellbutrin, Lexapro, Lasix, potassium, Spiriva, Florastor, Synthroid, Tylenol, Ativan, Vistaril, Ventolin and Phenergan. PHYSICAL EXAMINATION: VITAL SIGNS: She is afebrile, pulse 78, respiratory rate 16, blood pressure is 106/53, oxygen saturation is 95% on room air. GENERAL: She is awake, alert and oriented x3. She is in no acute distress. HEENT: Mucous membranes are moist. Extraocular muscles are intact. HEART: Regular. LUNGS: Clear. ABDOMEN: Soft, nontender, nondistended. EXTREMITIES: There is no lower extremity edema. SKIN: Without rash. Left knee has VAC in place. There is no surrounding erythema. LABORATORY STUDIES: CBC on 09/25/2017 reveals a white blood cell count of 8.3, hemoglobin 9.2 and platelets of 180. Chemistry panel on 09/22/2017 reveals sodium of 137, potassium 3.9, chloride 101, bicarbonate 33, BUN 21, creatinine 0.8 and glucose of 98. Wound culture is as above with coagulase-negative staph. ASSESSMENT AND PLAN: Postoperative knee infection, although coagulase-negative staph certainly could be contaminant with new hardware placed and multiple surgeries in the recent past. I would prefer to treat with a course of antibiotics in the range of 4-6 weeks. She was placed on daptomycin today and this should be continued. She should undergo weekly CBC, chemistry panel, sed rate and CPK. Vancomycin would be an alternative to daptomycin if expense is an issue; however, daptomycin would be favored as this is once daily dosing. I do not see any contraindication for a PICC line. Thank you for this consultation.
[2017-09-26] MEDS: QUETIAPINE FUMARATE 200 MG TAB PO SCH (20:33)
[2017-09-26] MEDS: LORAZEPAM 0.5 MG TAB PO SCH (20:33)
[2017-09-26] MEDS: SENNA 8.6 MG TAB PO SCH ×2 (20:33→20:34)
[2017-09-26] MEDS ORDERED: VANCOMYCIN INJ 1,000 MG in SODIUM CHLORIDE 0.9% 250ML 250 ML IV SCH (21:00)
--- NOTE | 2017-09-26 21:00 | DIAGNOSTIC IMAGING REPORT ---
CHEST ONE VIEW PORTABLE HISTORY: PICC tip confirmation - bullseye obtained, decreased VPS signal COMPARISON: Chest 09/13/2017. FINDINGS: The mediastinum is rotated due to the patient's scoliosis. A left PICC terminates in the expected location of the SVC given the mediastinal rotation. The right basilar linear densities favor subsegmental atelectasis. The heart is stable in size. No pleural effusions. No pneumothorax. The left lung is clear. IMPRESSION: The right PICC terminates in the expected location of the SVC given the mediastinal rotation. Electronically signed by: Oneil Rollins M.D. 09/26/2017 8:58 PM Dictated Date/Time: 09/26/2017 8:57 PM
[2017-09-26 22:57] VITALS: BP 95/61; PULSE 77; TEMP 36.9; O2SAT 98
[2017-09-27] MEDS: LEVOTHYROXINE 137 MCG TAB PO SCH (05:39)
[2017-09-27] MEDS: ACETAMINOPHEN 500 MG TAB PO SCH ×2 (05:39→13:39)
[2017-09-27 07:19] VITALS: BP 118/70; PULSE 78; TEMP 37.4; O2SAT 97
--- NOTE | 2017-09-27 08:23 | Discharge Instructions ---
Discharge Instructions Date of Service Sep 27, 2017. Admission Reason for Admission: Lt Knee Would Dehisence Discharge Discharge Diagnosis / Problem: Left Knee Wound Dehiscence Discharge Goals Goal(s): Decrease discomfort, Improve function Activity Recommendations Activity Level: Assistance Required Therapies: Physical Therapy (Gait training with immobilizer on; May remove for ROM; ROM 0-25 deg for now), Occupational Therapy (ADL's and transfers) Weightbearing Status: Left weightbearing (as tolerated) . Additional Information Patient informed of condition: Yes Advance Directives: Yes DNR: No Level of Care: Acute Rehab Communicable Disease: Yes Prognosis: Stable [place] Catheter: No Instructions / Follow-Up Instructions / Follow-Up You will be weight bearing as tolerated on you Left knee. You must wear the immobilizer at all times, especially when walking The immobilizer can be removed for ROM / PT or bathing. Do not bend the knee greater than 25 degrees for now Prevena dressing will remain on till Saturday09/30/17, then removed. If wound is still draining, continue use 4x4 gauze to cover dressing. You may shower if your wound is dry. If you are having a large amount of drainage, do not shower. You may clean around the wound itself. Do not scrub it. You will be receiving IV antibiotics for 6 weeks; You will need weekly blood work drawn which will be sent to your doctor and to the Infectious Disease doctor. They will change your antibiotic as needed. FOLLOW UP WITH DR GAMBOA 2 WEEKS FROM THE DAY OF SURGERY. CALL FOR APPOINTMENT. [phone] Current Hospital Diet Patient's current hospital diet: Regular Diet Discharge Diet Recommended Diet: Regular Diet Procedures Procedures Performed: Wound dehiscence with quadriceps rupture left total knee arthroplasty Pending Studies Studies pending at discharge: no Physician Orders On Transfer Dressing Changes: Prevena dressing currently on. Remove Prevena dressing on Saturday09/30/17. If wound draining, cover with 4x4's or ABD's and change daily IV Therapy: IV Daptomycin daily; Picc line care Vital Signs: routine Additional Orders: Weekly CBC, CMP, CPK labs; Please send results to Dr aHmilton. Laboratory Results Hemoglobin A1c Test 09/06/17 11:16 Range/Units Estimated Average Glucose 100 mg/dl Hemoglobin A1c 5.1 4.5-5.6 % Medical Emergencies . Who to Call and When: Medical Emergencies: If at any time you feel your situation is an emergency, please call 911 immediately. . Non-Emergent Contact Non-Emergency issues call your: Surgeon Call Non-Emergent contact if: temperature is above 101.5, your pain is not controlled, your pain is worsening, wound has increased drainage, wound has increased redness . . "Provider Documentation" section prepared by Abdifatah Moses. . Core Measure Problem Core Measures: None [place] Drug Monitoring Program Search Results: patient reviewed within database, no issues identified
[2017-09-27] MEDS ORDERED: FRRG PO (08:29)
[2017-09-27] MEDS ORDERED: CLC100 PO (08:29)
[2017-09-27] MEDS ORDERED: DAPT500I IV (08:29)
[2017-09-27] MEDS: TRAMADOL HCL 50 MG TAB PO PRN (09:31)
[2017-09-27] MEDS: BuPROPion XL 300 MG TABCR PO SCH (09:32)
[2017-09-27] MEDS: SACCHAROMYCES BOUL (FLORASTOR) 250 MG CAP PO SCH (09:32)
[2017-09-27] MEDS: POTASSIUM CHLORIDE 10 MEQ TABCR PO SCH (09:32)
[2017-09-27] MEDS: FUROSEMIDE 20 MG TAB PO SCH (09:33)
[2017-09-27] MEDS: MULTIVITAMIN TAB PO SCH (09:33)
[2017-09-27] MEDS: DOCUSATE SODIUM 100 MG CAP PO SCH (09:33)
[2017-09-27] MEDS: PANTOprazole SOD 40 MG TAB PO SCH (09:33)
[2017-09-27] MEDS: ASPIRIN 81 MG ECTAB PO SCH (09:33)
[2017-09-27] MEDS: FERROUS GLUCONATE 324 MG TAB PO SCH ×2 (09:33→12:39)
[2017-09-27] MEDS: ESCITALOPRAM OXALATE 20 MG TAB PO SCH (09:34)
--- NOTE | 2017-09-27 09:51 | Orthopedic Progress Note ---
Orthopedic Progress Note Date of Service Sep 27, 2017. Subjective Post OP Day: 4 Reports: feeling well, Denies: complaints Objective calves soft nontender, N/V intact, dressing C/D/I (Prevena), A&O x3, toes mobile Date Time Temp Pulse Resp B/P (MAP) Pulse Ox O2 Delivery O2 Flow Rate FiO2 09/27/17 07:50 Nasal Cannula 3.0 09/27/17 07:19 37.4 78 18 118/70 (86) 97 Nasal Cannula 2.0 09/27/17 00:05 Nasal Cannula 3.0 09/26/17 22:57 36.9 77 18 95/61 (72) 98 Nasal Cannula 3.0 09/26/17 19:09 36.9 09/26/17 19:00 98 Nasal Cannula 3.0 09/26/17 16:39 Nasal Cannula 3.0 09/26/17 15:28 37.2 76 17 118/71 (87) 98 Nasal Cannula 2.5 Additional Notes: RUN DATE: 09/27/17 [facility] LAB PAGE 1 RUN TIME: 0740 Specimen Inquiry PATIENT: SONALJULI Mera LOC: [facility] U # : [id number] AGE/SX: 62/F ROOM: [facility] REG : 09/22/[address]: Fernando Green,D.OMarky : 1955 BED: 1 DIS : STATUS: ADM IN TLOC: SPEC #: [id number] ILANA: 09/23/17 STATUS: RES REQ #: [id number] RECD: 09/23/17 [facility] [address]: Fernando Green D.OMarky SOURCE: JOINT FLSP ENTR: 09/23/17 [facility] DR: James Oswald D.O. SPDESC: [facility] Kush Wong M.D. Shannon, Dennis, M.D. Singh, Madhavi, M.D. ORDERED: AER/VANNESA CULTSMR Procedure Result Verified Site GRAM STAIN Final 09/24/17 RESULT FEW WBCs SEEN NO ORGANISMS SEEN OR AER/VANNESA CULT Preliminary 09/27/17 Organism 1 COAG NEG STAPH NOT LUGDUNENSIS QUANITY RARE SENS SENSITIVITY TO FOLLOW ANAS NO ANAEROBES ISOLATED. 1. COAG NEG STAPH NOT LUGDUNENSIS Target Route Dose RX AB Cost M.I.C. IQ ------ ----- ------ -- ------ -------- - ------ TRIMET/SULFA R >2/38 * OXACILLIN R >2 VANCOMYCIN S 2 ERYTHROMYCIN R >4 TETRACYCLINE S <=4 CLINDAMYCIN R >4 DAPTOMYCIN S <=0.5 S = SENSITIVE I = INTERMEDIATE R = RESISTANT ---- Assessment & Plan Assessment: POD #4 s/p I&D and poly exchange left TKA: Now showing Coag Neg Staph on cx resistant to Oxacillin - WBAT with immobilizer on and walker - gentle ROM 0-25 degrees in bed, immobilizer on at all times but may loosen a little for comfort while in bed - JUNIOR/SCD/ASA bid - Pt seen by ID. Plan for 6 weeks of IV Daptomycin. Picc line placed. - Plan for [facility] today Discharge Planning Discharge Planning: uncertain DVT Prophylaxis: TEDs, SCDs, ASA
[2017-09-27 10:30] VITALS: BP 118/70; PULSE 78; TEMP 37.4; O2SAT 97
[2017-09-27] MEDS: TIOTROPIUM BROMIDE 5 PUFF/90 MCG INH INH SCH (10:41)
--- NOTE | 2017-09-27 11:15 | DISCHARGE SUMMARY ---
DISCHARGE DIAGNOSIS: Left knee wound dehiscence with positive joint culture left total knee arthroplasty. SECONDARY DIAGNOSES: Chronic obstructive pulmonary disease, asthma, anxiety, home O2 use, tobacco use. CONSULTS: Dr. Hamilton. COMPLICATIONS: None. PROCEDURES: Exploration of the left knee wound dehiscence with irrigation and debridement of left knee joint with polyethylene bearing change and repair of quadriceps tendon tear with complete wound closure by Dr. Green on 09/23/2017. BRIEF HISTORY: As dictated in history and physical. HOSPITAL SUMMARY: The patient was admitted on the above noted date with the above noted knee wound. She had fallen and dehisced her wound which at that point Dr. Oswald had seen the patient in the Emergency Room and irrigated and closed the wound with nylon suture. She was admitted for further care and then was taken to the operating room by Dr. Green on 09/23/2017 and the above noted procedure was performed which she tolerated well. Cultures were taken at that time and the wound did not appear to be infected. On her first postoperative day, she was feeling well, pain was controlled and had no complaints. Calves were soft and nontender, neurovascular intact. Dressings clean, dry and intact. Toes were mobile and vital signs were stable. She is afebrile. Hemoglobin was 9.2 and she was started on physical therapy with weightbearing as tolerated with immobilizer on during ambulation, gentle range of motion from 0-25 degrees while in bed and plans for possible [facility] transfer when she is a little more ambulatory. By her second postoperative day, she was feeling well, pain was controlled. Calves were soft and nontender, neurovascularly intact. Dressings clean, dry and intact. Toes were mobile. She was continued on vancomycin and then cultures were starting to show coag negative staph with sensitivities pending. This eventually came back with resistance to oxacillin, erythromycin, clindamycin and Bactrim. Infectious disease consult was placed and Dr. Hamilton saw the patient recommending daptomycin daily for 6 weeks. A PICC line was placed and she continued to remain stable. Prevena dressing was intact and by 09/27/2017 she was remaining medically stable as well as orthopedically stable and it was felt she could be transferred to [facility] for further physical therapy and care and IV antibiotics.
[2017-09-27] MEDS: OXYCODONE HCL IR 5 MG TAB (IMMEDIATE RELEASE) PO PRN (12:39)
[2017-09-27] MEDS: DAPTOMYCIN IV SCH (12:39)
--- NOTE | 2017-09-30 08:17 | EDITING REQUIRED CODING QUERY ---
CODING QUERY To promote full compliance with coding requirements relating to patient care, provider participation is requested in all cases of striker out uncertainty. Please assist us with the question(s) below: Coding Question(s): Please clarify below, in your clinical opinion, regarding documentation on Discharge Summary of left knee wound dehiscence with positive joint culture left total knee arthroplasty and Infectious Disease Consult with documentation of postoperative knee infection. ( ) This is a Postoperative Infection of the Left TKA and is a postoperative complication of the TKA and the Wound Dehiscence is from trauma only ( ) This is a Postoperative Infection of the Left TKA and is a complication of the TKA and is partly causing the Wound Dehiscence in addition to the trauma ( ) This is a Postoperative Infection of the left knee, but not the TKA, and is a postoperative complication and the Wound Dehiscence is from trauma only ( ) This is a Postoperative Infection of the left knee, but not the TKA, and is a postoperative complication and is partly causing the Wound Dehiscence in addition to the trauma ( ) This is an infection that is not a postoperative complication ( ) This is not an infection (X ) Other: This is a TKA infection due to a wound dehiscence from trauma Physician's Response(s): Thank you Re Zafar Principal Diagnosis: "_that condition established after study, to be chiefly responsible for occasioning the admission of the patient to the hospital for care." Co-Existing Principal Diagnosis: "_when two or more diagnoses equally meet the criteria for principal diagnosis as determined by the circumstances of admission, diagnostic work up, and/or therapy provided, and the Alphabetic Index, Tabular List, or another coding guideline does not provide sequencing direction, any one of the diagnoses may be sequenced first." "When the physician has documented what appears to be a current diagnosis in the body of the record, but has not included the diagnosis in the final diagnostic statement, the physician should be asked whether the diagnosis should be added." (Source [facility]oding [facility] 2 QTR90. p3-4)
== END 2017-09-27 14:09 | DRG 464 ==
LOC: EDBD 17:49 → C.EDA 17:50 → C.MSN 22:32 → EDBEDREQ 22:36 → EDBEDREQSVC 22:36 → ENRESERV 22:48
PROVIDERS: ADMIT Orthopaedic Surgery Sports Medicine; ATTEND Orthopaedic Surgery
PROC: 0HQLXZZ Repair Left Lower Leg Skin, External Approach (ICD-10-PCS; 2017-09-22)
PROC: 3E10X8Z Irrigation of Skin and Mucous Membranes using Irrigating Substance (ICD-10-PCS; 2017-09-22)
PROC: 0SPD09Z Removal of Liner from Left Knee Joint, Open Approach (ICD-10-PCS; principal; 2017-09-23 07:15)
PROC: 0LQP0ZZ Repair Left Lower Leg Tendon, Open Approach (ICD-10-PCS; principal; 2017-09-23 07:15)
PROC: 0SUD09Z Supplement Left Knee Joint with Liner, Open Approach (ICD-10-PCS; principal; 2017-09-23 07:15)
PROC: 02HV33Z Insertion of Infusion Device into Superior Vena Cava, Percutaneous Approach (ICD-10-PCS; 2017-09-26)
DX: T84.54XA Infection and inflammatory reaction due to internal left knee prosthesis, initial encounter (principal); T81.31XA Disruption of external operation (surgical) wound, not elsewhere classified, initial encounter; I50.32 Chronic diastolic (congestive) heart failure; Z68.41 Body mass index [BMI] 40.0-44.9, adult; S76.112A Strain of left quadriceps muscle, fascia and tendon, initial encounter; B95.7 Other staphylococcus as the cause of diseases classified elsewhere; Z16.24 Resistance to multiple antibiotics; D64.9 Anemia, unspecified; K59.00 Constipation, unspecified; J44.9 Chronic obstructive pulmonary disease, unspecified; E03.9 Hypothyroidism, unspecified; J45.909 Unspecified asthma, uncomplicated; F41.9 Anxiety disorder, unspecified; F32.9 Major depressive disorder, single episode, unspecified; E66.9 Obesity, unspecified; Z79.899 Other long term (current) drug therapy; Z79.82 Long term (current) use of aspirin; Z99.81 Dependence on supplemental oxygen; Z96.653 Presence of artificial knee joint, bilateral; Z91.81 History of falling; Z87.891 Personal history of nicotine dependence; W18.30XA Fall on same level, unspecified, initial encounter; Y93.01 Activity, walking, marching and hiking; Y92.003 Bedroom of unspecified non-institutional (private) residence as the place of occurrence of the external cause; Y99.8 Other external cause status

== ENCOUNTER → 2017-10-16 | Outpatient (CLI) | payer OTHER ==
[~2017-10-16] MED LIST changes: -ALBU2SYP9 NEB; +ALBUTEROL NEB INH; -ASPEC81 PO; +ASPI-320 PO; -CLB200 PO; +CLC100 PO; +DAPT500I IV; +FRRG PO
[2017-10-16 18:06] LABS: BASO % 0.1 %; BASO ABS # 0.01 K/uL (0-0.2); EOS % 3.4 %; EOS ABS # 0.26 K/uL (0-0.5); HEMOGLOBIN 10.5 g/dL (12.0-16.0); IG# 0.01 K/uL (0.00-0.02); LYMPH % 17.4 %; LYMPH ABS # 1.33 K/uL (1.2-3.4); MEAN CELL VOLUME 88.8 fL (80-100); MEAN CORPUSCULAR HEMOGLOBIN 26.6 pg (25-34); MEAN PLATELET VOLUME 11.5 fL (7.4-10.4); MONO % 9.3 %; MONO ABS # 0.71 K/uL (0.11-0.59); NEUT % 69.7 %; NEUT ABS # 5.34 K/uL (1.4-6.5); PLATELET COUNT 191 K/uL (130-400); RED CELL DISTRIBUTION WIDTH CV 14.3 % (11.5-14.5); RED CELL DISTRIBUTION WIDTH SD 46.9 fL (36.4-46.3); WHITE BLOOD COUNT 7.66 K/uL (4.8-10.8)
[2017-10-16 18:26] LABS: ALBUMIN 3.2 gm/dl (3.4-5.0); ALT/SGPT 15 U/L (12-78); AST/SGOT 19 U/L (15-37); BLOOD UREA NITROGEN 13 mg/dl (7-18); CALCIUM 8.7 mg/dl (8.5-10.1); CARBON DIOXIDE 33 mmol/L (21-32); GLUCOSE 91 mg/dl (70-99); POTASSIUM 3.6 mmol/L (3.5-5.1); SODIUM 142 mmol/L (136-145)
[2017-10-16 18:29] LABS: ALKALINE PHOSPHATASE 100 U/L (45-117); TOTAL PROTEIN 7.1 gm/dl (6.4-8.2)
== END | disposition home or self-care (01) ==
LOC: C.LABSPEC 17:11
PROVIDERS: ATTEND Internal Medicine Infectious Disease
DX: T81.31XD Disruption of external operation (surgical) wound, not elsewhere classified, subsequent encounter (principal); X58.XXXD Exposure to other specified factors, subsequent encounter; Z95.2 Presence of prosthetic heart valve

== ENCOUNTER → 2017-10-23 | Outpatient (CLI) | payer OTHER ==
[~2017-10-23] MED LIST changes: +ASPEC81 PO; -ASPI-320 PO
[2017-10-23 18:30] LABS: BASO % 0.2 %; BASO ABS # 0.01 K/uL (0-0.2); EOS % 4.4 %; EOS ABS # 0.26 K/uL (0-0.5); HEMATOCRIT 33.4 % (37-47); HEMOGLOBIN 9.9 g/dL (12.0-16.0); IG# 0.01 K/uL (0.00-0.02); LYMPH % 21.7 %; LYMPH ABS # 1.27 K/uL (1.2-3.4); MEAN CELL VOLUME 90.5 fL (80-100); MEAN CORPUSCULAR HEMOGLOBIN 26.8 pg (25-34); MEAN CORPUSCULAR HGB CONC 29.6 g/dl (32-36); MEAN PLATELET VOLUME 11.9 fL (7.4-10.4); MONO % 9.9 %; MONO ABS # 0.58 K/uL (0.11-0.59); NEUT % 63.6 %; NEUT ABS # 3.72 K/uL (1.4-6.5); PLATELET COUNT 142 K/uL (130-400); RED CELL DISTRIBUTION WIDTH CV 14.6 % (11.5-14.5); RED CELL DISTRIBUTION WIDTH SD 48.2 fL (36.4-46.3); WHITE BLOOD COUNT 5.85 K/uL (4.8-10.8)
[2017-10-23 18:47] LABS: ALBUMIN 3.1 gm/dl (3.4-5.0); ALT/SGPT 11 U/L (12-78); AST/SGOT 15 U/L (15-37); BLOOD UREA NITROGEN 18 mg/dl (7-18); CALCIUM 8.5 mg/dl (8.5-10.1); CARBON DIOXIDE 35 mmol/L (21-32); CREATININE 0.82 mg/dl (0.60-1.20); GLUCOSE 86 mg/dl (70-99); POTASSIUM 4.3 mmol/L (3.5-5.1); SODIUM 140 mmol/L (136-145)
[2017-10-23 18:49] LABS: ALKALINE PHOSPHATASE 97 U/L (45-117); TOTAL PROTEIN 6.6 gm/dl (6.4-8.2)
== END | disposition home or self-care (01) ==
LOC: C.LABSPEC 17:55
PROVIDERS: ATTEND Internal Medicine Infectious Disease
DX: T81.31XD Disruption of external operation (surgical) wound, not elsewhere classified, subsequent encounter (principal); Y84.8 Other medical procedures as the cause of abnormal reaction of the patient, or of later complication, without mention of misadventure at the time of the procedure; Z45.2 Encounter for adjustment and management of vascular access device

== ENCOUNTER → 2017-10-30 | Outpatient (CLI) | payer OTHER ==
[2017-10-30 17:26] LABS: BASO % 0.4 %; BASO ABS # 0.02 K/uL (0-0.2); EOS % 4.6 %; EOS ABS # 0.22 K/uL (0-0.5); HEMATOCRIT 34.3 % (37-47); HEMOGLOBIN 10.1 g/dL (12.0-16.0); IG# 0.01 K/uL (0.00-0.02); LYMPH % 25.1 %; MEAN CELL VOLUME 89.8 fL (80-100); MEAN CORPUSCULAR HEMOGLOBIN 26.4 pg (25-34); MEAN CORPUSCULAR HGB CONC 29.4 g/dl (32-36); MEAN PLATELET VOLUME 12.1 fL (7.4-10.4); MONO % 10.9 %; MONO ABS # 0.52 K/uL (0.11-0.59); NEUT % 58.8 %; NEUT ABS # 2.82 K/uL (1.4-6.5); PLATELET COUNT 133 K/uL (130-400); RED CELL DISTRIBUTION WIDTH CV 14.3 % (11.5-14.5); RED CELL DISTRIBUTION WIDTH SD 47.2 fL (36.4-46.3); WHITE BLOOD COUNT 4.79 K/uL (4.8-10.8)
[2017-10-30 17:45] LABS: ALBUMIN 3.2 gm/dl (3.4-5.0); ALT/SGPT 12 U/L (12-78); AST/SGOT 14 U/L (15-37); BLOOD UREA NITROGEN 13 mg/dl (7-18); CALCIUM 8.5 mg/dl (8.5-10.1); CARBON DIOXIDE 33 mmol/L (21-32); CREATININE 0.64 mg/dl (0.60-1.20); GLUCOSE 91 mg/dl (70-99); POTASSIUM 4.3 mmol/L (3.5-5.1); SODIUM 139 mmol/L (136-145)
[2017-10-30 17:48] LABS: ALKALINE PHOSPHATASE 108 U/L (45-117); TOTAL PROTEIN 7.2 gm/dl (6.4-8.2)
--- NOTE | 2017-12-12 10:48 | CODING QUERY NO DIAGNOSIS ---
: 1955 TREATMENT RENDERED WITHOUT A DIAGNOSIS To promote full compliance with coding requirements relating to patient care, physician participation is requested in all cases of certified coder uncertainty. Please assist us with providing a diagnosis/symptom for the test(s) below: A diagnosis/symptom was not documented on your Order. A valid diagnosis/symptom is required to bill all insurances. Please remember that we are unable to code a diagnosis of rule out, probable, possible, questionable, or suspected. Tests that require a diagnosis: DOS: 10/30/17 * COMPREHENSIVE METABOLIC PANEL DIAGNOSIS: * CREATINE PHOSPHOKINASE DIAGNOSIS: * CBC WITH AUTO DIFFERENTIAL DIAGNOSIS: * ERYTHROCYTE SEDIMENTATION RATE DIAGNOSIS: Provider Signature: Date: Thank you [facility] Mc[facility] Health Information Management Once completed, please kindly fax back to [phone] For questions please call [phone]
== END | disposition home or self-care (01) ==
LOC: C.LABSPEC 14:25
PROVIDERS: ATTEND Internal Medicine Infectious Disease
DX: T81.31XD Disruption of external operation (surgical) wound, not elsewhere classified, subsequent encounter (principal); X58.XXXD Exposure to other specified factors, subsequent encounter; B95.7 Other staphylococcus as the cause of diseases classified elsewhere

== ENCOUNTER 2020-05-30 00:18 | Observation (INO) ==
[2020-05-30] MEDS ORDERED: ALBUT/IPRATROP 3MG/0.5MG NEB 3 ML VIAL NEB STA ×2 (01:03→23:15)
[2020-05-30 01:29] LABS: Basophils # (auto) 0.01 K/uL (0-0.2); Basophils % (auto) 0.2 %; Eosinophils # (auto) 0.13 K/uL (0-0.5); Eosinophils % (auto) 2.3 %; Hematocrit (blood only) 36.8 % (37-47); Hemoglobin 11.1 g/dL (12.0-16.0); Immature Granulocytes # (auto) 0.01 K/uL (0.00-0.02); Immature Granulocytes % (auto) 0.2 %; Lymphocytes # (auto) 1.17 K/uL (1.2-3.4); Lymphocytes % (auto) 20.5 %; Mean Corpuscular Hemoglobin 26.3 pg (25-34); Mean Corpuscular Hgb Conc 30.2 g/dL (32-36); Mean Corpuscular Volume 87.2 fL (80-100); Mean Platelet Volume 10.7 fL (7.4-10.4); Monocytes # (auto) 0.48 K/uL (0.11-0.59); Monocytes % (auto) 8.4 %; Neutrophils % (auto) 68.4 %; Platelet Count 146 K/uL (130-400); RDW Coefficient of Variation 13.5 % (11.5-14.5); Red Blood Count 4.22 M/uL (4.2-5.4)
[2020-05-30 01:43] LABS: Partial Thromboplastin Ratio 0.9; Prothrombin Time 10.4 Seconds (9.0-12.0)
[2020-05-30 01:44] LABS: D Dimer 980 ug/L FEU (0-500)
[2020-05-30 01:46] LABS: Alanine Aminotransferase 18 U/L (12-78); Aspartate Aminotransferase 13 U/L (15-37); BUN Creatinine Ratio 37.7 (10-20); Blood Urea Nitrogen 26 mg/dl (7-18); Calcium 7.7 mg/dl (8.5-10.1); Carbon Dioxide 33 mmol/L (21-32); Chloride 107 mmol/L (98-107); Creatinine Clr Calc Pharmacy 105.3 ml/min; Est GFR (African American) 106.1; Est GFR (Non-African American) 91.6; Glucose 111 mg/dl (70-99); Potassium 4.6 mmol/L (3.5-5.1); Sodium 141 mmol/L (136-145)
[2020-05-30 01:48] LABS: Appearance Urine Cloudy (Clear); Bilirubin Urine Negative (Negative); Blood Urine 2+ (Negative); Color Urine Yellow; Glucose Urine UA Negative (Negative); Ketones Urine Negative (Negative); Leukocyte Esterase Urine 1+ (Negative); Nitrite Urine Negative (Negative); Protein Urine Trace (Negative); Specific Gravity Urine >= 1.030 (1.000-1.030); Urobilinogen Urine Negative (Negative); pH Urine 5.5 (4.5-7.5)
[2020-05-30 01:51] LABS: Albumin Globulin Ratio 0.7 (0.9-2); Alkaline Phosphatase 134 U/L (45-117); Bilirubin,Total < 0.1 mg/dl (0.2-1); Globulin 4.1 gm/dl (2.5-4.0); Total Protein 7.1 gm/dl (6.4-8.2); Troponin I < 0.015 ng/ml (0-0.045)
[2020-05-30] MEDS ORDERED: methylPREDNISolone 125 MG/2 ML VIAL IV STA (01:57)
[2020-05-30 01:58] LABS: Epithelial Cell Urine >30 /lpf (0-5)
[2020-05-30 01:59] LABS: Bacteria Urine 2+ (Negative); RBC Urine 0-4 /hpf (0-4)
--- NOTE | 2020-05-30 02:10 | Emergency Department Note ---
Impression & Plan Acute exacerbation of chronic obstructive pulmonary disease ED Provider Note NAME: JULI PRUITT AGE: 65 SEX: F ARRIVES VIA: Ambulance INFORMANT: Patient ED PROVIDER(S): Valerie Ulloa DO CHIEF COMPLAINT: Shortness of breath PLAN: Disposition: Evaluation by the [facility] hospitalist group Condition: Stable MEDICAL DECISION MAKING: This is a 65-year-old female patient with a history of COPD who presents to the emergency department with worsening exertional shortness of breath and a 3-day history of weakness. For EMS, the patient had extreme shortness of breath with even a couple of steps to get onto the EMS litter. Chest x-ray was unremarkable but the patient's d-dimer was elevated. She went for CTA to rule out PE. This was negative. With any type of exertion, the patient becomes extremely short of breath. Patient was given a dose of IV Solu-Medrol here in the emergency department and a DuoNeb treatment and was feeling only slightly better. I discussed the case with the [facility] hospitalist group and they will evaluate for further management. Triage Nursing notes reviewed and agree them. Additional history obtained from EMS Prior medical records reviewed Vital Signs: reviewed and unremarkable Differential diagnosis: COPD exacerbation, pneumonia, bronchitis, PE, electrolyte abnormality, sepsis, UTI, hyperglycemia ER treatment provided: IV Solu-Medrol, DuoNeb Diagnostics interpreted by me: ECG: Normal sinus rhythm at [address] segment elevation or signs of ischemia. There was no ectopy Cardiac Monitoring: Normal sinus rhythm at a rate of 78 Laboratory studies: See below Imaging studies: As per my interpretation Chest x-ray: No acute pulmonary infiltrates or consolidation. No pneumothorax. CT chest: As per stat rad There is prominent motion artifact most pronounced at lung bases. Cannot exclude PE in some regions of artifact. No large central saddle embolus. No evidence for PE on the non-degraded portions of the exam. Aberrant right subclavian artery again noted. Atelectasis and/or scar. Emphysema. Suspected areas of air trapping. Old granulomatous disease. HPI: 65/F arrives for evaluation of generalized weakness and shortness of breath. This is a 65-year-old female patient with a history of COPD who typically wears 4 L of O2 by nasal cannula at home all the time. She describes a history of generalized weakness over the past 3 days that seems to be worsening. She describes increasing shortness of breath with exertion and a nonproductive cough. The patient had diarrhea for approximately 1 week but this subsided 2 days ago. She describes nausea and chills. She describes some urinary retention and only being able to have small amount of urine that dribbles. She describes increased thirst. ROS: See above HPI for pertinent positives & negatives. A total of 10 systems reviewed and were otherwise negative. PAST MEDICAL HISTORY:See Below PAST SURGICAL HISTORY:See Below FAMILY HISTORY:See Below SOCIAL HISTORY:The patient lives alone. She quit smoking 13 years ago HOME MEDICATIONS:See list ALLERGIES:See list VITALS:See Below PHYSICAL EXAMINATION: This is an obese female patient who is in no respiratory distress on exam HEENT: Head - normocephalic and atraumatic Pupils are equal, round, and reactive to light. Extraocular eye muscles are intact, and sclera are anicteric. Nose - moist nasal mucosa without discharge. Mouth - moist buccal mucosa. Oropharynx is nonerythematous and there is no tonsillar exudate or edema noted. Neck: Supple; no JVD or cervical lymphadenopathy Heart: Regular rate and rhythm. There is a normal S1 and S2 with no murmurs, clicks, or gallops appreciated. Lungs: Diminished breath sounds in all lung [place]. I could hear very little air exchange. This is most likely secondary to body habitus. Abdomen: Soft, completely nontender, nondistended, with good bowel sounds. There are no palpable pulsatile masses or hepatosplenomegaly. There is no guarding, rigidity, or rebound noted. Extremities: No evidence of cyanosis, clubbing, or edema. There are easily palpable peripheral pulses. Skin: warm and dry with good turgor and no rashes. ED COURSE: Times/Reassessments: 0045: The patient was evaluated in room C9. A complete history and physical was performed. A twelve-lead EKG was obtained. An order was placed for continuous cardiac monitoring. The patient was in a normal sinus rhythm at a rate of 78. Laboratory studies were drawn as above. The patient was given a DuoNeb sascha tment and 125 mg of IV Solu-Medrol. A portable chest x-ray was performed. The patient was thirsty and was given water and Gatorade. 0200: Patient was reevaluated at this time. I reviewed preliminary results of laboratory studies with the patient. She did have an elevated d-dimer will go for CTA of the chest to rule out PE. This CT angiogram was negative for clot. The patient does have extreme exertional shortness of breath. I discussed the case with the [facility] hospitalist group and they will evaluate for further management. Valerie Ulloa DO Past Med/Surg History Medical History (Updated 05/30/20 @ 05:17 by Valerie Ulloa DO) Asthma Cervical radiculopathy Coagulase-negative staphylococcal infection COPD (chronic obstructive pulmonary disease) COPD (chronic obstructive pulmonary disease) Fall at home Hyperlipemia Hypothyroidism Serous cystadenoma of ovary Surgical History (Updated 01/28/20 @ 14:56 by Leigh Vega) History of bilateral salpingo-oophorectomy History of cataract surgery History of section History of hysterectomy History of knee replacement Right, 1980s S/P TKR (total knee replacement) Family History Unknown No significant family history Leukemia Mother Cancer Social History (Updated 01/28/20 @ 14:57 by Leigh Vega) Smoking Status: Former smoker Tobacco Type: Cigarettes Hx Alcohol Use: No Preferred Language: Spanish marital status: Single Feels Safe at Home: Yes Allergies Allergies Allergy/AdvReac Type Severity Reaction Status Date / Time amoxicillin Allergy Mild HIVES Verified 01/04/20 05:37 doxycycline Allergy Unknown HIVES Verified 01/04/20 05:37 naproxen Allergy Unknown UNKNOWN Verified 01/04/20 05:37 Penicillins Allergy Unknown HIVES Verified 01/04/20 05:37 Home Meds Home Medications Medication Instructions Recorded Confirmed escitalopram oxalate 20 mg PO QAM 12/16/18 01/04/20 Previous Rx's Medication Instructions Recorded albuterol sulfate 2.5 mg INHALATION .COMPLEX PRN 08/10/19 #180 ml albuterol sulfate 90 mcg/actuation 2 puff INHALATION Q6 PRN #18 gm 08/10/19 aerosol inhaler furosemide 20 mg tablet 20 mg PO BID #180 tab 08/10/19 levothyroxine 150 mcg tablet 150 mcg PO DAILY #90 tab 08/10/19 tiotropium bromide 18 mcg capsule 1 cap INHALATION DAILY #30 puffs 08/10/19 with inhalation device fluticasone furoate 200 1 inh INHALATION DAILY #28 ea 12/02/19 mcg-vilanterol 25 mcg/dose inhalation powder bupropion HCl 150 mg tablet,12 hr 150 mg PO QAM #90 ea 02/01/20 sustained-release hydroxyzine HCl 25 mg tablet 25 mg PO HS #90 tab 02/01/20 atorvastatin 20 mg tablet 20 mg PO DAILY #90 tab 02/29/20 omeprazole 20 mg capsule,delayed 20 mg PO DAILY #90 cap 02/29/20 release quetiapine 200 mg tablet 400 mg PO HS #90 tab 02/29/20 potassium chloride 10 mEq 10 meq PO DAILY #90 tab 03/03/20 tablet,extended release nystatin 100,000 unit/mL oral 5 ml PO Q6H #200 ml 03/11/20 suspension hqeaqhihky-sxxzlxxawojtf-wcvnabpz 1 - 2 tab PO Q8 PRN #18 tab 03/21/20 50 mg-325 mg-40 mg tablet lorazepam 0.5 mg tablet 0.5 mg PO HS PRN #30 tab 03/25/20 meloxicam 7.5 mg tablet 7.5 mg PO BID #60 tab 03/25/20 ondansetron HCl 4 mg tablet 4 mg PO Q8H 2 Days #6 tab 04/06/20 promethazine 25 mg tablet 25 mg PO Q6H PRN #30 tab 04/25/20 sulfamethoxazole 800 1 tab PO BID #6 tab 05/17/20 mg-trimethoprim 160 mg tablet azithromycin 250 mg tablet See Rx Instructions .ROUTE 05/24/20 .COMPLEX #6 tab Results & Data (ED) Vital Signs Vital Signs - 24 hr 05/30/20 00:34 05/30/20 01:00 05/30/20 01:03 Temperature 36.6 C Temperature Source Oral Pulse Rate 94 H 95 H Pulse Rate [Right Radial] Pulse Rate from SpO2 Sensor 95 H Respiratory Rate 19 16 Respiratory Effort / Characteristics Non-Labored Spontaneous Respiratory Depth Normal Blood Pressure 102/58 L 119/59 L Blood Pressure Mean 72 72 Pulse Oximetry 99 100 Oxygen Delivery Method Nasal Cannula Nasal Cannula Nasal Cannula Oxygen Flow Rate 4 4 Sepsis Recent Fever Within 48 Hours No Sepsis New/Unexplained Change in Mental Status No Sepsis Action Taken by Nursing No Action Required 05/30/20 01:19 05/30/20 01:32 05/30/20 02:01 Temperature Temperature Source Pulse Rate 89 90 Pulse Rate [Right Radial] 85 Pulse Rate from SpO2 Sensor 88 91 H Respiratory Rate 20 19 12 Respiratory Effort / Characteristics Non-Labored Spontaneous Respiratory Depth Blood Pressure 130/80 100/82 Blood Pressure Mean 88 87 Pulse Oximetry 98 96 100 Oxygen Delivery Method Nasal Cannula Nasal Cannula Nasal Cannula Oxygen Flow Rate 4 4 4 Sepsis Recent Fever Within 48 Hours Sepsis New/Unexplained Change in Mental Status Sepsis Action Taken by Nursing 05/30/20 02:31 05/30/20 03:00 05/30/20 03:30 Temperature Temperature Source Pulse Rate 87 84 81 Pulse Rate [Right Radial] Pulse Rate from SpO2 Sensor 87 84 81 Respiratory Rate 19 19 18 Respiratory Effort / Characteristics Respiratory Depth Blood Pressure 97/32 L 104/60 115/62 Blood Pressure Mean 58 76 73 Pulse Oximetry 100 100 100 Oxygen Delivery Method Nasal Cannula Nasal Cannula Nasal Cannula Oxygen Flow Rate 4 4 4 Sepsis Recent Fever Within 48 Hours Sepsis New/Unexplained Change in Mental Status Sepsis Action Taken by Nursing 05/30/20 04:00 Temperature Temperature Source Pulse Rate 98 H Pulse Rate [Right Radial] Pulse Rate from SpO2 Sensor 82 Respiratory Rate 18 Respiratory Effort / Characteristics Respiratory Depth Blood Pressure 111/65 Blood Pressure Mean 82 Pulse Oximetry 100 Oxygen Delivery Method Oxygen Flow Rate Sepsis Recent Fever Within 48 Hours Sepsis New/Unexplained Change in Mental Status Sepsis Action Taken by Nursing Laboratory Data Result diagrams: 05/30/20 01:15 05/30/20 01:15 Lab Results 05/30/20 05/30/20 05/30/20 Range/Units 01:15 01:15 01:15 WBC 5.70 (4.8-10.8) K/uL RBC 4.22 (4.2-5.4) M/uL Hgb 11.1 L (12.0-16.0) g/dL Hct 36.8 L (37-47) % MCV 87.2 (80-100) fL MCH 26.3 (25-34) pg MCHC 30.2 L (32-36) g/dL RDW Std Deviation 43.0 (36.4-46.3) fL RDW Coeff of [place] 13.5 (11.5-14.5) % Plt Count 146 (130-400) K/uL MPV 10.7 H (7.4-10.4) fL Immature Gran % (Auto) 0.2 % Neut % (Auto) 68.4 % Lymph % (Auto) 20.5 % [place] % (Auto) 8.4 % Eos % (Auto) 2.3 % Baso % (Auto) 0.2 % Neut # (Auto) 3.90 (1.4-6.5) K/uL Lymph # (Auto) 1.17 L (1.2-3.4) K/uL [place] # (Auto) 0.48 (0.11-0.59) K/uL Eos # (Auto) 0.13 (0-0.5) K/uL Baso # (Auto) 0.01 (0-0.2) K/uL Immature Gran # (Auto) 0.01 (0.00-0.02) K/uL PT 10.4 (9.0-12.0) Seconds INR 1.0 (0.9-1.1) APTT 25.0 (21.0-31.0) Seconds PTT Ratio 0.9 D-Dimer 980 H* (0-500) ug/L FEU Sodium 141 (136-145) mmol/L Potassium 4.6 (3.5-5.1) mmol/L Chloride 107 (98-107) mmol/L Carbon Dioxide 33 H (21-32) mmol/L Anion Gap 1.0 L (3-11) BUN 26 H (7-18) mg/dl Creatinine 0.70 (0.6-1.2) mg/dl Est Cr Clr Drug Dosing 105.3 ml/min Est GFR ( Amer) 106.1 Est GFR (Non-Af Amer) 91.6 BUN/Creatinine Ratio 37.7 H (10-20) Glucose 111 H (70-99) mg/dl Calcium 7.7 L (8.5-10.1) mg/dl Total Bilirubin < 0.1 L (0.2-1) mg/dl AST 13 L (15-37) U/L ALT 18 (12-78) U/L Alkaline Phosphatase 134 H (45-117) U/L Troponin I < 0.015 (0-0.045) ng/ml Total Protein 7.1 (6.4-8.2) gm/dl Albumin 3.0 L (3.4-5.0) gm/dl Globulin 4.1 H (2.5-4.0) gm/dl Albumin/Globulin Ratio 0.7 L (0.9-2) Urine Color Urine Appearance (Clear) Urine pH (4.5-7.5) Ur Specific [place] (1.000-1.030) Urine Protein (Negative) Urine Glucose (UA) (Negative) Urine Ketones (Negative) Urine Blood (Negative) Urine Nitrite (Negative) Urine Bilirubin (Negative) Urine Urobilinogen (Negative) Ur Leukocyte Esterase (Negative) Urine RBC (0-4) /hpf Urine WBC (0-5) /hpf Ur Epithelial Cells (0-5) /lpf Urine Bacteria (Negative) 05/30/20 Range/Units 01:40 WBC (4.8-10.8) K/uL RBC (4.2-5.4) M/uL Hgb (12.0-16.0) g/dL Hct (37-47) % MCV (80-100) fL MCH (25-34) pg MCHC (32-36) g/dL RDW Std Deviation (36.4-46.3) fL RDW Coeff of [place] (11.5-14.5) % Plt Count (130-400) K/uL MPV (7.4-10.4) fL Immature Gran % (Auto) % Neut % (Auto) % Lymph % (Auto) % [place] % (Auto) % Eos % (Auto) % Baso % (Auto) % Neut # (Auto) (1.4-6.5) K/uL Lymph # (Auto) (1.2-3.4) K/uL [place] # (Auto) (0.11-0.59) K/uL Eos # (Auto) (0-0.5) K/uL Baso # (Auto) (0-0.2) K/uL Immature Gran # (Auto) (0.00-0.02) K/uL PT (9.0-12.0) Seconds INR (0.9-1.1) APTT (21.0-31.0) Seconds PTT Ratio D-Dimer (0-500) ug/L FEU Sodium (136-145) mmol/L Potassium (3.5-5.1) mmol/L Chloride (98-107) mmol/L Carbon Dioxide (21-32) mmol/L Anion Gap (3-11) BUN (7-18) mg/dl Creatinine (0.6-1.2) mg/dl Est Cr Clr Drug Dosing ml/min Est GFR ( Amer) Est GFR (Non-Af Amer) BUN/Creatinine Ratio (10-20) Glucose (70-99) mg/dl Calcium (8.5-10.1) mg/dl Total Bilirubin (0.2-1) mg/dl AST (15-37) U/L ALT (12-78) U/L Alkaline Phosphatase (45-117) U/L Troponin I (0-0.045) ng/ml Total Protein (6.4-8.2) gm/dl Albumin (3.4-5.0) gm/dl Globulin (2.5-4.0) gm/dl Albumin/Globulin Ratio (0.9-2) Urine Color Yellow Urine Appearance Cloudy A (Clear) Urine pH 5.5 (4.5-7.5) Ur Specific [place] >= 1.030 (1.000-1.030) Urine Protein Trace H (Negative) Urine Glucose (UA) Negative (Negative) Urine Ketones Negative (Negative) Urine Blood 2+ H (Negative) Urine Nitrite Negative (Negative) Urine Bilirubin Negative (Negative) Urine Urobilinogen Negative (Negative) Ur Leukocyte Esterase 1+ H (Negative) Urine RBC 0-4 (0-4) /hpf Urine WBC 10-30 H (0-5) /hpf Ur Epithelial Cells >30 H (0-5) /lpf Urine Bacteria 2+ H (Negative) Administered Medications Discontinued Medications Albuterol (Albut/Ipratrop 3mg/0.5mg Neb 3 Ml Vial) 3 ml NEB NOW STA Stop: 05/30/20 01:04 Last Admin: 05/30/20 01:17 Dose: 3 ml Documented by: [id number] Ioversol (Optiray 320 125ml) 119 ml IV ONCE ONE Stop: 05/30/20 02:28 Last Admin: 05/30/20 02:27 Dose: 119 ml Documented by: [id number] Methylprednisolone (Methylprednisolone 125 Mg/2 Ml Vial) 125 mg IV NOW STA Stop: 05/30/20 01:58 Last Admin: 05/30/20 02:12 Dose: 125 mg Documented by: [id number] Discharge Plan Visit Data Chief Complaint: Weakness Stated Complaint: WEAKNESS ED Provider: Valerie Ulloa Discharge Problem: Acute exacerbation of chronic obstructive pulmonary disease Forms Stand Alone Forms: My [facility] Prescriptions Prescriptions: No Action levothyroxine 150 mcg tablet 150 mcg PO DAILY Qty: 90 RF: 3 albuterol sulfate 2.5 mg /3 mL (0.083 %) solution for nebulization 2.5 mg INHALATION .COMPLEX PRN (Reason: Shortness Of Breath Or Wheezing) Qty: 180 RF: 2 albuterol sulfate [Ventolin HFA] 90 mcg/actuation HFA aerosol inhaler 2 puff Inhalation Q6 PRN (Reason: Shortness Of Breath Or Wheezing) Qty: 18 RF: 5 furosemide 20 mg tablet 20 mg PO BID Qty: 180 RF: 3 Spiriva with HandiHaler 18 mcg capsule, w/inhalation device 1 cap INHALATION DAILY Qty: 30 RF: 11 Breo Ellipta 200-25 mcg/dose blister with device 1 inh INHALATION DAILY Qty: 28 RF: 11 bupropion HCl 150 mg tablet sustained-release 12 hr 150 mg PO QAM Qty: 90 RF: 1 hydroxyzine HCl 25 mg tablet 25 mg PO HS Qty: 90 RF: 3 omeprazole 20 mg capsule,delayed release(DR/EC) 20 mg PO DAILY Qty: 90 RF: 3 quetiapine 200 mg tablet 400 mg PO HS Qty: 90 RF: 3 atorvastatin 20 mg tablet 20 mg PO DAILY Qty: 90 RF: 3 potassium chloride 10 mEq tablet extended release 10 meq PO DAILY Qty: 90 RF: 1 nystatin 100,000 unit/mL suspension 5 ml PO Q6H Qty: 200 RF: 1 ascqxiuiou-iuodziugbmmco-bbia 50-325-40 mg tablet 1 - 2 tab PO Q8 PRN (Reason: severe migraine) Qty: 18 RF: 2 lorazepam 0.5 mg tablet 0.5 mg PO HS PRN (Reason: Anxiety) Qty: 30 RF: 0 meloxicam 7.5 mg tablet 7.5 mg PO BID Qty: 60 RF: 11 promethazine 25 mg tablet 25 mg PO Q6H PRN (Reason: nausea and vomiting) Qty: 30 RF: 5 azithromycin 250 mg tablet See Rx Instructions .ROUTE .COMPLEX Qty: 6 RF: 0 ondansetron HCl [Zofran] 4 mg tablet 4 mg PO Q8H 2 Days Qty: 6 RF: 0 sulfamethoxazole-trimethoprim [Bactrim DS] 800-160 mg tablet 1 tab PO BID Qty: 6 RF: 0 escitalopram oxalate 20 mg tablet 20 mg PO QAM RF: 0
[2020-05-30] MEDS ORDERED: OPTIRAY 320 125ml IV ONE (02:27)
--- NOTE | 2020-05-30 04:49 | History & Physical Report ---
Date of Service May 30, 2020 Assessment & Plan (1) Shortness of breath: Cinda is a 65-year-old female with a past medical history of orthopnea, hypothyroidism, hyperlipidemia, COPD, chronic hypoxic respiratory failure on 4 L of home oxygen, emphysema, and anxiety who presents with 1 week of right lateral leg discomfort, increased urinary frequency with small voiding, new incontinence, and increased shortness of breath with increased chills/sweats. Chronic medications note: Patient is a poor historian of her medications, and while will affirm certain medications is not able to recall/name what she is been taking or why. Reports she manages her medications at home. Patient's catrina dave is Dr. Vale, records not available to hospitalist provider electronically. No med rec tech available, reconciliation and collateral of meds from pharmacy records and attempted through pharmacy. Otherwise we will have to call patient's pharmacy ([facility]) or PCP for record reconciliation. 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 Baseline home oxygen requirement of 4 L, sat 98% on [address] chest with no effusion, consolidation, or indications of pneumonia or pulmonary edema Patient breathing comfortably at normal baseline while lying in bed, suspect her symptoms are due to above EKG with no acute ST/T wave inversions or ischemic changes Troponin negative -Defer steroids and azithromycin at this time - Duonebs Q4H PRN Continue RUBBER TUBING BACKER inhalers (Breo/Spiriva RUBBER TUBING BACKER) Elevated d-dimer Troponin negative D-dimer 980 CTA artifact degraded, but no PE appreciated Patient endorses new bilateral calf pain. Venous ultrasound pending Concern for ability to care at home Care management consult placed, patient is a very poor historian and is very confused regarding her medications and medical care. She reports that she lives alone at home with no one to help her with her medications or care. Consult placed to evaluate for patient's ability to care for herself at home and for potential home services. Anxiety/Dep - Buproprion 150mg qAM - Lexapro 20mg PO qAM - RUBBER TUBING BACKER lorazepam 0.5mg qHS - Seroquel 400mg PO qHS Confirmed above medications with external reconciliation Hypothyroidism - Synthroid 150mcg DVT prophylaxis: SCDs, heparin dose adjusted to 7500 every 8 FEN GI: Heart healthy CODE STATUS: Full code discussed with patient Disposition: MedSurg (2) Cervical radiculopathy at C6: (3) Anxiety: (4) Sleeps in sitting position due to orthopnea: (5) Gait disturbance: (6) Sensorineural hearing loss: (7) Supplemental oxygen dependent: (8) Asthma: (9) Hypothyroidism: (10) Hyperlipemia: (11) COPD (chronic obstructive pulmonary disease): (12) UTI (urinary tract infection): History of Present Illness Primary Care Provider: Endy Vale MD Cinda is a 65-year-old female with a past medical history of orthopnea, hypothyroidism, hyperlipidemia, COPD, chronic hypoxic respiratory failure on 4 L of home oxygen, emphysema, and anxiety who presents with 1 week of right lateral leg discomfort, increased urinary frequency with small voiding, new incontinence, and increased shortness of breath with increased chills/sweats. Cinda reports she was in her usual state of health until about 1 week ago when she developed dribbling, urinary urgency, and small volume voids. At the same time she developed an increased shortness of breath, and greatly decreased exercise tolerance which to the last 3 days has progressed to the point where she feels absolutely exhausted and her oxygen levels decrease after only 3-4 steps. She endorses a mild increase in cough, notes that she has a baseline persistent cough and shortness of breath. She uses triple inhaler therapy daily, reports she does not miss doses of her inhaler. She has tried using her nebulizer in the past week which does not produce any improvement in her symptoms. She has had nightly sweats and new chills. She denies chest pain. She denies focal weakness. Denies abdominal pain. She endorses more irritable bowels than normal with loose stools for 1 week. Medical history: Reviewed Medications: Reviewed Allergies: Reviewed Surgical history: Reviewed Family history: Noncontributory CODE STATUS: Full code, discussed with patient Allergies Allergy/AdvReac Type Severity Reaction Status Date / Time amoxicillin Allergy Mild HIVES Verified 01/04/20 05:37 doxycycline Allergy Unknown HIVES Verified 01/04/20 05:37 naproxen Allergy Unknown UNKNOWN Verified 01/04/20 05:37 Penicillins Allergy Unknown HIVES Verified 01/04/20 05:37 Home Medications Home Medications Medication Instructions Recorded Confirmed Type escitalopram oxalate 20 mg PO QAM 12/16/18 05/30/20 History albuterol sulfate 90 mcg/actuation 2 puff INHALATION Q6 PRN #18 gm 08/10/19 05/30/20 Rx aerosol inhaler furosemide 20 mg tablet 20 mg PO BID #180 tab 08/10/19 05/30/20 Rx levothyroxine 150 mcg tablet 150 mcg PO DAILY #90 tab 08/10/19 05/30/20 Rx tiotropium bromide 18 mcg capsule 1 cap INHALATION DAILY #30 puffs 08/10/19 05/30/20 Rx with inhalation device bupropion HCl 150 mg tablet,12 hr 150 mg PO QAM #90 ea 02/01/20 05/30/20 Rx sustained-release hydroxyzine HCl 25 mg tablet 25 mg PO HS #90 tab 02/01/20 05/30/20 Rx atorvastatin 20 mg tablet 20 mg PO DAILY #90 tab 02/29/20 05/30/20 Rx omeprazole 20 mg capsule,delayed 20 mg PO DAILY #90 cap 02/29/20 05/30/20 Rx release quetiapine 200 mg tablet 400 mg PO HS #90 tab 02/29/20 05/30/20 Rx potassium chloride 10 mEq 10 meq PO DAILY #90 tab 03/03/20 05/30/20 Rx tablet,extended release npvbgmndau-qztkoqfawikeo-smqfwmra 1 - 2 tab PO Q8 PRN #18 tab 03/21/20 05/30/20 Rx 50 mg-325 mg-40 mg tablet lorazepam 0.5 mg tablet 0.5 mg PO HS PRN #30 tab 03/25/20 05/30/20 Rx meloxicam 7.5 mg tablet 7.5 mg PO BID #60 tab 03/25/20 05/30/20 Rx fluticasone furoate-vilanterol 1 inh INHALATION DAILY 05/30/20 05/30/20 History [Breo Ellipta] hydroxyzine pamoate 25 mg PO HS 05/30/20 05/30/20 History Past Med/Surg History Medical History (Updated 05/30/20 @ 15:32 by DC Lyons) Asthma Cervical radiculopathy Coagulase-negative staphylococcal infection COPD (chronic obstructive pulmonary disease) COPD (chronic obstructive pulmonary disease) Fall at home Hyperlipemia Hypothyroidism Serous cystadenoma of ovary Surgical History (Updated 01/28/20 @ 14:56 by Leigh Vega) History of bilateral salpingo-oophorectomy History of cataract surgery History of section History of hysterectomy History of knee replacement Right, 1980s S/P TKR (total knee replacement) Family History Unknown No significant family history Leukemia Mother Cancer Social History (Updated 01/28/20 @ 14:57 by Leigh Vega) Smoking Status: Former smoker Tobacco Type: Cigarettes Second Hand Exposure: No; Do You Dip or Chew Tobacco: No; Tobacco Cessation Education Requested by Patient: No Hx Alcohol Use: No Hx Substance Use: No Preferred Language: Iranian Communication Ability: Effective Material Movers Required: No Beliefs That Will Affect Care: None marital status: Single Current Living Situation: Alone Other Information That Helps Us Care for You: No Feels Safe at Home: Yes Review of Systems Review of Systems: Constitutional: Endorses chills, night sweats, malaise Eyes: Denies vision change ENT: Denies ear pain, sore throat, sinus pain Cardiovascular: Denies Chest pain, chest pressure, palpitations. Endorses chronic extremity swelling at baseline, endorses new 1 week of bilateral lower extremity pain Respiratory: See HPI Gastrointestinal: See HPI Genitourinary: See HPI Musculoskeletal: Endorses bilateral lower leg pain, chronic back pain. Denies acute focal weakness or new pain. Integumentary:Denies rash, lesions, bruising Neurological: Denies headache, numbness, tingling Physical Exam Physical Exam: General: A&O to name, place, and month. No acute distress. Cooperative. Overweight. HEENT: Atraumatic, normocephalic. Pulls equal to light and accommodation Pulm: Decreased global air movement, trace expiratory wheeze. Symmetrical chest rise. No increase work of breathing. No respiratory distress. Cardiac: RRR, -mrg. Radial pulses intact and symmetrical. Abdominal: Nontender, nondistended, soft. BS present. No CVA tenderness. Extremities: Soft tissue edema in lower extremities bilaterally, PT pulses intact and symmetrical. Upper extremities with intact sensation to soft touch bilaterally without asymmetry. Intention tremor in upper extremities present. Results & Data Results & Data ([facility]) Vital Signs (Past 12 Hours) Vital Signs Temp Pulse Pulse Resp BP Pulse Ox 05/30/20 04:00 98 H 18 111/65 100 05/30/20 03:30 81 18 115/62 100 05/30/20 03:00 84 19 104/60 100 05/30/20 02:31 87 19 97/32 L 100 05/30/20 02:01 90 12 100/82 100 05/30/20 01:32 89 19 130/80 96 05/30/20 01:19 85 20 98 05/30/20 01:00 95 H 16 119/59 L 100 05/30/20 00:34 36.6 C 94 H 19 102/58 L 99 Supervising Physician Co-Signing Physician Notes Attending addendum: I have physically seen this patient, have supervised the medical residents activities, and agree with the H&P unless as otherwise noted. Assessment and Plan: Presumptive urinary tract infection- Follow urine culture and sensitivity Cipro Chronic respiratory failure with hypoxia/COPD- 4 L oxygen requirement at home Continue usual inhalers Breo and Spiriva Duonebs every 4 hours as needed. Anxiety with depression- Continue bupropion, Lexapro, Seroquel and lorazepam Disposition- Patient is very poor historian, with confusion regarding her medications, and unclear if she is taking them properly at home. Consult social media job titles. Remaining orders and notations as noted. Resident Activity Tracking Resident Involvement: Resident Care Provided Care Provided: Adult Hospital Medicine
[2020-05-30] MEDS ORDERED: LORazepam 0.5 MG TAB PO PRN (05:41)
--- NOTE | 2020-05-30 07:19 | Ultrasound Report ---
US venous doppler LE BI CLINICAL HISTORY: Elevated d-dimer, possible pulmonary embolism COMPARISON STUDY: 08/06/2016 FINDINGS: Real-time and color flow Doppler imaging were performed. Flow was seen within the femoral, popliteal and calf veins with no intraluminal thrombus demonstrated. The saphenous vein is patent. The examination was difficult from a technical standpoint due to the patient's large body habitus IMPRESSION: No evidence of lower extremity DVT. ACT 112: Negative or not required by law. Electronically signed by: Giancarlo Napoles M.D. 05/30/2020 7:18 AM
--- NOTE | 2020-05-30 07:27 | XRay Report ---
XR chest 1V portable CLINICAL HISTORY: Shortness of breath COMPARISON STUDY: 01/04/2020 FINDINGS: There is stable elevation right hemidiaphragm. The study is rotated. There is no lobar cons olidation. There are no significant pleural effusions. Interstitial densities the left lung base are likely atelectatic.[ IMPRESSION: 1. No evidence of failure 2. Interstitial opacities the left lung base, likely atelectatic. No evidence of lobar consolidation ACT 112: Negative or not required by law. Electronically signed by: Giancarlo Napoles M.D. 05/30/2020 7:25 AM
[2020-05-30] MEDS ORDERED: ACETAMINOPHEN 325 MG TAB ONE (07:34)
--- NOTE | 2020-05-30 07:52 | CT Scan Report ---
CT ANGIOGRAM OF THE CHEST CLINICAL HISTORY: Shortness of breath. Possible pulmonary embolism COMPARISON STUDY: 02/23/2016 TECHNIQUE: Following the IV administration of 119 mL of Optiray-320, CT angiogram of the thorax was p erformed from the thoracic inlet to the lung bases utilizing the pulmonary embolus protocol. Images a re reviewed in the axial, sagittal, and coronal planes. IV contrast was administered without complica tion. MIP imaging was performed. A dose lowering technique was utilized adhering to the principles o f ALARA. CT DOSE: 865.52 mGy.cm FINDINGS: No pathologically enlarged axillary mediastinal or hilar lymph nodes were visualized. There is a left aortic arch with an aberrant right subclavian artery. There is no evidence of thoraci c aortic dilatation. No pulmonary artery filling defects are visualized. Evaluation of lower lobe pulmonary artery branche s is limited due to respiratory motion artifact. No pleural effusions are visualized. There is pulmonary emphysema. There is no focal pulmonary consolidation. IMPRESSION: 1. Motion degraded study 2. No evidence of acute pulmonary embolism given the limitations of the examination 3. Emphysema 4. No evidence of focal pulmonary consolidation 5. Left aortic arch with an aberrant right subclavian artery ACT 112: Negative or not required by law. Electronically signed by: Giancarlo Napoles M.D. 05/30/2020 7:51 AM
[2020-05-30] MEDS ORDERED: HEPARIN SOD 5,000 UNIT/0.5 ML VIAL SQ ONE (09:15)
[2020-05-30] MEDS: LEVOTHYROXINE SODIUM 150 MCG TABLET PO SCH (09:21)
[2020-05-30] MEDS: FLUTICASONE/VILANTEROL 200/25MCG 14 PUFFS/INHALER INH SCH (09:22)
[2020-05-30] MEDS: PANTOprazole 40 MG TAB PO SCH (09:22)
[2020-05-30] MEDS: UMECLIDINIUM BROMIDE 62.5MCG/BLISTER 7 PUFFS/INHALER INH SCH (09:22)
[2020-05-30] MEDS: BuPROPion SR 150 MG TABCR PO SCH (09:22)
[2020-05-30] MEDS: ESCITALOPRAM OXALATE 20 MG TAB PO SCH (09:22)
[2020-05-30] MEDS: CIPROFLOXACIN 250 MG TAB PO SCH ×2 (09:23→20:36)
[2020-05-30] MEDS ORDERED: BUTALBITAL/ACETAMIN/CAFFEINE TAB PO PRN (11:13)
--- NOTE | 2020-05-30 12:35 | Electrocardiogram Report ---
Test Reason : Blood Pressure : / mmHG Vent. Rate : 088 BPM Atrial Rate : 088 BPM P-R Int : 200 ms QRS Dur : 092 ms QT Int : 374 ms P-R-T Axes : 080 -15 065 degrees QTc Int : 452 ms Normal sinus rhythm Inferior infarct (cited on or before 29-JUN-2019) Abnormal ECG When compared with ECG of 04-JAN-2020 05:03, Minimal criteria for Anteroseptal infarct are no longer Present Confirmed by Júnior Miller ([id number]) on 05/30/2020 12:35:12 PM Referred By: REFERRED SELF Confirmed By:Júnior Miller
[2020-05-30] MEDS: HEPARIN SOD 5,000 UNIT/0.5 ML VIAL SQ SCH ×2 (14:05→21:02)
[2020-05-30] MEDS: ACETAMINOPHEN 325 MG TAB PO PRN ×2 (14:19→18:53)
--- NOTE | 2020-05-30 14:51 | Hospitalist Progress Note ---
Date of Service May 30, 2020 Assessment & Plan (1) Shortness of breath: Improving. 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 Baseline home oxygen requirement of 4 L, sat 98% on [address] chest with no effusion, consolidation, or indications of pneumonia or pulmonary edema EKG with no acute ST/T wave inversions or ischemic changes Troponin negative -Defer steroids and azithromycin at this time - Duonebs Q4H PRN Continue TRY ON BASTER inhalers (Breo/Spiriva TRY ON BASTER) - D- dimer elevated - Calf ultrasound without VTE, no PE on CTA (2) COPD (chronic obstructive pulmonary disease): Continue home inhalers (3) UTI (urinary tract infection): Polyuria with new incontinence, chills suspect 2/2 UTI 1 week polyuria, incontinence UA with 2+ blood, leukocyte esterase, 2+ bacteria No leukocytosis, afebrile Patient with allergies to amoxicillin, doxycycline (hives) History of pansensitive Proteus UTI in 2019, urine culture pending Continue Ciprofloxacin 250mg Q12H (4) Cervical radiculopathy at C6: (5) Anxiety: Anxiety/Dep - Buproprion 150mg qAM - Lexapro 20mg PO qAM - TRY ON BASTER lorazepam 0.5mg qHS - Seroquel 400mg PO qHS (6) Supplemental oxygen dependent: Wears 4L at baseline (7) Hypothyroidism: Continue Synthroid 150mcg (8) Hyperlipemia: Continue atorvastatin (9) Migraine: Continue home Fiorecet (10) DVT prophylaxis: heparin Admission and Anticipated Discharge Date Admission Date: May 30, 2020 Subjective Requiring baseline oxygen today. Reports a headache behind her eyes typical for her migraines. She denies any visual changes. Upon recheck in the afternoon her headache had improved and she was sitting up in bed eating lunch. ROS Constitutional: no chills, aches, sweats or fever Respiratory: no sob,cough, sputum, or wheezing Cardiac: no chest pain, palpitations, edema, orthopnea or lightheadedness GI: no abdominal pain, nausea, vomiting, diarrhea or constipation : no dysuria or hesitancy Extremities: no joint pain or weakness Skin: no rash All other systems reviewed and negative Physical Exam Physical Exam: General: no distress Eyes: normal inspection, PERLL Respiratory: chest non tender, clear to auscultation, normal breath sounds, no respiratory distress, no accessory muscle use Cardiac: regular rate and rhythm, no rub or gallop, no murmur, no edema, no jvd GI/: active bowel sounds, no abd pain or tenderness, soft, non distended Extremities: normal range of motion, normal strength, non tender Neuro/Psych: alert and oriented x 3, normal mood and affect Skin: normal color, dry Results & Data Results & Data ([facility]) Vital Signs (Past 12 Hours) Vital Signs Temp Pulse Pulse Resp BP BP Pulse Ox 05/30/20 14:21 103 H 98 05/30/20 08:20 36.6 C 84 20 135/76 100 05/30/20 07:53 85 20 130/69 96 05/30/20 06:00 85 16 115/75 98 05/30/20 05:30 85 16 116/69 97 05/30/20 04:30 77 116/77 98 05/30/20 04:00 98 H 18 111/65 100 05/30/20 03:30 81 18 115/62 100 05/30/20 03:00 84 19 104/60 100 PG Care Time/CCT Total # of Minutes Spent Total Time Spent with Patient: Total time spent is greater than 50% in coordination of care (as documented) at patient's floor/unit and/or counseling patient: Coding Level of Care Code None Diagnoses Shortness of breath R06.02 COPD (chronic obstructive pulmonary disease) J44.9 UTI (urinary tract infection) N39.0 Cervical radiculopathy at C6 M54.12 Anxiety F41.9 Supplemental oxygen dependent Z99.81 Hypothyroidism E03.9 Hyperlipemia E78.5 Migraine G43.909 DVT prophylaxis Z29.9
[2020-05-30 20:22] LABS: BUN Creatinine Ratio 28.8 (10-20); Calcium 8.6 mg/dl (8.5-10.1); Creatinine Clr Calc Pharmacy 98.1 ml/min; Est GFR (African American) 93.1; Est GFR (Non-African American) 80.3; Potassium 4.5 mmol/L (3.5-5.1)
[2020-05-30] MEDS: QUETIAPINE FUMARATE 200 MG TAB PO SCH (20:36)
--- NOTE | 2020-05-31 01:55 | Billing Data ---
Date of Service May 31, 2020 Coding Level of Care Code 01515 Initial Inpt Care Lvl 3
[2020-05-31 05:29] LABS: Hematocrit (blood only) 36.4 % (37-47); Hemoglobin 10.7 g/dL (12.0-16.0); Mean Corpuscular Hemoglobin 26.3 pg (25-34); Mean Corpuscular Hgb Conc 29.4 g/dL (32-36); Mean Corpuscular Volume 89.4 fL (80-100); Mean Platelet Volume 10.9 fL (7.4-10.4); Platelet Count 143 K/uL (130-400); RDW Coefficient of Variation 13.4 % (11.5-14.5); Red Blood Count 4.07 M/uL (4.2-5.4); White Blood Count 6.83 K/uL (4.8-10.8)
[2020-05-31] MEDS: HEPARIN SOD 5,000 UNIT/0.5 ML VIAL SQ SCH ×3 (06:22→21:14)
[2020-05-31] MEDS: LEVOTHYROXINE SODIUM 150 MCG TABLET PO SCH (06:23)
[2020-05-31] MEDS: FLUTICASONE/VILANTEROL 200/25MCG 14 PUFFS/INHALER INH SCH (08:25)
[2020-05-31] MEDS: UMECLIDINIUM BROMIDE 62.5MCG/BLISTER 7 PUFFS/INHALER INH SCH (08:25)
[2020-05-31] MEDS: CIPROFLOXACIN 250 MG TAB PO SCH (08:26)
[2020-05-31] MEDS: ESCITALOPRAM OXALATE 20 MG TAB PO SCH (08:26)
[2020-05-31] MEDS: BuPROPion SR 150 MG TABCR PO SCH (08:27)
[2020-05-31] MEDS: PANTOprazole 40 MG TAB PO SCH (08:27)
[2020-05-31] MEDS ORDERED: BUTALBITAL/ASPIRIN/CAFFEINE 1 TAB TAB PO PRN (10:30)
[2020-05-31] MEDS: ALBUT/IPRATROP 3MG/0.5MG NEB 3 ML VIAL NEB PRN ×2 (11:42→20:25)
--- NOTE | 2020-05-31 14:21 | Hospitalist Progress Note ---
Date of Service May 31, 2020 Assessment & Plan (1) Shortness of breath: Chronic hypoxic respiratory failure 2/2 COPD and emphysema. 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 Continues to require baseline O2 CT chest with no effusion, consolidation, or indications of pneumonia or pulmonary edema EKG with no acute ST/T wave inversions or ischemic changes - troponin checked on 05/31 for complaints of "spell" of sweating, sob and chest pressure overnight - wnl -Defer steroids and azithromycin at this time - patient appears to be at her baseline breathing - Duonebs Q4H PRN Continue home inhalers (Breo/Spiriva RN ONCOLOGY) - D- dimer elevated - Calf ultrasound without VTE, no PE on CTA Patient also with new incontinence, chills, on admission - concern for UTI UC no growth - will dc cipro (2) Anxiety: Anxiety/Dep - Buproprion 150mg qAM - Lexapro 20mg PO qAM - RN ONCOLOGY lorazepam 0.5mg qHS - Seroquel 400mg PO qHS (3) Supplemental oxygen dependent: Wears 4L at baseline (4) Asthma: (5) Hypothyroidism: Continue Synthroid 150mcg (6) Hyperlipemia: Continue atorvastatin (7) COPD (chronic obstructive pulmonary disease): Continue home inhalers (8) Migraine: Patient with ongoing headache, reports taking Fiorecet daily at home - will continue here to prevent withdrawal but way want to follow up with pcp or neurology for a better moth exterminator solution to migraines if she is requiring this medication daily (9) DVT prophylaxis: Heparin subq Dispo: PT/OT robert - working with case management, will likely go home with . Admission and Anticipated Discharge Date Admission Date: May 30, 2020 Subjective Ms. Pettit continues to have headaches which she rates as a 10/10 pain bilateral and frontal. She reports that at home she takes Fioricet everyday. She is also dizzy at times when she stands up, states "the room is moving". She has had this at times in the past which she attributes to fluid in her ears but she says this is more severe. It is not bothering her as she is laying in bed and is not exacerbated by moving her head side to side. No nausea. No visual changes. She reports two "spells" over the night where she was hot and sob with chest pressure. I don't see any documentation from cloth trimmer hand on this and vitals looked good overnight. She reports that she improved within a few minutes with turning the air down in the room. ROS Constitutional: no chills, aches, sweats or fever Respiratory: no sob,cough, sputum, or wheezing Cardiac: no chest pain, palpitations, edema, orthopnea GI: no abdominal pain, nausea, vomiting, diarrhea or constipation : no dysuria or hesitancy Extremities: no joint pain or weakness Skin: no rash All other systems reviewed and negative Physical Exam Physical Exam: General: no distress Eyes: normal inspection, PERLL Respiratory: chest non tender, clear to auscultation, normal breath sounds, no respiratory distress, no accessory muscle use Cardiac: regular rate and rhythm, no rub or gallop, no murmur, no edema, no jvd GI/: active bowel sounds, no abd pain or tenderness, soft, non distended Extremities: normal range of motion, normal strength, non tender Neuro/Psych: alert and oriented x 3, normal mood and affect, Patient does have amblyopiaCN II - XII intact Skin: normal color, dry Results & Data Results & Data ([facility]) Vital Signs (Past 12 Hours) Vital Signs Temp Pulse Resp BP Pulse Ox Pulse Ox 05/31/20 13:10 96 05/31/20 11:42 78 18 99 05/31/20 11:27 108/58 L 05/31/20 07:52 36.9 C 74 17 99/50 L 99 PG Care Time/CCT Total # of Minutes Spent Total Time Spent with Patient: Total time spent is greater than 50% in log cooker rdination of care (as documented) at patient's floor/unit and/or counseling patient: Coding Level of Care Code 00212 Subseq Hosp Care Lvl 3 Diagnoses Shortness of breath R06.02 Anxiety F41.9 Supplemental oxygen dependent Z99.81 Asthma J45.909 Hypothyroidism E03.9 Hyperlipemia E78.5 COPD (chronic obstructive pulmonary disease) J44.9 Migraine G43.909 DVT prophylaxis Z29.9
[2020-05-31] MEDS: ACETAMINOPHEN 325 MG TAB PO PRN (17:22)
[2020-05-31] MEDS: QUETIAPINE FUMARATE 200 MG TAB PO SCH (21:13)
[2020-06-01 06:29] LABS: Hematocrit (blood only) 37.2 % (37-47); Hemoglobin 10.9 g/dL (12.0-16.0); Mean Corpuscular Hemoglobin 26.1 pg (25-34); Mean Corpuscular Hgb Conc 29.3 g/dL (32-36); Mean Corpuscular Volume 89.2 fL (80-100); Mean Platelet Volume 10.6 fL (7.4-10.4); Platelet Count 139 K/uL (130-400); RDW Coefficient of Variation 13.7 % (11.5-14.5); RDW Standard Deviation 44.6 fL (36.4-46.3); Red Blood Count 4.17 M/uL (4.2-5.4); White Blood Count 5.27 K/uL (4.8-10.8)
[2020-06-01] MEDS: LEVOTHYROXINE SODIUM 150 MCG TABLET PO SCH (06:29)
[2020-06-01] MEDS: HEPARIN SOD 5,000 UNIT/0.5 ML VIAL SQ SCH (06:29)
[2020-06-01 07:06] LABS: Albumin Level 2.9 gm/dl (3.4-5.0); BUN Creatinine Ratio 33.9 (10-20); Calcium 8.9 mg/dl (8.5-10.1); Creatinine Clr Calc Pharmacy 112.5 ml/min; Est GFR (African American) 107.1; Est GFR (Non-African American) 92.4; Potassium 4.1 mmol/L (3.5-5.1)
[2020-06-01 07:09] LABS: Albumin Globulin Ratio 0.8 (0.9-2); Bilirubin,Total 0.1 mg/dl (0.2-1); Globulin 3.5 gm/dl (2.5-4.0); Total Protein 6.4 gm/dl (6.4-8.2)
[2020-06-01] MEDS: UMECLIDINIUM BROMIDE 62.5MCG/BLISTER 7 PUFFS/INHALER INH SCH (08:35)
[2020-06-01] MEDS: PANTOprazole 40 MG TAB PO SCH (08:35)
[2020-06-01] MEDS: FLUTICASONE/VILANTEROL 200/25MCG 14 PUFFS/INHALER INH SCH (08:35)
[2020-06-01] MEDS: ESCITALOPRAM OXALATE 20 MG TAB PO SCH (08:36)
[2020-06-01] MEDS: BuPROPion SR 150 MG TABCR PO SCH (08:36)
--- NOTE | 2020-06-01 12:16 | Discharge Summary ---
Date of Service June 01, 2020 Admission HPI Per Admitting Provider Cinda is a 65-year-old female with a past medical history of orthopnea, hypothyroidism, hyperlipidemia, COPD, chronic hypoxic respiratory failure on 4 L of home oxygen, emphysema, and anxiety who presents with 1 week of right lateral leg discomfort, increased urinary frequency with small voiding, new incontinence, and increased shortness of breath with increased chills/sweats. Cinda reports she was in her usual state of health until about 1 week ago when she developed dribbling, urinary urgency, and small volume voids. At the same time she developed an increased shortness of breath, and greatly decreased ex ercise tolerance which to the last 3 days has progressed to the point where she feels absolutely exhausted and her oxygen levels decrease after only 3-4 steps. She endorses a mild increase in cough, notes that she has a baseline persistent cough and shortness of breath. She uses triple inhaler therapy daily, reports she does not miss doses of her inhaler. She has tried using her nebulizer in past week which does not produce any improvement in her symptoms. She has had nightly sweats and new chills. She denies chest pain. She denies focal weakness. Denies abdominal pain. She endorses more irritable bowels than normal with loose stools for 1 week. Medical history: Reviewed Medications: Reviewed Allergies: Reviewed Surgical history: Reviewed Family history: Noncontributory CODE STATUS: Full code, discussed with patient Principal Diagnosis COPD Discharge Exam Constitutional WD/WN, vitals as above Respiratory normal respiratory effort, lungs clear to auscultation Cardiovascular RRR, no murmur, no edema Gastrointestinal (Abdomen) normal bowel sounds, soft, nontender, no hepatosplenomegaly Musculoskeletal no cyanosis or clubbing, extremities motor strength 5/5 Skin no rashes, warm and dry Neurologic moves all extremities and awake Psychiatric A+Ox3, euthymic affect Discharge Data Allergies Allergy/AdvReac Type Severity Reaction Status Date / Time amoxicillin Allergy Mild HIVES Verified 01/04/20 05:37 doxycycline Allergy Unknown HIVES Verified 01/04/20 05:37 naproxen Allergy Unknown UNKNOWN Verified 01/04/20 05:37 Penicillins Allergy Unknown HIVES Verified 01/04/20 05:37 Consultations 05/30/20 05:05 ED Decision to Admit Stat 05/30/20 05:45 Consult Case Management - Discharge Planning Stat Ordered Studies 05/30/20 01:59 CT angio chest PE protocol Urgent 05/30/20 05:45 US venous doppler [facility] Course (1) Shortness of breath: Chronic hypoxic respiratory failure 2/2 COPD and emphysema. 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 Continues to require baseline O2 CT chest with no effusion, consolidation, or indications of pneumonia or pulmo nary edema EKG with no acute ST/T wave inversions or ischemic changes - troponin checked on 05/31 for complaints of "spell" of sweating, sob and chest pressure overnight - wnl -Defer steroids and azithromycin at this time - patient appears to be at her baseline breathing - Duonebs Q4H PRN Continue home inhalers (Breo/Spiriva [employer] OP) - D- dimer elevated - Calf ultrasound without VTE, no PE on CTA Patient also with new incontinence, chills, on admission - concern for UTI UC no growth - dc'd cipro (2) Anxiety: Anxiety/Dep - Buproprion 150mg qAM - Lexapro 20mg PO qAM - [employer] OP lorazepam 0.5mg qHS - Seroquel 400mg PO qHS (3) Supplemental oxygen dependent: Wears 4L at baseline (4) Asthma: (5) Hypothyroidism: Continue Synthroid 150mcg (6) Hyperlipemia: Continue atorvastatin (7) COPD (chronic obstructive pulmonary disease): Continue home inhalers (8) Migraine: Patient with ongoing headache, reports taking Fiorecet daily at home - will continue here to prevent withdrawal but way want to follow up with pcp or neurology for a better buttermaker helper solution to migraines if she is requiring this medication daily Headache and dizziness have resolved today (9) DVT prophylaxis: Heparin subq Dispo: PT/OT robert - working with case management, will likely go home with . I did correctional counselor her that our PT/OT evjc recommended rehab and that she is a fall risk. She is adamant she is not going to rehab. Total Time Total Time Spent Total Time Spent (In Minutes): greater than 30 minutes Discharge Plan Discharge Items Patient Disposition: Home - Self-Care Reason For Visit: UTI Discharge Diagnosis: COPD Activity: Resume your previous activity Non-emergency contact: Primary Care Provider Call non-emergency contact if: you have any medication questions and your symptoms worsen Follow-up/Referrals: Endy Vale III, MD [Primary Care Provider] - Diet: Heart Healthy Addtl Attending Provider Instructions: (1) Shortness of breath: You did not have any blood clots or pneumonia on your CT scan and no blood clots in your lower legs. Continue your home inhalers and oxygen Your urine culture did not grow any bacteria so you do not need to continue with antibiotics Home health physical and occupational therapy to evaluate and treat Pending Studies at Discharge: No Stand-Alone Forms: My [facility] [employer], Smoking Cessation Medications and DC Order Prescriptions: Continued levothyroxine 150 mcg tablet 150 mcg PO DAILY Qty: 90 RF: 3 furosemide 20 mg tablet 20 mg PO BID Qty: 180 RF: 3 Spiriva with HandiHaler 18 mcg capsule, w/inhalation device 1 cap INHALATION DAILY Qty: 30 RF: 11 bupropion HCl 150 mg tablet sustained-release 12 hr 150 mg PO QAM Qty: 90 RF: 1 hydroxyzine HCl 25 mg tablet 25 mg PO HS Qty: 90 RF: 3 omeprazole 20 mg capsule,delayed release(DR/EC) 20 mg PO DAILY Qty: 90 RF: 3 quetiapine 200 mg tablet 400 mg PO HS Qty: 90 RF: 3 atorvastatin 20 mg tablet 20 mg PO DAILY Qty: 90 RF: 3 potassium chloride 10 mEq tablet extended release 10 meq PO DAILY Qty: 90 RF: 1 zesuumreen-aazmbwchhpbsl-yymw 50-325-40 mg tablet 1 - 2 tab PO Q8 PRN (Reason: severe migraine) Qty: 18 RF: 2 lorazepam 0.5 mg tablet 0.5 mg PO HS PRN (Reason: Anxiety) Qty: 30 RF: 0 meloxicam 7.5 mg tablet 7.5 mg PO BID Qty: 60 RF: 11 hydroxyzine pamoate 25 mg capsule 25 mg PO HS RF: 0 Breo Ellipta 200-25 mcg/dose blister with device 1 inh INHALATION DAILY RF: 0 escitalopram oxalate 20 mg tablet 20 mg PO QAM RF: 0 No Action albuterol sulfate [Ventolin HFA] 90 mcg/actuation HFA aerosol inhaler 2 puff Inhalation Q6 PRN (Reason: Shortness Of Breath Or Wheezing) Qty: 18 RF: 5 Discharge Orders: Discharge Order (Routine); Ordered 06/01/20 Ordered By: Haleigh Thurston Admission Data Admit Date/Time: 05/30/20 06:42 Attending Provider: Ralph King Admit Provider: Delgado Neely Primary Care Provider: Endy Vale III Other Providers: Delgado Neely ; [facility] Other Interventions: Discharge Summary Assessment (RN) Last Done: 06/01/20 14:53 Supervising Physician Co-Signing Physician Notes Patient seen and examined on the day of discharge. I agree with the discharge summary by Haleigh IRWIN. I have reviewed the chart including labs, imaging and plans for discharge. patient feeling well, her breathing is at baseline and she is on her typical home oxygen requirements headaches are well controlled back on Fioricet - Dyspnea: increased shortness of breath compared to her baseline at the time of admission resolved quickly, unclear etiology as she did not have any signs of COPD exacerbation - Headache: chronic issues, gets them every day and takes Fioricet discussed with her that maybe she could be referred to neurology outpatient for migraine management she could be taking some type of prophylaxis since she gets headaches every day Coding Level of Care Code D/C Day Management >30 mins Diagnoses Shortness of breath R06.02 Anxiety F41.9 Supplemental oxygen dependent Z99.81 Asthma J45.909 Hypothyroidism E03.9 Hyperlipemia E78.5 COPD (chronic obstructive pulmonary disease) J44.9 Migraine G43.909 DVT prophylaxis Z29.9
== END 2020-06-01 15:52 | disposition home or self-care (01) ==
LOC: ED 00:18 → 3N 00:18 → SUATTDRO 06:42 → 3N 08:10